=== PATIENT | female | born 1940 | race Caucasian/White ===

== ENCOUNTER → 2016-08-13 | Outpatient (CLI) | payer BC ==
[~2016-08-13] MED LIST: ASPEC81 PO; ATOR-22 PO; CLOP1TAB15 PO; CRG125 PO; DILT-119 PO; DONE1TAB25 PO; HYDR-4717 PO; HYDR25TA4 PO; IMD/2 PO; LEVO112T2 PO; LPT20 PO; NTRSLP4 SL; OMEG10007 PO; OMEP20CA59 PO; PRM/45 PO; SENN-61 PO; SPIR50TA PO
[2016-08-13 10:52] LABS: HEMATOCRIT 40.9 % (37-47); MEAN CELL VOLUME 86.7 fL (80-100); MEAN CORPUSCULAR HEMOGLOBIN 30.5 pg (25-34); MEAN CORPUSCULAR HGB CONC 35.2 g/dl (32-36); MEAN PLATELET VOLUME 10.3 fL (7.4-10.4); PLATELET COUNT 422 K/uL (130-400); RED BLOOD COUNT 4.72 M/uL (4.2-5.4); WHITE BLOOD COUNT 15.47 K/uL (4.8-10.8)
[2016-08-13 11:23] LABS: ESTIMATED AVERAGE GLUCOSE 137 mg/dl; HA1C FLAG Normal (Normal)
[2016-08-13 11:27] LABS: ALT/SGPT 19 U/L (12-78); AST/SGOT 11 U/L (15-37); BASO % 0.6 %; BASO ABS # 0.09 K/uL (0-0.2); BLOOD UREA NITROGEN 36 mg/dl (7-18); BUN/CREATININE RATIO 30.2 (10-20); CARBON DIOXIDE 30 mmol/L (21-32); CHLORIDE 95 mmol/L (98-107); COMPLETE YES; EOS % 1.4 %; GLUCOSE 120 mg/dl (70-99); LYMPH % 13.1 %; LYMPH ABS # 2.02 K/uL (1.2-3.4); MONO % 10.3 %; NEUT % 67.6 %; POTASSIUM 3.6 mmol/L (3.5-5.1); SODIUM 134 mmol/L (136-145); TRIGLYCERIDES 247 mg/dl (0-150); VERY LOW DENSITY LIPOPROT CALC 49 mg/dl
[2016-08-13 11:38] LABS: CHOLESTEROL 166 mg/dl (0-200); CHOLESTEROL/HDL RATIO 3.7; HDL CHOLESTEROL 45 mg/dl; LDL CHOLESTEROL CALCULATED 72 mg/dl
== END | disposition home or self-care (01) ==
LOC: C.LAB1850 09:42
PROVIDERS: ATTEND Internal Medicine
DX: I10 Essential (primary) hypertension (principal); E11.9 Type 2 diabetes mellitus without complications

== ENCOUNTER → 2016-11-17 | Outpatient (CLI) | payer BC ==
[~2016-11-17] MED LIST changes: +ATOR-24 PO; +CARV25TA PO
[2016-11-17 12:41] LABS: HEMATOCRIT 41.8 % (37-47); MEAN CELL VOLUME 91.3 fL (80-100); MEAN CORPUSCULAR HEMOGLOBIN 31.4 pg (25-34); MEAN CORPUSCULAR HGB CONC 34.4 g/dl (32-36); MEAN PLATELET VOLUME 10.3 fL (7.4-10.4); PLATELET COUNT 446 K/uL (130-400); RED BLOOD COUNT 4.58 M/uL (4.2-5.4); WHITE BLOOD COUNT 13.51 K/uL (4.8-10.8)
[2016-11-17 13:16] LABS: ESTIMATED AVERAGE GLUCOSE 137 mg/dl; HA1C FLAG Normal (Normal)
[2016-11-17 13:26] LABS: BLOOD UREA NITROGEN 31 mg/dl (7-18); BUN/CREATININE RATIO 19.3 (10-20); CALCIUM 10.4 mg/dl (8.5-10.1); CARBON DIOXIDE 22 mmol/L (21-32); CHLORIDE 98 mmol/L (98-107); GLUCOSE 179 mg/dl (70-99); POTASSIUM 4.2 mmol/L (3.5-5.1); SODIUM 132 mmol/L (136-145)
[2016-11-17 14:27] LABS: BASO % 0.3 %; BASO ABS # 0.04 K/uL (0-0.2); COMPLETE YES; IG% 6.5 %; LYMPH % 14.5 %; LYMPH ABS # 1.96 K/uL (1.2-3.4); MONO % 8.3 %; NEUT % 68.4 %
[2016-11-17 14:29] LABS: GIANT PLATELETS 1+; LARGE PLATELETS 1+
== END | disposition home or self-care (01) ==
LOC: C.LAB1850 11:13
PROVIDERS: ATTEND Physician Assistant
DX: I10 Essential (primary) hypertension (principal); E03.9 Hypothyroidism, unspecified; E11.9 Type 2 diabetes mellitus without complications

== ENCOUNTER 2016-12-01 09:30 | Inpatient (IN) | payer BC, OTHER ==
[~2016-12-01] VITALS: Ht 162.6 cm; Wt 79.9 kg
[~2016-12-01 09:30] MED LIST changes: -ATOR-24 PO; -CARV25TA PO; -CRG125 PO; -LPT20 PO
[2016-12-01] MEDS ORDERED: ASPIRIN 81 MG CHEW PO STA (10:11)
[2016-12-01] MEDS ORDERED: HydrALAZINE HCL 20 MG/ML VIAL IV. STA (10:11)
[2016-12-01] MEDS ORDERED: NITROGLYCERIN 0.4 MG SL PER TAB CHARGE SL PRN (10:15)
[2016-12-01 10:53] LABS: HEMATOCRIT 41.3 % (37-47); MEAN CELL VOLUME 87.9 fL (80-100); MEAN CORPUSCULAR HEMOGLOBIN 30.9 pg (25-34); MEAN CORPUSCULAR HGB CONC 35.1 g/dl (32-36); MEAN PLATELET VOLUME 9.9 fL (7.4-10.4); PLATELET COUNT 358 K/uL (130-400); WHITE BLOOD COUNT 10.34 K/uL (4.8-10.8)
--- NOTE | 2016-12-01 11:01 | DIAGNOSTIC IMAGING REPORT ---
CHEST ONE VIEW PORTABLE CLINICAL HISTORY: chest pain, HTN dyspnea COMPARISON STUDY: 11/27/2015 FINDINGS: The bones soft tissues and hemidiaphragms are normal. The cardiomediastinal silhouette is normal. The lungs are clear. The pulmonary vasculature is normal. IMPRESSION: Negative chest. Electronically signed by: Vicente Miller M.D. 12/01/2016 10:59 AM Dictated Date/Time: 12/01/2016 10:59 AM
[2016-12-01 11:20] LABS: BLOOD UREA NITROGEN 26 mg/dl (7-18); GLUCOSE 146 mg/dl (70-99)
[2016-12-01 11:21] LABS: ALKALINE PHOSPHATASE 103 U/L (45-117); ALT/SGPT 24 U/L (12-78); AST/SGOT 19 U/L (15-37); CALCIUM 9.6 mg/dl (8.5-10.1); CARBON DIOXIDE 23 mmol/L (21-32); CHLORIDE 93 mmol/L (98-107); MAGNESIUM 1.9 mg/dl (1.8-2.4); POTASSIUM 3.4 mmol/L (3.5-5.1); SODIUM 130 mmol/L (136-145)
[2016-12-01 11:43] LABS: BASO % 0.3 %; BASO ABS # 0.03 K/uL (0-0.2); COMPLETE YES; EOS % 0.9 %; IG% 6.2 %; LYMPH % 13.6 %; LYMPH ABS # 1.41 K/uL (1.2-3.4); VACUOLIZATION 1+
[2016-12-01] MEDS ORDERED: HEPARIN 25000 UNIT/500 ML D5W ONE (12:30)
[2016-12-01] MEDS ORDERED: HEPARIN SOD 5000 UNIT/0.5 ML CARP ONE (12:31)
--- NOTE | 2016-12-01 13:03 | History and Physical ---
History & Physical Date & Time of Service: Dec 01, 2016 at 12:43 Chief Complaint: Chest Pains, Clammy Primary Care Physician: Marquise Clement M.D. History of Present Illness Source: patient, family, clinic records, hospital records This patient is a pleasant 76-year-old female that presents emergency department with complaints of bilateral chest pain that started at 9 AM this morning while she was watching television. She describes it as a severe pressure-like sensation across her chest. It does not radiate to her jaw or arms. She was mildly short of breath, however she has been chronically short of breath for quite some time. She denies any dizziness or lightheadedness. No nausea. No heart palpitations. The patient doesn't a history of significant coronary artery disease. She had a cardiac catheterization performed in 2015, which resulted in a drug-eluting stent in the LAD. Upon arrival in the emergency department, EKG shows slight anterior ST elevation. Troponin is slightly elevated at 0.113. The patient received aspirin 324 mg and nitroglycerin. She says that her pain is much improved. Cardiology was notified. The patient was started on a low-dose heparin drip. Past Medical/Surgical History Medical Problems: (1) Cardiac Dysrhythmia Nos Status: Chronic (2) Diab Anahi Wo Compl, Type Ii Or Unspec Type, Not Uncntrld Status: Chronic (3) Diverticulosis Colon (W/O Ment Of Hemorrhage) Status: Chronic (4) Hyperlipidemia Nec/Nos Status: Chronic (5) Hypertension Nos Status: Chronic (6) Hypothyroidism Nos Status: Chronic (7) Lupus Status: Chronic (8) Menopausal symptoms Status: Resolved (9) Tinnitus Nos Status: Chronic Family History Insignificant due to old age Social History Smoking Status: Former Smoker (quit smoking 40 years ago) Alcohol Use: socially Marital Status: Occupational Status: retired Immunizations History of Influenza Vaccine: Yes Influenza Vaccine Date: Apr 04, 2013 History of Tetanus Vaccine?: Unknown History of Pneumococcal: No History of Hepatitis B Vaccine: Unknown Multi-Drug Resistant Organisms History of MDRO: No Allergies Coded Allergies: Adhesives (Verified Allergy, Mild, RED RASH, 10/18/13) Latex1 -Allergic Contact Dermititis (Unverified Allergy, Mild, RASH, ) Penicillins (Verified Allergy, Unknown, ., 5/6/14) Home Medications Scheduled Aspirin (Aspirin EC Low Dose), 81 MG PO DAILY Atorvastatin (Lipitor), 20 MG PO DAILY Clopidogrel (Plavix), 75 MG PO DAILY Diltiazem Hcl Ext Rel (Tiazac), 360 MG PO DAILY Donepezil Hydrochloride (Donepezil Hcl), 5 MG PO HS Estrogens, Conjugated (Premarin), 0.45 MG PO DAILY Hctz/Spironolactone 25MG/25MG (Aldactazide 25MG/25MG), 1 TAB PO BID Hydralazine Hcl (Apresoline), 50 MG PO BID Levothyroxine Sodium (Synthroid), 112 MCG PO DAILY Omeprazole (Prilosec), 20 MG PO DAILY Scheduled PRN Nitroglycerin (Nitrostat), 0.4 MG SL UD PRN for Chest Pain Review of Systems 10 system review performed and negative unless noted in HPI or below Physical Exam Vital Signs Date Time Temp Pulse Resp B/P (MAP) Pulse Ox O2 Delivery O2 Flow Rate FiO2 12/01/16 11:49 96 18 128/88 94 Room Air 12/01/16 09:54 96 Room Air 12/01/16 09:54 96 Room Air 12/01/16 09:52 67 12/01/16 09:34 36.3 61 20 167/86 99 Room Air General Appearance: no apparent distress Head: normocephalic Eyes: EOMI Neck: no JVD Respiratory/Chest: lungs clear Cardiovascular: regular rate, rhythm, + systolic murmur Abdomen/GI: normal bowel sounds, non tender, soft Extremities/Musculoskelatal: no calf tenderness, no pedal edema Neurologic/Psych: no motor/sensory deficits, oriented x 3 Skin: warm/dry Diagnostics Laboratory Results 12/01/16 10:38 Red Blood Count 4.70, Mean Corpuscular Volume 87.9, Mean Corpuscular Hemoglobin 30.9, Mean Corpuscular Hemoglobin Concent 35.1, Mean Platelet Volume 9.9, Neutrophils (%) (Auto) 71.0, Lymphocytes (%) (Auto) 13.6, Monocytes (%) (Auto) 8.0, Eosinophils (%) (Auto) 0.9, Basophils (%) (Auto) 0.3, Neutrophils # (Auto) 7.34, Lymphocytes # (Auto) 1.41, Monocytes # (Auto) 0.83, Eosinophils # (Auto) 0.09, Basophils # (Auto) 0.03 12/01/16 10:38 Test 12/01/16 10:38 12/01/16 12:30 White Blood Count 10.34 K/uL (4.8-10.8) Red Blood Count 4.70 M/uL (4.2-5.4) Hemoglobin 14.5 g/dL (12.0-16.0) Hematocrit 41.3 % (37-47) Mean Corpuscular Volume 87.9 fL (80-100) Mean Corpuscular Hemoglobin 30.9 pg (25-34) Mean Corpuscular Hemoglobin Concent 35.1 g/dl (32-36) Platelet Count 358 K/uL (130-400) Mean Platelet Volume 9.9 fL (7.4-10.4) Neutrophils (%) (Auto) 71.0 % Lymphocytes (%) (Auto) 13.6 % Monocytes (%) (Auto) 8.0 % Eosinophils (%) (Auto) 0.9 % Basophils (%) (Auto) 0.3 % Neutrophils # (Auto) 7.34 K/uL (1.4-6.5) Lymphocytes # (Auto) 1.41 K/uL (1.2-3.4) Monocytes # (Auto) 0.83 K/uL (0.11-0.59) Eosinophils # (Auto) 0.09 K/uL (0-0.5) Basophils # (Auto) 0.03 K/uL (0-0.2) RDW Standard Deviation 47.0 fL (36.4-46.3) RDW Coefficient of Variation 14.6 % (11.5-14.5) Immature Granulocyte % (Auto) 6.2 % Immature Granulocyte # (Auto) 0.64 K/uL (0.00-0.02) Toxic Vacuolation 1+ Anion Gap 14.0 mmol/L (3-11) Estimated GFR () 57.3 Estimated GFR (Non- 49.4 BUN/Creatinine Ratio 24.0 (10-20) Calcium Level 9.6 mg/dl (8.5-10.1) Magnesium Level 1.9 mg/dl (1.8-2.4) Total Bilirubin 0.6 mg/dl (0.2-1) Direct Bilirubin mg/dl (0-0.2) Aspartate Amino Transf (AST/SGOT) 19 U/L (15-37) Alanine Aminotransferase (ALT/SGPT) 24 U/L (12-78) Alkaline Phosphatase 103 U/L (45-117) Total Creatine Kinase 43 U/L (26-192) Creatine Kinase MB 1.7 ng/ml (0.5-3.6) Creatine Kinase MB Ratio 4.0 (0-3.0) Troponin I 0.113 ng/ml (0-0.045) Total Protein 6.9 gm/dl (6.4-8.2) Albumin 3.9 gm/dl (3.4-5.0) Chemistry Specimen Hemolysis Results Past 24 Hours Test 12/01/16 10:38 12/01/16 12:30 Range/Units White Blood Count 10.34 4.8-10.8 K/uL Red Blood Count 4.70 4.2-5.4 M/uL Hemoglobin 14.5 12.0-16.0 g/dL Hematocrit 41.3 37-47 % Mean Corpuscular Volume 87.9 80-100 fL Mean Corpuscular Hemoglobin 30.9 25-34 pg Mean Corpuscular Hemoglobin Concent 35.1 32-36 g/dl Platelet Count 358 130-400 K/uL Mean Platelet Volume 9.9 7.4-10.4 fL Neutrophils (%) (Auto) 71.0 % Lymphocytes (%) (Auto) 13.6 % Monocytes (%) (Auto) 8.0 % Eosinophils (%) (Auto) 0.9 % Basophils (%) (Auto) 0.3 % Neutrophils # (Auto) 7.34 1.4-6.5 K/uL Lymphocytes # (Auto) 1.41 1.2-3.4 K/uL Monocytes # (Auto) 0.83 0.11-0.59 K/uL Eosinophils # (Auto) 0.09 0-0.5 K/uL Basophils # (Auto) 0.03 0-0.2 K/uL RDW Standard Deviation 47.0 36.4-46.3 fL RDW Coefficient of Variation 14.6 11.5-14.5 % Immature Granulocyte % (Auto) 6.2 % Immature Granulocyte # (Auto) 0.64 0.00-0.02 K/uL Toxic Vacuolation 1+ Sodium Level 130 136-145 mmol/L Potassium Level 3.4 3.5-5.1 mmol/L Chloride Level 93 98-107 mmol/L Carbon Dioxide Level 23 21-32 mmol/L Anion Gap 14.0 3-11 mmol/L Blood Urea Nitrogen 26 7-18 mg/dl Creatinine 1.10 0.60-1.20 mg/dl Estimated GFR () 57.3 Estimated GFR (Non- 49.4 BUN/Creatinine Ratio 24.0 10-20 Random Glucose 146 70-99 mg/dl Calcium Level 9.6 8.5-10.1 mg/dl Magnesium Level 1.9 1.8-2.4 mg/dl Total Bilirubin 0.6 0.2-1 mg/dl Direct Bilirubin 0-0.2 mg/dl Aspartate Amino Transf (AST/SGOT) 19 15-37 U/L Alanine Aminotransferase (ALT/SGPT) 24 12-78 U/L Alkaline Phosphatase 103 45-117 U/L Total Creatine Kinase 43 26-192 U/L Creatine Kinase MB 1.7 0.5-3.6 ng/ml Creatine Kinase MB Ratio 4.0 0-3.0 Troponin I 0.113 0-0.045 ng/ml Total Protein 6.9 6.4-8.2 gm/dl Albumin 3.9 3.4-5.0 gm/dl Chemistry Specimen Hemolysis Diagnostic Radiology Patient Name: CATHERINE HEATON I Unit Number: [id number] Dictated: 12/01/161058 Transcribed: 12/01/16 105 MS Printed Date/Time: [~ rep prt dt]/[~ rep prt tm] [~ rep ct labl] - [~ rep ct ivnm] [facility] [place] [address] Dictated: 12/01/161058 Transcribed: 12/01/16 1059 MS Printed Date/Time: [~ rep prt dt]/[~ rep prt tm] [~ rep ct labl] - [~ rep ct ivnm] Patient: CATHERINE HEATON I Address1: [address] [place] [address] Rec: [id number] Address2: Acct ID: [id number] [facility] Zip: [place] [address] Date: 1940 Sex: F Room/Bed: Ref Phy: Marquise Clement M.D. SC: JOY Att Phy: Report #: [id number] Rea Phy: Marquise Clement M.D. Test: [id number] Admit Phy: Sales And Business Development Manager: EARNEST Interpreting Phy: Vicente Miller M.D. Diagnosis: CHEST PAINS, CLAMMY Ordering Phy: Christina Carvajal M.D. Service Date: 12/01/16 Admit Date: 12/01/16 MNE: [id number] CONF: DICTATED BY: Vicente Miller M.D.]] CC: Marquise Clement M.D. Flickinger, Bridget B., M.D. Endcc: [~ rep ct add3]] CHEST ONE VIEW PORTABLE CLINICAL HISTORY: chest pain, HTN dyspnea COMPARISON STUDY: 11/27/2015 FINDINGS: The bones soft tissues and hemidiaphragms are normal. The cardiomediastinal silhouette is normal. The lungs are clear. The pulmonary vasculature is normal. IMPRESSION: Negative chest. Electronically signed by: Vicente Miller M.D. 12/01/2016 10:59 AM Dictated Date/Time: 12/01/2016 10:59 AM The status of this report is Signed. Draft = Not yet reviewed or approved by Radiologist. Signed = Reviewed and approved by Radiologist. <AttendingPhy></AttendingPhy> <FamilyPhy>Marquise Clement M.D.</FamilyPhy> < PrimaryPhy>Marquise Clement M.D.</PrimaryPhy> <UnitNumber>[id number]</UnitNumber > <VisitNumber>[id number]</VisitNumber> <PatientName>CATHERINE HEATON I</ PatientName> <DateOfBirth>1940</DateOfBirth> <Location>C.EDB</Location> < ServiceDate>12/01/16</ServiceDate> <MNE>ESINDI</MNE> <OrderingPhy>Christina Carvajal M.D.</OrderingPhy> <OrderingPhyMNE>f rep ord dr mne</OrderingPhyMNE> < DictatingPhyMNE>f rep dict dr feliz</DictatingPhyMNE> <CCListMNE>f rep ct trini</ CCListMNE> <AdmittingPhyMNE>f pt admit dr feliz</AdmittingPhyMNE> <AttendingPhyMNE >f pt attend dr feliz</AttendingPhyMNE> <ConsultingPhyMNE>f pt consult dr feliz</ConsultingPhyMNE> <FamilyPhyMNE>f pt fam dr feliz</FamilyPhyMNE> <OtherPhyMNE>f pt other dr feliz</OtherPhyMNE> < PrimaryPhyMNE>f pt prim care dr feliz</PrimaryPhyMNE> <ReferringPhyMNE>f pt referring dr feliz</ReferringPhyMNE> EKG Initial EKG shows normal sinus rhythm with a first-degree AV block Rate [address] elevation noted in the anterior leads with lateral ST depression Impression Assessment and Plan 76-year-old female with a history of coronary artery disease presented to the emergency department with chest pain that is now improving. EKG concerning for HI ACS/NSTEMI -admit to telemetry -Continue heparin drip -Check echo -Cardiology consult -follow cardiac enzymes every 8 hr x 2 -daily EKG -continue ASA, statin -nitro paste -keep NPO -continue plavix -unsure why pt is not on a beta michael-->will begin low dose coreg if not contraindicated HTN -continue Hydralazine 50 mg po BID -Continue Diltiazem ER 360 mg daily -hold diuretics for now diabetes mellitus-managed with diet and exercise -follow BSGs AC, HS and with meals -insulin sliding scale Hyponatremia-likely secondary to diuretics -hold diuretics as noted above Hypothyroidism -continue Synthroid 112 micrograms daily Mild dementia -continue Aricept 5 mg daily DVT prophylaxis -heparin gtt -TEDS, SCDs CODE STATUS -LEVEL I FULL CODE I personally interviewed and examined the patient I agree with above mentioned physical exam, History and plan 76-year-old F P/W chest pain started at 9 AM at rest / pressure-like denies any dizziness or lightheadedness. she has Hx of PAD/CAD S/P LAD stent last year . currently chest pain free ROS: negative General Appearance: no apparent distress Respiratory/Chest: lungs clear Cardiovascular: regular rate, rhythm Abdomen/GI: normal bowel sounds, non tender, soft Extremities no calf tenderness, no pedal edema Neurologic/Psych: moves all ext, sensation intact Skin: warm/dry Chest pain/NSTEMI R/O ACS, admit to tele, serial cardiac enz, heparin drip, consult drywall carrier D/W with her PCP Dr. Tyler the fact that she is not on B Michael, he agreed to switch her diltiazem to B Michael. continue antiplatelet and statin further recommendation will follow Dre [facility] [place] Level of Care Telemetry Resuscitation Status FULL RESUSCITATION VTE Prophylaxis VTE Risk Assessment Done? Y/N: Yes Risk Level: Low Given or contraindicated: Other Anticoagulation, T.E.D. Stockings, SCD's
[2016-12-01] MEDS ORDERED: ONDANSETRON INJ 2 MG/ML 2 ML VIAL IV PRN (13:15)
[2016-12-01] MEDS ORDERED: ACETAMINOPHEN 325 MG TAB PO PRN (13:15)
[2016-12-01] MEDS ORDERED: HEPARIN IV LOW DOSE NO BOLUS SCH (13:17)
[2016-12-01 13:23] LABS: PARTIAL THROMBOPLASTIN RATIO 1.1; PROTHROMBIN TIME (PATIENT) 10.6 SECONDS (9.0-12.0)
--- NOTE | 2016-12-01 13:26 | EMERGENCY ROOM VISIT NOTE ---
History Report prepared by Farrukh: Eileen Rosario Under the Supervision of: Dr. Christina Carvajal M.D. First contact with patient: 09:53 Chief Complaint: CHEST PAIN Stated Complaint: CHEST PAINS, CLAMMY Nursing Triage Summary: Patient reports chest pressure and left shoulder discomfort that started approx one hour ago. Patient also feels short of breath. Patient states she had a stent placed about a year ago at [facility] [place] [place]. Patient was watching television when this pain started. History of Present Illness The patient is a 76 year old female who presents to the Emergency Room with complaints of improving left-sided chest pain that started approximately 1 hour ago. The patient was sitting at home watching TV when the pain started. The patient states that her pain is nearly resolved. She describes the pain as pressure. Per nursing notes, the patient's pain radiated into her left shoulder but the patient denies any radiation currently. She experienced shortness of breath with the pain. The patient takes one baby aspirin daily and she states that she took one last night. The patient has a history of hypertension. She did not take her blood pressure medication this morning. The patient adds that she is also experiencing anxiety from being in the ED. The patient's states that she has a stent in her heart and a stent in her kidneys. He adds that she had a bypass in her leg but didn't specify the reasoning for it. The patient is a former smoker and states that she smoked 40 years ago. Source of History: patient, spouse/significant other () Onset: approximately 1 hour ago Position: chest (left) Quality: pressure Timing: other (improving) Associated Symptoms: + SOB Note: left shoulder pain Review of Systems See HPI for pertinent positives & negatives. A total of 10 systems reviewed and were otherwise negative. Past Medical & Surgical Medical Problems: (1) CAD (coronary artery disease) (2) Cardiac Dysrhythmia Nos (3) Diab Anahi Wo Compl, Type Ii Or Unspec Type, Not Uncntrld (4) Diverticulosis Colon (W/O Ment Of Hemorrhage) (5) Hyperlipidemia Nec/Nos (6) Hypertension Nos (7) Hypothyroidism Nos (8) Lupus (9) Menopausal symptoms (10) STEMI (ST elevation myocardial infarction) (11) Tinnitus Nos Family History Insignificant due to old age Social History Smoking Status: Former Smoker Marital Status: Housing Status: lives with significant other Occupation Status: retired Current/Historical Medications Scheduled Aspirin (Aspirin EC Low Dose), 81 MG PO DAILY Atorvastatin (Atorvastatin Calcium), 40 MG PO DAILY Carvedilol (Carvedilol), 12.5 MG PO BID Clopidogrel (Plavix), 75 MG PO DAILY Donepezil Hydrochloride (Donepezil Hcl), 5 MG PO HS Estrogens, Conjugated (Premarin), 0.45 MG PO DAILY Hydralazine Hcl (Apresoline), 50 MG PO BID Levothyroxine Sodium (Synthroid), 112 MCG PO DAILY Omeprazole (Prilosec), 20 MG PO DAILY Scheduled PRN Nitroglycerin (Nitrostat), 0.4 MG SL UD PRN for Chest Pain Allergies Coded Allergies: Adhesives (Verified Allergy, Mild, RED RASH, 10/18/13) Latex1 -Allergic Contact Dermititis (Unverified Allergy, Mild, RASH, ) Penicillins (Verified Allergy, Unknown, ., 10/18/13) Physical Exam Vital Signs Date Time Temp Pulse Resp B/P (MAP) Pulse Ox O2 Delivery O2 Flow Rate FiO2 12/01/16 14:14 81 19 162/77 93 12/01/16 14:08 81 19 162/77 93 Room Air 12/01/16 13:39 72 12/01/16 11:49 96 18 128/88 94 Room Air 12/01/16 09:54 96 Room Air 12/01/16 09:54 96 Room Air 12/01/16 09:52 67 12/01/16 09:34 36.3 61 20 167/86 99 Room Air Physical Exam Vital signs reviewed. General: Well-appearing female, in no significant distress. HEENT: No scleral icterus, PERRLA, neck supple. Atraumatic. Cardiovascular: Regular rate and rhythm, no extra sounds. Pulmonary: Clear to auscultation bilaterally, normal work of breathing. Abdomen: Soft, nontender, nondistended, positive bowel sounds. Musculoskeletal: Atraumatic, no peripheral edema. Neurologic: Patient awake alert and oriented x 3, full strength in all 4 extremities. Cranial nerves 2 through 12 grossly intact. Skin: Warm, dry, no rash Medical Decision & Procedures ER Provider Diagnostic Interpretation: Radiology results as stated below per my review and radiologist interpretation: CHEST ONE VIEW PORTABLE FINDINGS: The bones soft tissues and hemidiaphragms are normal. The cardiomediastinal silhouette is normal. The lungs are clear. The pulmonary vasculature is normal. IMPRESSION: Negative chest. Electronically signed by: Vicente Miller M.D. 12/01/2016 10:59 AM Dictated Date/Time: 12/01/2016 10:59 AM Laboratory Results Test 12/01/16 10:38 12/01/16 12:50 Total Bilirubin 0.6 mg/dl (0.2-1) Direct Bilirubin mg/dl (0-0.2) Aspartate Amino Transf (AST/SGOT) 19 U/L (15-37) Alanine Aminotransferase (ALT/SGPT) 24 U/L (12-78) Alkaline Phosphatase 103 U/L (45-117) Total Protein 6.9 gm/dl (6.4-8.2) Albumin 3.9 gm/dl (3.4-5.0) Chemistry Specimen Hemolysis Prothrombin Time 10.6 SECONDS (9.0-12.0) Prothromb Time International Ratio 1.0 (0.9-1.1) Laboratory results per my review. Medications Administered Medications (Trade) Dose Ordered Sig/Felicity Route Start Time Stop Time Status Last Admin Dose Admin Hydralazine HCl (HydrALAZINE INJ) 10 mg NOW STAT IV. 12/01/16 10:11 12/01/16 10:14 DC 12/01/16 10:58 10 MG Aspirin (Aspirin Chew) 324 mg NOW STAT PO 12/01/16 10:11 12/01/16 10:14 DC 12/01/16 10:55 324 MG Nitroglycerin (Nitrostat Tab) 0.4 mg Q5M PRN SL 12/01/16 10:15 12/01/16 15:07 DC 12/01/16 11:43 0.4 MG Heparin Sodium/ Dextrose (Heparin 25,000 Unit/500ml D5W) 25,000 unit STK-MED ONCE .ROUTE 12/01/16 12:30 12/01/16 12:31 DC 12/01/16 13:08 25,000 UNIT Heparin Sodium (Porcine) (Heparin Sq 5000 Unit/0.5ml) 5,000 unit STK-MED ONCE .ROUTE 12/01/16 12:31 12/01/16 12:32 DC 12/01/16 13:09 4,000 UNIT Nitroglycerin (Nitroglycerin 2% Oint) 1 inch Q6 EXT 12/01/16 13:15 12/04/16 12:59 DC 12/04/16 06:00 1 INCH Carvedilol (Coreg Tab) 3.125 mg BID PO 12/01/16 13:30 12/02/16 10:05 DC 12/02/16 08:14 3.125 MG Heparin Sodium/ Dextrose 500 ml @ 19 mls/hr Q24H PRN IV 12/01/16 13:45 12/02/16 15:44 DC 12/02/16 03:07 19 MLS/HR ECG Indication: chest pain Rate (beats per minute): 67 Rhythm: sinus rhythm Findings: 1st degree AV block, ST depression (Lateral), ST elevation (Anterior , questionable), left axis deviation Comparison ECG Date: 01/21/2016 Change: ST changes are new Repeat EKG on 12/01/2016 showed a sinus rhythm, rate of 71, 1st degree AV block , left axis deviation, ST elevations in anterior leads and ST depressions in lateral leads have resolved ED Course 1008: Past medical records reviewed. The patient was evaluated in room B8. A complete history and physical examination was performed. 1011: Ordered Aspirin 324 mg PO, Hydralazine HCl 10 mg IV 1015: Ordered Nitroglycerin 0.4 mg SL 1215: I reviewed the patient's case with Dr. Rivera - Cardiology. 1218: I reviewed the patient's case with Beti Frank PA-C [place] [facility] [place] [facility] [place] She will evaluate the patient for further management. 1230: Ordered Heparin Sodium/Dextrose 10296 unit IV 1231: Ordered Heparin Sodium 5000 unit IV 1235: Upon reevaluation, the patient is resting comfortably. I discussed laboratory and radiographic results with her. She verbalized agreement of the treatment plan. [facility] The patient will be evaluated for further management and care. Medical Decision Differential diagnoses includes acute coronary syndrome, pulmonary embolus, aortic dissection, musculoskeletal pain, pneumonia, pleural effusion, pneumothorax, gastritis, peptic ulcer disease. Medication Reconciliation: I attest that I have personally reviewed the patient' s current medication list. Blood Pressure Screening: Patient was found to have an elevated blood pressure but was not referred to her primary care doctor because she is going to be evaluated for further management by the hospitalist. This patient was evaluated and appeared to be in no significant distress. IV access was obtained and laboratory work was drawn. Patient was given aspirin, IV hydralazine. A nitroglycerin trial was ordered. Patient's EKG reveals a first-degree AV block with mild J-point elevation in the anterior leads, ST depression laterally. I did discuss the case with Dr. Troy of cardiology who has asked that Dr. Sandoval of interventional cardiology evaluated the patient. Laboratory work reveals mildly elevated troponin 0.113. With the patient's cardiac history, she was started on IV heparin. Dr. Sandoval evaluated the patient in the emergency department. Patient was made aware of the plan for catheterization. The hospitalist service was consulted and will evaluate the patient for admission and further management. Consults Time Called: 1211 Consulting Physician: Dr. Nicole Araujo Cardiology Returned Call: 1215 I reviewed the patient's case with Dr. Nicole Araujo Cardiology. Additional Consults: Time Called: 1211 Consulted Physician: Beti SANTOYO Returned Call: 1218 Additional Comments: I reviewed the patient's case with Beti SANTOYO. She will evaluate the patient for further management. Impression Primary Impression: Acute coronary syndrome Scribe Attestation The scribe's documentation has been prepared under my direction and personally reviewed by me in its entirety. I confirm that the note above accurately reflects all work, treatment, procedures, and medical decision making performed by me. Departure Information Dispostion Being Evaluated By Hospitalist Prescriptions Carvedilol (Carvedilol) 12.5 Mg Tab 12.5 MG PO BID for 30 Days, #60 TAB Prov: Rea Pike PA-C 12/04/16 Atorvastatin (Atorvastatin Calcium) 20 Mg Tab 40 MG PO DAILY for 30 Days, #60 TAB Prov: Rea Pike PA-C 12/04/16 Referrals Marquise Clement M.D. (PCP) Patient Instructions [facility]
[2016-12-01] MEDS: HEPARIN 25,000 UNIT/500ML D5W 500 ML IV PRN ×2 (14:50→18:51)
[2016-12-01] MEDS ORDERED: POTASSIUM CHLORIDE 10 MEQ / 100ML WTR IV STA (14:55)
[2016-12-01] MEDS ORDERED: POTASSIUM CHLR 10MEQ / WTR IV SCH (15:00)
[2016-12-01 15:07] VITALS: O2SAT 94
[2016-12-01] MEDS: CARVEDILOL 3.125 MG TAB PO SCH ×2 (15:22→21:42)
[2016-12-01] MEDS: NITROGLYCERIN 2% OINTMENT 30GM TUBE EXT SCH ×3 (15:24→23:41)
[2016-12-01 15:25] VITALS: BP 159/79; PULSE 90; TEMP 36.6; O2SAT 95; Ht 162.6 cm; Wt 79.9 kg
[2016-12-01 17:02] VITALS: BP 159/79; PULSE 91; TEMP 36.6; O2SAT 93
[2016-12-01 19:19] LABS: PARTIAL THROMBOPLASTIN RATIO 1.3
--- NOTE | 2016-12-01 19:21 | CARDIOLOGY CONSULTATION ---
DATE OF CONSULTATION: 12/01/2016 REFERRING PHYSICIAN: Dre Martin MD. CHIEF COMPLAINT: Chest pain. HISTORY OF PRESENT ILLNESS: Mrs. Gaby Brush is a 76-year-old woman with a known history of coronary disease having previously undergone percutaneous intervention involving the LAD in 2016. The patient herself can provide little history as she has significant short term memory loss, however, she was brought to the Emergency Room earlier today for symptoms of chest discomfort by her . Apparently, the patient has been having some symptoms of chest pain which were present at the time of initial evaluation in the Emergency Room. The patient underwent initial EKG which demonstrated some concerning findings. After administration of nitroglycerin, and initiation of heparin infusion, her symptoms seemed to resolve and the EKG normalized. At the time of this interview, the patient claims to be feeling well. She states she does not currently having any chest pain symptoms. There is no pleuritic component. She states that she has chronic dyspnea, but currently is comfortable. She denies significant orthopnea or paroxysmal nocturnal dyspnea. She is not aware of any palpitations. She denies significant dizziness. Her main concern currently is eating lunch. PAST MEDICAL HISTORY: Significant for: 1. The aforementioned coronary artery disease having previously undergone percutaneous intervention involving the LAD on 01/21/2016. At that time, the patient was noted to have nonobstructive disease in both the circumflex and right coronary territory. 2. Aortic stenosis characterizes severe, most recent transvalvular velocity 3 m/sec with a mean gradient of 22 mmHg . 3. Dementia, believed to be vascular. 4. Mild renal insufficiency. 5. Gastroesophageal reflux disease. 6. Hypertension. 7. Hypercholesterolemia. 8. History of claudication. 9. Renal artery stenosis status post stenting. PAST SURGICAL HISTORY: Significant for lumpectomy, cataracts, section, hysterectomy and salpingo-oophorectomy. FAMILY HISTORY: Significant for diabetes and heart disease, although no premature coronary disease. SOCIAL HISTORY: The patient currently lives with her . She has a remote history of tobacco abuse, not currently smoking, not currently abusing alcohol. OUTPATIENT MEDICATIONS: Include atorvastatin, clopidogrel, diltiazem, ____, hydralazine, levothyroxine, omeprazole, Premarin, spironolactone. MEDICAL ALLERGIES: INCLUDE ADHESIVE TAPE AND LATEX. REVIEW OF SYSTEMS: A complete review of systems was obtained from the patient, although she has significant memory issues and this may be unreliable. The pertinent positives noted in the history of present illness, the remainder being negative. PHYSICAL EXAMINATION: GENERAL: The patient does not appear to be in any acute distress. She is a pleasant individual who is alert and oriented. Mood and affect appeared normal, but she had poor memory overall. VITAL SIGNS: Include a blood pressure of 162/77 with pulse of 81. HEENT: Her sclerae are anicteric. Her pupils are equal, reactive to light and accommodation. Extraocular movements were intact. Palpation of submandibular region did not reveal any significant lymphadenopathy and the carotids were palpable bilaterally. I did not appreciate any bruits on auscultation, but there was radiation of her aortic murmur in to the carotids. There is no evidence of thyromegaly. NEUROLOGIC: Revealed the cranial nerves to be intact. LUNGS: Auscultation of both lung berg reveal them to be clear. There were no rales, wheezes or rhonchi. She had normal respiratory effort without use of accessory muscles. CARDIAC: Revealed her to be in a regular rhythm. She had a crescendo systolic murmur that was mid to late peaking and heard best at the right second intercostal space. There was radiation in to the carotids. PMI was not markedly displaced on palpation. ABDOMEN: Soft and nontender. EXTREMITIES: Evaluation of both wrists revealed radial pulses that were equal in intensity. There is no evidence of cyanosis or clubbing. Evaluation of the lower extremities revealed palpable left femoral pulses, diminished right femoral pulses. There were no bruits on auscultation. Evaluation of lower extremities did not reveal any significant peripheral edema. I did not appreciate any rashes on exam today. LABORATORY STUDIES: Include, a white cell count of 10.3, hemoglobin of 14, platelet count of 358. Sodium is 130, potassium is 3.4, BUN was 26, creatinine was 1.1. Initial cardiac troponin was 0.113. IMAGING DATA: A single view chest x-ray was obtained in the Emergency Room, which did not reveal any evidence of acute cardiopulmonary disease. Two EKGs were available for review. An initial EKG revealed the patient to be in normal sinus rhythm with ST elevations in V1 and V2 and ST depressions in the lateral precordial and limb leads. A second EKG was performed, which demonstrated near resolution of all these changes with the exception of some ST segment depressions in lead 1, and aVL. When compared to old EKGs, the second EKG did not differ significantly. ASSESSMENT AND PLAN: 1. Acute coronary syndrome: The patient's history is unreliable. Symptoms of chest pain were confirmed by the and the Emergency Room staff. This is coincided with dynamic EKG changes. She is known to have coronary artery disease and underwent percutaneous intervention approximately 1 year ago. Currently, she appears to be pain free and has been started on heparin and has received additional aspirin. Her diltiazem is switched to a beta long. Based on the nature of her EKG change and symptoms, it will be reasonable to proceed with coronary angiography. I will discuss the options with the patient's prior to proceeding. 2. Aortic stenosis. This is characterizes a severe, although the transaortic velocity is only 3 m/sec. I doubt based on the last assessment which was performed on 11/14/2016, there is any associated symptoms. I do not believe her chest pain is related to aortic stenosis. The symptoms themselves appear to occur at rest and not with exertion and the degree of her aortic stenosis is not likely to produce these symptoms. FINAL RECOMMENDATIONS: 1. Continue heparin infusion. 2. Agree with additional dose of aspirin. 3. The patient has been switched from diltiazem to low dose beta blockade. 4. Nitroglycerin for blood pressure control, recurrent symptoms of chest discomfort. 5. Discuss options with the patient's including consideration of repeat coronary angiography.
[2016-12-01] MEDS ORDERED: DEXTROSE 50% 50 ML SYR IV PRN (19:30)
[2016-12-01] MEDS ORDERED: GLUCAGON FOR INJ 1 MG VIAL SQ PRN (19:30)
[2016-12-01] MEDS ORDERED: GLUCOSE 10 TABS/TUBE PO PRN (19:30)
[2016-12-01] MEDS ORDERED: GLUCOSE 40% GEL 15 GM TUBE PO PRN (19:30)
[2016-12-01 19:36] LABS: CKMB/CK RATIO 8.2 (0-3.0)
[2016-12-01] MEDS ORDERED: HEPARIN IV BOLUS 4,000 UNIT in SYRINGE 0 ML IV ONE (19:45)
[2016-12-01 20:28] VITALS: BP 135/79; PULSE 88; TEMP 36.9; O2SAT 94
[2016-12-01] MEDS: DONEPEZIL HCL 5 MG TAB PO SCH (21:41)
[2016-12-01] MEDS: INSULIN ASPART 100 UNITS/ML 3 ML PEN SC SCH (21:43)
[2016-12-01 23:00] VITALS: BP 133/73; PULSE 85; TEMP 37; O2SAT 92
[2016-12-02] VITALS (15 sets, daily range): BP systolic 124–172; BP diastolic 67–92; PULSE 63–96; TEMP 36.3–36.9; O2SAT 93–97
[2016-12-02 02:46] LABS: PARTIAL THROMBOPLASTIN RATIO 1.5
[2016-12-02 02:57] LABS: BUN/CREATININE RATIO 31.5 (10-20); CALCIUM 9.1 mg/dl (8.5-10.1); CREATININE 1.1 mg/dl (0.60-1.20); POTASSIUM 3.1 mmol/L (3.5-5.1)
[2016-12-02 02:59] LABS: HEMATOCRIT 37.9 % (37-47); MEAN CORPUSCULAR HEMOGLOBIN 31.9 pg (25-34); MEAN CORPUSCULAR HGB CONC 35.9 g/dl (32-36); PLATELET COUNT 351 K/uL (130-400); RED BLOOD COUNT 4.26 M/uL (4.2-5.4); WHITE BLOOD COUNT 13.35 K/uL (4.8-10.8)
[2016-12-02] MEDS: HEPARIN 25,000 UNIT/500ML D5W 500 ML IV PRN (03:07)
[2016-12-02 03:10] LABS: CHOLESTEROL/HDL RATIO 3.9
[2016-12-02] MEDS ORDERED: HEPARIN IV BOLUS 4,000 UNIT in SYRINGE 0 ML IV ONE (03:15)
[2016-12-02 03:52] LABS: BASO % 0.2 %; BASO ABS # 0.03 K/uL (0-0.2); COMPLETE YES; EOS % 1.4 %; HYPERSEGMENTED POLYS 1+; IG% 4.9 %; LYMPH % 22.8 %; LYMPH ABS # 3.05 K/uL (1.2-3.4); MONO % 11.1 %; NEUT % 59.6 %; VACUOLIZATION 1+
[2016-12-02] MEDS: NITROGLYCERIN 2% OINTMENT 30GM TUBE EXT SCH ×3 (06:28→17:10)
[2016-12-02] MEDS: LEVOTHYROXINE 112 MCG TAB PO SCH (06:28)
[2016-12-02] MEDS ORDERED: POTASSIUM CHLORIDE 20 MEQ TABCR PO STA (08:00)
[2016-12-02] MEDS: INSULIN ASPART 100 UNITS/ML 3 ML PEN SC SCH ×4 (08:12→20:25)
[2016-12-02] MEDS: CLOPIDOGREL BISULFATE 75 MG TAB PO SCH (08:13)
[2016-12-02] MEDS: PANTOprazole SOD 40 MG TAB PO SCH (08:13)
[2016-12-02] MEDS: CARVEDILOL 3.125 MG TAB PO SCH ×2 (08:14→20:27)
[2016-12-02] MEDS ORDERED: ESTROGENS, CONJUGATED 0.45 MG TAB PO SCH (09:00)
[2016-12-02] MEDS ORDERED: ATORVASTATIN 20 MG TAB PO SCH (09:00)
[2016-12-02] MEDS ORDERED: DILTIAZEM HCL (TIAzac) 180 MG CAPCR PO SCH (09:00)
[2016-12-02] MEDS ORDERED: ASPIRIN 81 MG ECTAB PO SCH (09:00)
[2016-12-02] MEDS: ASPIRIN 81 MG ECTAB PO SCH (09:43)
--- NOTE | 2016-12-02 09:43 | Hospitalist Progress Note ---
Hospitalist Progress Note Date of Service Dec 02, 2016. Subjective Pt evaluation today including: conversation w/ patient, physical exam, chart review, lab review, review of studies, review of inpatient medication list Voiding: no voiding problems, no incontinence Patient states she is feeling well. h/o dementia- Oriented to self/place. Cardiology in to see patient, but cannot recall conversation. Unsure of why she came to hospital- denies any recent/overnight episodes of CP Patient denies any fever, chills, sweats, lightheadedness, dizziness, vision changes, CP, palpitations, edema, SOB, wheezing, cough, abdominal pain, nausea, vomiting, diarrhea, urinary symptoms, melena, numbness/tingling, weakness, muscle/joint pain, anxiety/depression, active bleeding, or new skin discoloration/changes. *Unsure of reliability due to dementia. Medications Current Inpatient Medications Medications (Trade) Dose Ordered Sig/Felicity Route Start Time Stop Time Status Last Admin Dose Admin Nitroglycerin (Nitroglycerin 2% Oint) 1 inch Q6 EXT 12/01/16 13:15 12/31/16 13:14 12/02/16 06:28 1 INCH Acetaminophen (Tylenol Tab) 650 mg Q4H PRN PO 12/01/16 13:15 12/31/16 13:14 Ondansetron HCl (Zofran Inj) 4 mg Q6H PRN IV 12/01/16 13:15 12/31/16 13:14 Aspirin (Ecotrin Tab) 81 mg DAILY PO 12/02/16 09:00 01/01/17 08:59 Atorvastatin Calcium (Lipitor Tab) 20 mg DAILY PO 12/02/16 09:00 01/01/17 08:59 12/02/16 08:13 20 MG Clopidogrel Bisulfate (plAVix TAB) 75 mg DAILY PO 12/02/16 09:00 01/01/17 08:59 12/02/16 08:13 75 MG Hydralazine HCl (Apresoline Tab) 50 mg BID PO 12/01/16 21:00 12/31/16 20:59 12/02/16 08:14 50 MG Levothyroxine Sodium (Synthroid Tab) 112 mcg DAILYBB PO 12/02/16 06:00 01/01/17 06:59 12/02/16 06:28 112 MCG Donepezil HCl (Aricept Tab) 5 mg HS PO 12/01/16 21:00 12/31/16 20:59 12/01/16 21:41 5 MG Pantoprazole Sodium (Protonix Tab) 40 mg DAILY PO 12/02/16 09:00 01/01/17 08:59 12/02/16 08:13 40 MG Carvedilol (Coreg Tab) 3.125 mg BID PO 12/01/16 13:30 12/31/16 13:29 12/02/16 08:14 3.125 MG Heparin Sodium/ Dextrose 500 ml @ 19 mls/hr Q24H PRN IV 12/01/16 13:45 12/31/16 13:44 12/02/16 03:07 19 MLS/HR Insulin Aspart (novoLOG ASPART) SLIDING SCALE G... ACHS SC 12/01/16 21:00 12/31/16 20:59 12/01/16 21:43 1 UNITS Glucose (Glucose 40% Gel) 15-30 GRAMS 15 GRAMS... UD PRN PO 12/01/16 19:30 12/31/16 19:29 Glucose (Glucose Chew Tab) 4-8 Tablets 4 Tabl... UD PRN PO 12/01/16 19:30 12/31/16 19:29 Dextrose (Dextrose 50% 50ML Syringe) 25-50ML OF 50% DW IV FOR... UD PRN IV 12/01/16 19:30 12/31/16 19:29 Glucagon (Glucagon Inj) 1 mg UD PRN SQ 12/01/16 19:30 12/31/16 19:29 Objective Vital Signs Date Time Temp Pulse Resp B/P (MAP) Pulse Ox O2 Delivery O2 Flow Rate FiO2 12/02/16 08:00 95 Room Air 12/02/16 07:35 36.7 69 22 156/83 (107) 95 Room Air 12/02/16 04:03 Room Air 12/02/16 03:33 36.9 76 19 148/74 (98) 93 Room Air 12/02/16 00:02 Room Air 12/01/16 23:00 37.0 85 16 133/73 (93) 92 Room Air 12/01/16 20:54 Room Air 12/01/16 20:28 36.9 88 18 135/79 (97) 94 Room Air 12/01/16 17:02 36.6 91 18 159/79 (105) 93 Room Air 12/01/16 15:25 36.6 90 18 159/79 95 Room Air 12/01/16 15:07 94 Room Air 12/01/16 14:14 81 19 162/77 93 12/01/16 14:08 81 19 162/77 93 Room Air 12/01/16 13:39 72 12/01/16 11:49 96 18 128/88 94 Room Air 12/01/16 09:54 96 Room Air 12/01/16 09:54 96 Room Air 12/01/16 09:52 67 12/01/16 09:34 36.3 61 20 167/86 99 Room Air Physical Exam General Appearance: no apparent distress Eyes: normal inspection, PERRL ENT: hearing grossly normal Neck: supple Respiratory/Chest: lungs clear, no respiratory distress, no accessory muscle use Cardiovascular: regular rate, rhythm, + systolic murmur Abdomen: normal bowel sounds, non tender, soft Extremities: no pedal edema, no calf tenderness Neurologic/Psychiatric: alert, normal mood/affect, + disoriented (time ) Skin: normal color, warm/dry, no rash Laboratory Results Last 24 Hours Test 12/01/16 10:38 12/01/16 12:50 12/01/16 18:57 12/01/16 20:43 White Blood Count 10.34 K/uL Red Blood Count 4.70 M/uL Hemoglobin 14.5 g/dL Hematocrit 41.3 % Mean Corpuscular Volume 87.9 fL Mean Corpuscular Hemoglobin 30.9 pg Mean Corpuscular Hemoglobin Concent 35.1 g/dl Platelet Count 358 K/uL Mean Platelet Volume 9.9 fL Neutrophils (%) (Auto) 71.0 % Lymphocytes (%) (Auto) 13.6 % Monocytes (%) (Auto) 8.0 % Eosinophils (%) (Auto) 0.9 % Basophils (%) (Auto) 0.3 % Neutrophils # (Auto) 7.34 K/uL Lymphocytes # (Auto) 1.41 K/uL Monocytes # (Auto) 0.83 K/uL Eosinophils # (Auto) 0.09 K/uL Basophils # (Auto) 0.03 K/uL RDW Standard Deviation 47.0 fL RDW Coefficient of Variation 14.6 % Immature Granulocyte % (Auto) 6.2 % Immature Granulocyte # (Auto) 0.64 K/uL Toxic Vacuolation 1+ Sodium Level 130 mmol/L Potassium Level 3.4 mmol/L Chloride Level 93 mmol/L Carbon Dioxide Level 23 mmol/L Anion Gap 14.0 mmol/L Blood Urea Nitrogen 26 mg/dl Creatinine 1.10 mg/dl Estimated GFR () 57.3 Estimated GFR (Non- 49.4 BUN/Creatinine Ratio 24.0 Random Glucose 146 mg/dl Calcium Level 9.6 mg/dl Magnesium Level 1.9 mg/dl Total Bilirubin 0.6 mg/dl Direct Bilirubin mg/dl Aspartate Amino Transf (AST/SGOT) 19 U/L Alanine Aminotransferase (ALT/SGPT) 24 U/L Alkaline Phosphatase 103 U/L Total Creatine Kinase 43 U/L 65 U/L Creatine Kinase MB 1.7 ng/ml 5.3 ng/ml Creatine Kinase MB Ratio 4.0 8.2 Troponin I 0.113 ng/ml 1.880 ng/ml Total Protein 6.9 gm/dl Albumin 3.9 gm/dl Chemistry Specimen Hemolysis Prothrombin Time 10.6 SECONDS Prothromb Time International Ratio 1.0 Activated Partial Thromboplast Time 29.4 SECONDS 33.3 SECONDS Partial Thromboplastin Ratio 1.1 1.3 Bedside Glucose 173 mg/dl Test 12/02/16 02:20 12/02/16 09:00 White Blood Count 13.35 K/uL Red Blood Count 4.26 M/uL Hemoglobin 13.6 g/dL Hematocrit 37.9 % Mean Corpuscular Volume 89.0 fL Mean Corpuscular Hemoglobin 31.9 pg Mean Corpuscular Hemoglobin Concent 35.9 g/dl Platelet Count 351 K/uL Mean Platelet Volume 10.0 fL Neutrophils (%) (Auto) 59.6 % Lymphocytes (%) (Auto) 22.8 % Monocytes (%) (Auto) 11.1 % Eosinophils (%) (Auto) 1.4 % Basophils (%) (Auto) 0.2 % Neutrophils # (Auto) 7.95 K/uL Lymphocytes # (Auto) 3.05 K/uL Monocytes # (Auto) 1.48 K/uL Eosinophils # (Auto) 0.19 K/uL Basophils # (Auto) 0.03 K/uL RDW Standard Deviation 48.2 fL RDW Coefficient of Variation 14.9 % Immature Granulocyte % (Auto) 4.9 % Immature Granulocyte # (Auto) 0.65 K/uL Hypersegmented Polys 1+ Toxic Vacuolation 1+ Activated Partial Thromboplast Time 38.4 SECONDS Partial Thromboplastin Ratio 1.5 Sodium Level 131 mmol/L Potassium Level 3.1 mmol/L Chloride Level 96 mmol/L Carbon Dioxide Level 24 mmol/L Anion Gap 11.0 mmol/L Blood Urea Nitrogen 35 mg/dl Creatinine 1.10 mg/dl Est Creatinine Clear Calc Drug Dose 45.5 ml/min Estimated GFR () 57.3 Estimated GFR (Non- 49.4 BUN/Creatinine Ratio 31.5 Random Glucose 124 mg/dl Calcium Level 9.1 mg/dl Total Creatine Kinase 63 U/L Creatine Kinase MB 3.8 ng/ml Creatine Kinase MB Ratio 6.0 Troponin I 1.490 ng/ml Triglycerides Level 249 mg/dl Cholesterol Level 120 mg/dl HDL Cholesterol 31 mg/dl LDL Cholesterol, Calculated 39 mg/dl VLDL Cholesterol, Calculated 50 mg/dl Cholesterol/HDL Ratio 3.9 Assessment and Plan 76-year-old female with a history of coronary artery disease presented to the emergency department with chest pain that is now improving. EKG concerning for MA NSTEMI: - Admit to telemetry for cardiac monitoring- no acute events - Trend cardiac enzymes- peak trop 1.880 - Abnormal EKG- Follow QAM and PRN w/ CP - Heparin drip started on 12/01 - Nitro paste - ECHO pending - Continue ASA 81 mg daily - Consulted cardiology, appreciate recommendations- ?cardiac catheterization Hypokalemia: Follow PRP and replace w/ KCL supplement PRN CAD s/p stent placement to LAD in 2016: Continue Plavix 75 mg daily Hyperlipidemia: - Lipid panel reviewed- elevated triglycerides - Increase Lipitor 20 mg HS to 40 mg HS HTN- CONTROLLED: - Continue Hydralazine 50 mg BID - d/c'd Diltiazem ER 360 mg daily and start Coreg 6.25 mg BID T2DM- managed w/ diet and exercise: - BSG ACHS w/ sliding insulin scale - ha1c 6.4% on 11/17/16 Hyponatremia, likely secondary to diuretics: Hold HCTZ/Aldactone 25/25 mg BID Renal artery stenosis s/p stenting/ CKD stage III- STABLE: Follow PRP Hypothyroidism: - Continue Synthroid 112 mcg daily - TSH 1.280 on 11/17/16 Mild dementia: Continue Aricept 5 mg daily GERD: Omeprazole changed to Protonix for inter-formulary change- resume Prilosec at discharge GI Prophylaxis: Protonix, IV Zofran PRN DVT prophylaxis: Heparin gtt Code Status: LEVEL I, FULL Dispo: From home, lives w/ - web content & social media manager consulted - PT/OT evaluations pending
--- NOTE | 2016-12-02 13:27 | CARDIOLOGY PROGRESS NOTE ---
DATE: 12/02/2016 TIME: 9:54 a.m. SUBJECTIVE: Unfortunately, due to her memory, she does not recall any of her symptoms yesterday. She does not recall speaking with any of the physicians yesterday. She denies any current chest pain, shortness of breath, syncope, near syncope, or palpitations. I returned to the room later in the morning and met with her as well. He states that she had angina at rest, it was across her entire chest. She looked uncomfortable, but otherwise was not in distress according to him. She did not appear to be any more short of breath than usual. He denied any diaphoresis. He stated the symptoms lasted approximately 2 hours and was still present in the ER and resolved with nitroglycerin. ECG demonstrated dynamic ST changes that improved when chest pain resolved. He states that she has never complained of chest pain before. OBJECTIVE: VITAL SIGNS: Temperature 36.7 degrees, heart rate 69 beats per minute, respiration rate 22, blood pressure 156/83 mmHg, oxygen saturation 95% on room air, weight 79.2 kg. GENERAL: No acute distress. She is alert. She is oriented to self and year. NECK: No appreciable JVD. CARDIAC EXAM: No ventricular heave. Regular, normal S1, S2. 2/6 mid peaking systolic ejection murmur best heard at the right upper sternal border. No rubs or gallops. LUNGS: Clear to auscultation bilaterally without wheezes, rales or rhonchi. ABDOMEN: Soft, nontender, nondistended, normoactive bowel sounds, no bruits noted. EXTREMITIES: No cyanosis or edema. PSYCHIATRIC: Affect appears appropriate. MEDICATIONS: Include aspirin 81 mg daily, Lipitor 40 mg daily, carvedilol 3.125 mg p.o. b.i.d., Plavix 75 mg daily, Aricept 5 mg at bedtime, heparin drip per protocol, hydralazine 50 mg p.o. b.i.d., potassium chloride 20 mEq daily, Protonix 40 mg daily. Telemetry personally reviewed. No arrhythmia, sinus rhythm. LABORATORY DATA: White blood cell count 13.35, hemoglobin 13.6, platelets 351. Sodium 131 and is chronically low, potassium 3.1, BUN 35, creatinine 1.1, magnesium was 1.9. Peak troponin 1.88, triglycerides 249, total cholesterol 120, LDL 39, HDL 31. PTT is 51. ECG is personally reviewed. ECG this morning demonstrated sinus rhythm with first-degree AV block. Inferior infarct. LVH. Lateral ST/T-wave abnormality. ECG upon presentation demonstrated sinus rhythm with first-degree AV block at 67 beats per minute. Anterolateral ST/T wave abnormalities were present at that time as well as the lateral ST/T wave abnormalities. The anterolateral ST/T wave abnormalities have since resolved. Echocardiogram currently pending. Cardiac catheterization images were personally reviewed from 01/21/2016: She had mid LAD 80%. Distal circumflex 50%, mid circumflex, 30% proximal RCA 20%. She underwent PCI of the LAD with a 2.25 x 18 mm Xience drug-eluting stent. ASSESSMENT AND PLAN: 1. Acute non-ST elevation myocardial infarction: She had angina at rest and elevated troponins. Echocardiogram is pending. Recommend cardiac catheterization. Her is leaning towards the procedure but would like first to receive input from their PCP, Dr. Clement. Message has been sent to Dr. Clement to discuss this when he is available. For now, continue heparin drip, antiplatelet therapy, beta-long and high intensity statin therapy. No further angina. 2. Coronary artery disease: As above. She has mid LAD stent. Continue dual antiplatelet therapy. Continue beta-long and high intensity statin therapy. She did present with acute coronary syndrome/non ST elevation myocardial infarction. She is currently pain free. 3. Hypertension: Her hypertension was treated as an outpatient with diltiazem. This has been discontinued by the primary service and carvedilol 3.125 mg twice daily was initiated. Can further titrate carvedilol as tolerated. She has now received 3 doses and remains hypertensive and therefore Carvedilol will be increased to 6.25 mg twice daily. 4. Aortic stenosis: Mean gradient and peak velocity on echocardiogram last year and also earlier this month would suggest moderate aortic stenosis. This is consistent with transvalvular gradient obtained during cardiac catheterization last year as well. Repeat echo is pending completion and interpretation. 5. Disposition: Cardiology will continue to follow. Message has been sent for Dr. Clement to further discuss her presentation. Plan of care was also discussed with Dr. Sandoval of interventional cardiology as he may potentially perform a cardiac catheterization later today if all parties are in agreement. Risks and benefits of cardiac catheterization were discussed with the patient and her at the bedside. They are made aware that CT surgery is not available at this facility. They are leaning towards cardiac catheterization as long as Dr. Clement is in agreement. Highly complex medical issues. Thank for allowing me to participate in the care of Mrs. Brush.
[2016-12-02] MEDS ORDERED: NiCARDipine HCL INJ 2.5 MG/ML 10 ML AMP ONE (13:36)
[2016-12-02] MEDS ORDERED: HEPARIN SOD (PORCINE) 1000 UNIT/ML 10 ML VIAL ONE (13:36)
[2016-12-02] MEDS ORDERED: MIDAZOLAM HCL 1 MG/ML 2ML VIAL ONE ×2 (13:37→14:18)
[2016-12-02] MEDS ORDERED: NITROGLYCERIN/D5W 100MCG/ML 20ML SYR ONE (13:37)
[2016-12-02] MEDS ORDERED: FENTANYL CITRATE INJ 50 MCG/1 ML 2 ML VIAL ONE (13:37)
[2016-12-02] MEDS ORDERED: ADENOSINE IV SOLN 3 MG/ML 20 ML VIAL ONE ×2 (14:20→14:24)
[2016-12-02] MEDS ORDERED: CLOPIDOGREL BISULFATE 300 MG TAB PO ONE (15:19)
--- NOTE | 2016-12-02 15:20 | Procedure Note ---
Post-Mod Sedation Assessment General Date of Moderate Sedation Dec 02, 2016. Vital Signs: Vital Signs Past 12 Hours Date Time Temp Pulse Resp B/P (MAP) Pulse Ox O2 Delivery O2 Flow Rate FiO2 12/02/16 15:12 78 18 157/87 (110) 96 Nasal Cannula 12/02/16 12:00 95 Room Air 12/02/16 11:55 36.8 64 18 130/74 (92) 95 Room Air 12/02/16 10:53 36.7 69 22 156/83 95 Room Air 12/02/16 08:00 95 Room Air 12/02/16 07:35 36.7 69 22 156/83 (107) 95 Room Air 12/02/16 04:03 Room Air 12/02/16 03:33 36.9 76 19 148/74 (98) 93 Room Air Review - Discharge Criteria Vital Signs Stable: Yes Alert/Oriented/Conversant: Yes Returned to Baseline Mental St: Yes Nausea Absent/Minimal: Yes Pain/Discomfort/Absent/Minimal: Yes Normal/Baseline Respirations: Yes Active Bleeding?: No Pt Received D/C Instructions: N/A Prescriptions Given: None Specific Proced. D/C Criteria Distal Pulses Present (Cardiac: Yes Groin site assessed-Card Cath: N/A Voided Prior To Discharge: N/A Discharged Patients Adult Escort/Transportation: Yes
--- NOTE | 2016-12-02 15:20 | Procedure Note ---
Pre-Mod Sedation Assessment General Date of Moderate Sedation: Dec 02, 2016. Vital Signs: Vital Signs Past 12 Hours Date Time Temp Pulse Resp B/P (MAP) Pulse Ox O2 Delivery O2 Flow Rate FiO2 12/02/16 15:12 78 18 157/87 (110) 96 Nasal Cannula 12/02/16 12:00 95 Room Air 12/02/16 11:55 36.8 64 18 130/74 (92) 95 Room Air 12/02/16 10:53 36.7 69 22 156/83 95 Room Air 12/02/16 08:00 95 Room Air 12/02/16 07:35 36.7 69 22 156/83 (107) 95 Room Air 12/02/16 04:03 Room Air 12/02/16 03:33 36.9 76 19 148/74 (98) 93 Room Air Review Cardiovascular: regular rate, rhythm, no edema Abdomen: normal bowel sounds, non tender Lungs: chest non-tender, lungs clear Pre-Sedation Airway Assessment Oral Cavity: WNL Able to Visualize Vocal Cords: No Short Thick Neck: Yes Hx of Sleep Apnea: Yes Smoking Status: Former Smoker Mallampati Classification: Class II ASA Classification: Class II Procedure Planning Contraindications-for Mod Sed: None Yes Notes The planned sedation has been discussed with the patient and consent obtained. I have identified the patient, determined the appropriateness of sedation and have assessed the patient immediately prior to the procedure. All medicine(s) and interventions are by my order.
[2016-12-02] MEDS ORDERED: SODIUM CHLORIDE 0.9% 1000ML 1,000 ML IV SCH (15:30)
[2016-12-02] MEDS ORDERED: ACETAMINOPHEN 325 MG TAB PO PRN (15:30)
--- NOTE | 2016-12-02 19:00 | Cardiac Catheterization ---
Procedure Note Procedure Date Dec 02, 2016. Pre-Procedure Diagnosis Non STEMI AUC Score 8 Post-Procedure Diagnosis Severe CAD, Successful PCI Procedure(s) Performed Coronary Angiography, Drug Eluting Stent, Fractional Flow [employer] Jaime Tube Depatcher(s) omid Estimated Blood Loss 15 Medication(s) Atropine, Clopidogrel, Fentanyl, Heparin, Nicardipine, Nitroglycerin, Versed, Lidocaine 1% Summary of Findings Indication: NSTEMI Access: 6Fr slender right radial artery Catheters: [place], JL3.5; 5F EBU 3.5 guide Findings: LM - Angiographically normal LAD - Moderate caliber proximally, small in the mid and distal segments as wraps around apex. 30% diffuse mid segment stenosis prior to bifurcation of 1s diagonal; just after diagonal 60-70% diffuse disease just prior to stent extending into proximal aspect of stent (stent restenosis), 40-50% stenosis just distal to stent; distal luminal irregularities Ramus - small vessel, 40-50 ostial stenosis, 50% mid segment stenosis Circumflex - Large caliber vessel, luminal irregularities, moderate ostial stenosis of distal circumflex after take-off of dominant OM. RCA - Dominant, proximal 20% stenosis; 20% stenosis distals stenosis prior to take-off of PDA. PDA/PLB with luminal irregularities. FFR of mid LAD -- 0.76 -- PCI -- Antithrombotic therapy: Heparin, Clopidogrel Procedure: LM cannulated with 5Fr EBU 3.5 guide BMW wire passed across mid LAD lesion into distal vessel Prowater wire placed into diagonal artery Mid LAD lesion predilated with 2.0 compliant balloon Prowater wire removed Dilated lesion stented with 2.25 x 30 Resolute DELLA extending just proximal to diagonal across whole length of prior stent Prowater wire used to rewire diagonal Stent post-dilated with 2.5 noncompliant balloon IC vasodilators administered for spasm Post procedure SALLIE 3 flow, stent well expanded with minimal residual stenosis and no apparent cardiac complications. 40-50% ostial stenosis of diagonal post LAD stenting Arterial Closure: TR Band Summary: 1. Single vessel severe coronary artery disease - 60-70% mid LAD disease extending into previously placed stent, restenosis ( FFR positive at 0.76) 2. Successful PCI of mid LAD with overlapping 2.25 x 30 Resolute DELLA (post- dilated with 2.5 NC balloon) Recommendations: To PCU for continued monitoring Reloaded with clopidogrel 300 mg in [facility] laboratory Continue dual-antiplatelet therapy with ASA/Plavix for 1 year, potentially life- long with overlapping small LAD stents Continue statin, carvedilol, antihypertensives, and ASCVD risk factor modification Hemodynamics Rest Ao: 150/71/102 Final Ao: 161/57/100 LV: n/a Recommendations PCI without planned CABG Specimens None Radiation Exposure (mGy) 1859 Contrast (mls) 160 Visi Fluids (cc crystalloids) 160 Drains None Anesthesia Moderate Procedural Complication(s) None Disposition PCU ACC Data Cardiac Status Clinical evaluation leading to the procedure CAD Presntation: Non STEMI Anginal Classification: CCS IV Heart Failure: No, NYHA Class: CCS I Cardiogenic Shock w/in 24Hrs: No Cardiac Arrest w/in 24Hrs: No Imaging studies past 6 months: Yes Stress studies past 6 months: No Coronary Anatomy Dominant: Right Left Main (% Stenosis): Normal LAD (% Stenosis): Mid (60-70% instent) Circumflex (% Stenosis): Normal Ramus (% Stenosis): Mid (50) Diagnostic Physician's Name: Venkat Sandoval MD Closure Device Percutaneous Entry Location: Radial Closure Device: Radial Band Recommendations: PCI without planned CABG PCI Indication: PCI for high risk Non-STEMI Lesion Segment Name: mid LAD Culprit Artery: Yes Stenosis Prior to Rx (%): 60-70 Chronic Total Occlusion: No IVUS: No FFR: Yes Ratio: greater than 0.75% Pre-Procedure SALLIE Flow: 3 Previously Treated Lesion: Yes Treated Lesion: Timeframe: 6-12 months Treated with Stent: Yes In-Stent Restenosis: Yes In-Stent Thrombosis: Yes Stent Type: DELLA Lesion Complexity: High/C Lesion Length (mm): 20 Thrombus Present: Yes Bifurcation Lesion: Yes Guidewire Across Lesion: Yes Guidewire: Stenosis Post-Procedure (%): 0 Post-Procedure SALLIE Flow: 3 Device(s) Deployed: Yes Intraprocedure Events Significant Dissection: No Perforation: No
[2016-12-02] MEDS: DONEPEZIL HCL 5 MG TAB PO SCH (20:26)
[2016-12-02] MEDS ORDERED: POTASSIUM CHLORIDE 20 MEQ TABCR PO SCH (21:00)
[2016-12-03] VITALS (8 sets, daily range): BP systolic 120–166; BP diastolic 65–79; PULSE 62–89; TEMP 36.5–37; O2SAT 94–96
[2016-12-03] MEDS: NITROGLYCERIN 2% OINTMENT 30GM TUBE EXT SCH ×4 (00:31→17:27)
[2016-12-03 04:52] LABS: HEMATOCRIT 40.2 % (37-47); MEAN CELL VOLUME 90.3 fL (80-100); MEAN CORPUSCULAR HEMOGLOBIN 29.7 pg (25-34); MEAN CORPUSCULAR HGB CONC 32.8 g/dl (32-36); MEAN PLATELET VOLUME 9.6 fL (7.4-10.4); PLATELET COUNT 339 K/uL (130-400); RED BLOOD COUNT 4.45 M/uL (4.2-5.4)
[2016-12-03 05:20] LABS: BASO % 0.4 %; BASO ABS # 0.04 K/uL (0-0.2); COMPLETE YES; EOS % 1.4 %; IG% 5.1 %; LYMPH % 10.1 %; LYMPH ABS # 1.15 K/uL (1.2-3.4); MONO % 11.7 %; NEUT % 71.3 %
[2016-12-03 05:30] LABS: BUN/CREATININE RATIO 20.6 (10-20); CALCIUM 9.2 mg/dl (8.5-10.1); CREATININE 1.4 mg/dl (0.60-1.20); POTASSIUM 4.5 mmol/L (3.5-5.1)
[2016-12-03] MEDS: LEVOTHYROXINE 112 MCG TAB PO SCH ×2 (05:40→07:51)
[2016-12-03] MEDS: INSULIN ASPART 100 UNITS/ML 3 ML PEN SC SCH ×4 (07:00→21:00)
[2016-12-03 07:17] LABS: TOXIC GRANULATION 1+; VACUOLIZATION 1+
[2016-12-03] MEDS: ATORVASTATIN 20 MG TAB PO SCH (07:50)
[2016-12-03] MEDS: ASPIRIN 81 MG ECTAB PO SCH (07:51)
[2016-12-03] MEDS: PANTOprazole SOD 40 MG TAB PO SCH (07:51)
[2016-12-03] MEDS: CLOPIDOGREL BISULFATE 75 MG TAB PO SCH (07:52)
[2016-12-03] MEDS: CARVEDILOL 3.125 MG TAB PO SCH ×2 (07:53→21:05)
[2016-12-03] MEDS: SODIUM CHLORIDE 0.9% 1000ML 1,000 ML IV SCH ×2 (08:12→21:07)
--- NOTE | 2016-12-03 09:24 | CARDIOLOGY PROGRESS NOTE ---
DATE: 12/03/2016 TIME: 08:48 a.m. SUBJECTIVE: Due to her dementia/memory issues, she has no recollection of yesterday's events. She did undergo cardiac catheterization with Dr. Sandoval, the electrical controls designer. She was found to have a significant mid LAD stenosis just proximal to and including her prior stent. She underwent PCI with a 2.25 x 30-mm drug-eluting stent just proximal to the diagonal vessel and across the whole length to the prior stent. This was post-dilated with a 2.5 noncompliant balloon. There was residual 40%-50% ostial stenosis of the diagonal following the LAD PCI. She otherwise was found to have distal LAD 40%-50% stenosis, ostial ramus 40%-50%. Mid ramus 50%. Dominant RCA. Proximal RCA 20%. Distal RCA 20%. She denies chest pain, shortness of breath, syncope, near syncope, palpitations or edema. OBJECTIVE: VITAL SIGNS: Temperature 37 degrees, heart rate 82 beats per minute, respiratory rate 18, and blood pressure 128/79 mmHg; however, her blood pressure has mostly been mildly hypertensive since yesterday morning. Oxygen saturation 95% on room air. I's and O's positive 193 mL yesterday and weight is 80.3 kg. GENERAL: No acute distress. She is alert, but confused. NECK: No JVD. CARDIAC EXAM: No ventricular heave, regular, normal S1 and S2, 2/6 mid peaking systolic ejection murmur best heard at the right upper sternal border. No rubs or gallops. LUNGS: Clear to auscultation bilaterally without wheezes, rales or rhonchi. ABDOMEN: Soft, nontender, and nondistended. Normoactive bowel sounds. EXTREMITIES: No cyanosis or edema. Right radial catheterization site does have ecchymosis, but no discharge or erythema. MEDICATIONS: Include aspirin 81 mg daily, Plavix 75 mg daily, carvedilol 6.25 mg p.o. b.i.d., atorvastatin 40 mg daily, hydralazine 50 mg p.o. b.i.d., Protonix 40 mg daily, and normal saline 75 mL per hour ordered for this morning. Telemetry personally reviewed. No arrhythmias. LABORATORY DATA: Sodium 134, potassium 4.5, BUN 29, and creatinine 1.4 up from 1.1. White blood cell count 11.4, hemoglobin 13.2, and platelets 339. ECG from this morning personally reviewed demonstrating sinus rhythm with first degree AV block. 69 beats per minute. LVH with repolarization abnormality. Prior anterior infarct. ASSESSMENT AND PLAN: 1. Non-ST elevation myocardial infarction: She presented with unstable angina and myocardial infarction. She was found to have mid LAD stenosis and underwent PCI by Dr. Sandoval yesterday. Continue aspirin 81 mg daily indefinitely. Continue Plavix for at least 1 year. Can consider cardiac rehabilitation if she is able to participate in it and her is able to help transport her there given her memory issues. No further angina that she can recall; however, history is difficult due to her memory. 2. Coronary artery disease: Another mid LAD stent was placed as noted above. Continue beta long, high-intensity statin therapy and dual antiplatelet therapy as noted. 3. Hypertension: She had been on diltiazem as an outpatient, which was discontinued by primary service and has been started on carvedilol. Carvedilol has been titrated at 6.25 mg twice daily. She will likely require higher dose of carvedilol as she was on a higher dose of diltiazem. We will increase carvedilol to 12.5 mg twice daily starting tomorrow if tolerated. 4. Aortic stenosis: Echocardiogram was reordered due to the fact that she did present with acute coronary syndrome/myocardial infarction to evaluate wall motion abnormalities. Her aortic stenosis has been noted to be moderate as an outpatient based on gradients and velocities. Continue to monitor over time. 5. Acute renal insufficiency: Her creatinine did become more elevated today. She has since been started on IV fluids as per primary service. Would monitor closely given that she did receive IV contrast yesterday. 6. Disposition: Cardiology will continue to follow. The patient's care will be discussed with primary service.
[2016-12-03] MEDS ORDERED: CARVEDILOL 6.25 MG TAB PO ONE (09:45)
--- NOTE | 2016-12-03 10:30 | Clinical Documentation Query ---
CLINICAL DOCUMENTATION QUERY Dr. GENAO, In your clinical opinion is this patient being managed for: ( x ) Acute kidney failure on CKD stage III ( ) Other explanation of clinical findings (Please Explain) ( ) Unable to determine (Please Define) ( ) Need to Discuss ( ) Not Agree The medical record reflects the following clinical findings, treatment, and risk factors. Clinical Indicators: 76 yo female presenting with NSTEMI. Initial Cr 1.10 with GFR of 49.9 and has risen to Cr 1.4 with GFR 36.9 Treatment: start IV fluids, monitor PRP's Risk Factors: NSTEMI, CAD, HTN, DM II, aortic stenosis Please clarify and document your clinical opinion in the progress notes and discharge summary. Terms such as "probable", "suspected", "likely", "questionable", "possible", or "still to be ruled out" are acceptable. IF IN AGREEMENT, YOU MUST DOCUMENT ABOVE DIAGNOSTIC STATEMENT IN DAILY PROGRESS NOTES AND DISCHARGE SUMMARY. This document is not part of the patient's record. Thank You, Yamilet Sandoval, RN [phone]
--- NOTE | 2016-12-03 11:57 | Hospitalist Progress Note ---
Hospitalist Progress Note Date of Service Dec 03, 2016. Subjective Pt evaluation today including: conversation w/ patient, conversation w/ family (- at bedside ), physical exam, chart review, lab review, review of studies, review of inpatient medication list Voiding: no voiding problems, no incontinence Patient states she is feeling well. Patient denies any fever, chills, sweats, lightheadedness, dizziness, vision changes, CP, palpitations, edema, SOB, wheezing, cough, abdominal pain, nausea, vomiting, diarrhea, urinary symptoms, melena, numbness/tingling, weakness, muscle/joint pain, anxiety/depression, active bleeding, or new skin discoloration/changes. *unsure of reliability due to dementia. at bedside- all questions/concerns answered. States patient was to have renal duplex today, ordered by PCP. Looked through records, patient was to have study due to elevated Cr. of 1.6 at the beginning of the month. When patient arrived, Cr. was 1.10- slight bump in Cr today at 1.4, likely from IV contrast from cath- treating w/ IVF and repeat PRP tomorrow, if Cr. does not improve, will consider doing study inpatient. However, suspect Cr. will improve and patient can follow-up outpatient with PCP. Medications Current Inpatient Medications Medications (Trade) Dose Ordered Sig/Felicity Route Start Time Stop Time Status Last Admin Dose Admin Nitroglycerin (Nitroglycerin 2% Oint) 1 inch Q6 EXT 12/01/16 13:15 12/31/16 13:14 12/03/16 05:40 1 INCH Ondansetron HCl (Zofran Inj) 4 mg Q6H PRN IV 12/01/16 13:15 12/31/16 13:14 Aspirin (Ecotrin Tab) 81 mg DAILY PO 12/02/16 09:00 01/01/17 08:59 12/03/16 07:51 81 MG Clopidogrel Bisulfate (plAVix TAB) 75 mg DAILY PO 12/02/16 09:00 01/01/17 08:59 12/03/16 07:52 75 MG Hydralazine HCl (Apresoline Tab) 50 mg BID PO 12/01/16 21:00 12/31/16 20:59 12/03/16 07:52 50 MG Levothyroxine Sodium (Synthroid Tab) 112 mcg DAILYBB PO 12/02/16 06:00 01/01/17 06:59 12/03/16 07:51 112 MCG Donepezil HCl (Aricept Tab) 5 mg HS PO 12/01/16 21:00 12/31/16 20:59 12/02/16 20:26 5 MG Pantoprazole Sodium (Protonix Tab) 40 mg DAILY PO 12/02/16 09:00 01/01/17 08:59 12/03/16 07:51 40 MG Insulin Aspart (novoLOG ASPART) SLIDING SCALE G... ACHS SC 12/01/16 21:00 12/31/16 20:59 12/02/16 17:14 2 UNITS Glucose (Glucose 40% Gel) 15-30 GRAMS 15 GRAMS... UD PRN PO 12/01/16 19:30 12/31/16 19:29 Glucose (Glucose Chew Tab) 4-8 Tablets 4 Tabl... UD PRN PO 12/01/16 19:30 12/31/16 19:29 Dextrose (Dextrose 50% 50ML Syringe) 25-50ML OF 50% DW IV FOR... UD PRN IV 12/01/16 19:30 12/31/16 19:29 Glucagon (Glucagon Inj) 1 mg UD PRN SQ 12/01/16 19:30 12/31/16 19:29 Atorvastatin Calcium (Lipitor Tab) 40 mg DAILY PO 12/03/16 09:00 01/01/17 08:59 12/03/16 07:50 40 MG Carvedilol (Coreg Tab) 6.25 mg BID PO 12/02/16 21:00 12/03/16 21:01 12/03/16 07:53 6.25 MG Acetaminophen (Tylenol Tab) 650 mg Q4H PRN PO 12/02/16 15:30 01/01/17 15:29 Sodium Chloride 1,000 ml @ 75 mls/hr [id number] IV 12/03/16 08:12 01/02/17 08:11 12/03/16 08:12 75 MLS/HR Carvedilol (Coreg Tab) 12.5 mg BID PO 12/04/16 09:00 01/03/17 08:59 Objective Vital Signs Date Time Temp Pulse Resp B/P (MAP) Pulse Ox O2 Delivery O2 Flow Rate FiO2 6/21/17 11:35 Room Air 12/03/16 11:01 36.9 64 18 125/73 (90) 95 Room Air 12/03/16 08:00 Room Air 12/03/16 07:29 36.5 62 18 138/77 (97) 94 Room Air 12/03/16 04:03 Room Air 12/03/16 04:00 37.0 82 18 128/79 (95) 95 12/03/16 00:01 Room Air 12/02/16 23:34 36.3 96 18 147/81 (103) 97 Room Air 12/02/16 20:13 Room Air 12/02/16 19:43 36.8 82 18 124/67 (86) 93 Room Air 12/02/16 18:05 85 18 147/84 (105) 95 Room Air 12/02/16 17:10 68 16 143/71 (95) 95 Room Air 12/02/16 16:35 66 16 172/92 (118) 95 Room Air 12/02/16 16:15 36.4 79 16 146/68 (94) 95 Room Air 12/02/16 16:00 36.4 63 16 143/74 (97) 96 Room Air 12/02/16 16:00 96 Room Air 12/02/16 15:55 36.4 63 16 143/74 (97) 97 Room Air 12/02/16 15:40 36.4 78 16 160/75 (103) 97 Room Air 12/02/16 15:22 72 18 156/62 (93) 96 Nasal Cannula 12/02/16 15:17 77 18 164/66 (98) 96 Nasal Cannula 12/02/16 15:12 78 18 157/87 (110) 96 Nasal Cannula 12/02/16 12:00 95 Room Air 12/02/16 11:55 36.8 64 18 130/74 (92) 95 Room Air Physical Exam General Appearance: no apparent distress Eyes: normal inspection, PERRL ENT: hearing grossly normal Neck: supple Respiratory/Chest: lungs clear, no respiratory distress, no accessory muscle use Cardiovascular: regular rate, rhythm Abdomen: normal bowel sounds, non tender, soft Extremities: no pedal edema, no calf tenderness Neurologic/Psychiatric: alert, normal mood/affect Skin: normal color, warm/dry, no rash Laboratory Results Last 24 Hours Test 12/02/16 14:19 12/02/16 14:58 12/02/16 16:06 12/02/16 20:09 Kaolin Activated Coagulation Time 126 SECONDS 202 SECONDS Bedside Glucose 99 mg/dl 125 mg/dl Test 12/03/16 04:45 12/03/16 06:40 White Blood Count 11.40 K/uL Red Blood Count 4.45 M/uL Hemoglobin 13.2 g/dL Hematocrit 40.2 % Mean Corpuscular Volume 90.3 fL Mean Corpuscular Hemoglobin 29.7 pg Mean Corpuscular Hemoglobin Concent 32.8 g/dl Platelet Count 339 K/uL Mean Platelet Volume 9.6 fL Neutrophils (%) (Auto) 71.3 % Lymphocytes (%) (Auto) 10.1 % Monocytes (%) (Auto) 11.7 % Eosinophils (%) (Auto) 1.4 % Basophils (%) (Auto) 0.4 % Neutrophils # (Auto) 8.14 K/uL Lymphocytes # (Auto) 1.15 K/uL Monocytes # (Auto) 1.33 K/uL Eosinophils # (Auto) 0.16 K/uL Basophils # (Auto) 0.04 K/uL RDW Standard Deviation 49.9 fL RDW Coefficient of Variation 15.1 % Immature Granulocyte % (Auto) 5.1 % Immature Granulocyte # (Auto) 0.58 K/uL Toxic Granulation 1+ Toxic Vacuolation 1+ Activated Partial Thromboplast Time 26.8 SECONDS Partial Thromboplastin Ratio 1.0 Sodium Level 134 mmol/L Potassium Level 4.5 mmol/L Chloride Level 102 mmol/L Carbon Dioxide Level 23 mmol/L Anion Gap 9.0 mmol/L Blood Urea Nitrogen 29 mg/dl Creatinine 1.40 mg/dl Est Creatinine Clear Calc Drug Dose 35.9 ml/min Estimated GFR () 42.8 Estimated GFR (Non- 36.9 BUN/Creatinine Ratio 20.6 Random Glucose 129 mg/dl Calcium Level 9.2 mg/dl Bedside Glucose 125 mg/dl Assessment and Plan 76-year-old female with a history of coronary artery disease presented to the emergency department with chest pain that is now improving. EKG concerning for [facility] NSTEMI: - Admit to telemetry for cardiac monitoring- no acute events - Trend cardiac enzymes- peak trop 1.880 - Abnormal EKG- Follow QAM and PRN w/ CP - Heparin drip started on 12/01- d/c'd 12/02 - Nitro paste - ECHO pending - Continue ASA 81 mg daily - Consulted cardiology, appreciate recommendations- -- Cardiac catheterization by Dr. Sandoval on 12/02- PCI of mid LAD with overlapping 2.25 x 30 Resolute DELLA (post-dilated with 2.5 NC balloon) -- Spoke w/ Dr. Lang on 12/03- titrating Coreg but otherwise stable for d /c once kidney function improves Hypokalemia- RESOLVED: Follow PRP and replace w/ KCL supplement PRN CAD s/p stent placement to LAD in 2016: Continue Plavix 75 mg daily Hyperlipidemia: - Lipid panel reviewed- elevated triglycerides - Increase Lipitor 20 mg HS to 40 mg HS HTN- CONTROLLED: - Continue Hydralazine 50 mg BID - d/c'd Diltiazem ER 360 mg daily and start Coreg 6.25 mg BID- Coreg is being titrated by cardiology- begin 12.5 mg BID on 12/04 T2DM- managed w/ diet and exercise: - BSG ACHS w/ sliding insulin scale - ha1c 6.4% on 11/17/16 Hyponatremia, likely secondary to diuretics- IMPROVING: Hold HCTZ/Aldactone 25/ 25 mg BID Renal artery stenosis s/p stenting- noted BRITTNY on CKD stage III, likely secondary to IV contrast from heart cath: - Treating w/ IVF - Follow PRP - Scheduled for renal US on 12/03 by PCP due to bump in Cr at 1.6 at the beginning of the month. Cr. 1.10 at admission to 1.4 post cath- if Cr. does not improve, will consider study inpatient. Otherwise, f/u outpatient w/ PCP Hypothyroidism: - Continue Synthroid 112 mcg daily - TSH 1.280 on 11/17/16 Mild dementia: Continue Aricept 5 mg daily GERD: Omeprazole changed to Protonix for inter-formulary change- resume Prilosec at discharge GI Prophylaxis: Protonix, IV Zofran PRN DVT prophylaxis: ASA + Plavix and ambulation Code Status: LEVEL I, FULL Dispo: From home, lives w/ - social security benefits interviewer consulted- likely discharge to home tomorrow - PT/OT evaluations pending
--- NOTE | 2016-12-03 17:06 | ECHOCARDIOGRAM REPORT ---
*NOTICE TO RECEIVING [employer] This information is strictly Confidential and protected under [place] law. [place] law prohibits you from making any further disclosure of this information unless further disclosure is expressly permitted by the written consent of the person to whom it pertains or is authorized by law. A general authorization for the release of medical or other information is not sufficient for this purpose. Hospital accepts no responsibility if the information is made available to any other person, INCLUDING THE PATIENT. Interpretation Summary * Name: CATHERINE HEATON I Study Date: 12/03/2016 02:22 PM BP: 125/73 mmHg * Patient Location: C.2T\S\S239\S\2 HR: 89 * : 1940 (M/d/yyy) Gender: Female Height: 64 in * Age: 76 yrs Ethnicity: [place] Weight: 177 lb * Ordering Physician: Blair Lang * Referring Physician: Self, Referred * Performed By: Marlyn Ayala RDCS * * Reason For Study: AMI * BSA: 1.9 m2 * -- Conclusions -- * There is moderate asymmetric left ventricular hypertrophy. * Left ventricular systolic function is normal. * Grade I diastolic dysfunction, (abnormal relaxation pattern). * Moderate to severe valvular aortic stenosis. * Compared to a study (outpatient) performed 19 days ago, the transaortic velocity is slightly greater, otherwise minimal change Procedure Details * A complete two-dimensional transthoracic echocardiogram was performed (2D, M-mode, Doppler and color flow Doppler). Left Ventricle * The left ventricle is grossly normal size. * There is moderate asymmetric left ventricular hypertrophy. * The basal septum is thickened and angulated consistent with sigmoid septum. * Ejection Fraction = 55-60%. * Left ventricular systolic function is normal. * Grade I diastolic dysfunction, (abnormal relaxation pattern). * The left ventricular wall motion is normal. Right Ventricle * The right ventricle is normal in size and function. Atria * The left atrial size is normal. * Right atrial size is normal. Mitral Valve * The mitral valve is grossly normal. * There is no mitral regurgitation noted. Tricuspid Valve * The tricuspid valve is not well visualized, but is grossly normal. * Significant tricuspid regurgitation is absent. Aortic Valve * Moderate to severe valvular aortic stenosis. Pericardium/Pleural * There is no pericardial effusion. Great Vessels * Normal inferior vena cava diameter and respiratory variation suggests normal central venous pressure. MMode 2D Measurements and Calculations IVSd 1.7 cm IVSs 2.1 cm LVIDd 3.8 cm LVIDs 2.8 cm LVPWd 0.98 cm LVPWs 1.6 cm IVS/LVPW 1.7 FS 25.9 % EDV(Teich) 60.7 ml ESV(Teich) 29.3 ml EF(Teich) 51.7 % EDV(cubed) 53.5 ml ESV(cubed) 21.7 ml EF(cubed) 59.3 % % IVS thick 28.7 % % LVPW thick 60.2 % LV mass(C)d 174.3 grams LV mass(C)dI 93.8 grams/m\S\2 LV mass(C)s 209.7 grams LV mass(C)sI 112.9 grams/m\S\2 SV(Teich) 31.4 ml SI(Teich) 16.9 ml/m\S\2 SV(cubed) 31.7 ml SI(cubed) 17.1 ml/m\S\2 LA dimension 3.5 cm LVOT diam 2.0 cm LVOT area 3.3 cm\S\2 LVAd ap4 26.1 cm\S\2 LVLd ap4 8.6 cm EDV(MOD-sp4) 65.5 ml EDV(sp4-el) 67.1 ml LVAs ap4 16.1 cm\S\2 LVLs ap4 7.4 cm ESV(MOD-sp4) 31.1 ml ESV(sp4-el) 29.8 ml EF(MOD-sp4) 52.6 % EF(sp4-el) 55.6 % LVAd ap2 27.0 cm\S\2 LVLd ap2 8.3 cm EDV(MOD-sp2) 73.9 ml EDV(sp2-el) 74.3 ml LVAs ap2 16.3 cm\S\2 LVLs ap2 7.0 cm ESV(MOD-sp2) 31.6 ml ESV(sp2-el) 32.1 ml EF(MOD-sp2) 57.3 % EF(sp2-el) 56.8 % LVLd %diff -3.38 % EDV(MOD-bp) 71.2 ml LVLs %diff -5.49 % ESV(MOD-bp) 31.1 ml EF(MOD-bp) 56.3 % SV(MOD-sp4) 34.5 ml SI(MOD-sp4) 18.6 ml/m\S\2 SV(MOD-sp2) 42.3 ml SI(MOD-sp2) 22.8 ml/m\S\2 SV(MOD-bp) 40.1 ml SI(MOD-bp) 21.6 ml/m\S\2 SV(sp4-el) 37.3 ml SI(sp4-el) 20.1 ml/m\S\2 SV(sp2-el) 42.2 ml SI(sp2-el) 22.7 ml/m\S\2 Doppler Measurements and Calculations MV E max hailee 62.6 cm/sec MV A max hailee 119.8 cm/sec MV E/A 0.52 MV dec time 0.40 sec Ao V2 max 352.9 cm/sec Ao max PG 49.8 mmHg Ao max PG (full) 44.5 mmHg Ao V2 mean 257.4 cm/sec Ao mean PG 28.8 mmHg Ao mean PG (full) 25.5 mmHg Ao V2 VTI 77.0 cm PEGGY(I,A) 1.2 cm\S\2 PEGGY(I,D) 1.2 cm\S\2 PEGGY(V,A) 1.1 cm\S\2 PEGGY(V,D) 1.1 cm\S\2 LV V1 max PG 5.3 mmHg LV V1 mean PG 3.3 mmHg LV V1 max 115.0 cm/sec LV V1 mean 85.1 cm/sec LV V1 VTI 27.3 cm SV(LVOT) 89.9 ml SI(LVOT) 48.4 ml/m\S\2
[2016-12-03] MEDS ORDERED: CARVEDILOL 12.5 MG TAB PO SCH (21:00)
[2016-12-03] MEDS: DONEPEZIL HCL 5 MG TAB PO SCH (21:05)
[2016-12-04] MEDS: NITROGLYCERIN 2% OINTMENT 30GM TUBE EXT SCH ×2 (00:21→06:00)
[2016-12-04 03:34] VITALS: BP 152/75; PULSE 78; TEMP 36.5; O2SAT 96
[2016-12-04] MEDS: SODIUM CHLORIDE 0.9% 1000ML 1,000 ML IV SCH (04:07)
[2016-12-04 04:53] LABS: HEMATOCRIT 36.6 % (37-47); MEAN CORPUSCULAR HEMOGLOBIN 32.1 pg (25-34); MEAN CORPUSCULAR HGB CONC 35.2 g/dl (32-36); MEAN PLATELET VOLUME 9.9 fL (7.4-10.4); PLATELET COUNT 298 K/uL (130-400); RED BLOOD COUNT 4.02 M/uL (4.2-5.4); WHITE BLOOD COUNT 9.33 K/uL (4.8-10.8)
[2016-12-04 05:34] LABS: BUN/CREATININE RATIO 20.5 (10-20); CALCIUM 8.7 mg/dl (8.5-10.1); CREATININE 0.97 mg/dl (0.60-1.20); MAGNESIUM 1.7 mg/dl (1.8-2.4); POTASSIUM 4.5 mmol/L (3.5-5.1)
[2016-12-04 05:37] LABS: BASO % 0.3 %; BASO ABS # 0.03 K/uL (0-0.2); COMPLETE YES; EOS % 2.3 %; IG% 6.9 %; LYMPH % 19.3 %; MONO % 10.3 %; NEUT % 60.9 %
--- NOTE | 2016-12-04 06:46 | Consultant Recommendations ---
Produce Team Member Recommendations Date of Service Dec 04, 2016. Produce Team Member Recommendations ACTIVITY RECOMMENDATIONS: Excess manipulation of the wrist should be avoided for the next 24-48 hours. * No lifting over 2 pounds (approximately a 1/2 gallon of milk) with the utilized arm for 24 hours. * No strenuous activity such as bowling or tennis for 3 days. * Keep the site of the procedure covered with a bandage for 24 hours. *You may shower the day after the procedure. Do not take a tub bath or submerge the puncture site in water for the next 3 days. *Do not operate any motorized equipment for 3 days. SPECIAL CARE INSTRUCTIONS: The site may be slightly bruised and sore following your procedure. Should any of the following occur, contact the Dr. who performed your procedure. 1. Redness/inflammation, swelling, chills, or fever, or colored drainage at procedure site within 3-7 days after your procedure. 2. Coldness, discoloration, ongoing numbness, severe pain, or swelling. Expect mild tingling of hand and tenderness at the puncture site for up to three days. If this persists beyond three days, or other symptoms develop, notify the Dr. who performed your procedure. BLEEDING: If the procedure site on your wrist begins to bleed, do not panic 1. Place 1 or 2 fingers firmly just slightly above the insertion site to stop the bleeding. You may be able to feel your pulse as you hold pressure. 2. Lift your finger after 5 minutes to see if the bleeding has stopped. 3. Once the bleeding has stopped, gently wipe the wrist area clean with a bandage. * If the bleeding from your wrist does not stop after 10 minutes, or if there is a large amount of bleeding or spurting, call 911 (do not drive yourself to the hospital). SKIN IRRITATION: * You may experience some redness and/or swelling in the area where radiation was administered. If any skin irritation occurs, please contact your family physician. FOLLOW UP VISIT: Keep any scheduled doctor appointments.
[2016-12-04] MEDS ORDERED: MAGNESIUM SULFATE 1GM / D5W 1 GM in PREMIXED IN D5W 100 ML IV ONE (07:30)
[2016-12-04] MEDS: INSULIN ASPART 100 UNITS/ML 3 ML PEN SC SCH ×2 (07:58→11:55)
[2016-12-04 08:00] VITALS: O2SAT 96
[2016-12-04] MEDS: PANTOprazole SOD 40 MG TAB PO SCH (08:00)
[2016-12-04] MEDS: CLOPIDOGREL BISULFATE 75 MG TAB PO SCH (08:00)
[2016-12-04] MEDS: ATORVASTATIN 20 MG TAB PO SCH (08:00)
[2016-12-04] MEDS: ASPIRIN 81 MG ECTAB PO SCH (08:01)
[2016-12-04 08:03] VITALS: BP 147/76; PULSE 63; TEMP 36.7; O2SAT 95
[2016-12-04] MEDS ORDERED: CRG125 PO (08:27)
[2016-12-04] MEDS ORDERED: LPT20 PO (08:27)
--- NOTE | 2016-12-04 08:35 | Discharge Instructions ---
Discharge Instructions Date of Service Dec 04, 2016. Admission Reason for Admission: STEMI Discharge Discharge Diagnosis / Problem: NSTEMI Discharge Goals Goal(s): Decrease discomfort, Improve disease control, Learn about illness, Diagnostic testing, Therapeutic intervention, Prevent Disease Progression Activity Recommendations Activity Limitations: as noted below Per cardiology recommendations (listed below) . Instructions / Follow-Up Instructions / Follow-Up New/Changed Medications: 1. Atorvastatin was INCREASED to 40 mg daily 2. Coreg 12.5 mg by mouth twice per day 3. STOP HCTZ/Spironolactone 4. STOP Diltiazem Resume all other regular medications HCTZ/Spironolactone was held due to hyponatremia (low sodium level) at the time of your admission- this has resolved. Blood pressures have been acceptable during your hospital stay. Please log your blood pressure 1-2 times per day and take this log to your PCP follow-up. Your PCP will further instruct you on your medications. You were held in the hospital an extra night because your kidney function slightly declined. This was like from receiving the heart catheterization. You were treated with IV fluids and your kidney function return to baseline. You mentioned that you were to have a renal ultrasound yesterday because of a recently past episode of kidney decline. Please follow-up with your PCP to further discuss/reschedule ultrasound. Please follow-up with your PCP within 5-7 days Please follow-up with Cardiology as instructed by Dr. Lang Please follow-up/keep all of your subspecialty appointments Home Care: * Take your medications exactly as directed. Don't skip doses. * Remember that recovery after a heart attack takes time. Plan to rest for at lease 4-8 weeks while you recover. Then return to normal activity when your doctor says it's okay. * Ask your doctor about joining a heart rehabilitation program. * Tell your doctor if you are feeling depressed. Feelings of sadness are common after a heart attack, but it is important that you speak to someone if you are feeling overwhelmed by these feelings. * If you are having chest pain, call 911 for an ambulance. Do NOT drive yourself to the hospital. * Ask your family members to learn CPR. * Learn to take your own blood pressure and pulse. Keep a record of your results. Ask your doctor when you should seek emergency medical attention. He or she will tell you which blood pressure reading is dangerous. Lifestyle Changes: * Maintain a healthy weight. Get help to lose any extra pounds. * Cut back on salt. * Limit canned, dried, packaged, and fast foods. * Don't add salt to your food. * Season foods with herbs instead of salt when you cook. * Break the smoking habit. Enroll in a stop-smoking program to improve your chances of success. * Limit fatty foods. * Check your lipid levels regularly. (Your doctor can show you how to do this.) * Build up your activity according to your doctor's recommendation. * Ask your doctor when it's okay to resume sexual activity. * Tell your doctor about any erectile dysfunction (ED) medication you are taking. Some ED medications are not safe if you take certain heart medications. * Try to manage stress. Follow Up: It is important for you to keep your follow up appointments with your medical provider. Current Hospital Diet Patient's current hospital diet: Diabetes Type 2 Diet Discharge Diet Recommended Diet: AHA Diet (Heart Healthy), Diabetes Type 2 Diet Procedures Procedures Performed: Heart catheterization Chest x-ray ECHO Pending Studies Studies pending at discharge: no Laboratory Results Last Resulted CBC 12/04/16 04:45 Red Blood Count 4.02, Mean Corpuscular Volume 91.0, Mean Corpuscular Hemoglobin 32.1, Mean Corpuscular Hemoglobin Concent 35.2, Mean Platelet Volume 9.9, Neutrophils (%) (Auto) 60.9, Lymphocytes (%) (Auto) 19.3, Monocytes (%) (Auto) 10.3, Eosinophils (%) (Auto) 2.3, Basophils (%) (Auto) 0.3, Neutrophils # (Auto ) 5.69, Lymphocytes # (Auto) 1.80, Monocytes # (Auto) 0.96, Eosinophils # (Auto ) 0.21, Basophils # (Auto) 0.03 Last Resulted BMP 12/04/16 04:45 Hemoglobin A1c Test 11/17/16 11:18 Range/Units Estimated Average Glucose 137 mg/dl Hemoglobin A1c 6.4 H 4.5-5.6 % Lipid Panel Test 12/02/16 02:20 Range/Units Triglycerides Level 249 H 0-150 mg/dl Cholesterol Level 120 0-200 mg/dl HDL Cholesterol 31 mg/dl Cholesterol/HDL Ratio 3.9 LDL Cholesterol, Calculated 39 mg/dl Medical Emergencies . Who to Call and When: Medical Emergencies: If at any time you feel your situation is an emergency, please call 911 immediately. Call 911 immediately or go to your nearest Emergency Room if you experience any of the following: Warning Signs and Symptoms of a Heart Attack * Chest pain that is not relieved by medication * Shortness of breath . Non-Emergent Contact Non-Emergency issues call your: Primary Care Provider . . "Provider Documentation" section prepared by Rea Pike. . Team Supervisor Recommendations Team Supervisor Recommendations: ACTIVITY RECOMMENDATIONS: Excess manipulation of the wrist should be avoided for the next 24-48 hours. * No lifting over 2 pounds (approximately a 1/2 gallon of milk) with the utilized arm for 24 hours. * No strenuous activity such as bowling or tennis for 3 days. * Keep the site of the procedure covered with a bandage for 24 hours. *You may shower the day after the procedure. Do not take a tub bath or submerge the puncture site in water for the next 3 days. *Do not operate any motorized equipment for 3 days. SPECIAL CARE INSTRUCTIONS: The site may be slightly bruised and sore following your procedure. Should any of the following occur, contact the DrCynthia who performed your procedure. 1. Redness/inflammation, swelling, chills, or fever, or colored drainage at procedure site within 3-7 days after your procedure. 2. Coldness, discoloration, ongoing numbness, severe pain, or swelling. Expect mild tingling of hand and tenderness at the puncture site for up to three days. If this persists beyond three days, or other symptoms develop, notify the DrCynthia who performed your procedure. BLEEDING: If the procedure site on your wrist begins to bleed, do not panic 1. Place 1 or 2 fingers firmly just slightly above the insertion site to stop the bleeding. You may be able to feel your pulse as you hold pressure. 2. Lift your finger after 5 minutes to see if the bleeding has stopped. 3. Once the bleeding has stopped, gently wipe the wrist area clean with a bandage. * If the bleeding from your wrist does not stop after 10 minutes, or if there is a large amount of bleeding or spurting, call 911 (do not drive yourself to the hospital). SKIN IRRITATION: * You may experience some redness and/or swelling in the area where radiation was administered. If any skin irritation occurs, please contact your family physician. FOLLOW UP VISIT: Keep any scheduled doctor appointments. AMI Core Measures Reason no ASA as I/P: Treatment provided - N/A Reason no ASA at D/C: Treatment provided - N/A Reason no statin as I/P: Treatment provided - N/A Reason no statin at D/C: Treatment provided - N/A VTE Core Measure Inpt VTE Proph given/why not?: Other Anticoagulation, T.E.D. Stockings, SCD's
[2016-12-04] MEDS ORDERED: CARVEDILOL 12.5 MG TAB PO SCH (09:00)
--- NOTE | 2016-12-04 09:40 | Discharge Summary ---
Discharge Summary Date of Service Dec 04, 2016. Discharge Summary Admission Date: Dec 01, 2016 at 14:45 Discharge Date: Dec 04, 2016 Discharge Disposition: Home Principal Diagnosis: NSTEMI Problems/Secondary Diagnoses: Hypokalemia CAD s/p stent placement to LAD in 2016 Hyperlipidemia HTN T2DM Hyponatremia Renal artery stenosis s/p stenting BRITTNY on CKD stage III Hypothyroidism Mild dementia GERD Immunizations: Have You Had Influenza Vaccine: Yes Influenza Vaccine Date: Apr 04, 2013 History of Tetanus Vaccine?: Unknown History of Pneumococcal: No History of Hepatitis B Vaccine: Unknown Procedures: ECHOCARDIOGRAM: Interpretation Summary * Name: CATHERINE HEATON I Study Date: 12/03/2016 02:22 PM BP: 125/73 mmHg * Patient Location: 2\S\S239\S\2 HR: 89 * : 1940 (M/d/yyyy) Gender: Female Height: 64 in * Age: 76 yrs Ethnicity: HI Weight: 177 lb * Ordering Physician: Blair Lang * Referring Physician: Self, Referred * Performed By: Marlyn Aayla RDCS * * Reason For Study: AMI * BSA: 1.9 m2 * -- Conclusions -- * There is moderate asymmetric left ventricular hypertrophy. * Left ventricular systolic function is normal. * Grade I diastolic dysfunction, (abnormal relaxation pattern). * Moderate to severe valvular aortic stenosis. * Compared to a study (outpatient) performed 19 days ago, the transaortic velocity is slightly greater, otherwise minimal change Procedure Details * A complete two-dimensional transthoracic echocardiogram was performed (2D, M-mode, Doppler and color flow Doppler). Left Ventricle * The left ventricle is grossly normal size. * There is moderate asymmetric left ventricular hypertrophy. * The basal septum is thickened and angulated consistent with sigmoid septum. * Ejection Fraction = 55-60%. * Left ventricular systolic function is normal. * Grade I diastolic dysfunction, (abnormal relaxation pattern). * The left ventricular wall motion is normal. Right Ventricle * The right ventricle is normal in size and function. Atria * The left atrial size is normal. * Right atrial size is normal. Mitral Valve * The mitral valve is grossly normal. * There is no mitral regurgitation noted. Tricuspid Valve * The tricuspid valve is not well visualized, but is grossly normal. * Significant tricuspid regurgitation is absent. Aortic Valve * Moderate to severe valvular aortic stenosis. Pericardium/Pleural * There is no pericardial effusion. Great Vessels * Normal inferior vena cava diameter and respiratory variation suggests normal central venous pressure. MMode 2D Measurements and Calculations IVSd 1.7 cm IVSs 2.1 cm LVIDd 3.8 cm LVIDs 2.8 cm LVPWd 0.98 cm LVPWs 1.6 cm IVS/LVPW 1.7 FS 25.9 % EDV(Teich) 60.7 ml ESV(Teich) 29.3 ml EF(Teich) 51.7 % EDV(cubed) 53.5 ml ESV(cubed) 21.7 ml EF(cubed) 59.3 % % IVS thick 28.7 % % LVPW thick 60.2 % LV mass(C)d 174.3 grams LV mass(C)dI 93.8 grams/m\S\2 LV mass(C)s 209.7 grams LV mass(C)sI 112.9 grams/m\S\2 SV(Teich) 31.4 ml SI(Teich) 16.9 ml/m\S\2 SV(cubed) 31.7 ml SI(cubed) 17.1 ml/m\S\2 LA dimension 3.5 cm LVOT diam 2.0 cm LVOT area 3.3 cm\S\2 LVAd ap4 26.1 cm\S\2 LVLd ap4 8.6 cm EDV(MOD-sp4) 65.5 ml EDV(sp4-el) 67.1 ml LVAs ap4 16.1 cm\S\2 LVLs ap4 7.4 cm ESV(MOD-sp4) 31.1 ml ESV(sp4-el) 29.8 ml EF(MOD-sp4) 52.6 % EF(sp4-el) 55.6 % LVAd ap2 27.0 cm\S\2 LVLd ap2 8.3 cm EDV(MOD-sp2) 73.9 ml EDV(sp2-el) 74.3 ml LVAs ap2 16.3 cm\S\2 LVLs ap2 7.0 cm ESV(MOD-sp2) 31.6 ml ESV(sp2-el) 32.1 ml EF(MOD-sp2) 57.3 % EF(sp2-el) 56.8 % LVLd %diff -3.38 % EDV(MOD-bp) 71.2 ml LVLs %diff -5.49 % ESV(MOD-bp) 31.1 ml EF(MOD-bp) 56.3 % SV(MOD-sp4) 34.5 ml SI(MOD-sp4) 18.6 ml/m\S\2 SV(MOD-sp2) 42.3 ml SI(MOD-sp2) 22.8 ml/m\S\2 SV(MOD-bp) 40.1 ml SI(MOD-bp) 21.6 ml/m\S\2 SV(sp4-el) 37.3 ml SI(sp4-el) 20.1 ml/m\S\2 SV(sp2-el) 42.2 ml SI(sp2-el) 22.7 ml/m\S\2 Doppler Measurements and Calculations MV E max hailee 62.6 cm/sec MV A max hailee 119.8 cm/sec MV E/A 0.52 MV dec time 0.40 sec Ao V2 max 352.9 cm/sec Ao max PG 49.8 mmHg Ao max PG (full) 44.5 mmHg Ao V2 mean 257.4 cm/sec Ao mean PG 28.8 mmHg Ao mean PG (full) 25.5 mmHg Ao V2 VTI 77.0 cm PEGGY(I,A) 1.2 cm\S\2 PEGGY(I,D) 1.2 cm\S\2 PEGGY(V,A) 1.1 cm\S\2 PEGGY(V,D) 1.1 cm\S\2 LV V1 max PG 5.3 mmHg LV V1 mean PG 3.3 mmHg LV V1 max 115.0 cm/sec LV V1 mean 85.1 cm/sec LV V1 VTI 27.3 cm SV(LVOT) 89.9 ml SI(LVOT) 48.4 ml/m\S\2 CHEST ONE VIEW PORTABLE CLINICAL HISTORY: chest pain, HTN dyspnea COMPARISON STUDY: 11/27/2015 FINDINGS: The bones soft tissues and hemidiaphragms are normal. The cardiomediastinal silhouette is normal. The lungs are clear. The pulmonary vasculature is normal. IMPRESSION: Negative chest. Electronically signed by: Vicente Miller M.D. 12/01/2016 10:59 AM Dictated Date/Time: 12/01/2016 10:59 AM The status of this report is Signed. Draft = Not yet reviewed or approved by Radiologist. Signed = Reviewed and approved by Radiologist. Procedure Note Procedure Date Dec 02, 2016. Pre-Procedure Diagnosis Non STEMI AUC Score 8 Post-Procedure Diagnosis Severe CAD, Successful PCI Procedure(s) Performed Coronary Angiography, Drug Eluting Stent, Fractional Flow [place] [employer] Technician [employer] Supervisor [employer](s) omid Estimated Blood Loss 15 Medication(s) Atropine, Clopidogrel, Fentanyl, Heparin, Nicardipine, Nitroglycerin, Versed, Lidocaine 1% Summary of Findings Indication: NSTEMI Access: 6Fr slender right radial artery Catheters: [place], JL3.5; 5F EBU 3.5 guide Findings: LM - Angiographically normal LAD - Moderate caliber proximally, small in the mid and distal segments as wraps around apex. 30% diffuse mid segment stenosis prior to bifurcation of 1s diagonal; just after diagonal 60-70% diffuse disease just prior to stent extending into proximal aspect of stent (stent restenosis), 40-50% stenosis just distal to stent; distal luminal irregularities Ramus - small vessel, 40-50 ostial stenosis, 50% mid segment stenosis Circumflex - Large caliber vessel, luminal irregularities, moderate ostial stenosis of distal circumflex after take-off of dominant OM. RCA - Dominant, proximal 20% stenosis; 20% stenosis distals stenosis prior to take-off of PDA. PDA/PLB with luminal irregularities. FFR of mid LAD -- 0.76 -- PCI -- Antithrombotic therapy: Heparin, Clopidogrel Procedure: LM cannulated with 5Fr EBU 3.5 guide BMW wire passed across mid LAD lesion into distal vessel Prowater wire placed into diagonal artery Mid LAD lesion predilated with 2.0 compliant balloon Prowater wire removed Dilated lesion stented with 2.25 x 30 Resolute DELLA extending just proximal to diagonal across whole length of prior stent Prowater wire used to rewire diagonal Stent post-dilated with 2.5 noncompliant balloon IC vasodilators administered for spasm Post procedure SALLIE 3 flow, stent well expanded with minimal residual stenosis and no apparent cardiac complications. 40-50% ostial stenosis of diagonal post LAD stenting Arterial Closure: TR Band Summary: 1. Single vessel severe coronary artery disease - 60-70% mid LAD disease extending into previously placed stent, restenosis ( FFR positive at 0.76) 2. 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 Continue dual-antiplatelet therapy with ASA/Plavix for 1 year, potentially life- long with overlapping small LAD stents Continue statin, carvedilol, antihypertensives, and ASCVD risk factor modification Hemodynamics Rest Ao: 150/71/102 Final Ao: 161/57/100 LV: n/a Recommendations PCI without planned CABG Specimens None Radiation Exposure (mGy) 1859 Contrast (mls) 160 Visi Fluids (cc crystalloids) 160 Drains None Anesthesia Moderate Procedural Complication(s) None Disposition PCU ACC Data Cardiac Status Clinical evaluation leading to the procedure CAD Presntation: Non STEMI Anginal Classification: CCS IV Heart Failure: No, NYHA Class: CCS I Cardiogenic Shock w/in 24Hrs: No Cardiac Arrest w/in 24Hrs: No Imaging studies past 6 months: Yes Stress studies past 6 months: No Coronary Anatomy Dominant: Right Left Main (% Stenosis): Normal LAD (% Stenosis): Mid (60-70% instent) Circumflex (% Stenosis): Normal Ramus (% Stenosis): Mid (50) Diagnostic Physician's Name: Venkat Sandoval MD Closure Device Percutaneous Entry Location: Radial Closure Device: Radial Band Recommendations: PCI without planned CABG PCI Indication: PCI for high risk Non-STEMI Lesion Segment Name: mid LAD Culprit Artery: Yes Stenosis Prior to Rx (%): 60-70 Chronic Total Occlusion: No IVUS: No FFR: Yes Ratio: greater than 0.75% Pre-Procedure SALLIE Flow: 3 Previously Treated Lesion: Yes Treated Lesion: Timeframe: 6-12 months Treated with Stent: Yes In-Stent Restenosis: Yes In-Stent Thrombosis: Yes Stent Type: DELLA Lesion Complexity: High/C Lesion Length (mm): 20 Thrombus Present: Yes Bifurcation Lesion: Yes Guidewire Across Lesion: Yes Guidewire: Stenosis Post-Procedure (%): 0 Post-Procedure SALLIE Flow: 3 Device(s) Deployed: Yes Intraprocedure Events Significant Dissection: No Perforation: No <Electronically signed by Venkat Sandoval MD> Signed: 06/20/17 1900 Signed: The status of this report is Signed * If report status is Draft, the document has not been finalized by the responsible provider. MNE: [email or web address] <AttendingPhy>Bernard Roland MD, PhD</AttendingPhy><EDPhy>Christina Carvajal M.D.</EDPhy> <FamilyPhy>Marquise Clement M.D.</FamilyPhy> <PrimaryPhy>Marquise Clement M.D.</PrimaryPhy><UnitNumber>[id number]</UnitNumber><VisitNumber> [id number]</VisitNumber><PatientName>CATHERINE HEATON I</PatientName>< DateOfBirth>1940</DateOfBirth><Age>76</Age><Location>[facility]</Location>< ServiceDate>12/01/16</ServiceDate><CC>Marquise Clement M.D. Jones, Christopher R., MD</CC><MNE>[email or web address].CATH</MNE> Consultations: Cardiology Medication Reconciliation New Medications: Atorvastatin (Atorvastatin Calcium) 20 Mg Tab 40 MG PO DAILY for 30 Days, #60 TAB Carvedilol (Carvedilol) 12.5 Mg Tab 12.5 MG PO BID for 30 Days, #60 TAB Continued Medications: Aspirin (Aspirin EC Low Dose) 81 Mg Ectab 81 MG PO DAILY, #30 TAB 9 Refills Clopidogrel (Plavix) 75 Mg Tab 75 MG PO DAILY, TAB Donepezil Hydrochloride (Donepezil Hcl) 5 Mg Tab 5 MG PO HS Estrogens, Conjugated (Premarin) 0.45 Mg Tab 0.45 MG PO DAILY, TAB Hydralazine Hcl (Apresoline) 50 Mg Tab 50 MG PO BID, TAB Levothyroxine Sodium (Synthroid) 112 Mcg Tab 112 MCG PO DAILY, TAB Nitroglycerin (Nitrostat) 0.4 Mg/1 Tab Subl 0.4 MG SL UD PRN for Chest Pain for 30 Days, #30 TAB 3 Refills Omeprazole (Prilosec) 20 Mg Capcr 20 MG PO DAILY, CAP Discontinued Medications: Atorvastatin (Lipitor) 20 Mg Tab 20 MG PO DAILY, TAB Diltiazem Hcl Ext Rel (Tiazac) 360 Mg Capcr 360 MG PO DAILY, CAP Hctz/Spironolactone 25MG/25MG (Aldactazide 25MG/25MG) 1 Tab Tab 1 TAB PO BID, TAB Discharge Exam Review of Systems: Constitutional: No fever, No chills, No sweats, No weakness, No fatigue Respiratory: No cough, No shortness of breath, No hemoptysis Cardiovascular: No chest pain, No edema, No palpitations Abdomen: No pain, No nausea, No vomiting, No diarrhea, No constipation Musculoskeletal: No joint pain, No muscle pain, No calf pain Genitourinary - Female: No dysuria, No hematuria Neurologic: No weakness, No numbness/tingling Psychiatric: No depression symptoms, No anxiety Hematologic / Lymphatic: No abnormal bleeding/bruising Integumentary: No rash, No itch, No new/changing skin lesions Physical Exam: General Appearance: no apparent distress Eyes: normal inspection, PERRL ENT: hearing grossly normal Neck: supple Respiratory/Chest: lungs clear, no respiratory distress, no accessory muscle use Cardiovascular: regular rate, rhythm Abdomen / GI: normal bowel sounds, non tender, soft Extremities: no calf tenderness, no pedal edema Neurologic/Psychiatric: alert, normal mood/affect Skin: normal color, warm/dry, no rash Hospital Course Admission H&P: This patient is a pleasant 76-year-old female that presents emergency department with complaints of bilateral chest pain that started at 9 AM this morning while she was watching television. She describes it as a severe pressure-like sensation across her chest. It does not radiate to her jaw or arms. She was mildly short of breath, however she has been chronically short of breath for quite some time. She denies any dizziness or lightheadedness. No nausea. No heart palpitations. The patient doesn't a history of significant coronary artery disease. She had a cardiac catheterization performed in 2016, which resulted in a drug-eluting stent in the LAD. Upon arrival in the emergency department, EKG shows slight anterior ST elevation. Troponin is slightly elevated at 0.113. The patient received aspirin 324 mg and nitroglycerin. She says that her pain is much improved. Cardiology was notified. The patient was started on a low-dose heparin drip. Physical Exam Vital Signs Date Time Temp Pulse Resp B/P (MAP) Pulse Ox O2 Delivery O2 Flow Rate FiO2 12/01/16 11:49 96 18 128/88 94 Room Air 12/01/16 09:54 96 Room Air 12/01/16 09:54 96 Room Air 12/01/16 09:52 67 12/01/16 09:34 36.3 61 20 167/86 99 Room Air General Appearance: no apparent distress Head: normocephalic Eyes: EOMI Neck: no JVD Respiratory/Chest: lungs clear Cardiovascular: regular rate, rhythm, + systolic murmur Abdomen/GI: normal bowel sounds, non tender, soft Extremities/Musculoskelatal: no calf tenderness, no pedal edema Neurologic/Psych: no motor/sensory deficits, oriented x 3 Skin: warm/dry NSTEMI: - Admit to telemetry for cardiac monitoring- no acute events - Trend cardiac enzymes- peak trop 1.880 - Abnormal EKG- Follow QAM and PRN w/ CP - Heparin drip started on 12/01- d/c'd 12/02 - Nitro paste - Obtain ECHO - Continue ASA 81 mg daily - Consulted cardiology, appreciate recommendations- -- Cardiac catheterization by Dr. Sandoval on 12/02- PCI of mid LAD with overlapping 2.25 x 30 Resolute DELLA (post-dilated with 2.5 NC balloon) -- Spoke w/ Dr. Lang on 12/03- titrating Coreg but otherwise stable for d /c once kidney function improves Hypokalemia- RESOLVED: Follow PRP and replace w/ KCL supplement PRN CAD s/p stent placement to LAD in 2016: Continue Plavix 75 mg daily Hyperlipidemia: - Lipid panel reviewed- elevated triglycerides - Increase Lipitor 20 mg HS to 40 mg HS HTN- CONTROLLED: - Continue Hydralazine 50 mg BID - d/c'd Diltiazem ER 360 mg daily and start Coreg 6.25 mg BID- Coreg is being titrated by cardiology- begin 12.5 mg BID on 12/04 T2DM- managed w/ diet and exercise: - BSG ACHS w/ sliding insulin scale - ha1c 6.4% on 11/17/16 Hyponatremia, likely secondary to diuretics- IMPROVING: Hold HCTZ/Aldactone 25/ 25 mg BID Renal artery stenosis s/p stenting- noted BRITTNY on CKD stage III, likely secondary to IV contrast from heart cath- RESOLVED : - Treating w/ IVF - Follow PRP - Scheduled for renal US on 12/03 by PCP due to bump in Cr at 1.6 at the beginning of the month. Cr. 1.10 at admission to 1.4 post cath- if Cr. does not improve, will consider study inpatient. Otherwise, f/u outpatient w/ PCP Hypothyroidism: - Continue Synthroid 112 mcg daily - TSH 1.280 on 11/17/16 Mild dementia: Continue Aricept 5 mg daily GERD: Omeprazole changed to Protonix for inter-formulary change- resume Prilosec at discharge GI Prophylaxis: Protonix, IV Zofran PRN DVT prophylaxis: ASA + Plavix and ambulation Code Status: LEVEL I, FULL Dispo: Discharge to home - support group manager to setup PCP f/u - PT/OT evaluations- OK to return home Total Time Spent: Greater than 30 minutes This includes examination of the patient, discharge planning, medication reconciliation, and communication with other providers. Discharge Instructions Please refer to the electronic Patient Visit Report (Discharge Instructions) for additional information. Follow-Up Please follow-up with your PCP within 5-7 days Please follow-up with Cardiology as instructed by Dr. Lang Please follow-up/keep all of your subspecialty appointments Additional Copies To Marquise Clement M.D.
[2016-12-04 09:50] VITALS: BP 147/76; PULSE 63; TEMP 36.7; O2SAT 95
== END 2016-12-04 12:50 | disposition home or self-care (01) | DRG 247 ==
LOC: C.EDB 09:31 → ENRESERV 13:53 → C.2T 14:45 → ENRESERV 12-03 14:15 → C.2T 12-03 14:22
PROVIDERS: ADMIT Internal Medicine; ATTEND Hospitalist
PROC: 027034Z Dilation of Coronary Artery, One Artery with Drug-eluting Intraluminal Device, Percutaneous Approach (ICD-10-PCS; principal; 2016-12-02 13:00)
DX: I21.4 Non-ST elevation (NSTEMI) myocardial infarction (principal); E87.1 Hypo-osmolality and hyponatremia; T82.855A Stenosis of coronary artery stent, initial encounter; N17.9 Acute kidney failure, unspecified; N18.3 Chronic kidney disease, stage 3 (moderate); E03.9 Hypothyroidism, unspecified; E78.5 Hyperlipidemia, unspecified; I25.10 Atherosclerotic heart disease of native coronary artery without angina pectoris; Y92.238 Other place in hospital as the place of occurrence of the external cause; F03.90 Unspecified dementia, unspecified severity, without behavioral disturbance, psychotic disturbance, mood disturbance, and anxiety; T50.905A Adverse effect of unspecified drugs, medicaments and biological substances, initial encounter; E11.9 Type 2 diabetes mellitus without complications; K21.9 Gastro-esophageal reflux disease without esophagitis; E78.00 Pure hypercholesterolemia, unspecified; Z87.891 Personal history of nicotine dependence; I25.2 Old myocardial infarction; Z87.39 Personal history of other diseases of the musculoskeletal system and connective tissue; Z86.79 Personal history of other diseases of the circulatory system; Z79.82 Long term (current) use of aspirin; Z79.899 Other long term (current) drug therapy; Z79.02 Long term (current) use of antithrombotics/antiplatelets; Z79.890 Hormone replacement therapy

== ENCOUNTER → 2017-02-17 | Outpatient (CLI) | payer BC ==
[~2017-02-17] MED LIST changes: -ATOR-22 PO; +CRG125 PO; -DILT-119 PO; -HYDR25TA4 PO; -IMD/2 PO; +LPT20 PO; -OMEG10007 PO; -SENN-61 PO; -SPIR50TA PO
[2017-02-17 09:56] LABS: ALT/SGPT 14 U/L (12-78); AST/SGOT 11 U/L (15-37); BLOOD UREA NITROGEN 10 mg/dl (7-18); BUN/CREATININE RATIO 11.1 (10-20); CARBON DIOXIDE 25 mmol/L (21-32); CHLORIDE 109 mmol/L (98-107); CREATININE 0.91 mg/dl (0.60-1.20); GLUCOSE 111 mg/dl (70-99); SODIUM 143 mmol/L (136-145)
[2017-02-17 09:59] LABS: ESTIMATED AVERAGE GLUCOSE 126 mg/dl; HA1C FLAG Normal (Normal)
[2017-02-17 10:02] LABS: BASO % 0.1 %; BASO ABS # 0.01 K/uL (0-0.2); COMPLETE YES; EOS % 3.1 %; HEMATOCRIT 34.6 % (37-47); IG% 3.5 %; LYMPH % 22.1 %; LYMPH ABS # 1.78 K/uL (1.2-3.4); MEAN CELL VOLUME 90.3 fL (80-100); MEAN CORPUSCULAR HEMOGLOBIN 29.5 pg (25-34); MEAN CORPUSCULAR HGB CONC 32.7 g/dl (32-36); MEAN PLATELET VOLUME 10.3 fL (7.4-10.4); MONO % 13.7 %; NEUT % 57.5 %; PLATELET COUNT 335 K/uL (130-400); RED BLOOD COUNT 3.83 M/uL (4.2-5.4); WHITE BLOOD COUNT 8.05 K/uL (4.8-10.8)
[2017-02-17 10:07] LABS: CHOLESTEROL 121 mg/dl (0-200); CHOLESTEROL/HDL RATIO 3.4; HDL CHOLESTEROL 36 mg/dl; LDL CHOLESTEROL CALCULATED 38 mg/dl; THYROID STIMULATING HORMONE 0.333 uIu/ml (0.300-4.500); TRIGLYCERIDES 235 mg/dl (0-150); VERY LOW DENSITY LIPOPROT CALC 47 mg/dl
== END | disposition home or self-care (01) ==
LOC: C.LAB1850 08:39
PROVIDERS: ATTEND Physician Assistant
DX: E11.9 Type 2 diabetes mellitus without complications (principal)

== ENCOUNTER → 2017-03-07 | Outpatient (CLI) | payer BC | END | disposition home or self-care (01) | LOC: C.LABSPEC 09:43 | PROVIDERS: ATTEND Internal Medicine | DX: E11.9 Type 2 diabetes mellitus without complications (principal) ==

== ENCOUNTER → 2017-03-13 | Outpatient (CLI) | payer BC ==
[2017-03-13 15:03] LABS: BASO % 0.3 %; BASO ABS # 0.04 K/uL (0-0.2); COMPLETE YES; EOS % 12.9 %; HEMATOCRIT 35.5 % (37-47); IG% 3.7 %; LYMPH % 14.9 %; LYMPH ABS # 1.93 K/uL (1.2-3.4); MEAN CELL VOLUME 89.4 fL (80-100); MEAN CORPUSCULAR HEMOGLOBIN 29.5 pg (25-34); MEAN PLATELET VOLUME 10.3 fL (7.4-10.4); MONO % 15.6 %; NEUT % 52.6 %; PLATELET COUNT 307 K/uL (130-400); RED BLOOD COUNT 3.97 M/uL (4.2-5.4); WHITE BLOOD COUNT 12.91 K/uL (4.8-10.8)
[2017-03-13 15:23] LABS: FERRITIN 363.5 ng/ml (8.0-388.0)
--- NOTE | 2017-03-19 13:39 | CODING QUERY MEDICAL NECESSITY ---
SUPPORTING DIAGNOSIS NEEDED Dr. Clement, A supporting diagnosis is required for the test/procedure performed on this patient in order for us to be reimbursed by the patient's insurance. Please provide a supporting diagnosis for the following test/procedure listed below next to the test name along with your signature. *If there is no additional diagnosis for this patient that would support the following test/procedure please document that below next to the test/procedure. Test(s)/Procedure(s) that require a supporting diagnosis: * ([id number]) B12 VITAMIN LEVEL DIAGNOSIS: DATE OF SERVICE: 03/13/17 Provider Signature: Date: Thank you William Villavicencio [facility] Information Management Once completed, please kindly fax back to [phone] For questions please call [phone]
== END | disposition home or self-care (01) ==
LOC: C.LAB1850 12:48
PROVIDERS: ATTEND Internal Medicine
DX: E11.9 Type 2 diabetes mellitus without complications (principal)

== ENCOUNTER → 2017-04-07 | Day surgery (SDC) | payer BC ==
[2017-04-03 08:38] VITALS: Ht 157.5 cm; Wt 75.0 kg
[~2017-04-07] VITALS: Ht 157.5 cm; Wt 75.0 kg
[~2017-04-07] MED LIST changes: +ATOR-24 PO; +CARV25TA PO; -CRG125 PO; +ETOMIDATE 2 MG/ML 20 ML VIAL IV ONE; +FENTANYL CITRATE INJ 50 MCG/1 ML 2 ML VIAL ONE; +LIDOCAINE HCL 2% 2 ML VIAL (20MG/ML) ONE; -LPT20 PO; +MIDAZOLAM HCL 1 MG/ML 2ML VIAL ONE; +OMEG10007 PO; +PROPOFOL IV EMULSION 10 MG/ML 20 ML VIAL IV ONE; +SODIUM CHLORIDE 0.9% 500ML 500 ML IV ONE
--- NOTE | 2017-04-07 11:08 | Endo History and Physical ---
History & Physical Date of Service: Apr 07, 2017. Chief Complaint: Anemia, GI bleed Referring Physician: Dr Clement History of Present Illness 77 yo CF who presents for colonoscopy secondary to anemia. Past Medical History Diabetes, Arthritis, Gastrointestinal Disorder, High Cholesterol, Hypertension, Thyroid Disease Past Surgical History Hx Cardiac Surgery: Yes (HEART CATHX 2, 2 TOTAL STENTS PLACED) Hx Internal Defibrillator: No Hx Pacemaker: No Hx Abdominal Surgery: Yes (VIDHYA BSO, ) Hx of Implantable Prosthesis: No Hx Post-Op Nausea and Vomiting: No Hx Cancer Surgery: No Hx Thoracic Surgery: No Hx Orthopedic: No Hx Urinary Tract Surgery: Yes (KIDNEY STENT PLACED) Family History None Social History Smoking Status: Former Smoker Hx Substance Use: No Hx Alcohol Use: No Allergies Coded Allergies: Adhesives (Verified Allergy, Mild, RED RASH, 04/03/17) Latex1 -Allergic Contact Dermititis (Verified Allergy, Mild, RASH, ) Penicillins (Verified Allergy, Unknown, HIVES, 04/03/17) Current Medications Reported Home Medications Medications Dose Route/Sig Max Daily Dose Days Date Category [place]-3 (Fish Oil) 1 Ea Cap 1 Cap PO DAILY 04/03/17 Reported Coreg (Carvedilol) 25 Mg Tab 25 Mg PO BID 04/03/17 Reported Lipitor (Atorvastatin Calcium) 40 Mg Tab 40 Mg PO DAILY 04/03/17 Reported Nitrostat (Nitroglycerin) 0.4 Mg/1 Tab Subl 0.4 Mg SL UD PRN 30 01/22/16 Rx Aspirin EC Low Dose (Aspirin) 81 Mg Ectab 81 Mg PO DAILY 01/22/16 Rx Apresoline (Hydralazine Hcl) 50 Mg Tab 50 Mg PO BID 01/21/16 Reported Donepezil Hcl (Donepezil Hydrochloride) 5 Mg Tab 5 Mg PO HS 10/30/14 Reported Synthroid (Levothyroxine Sodium) 112 Mcg Tab 112 Mcg PO DAILY 10/09/14 Reported Premarin (Estrogens Conjugated) 0.45 Mg Tab 0.45 Mg PO DAILY 07/27/13 Reported Prilosec (Omeprazole) 20 Mg Capcr 20 Mg PO DAILY 07/27/13 Reported Vital Signs Weight (Kilograms): 75 Height (Feet): 5 Height (Inches): 2 Date Time Temp Pulse Resp B/P (MAP) Pulse Ox O2 Delivery O2 Flow Rate FiO2 04/07/17 10:25 37.1 58 18 173/80 (111) 98 Room Air Physical Exam General Appearance: WD/WN, no apparent distress Respiratory/Chest: Auscultation: breath sounds normal Cardiovascular: Heart Auscultation: RRR Abdomen: Bowel Sounds: normal Inspection & Palpation: soft, non-distended, no tenderness, guarding & rebound Assessment and Plan Assessment: 77 yo CF who presents for colonoscopy secondary to anemia. Plan: Proceed with colonoscopy.
--- NOTE | 2017-04-07 13:09 | Discharge Instructions ---
Endoscopy Patient Instructions Date / Procedure(s) Performed Apr 07, 2017. Colonoscopy Allergy Information Coded Allergies: Adhesives (Verified Allergy, Mild, RED RASH, 04/03/17) Latex1 -Allergic Contact Dermititis (Verified Allergy, Mild, RASH, ) Penicillins (Verified Allergy, Unknown, HIVES, 04/03/17) Discharge Date / Findings Apr 07, 2017. Diverticulosis Internal hemorrhoids Medication Instructions OK to resume all medications today as prescribed Reported Home Medications Medications Dose Route/Sig Max Daily Dose Days Date Category [place]-3 (Fish Oil) 1 Ea Cap 1 Cap PO DAILY 04/03/17 Reported Coreg (Carvedilol) 25 Mg Tab 25 Mg PO BID 04/03/17 Reported Lipitor (Atorvastatin Calcium) 40 Mg Tab 40 Mg PO DAILY 04/03/17 Reported Nitrostat (Nitroglycerin) 0.4 Mg/1 Tab Subl 0.4 Mg SL UD PRN 30 01/22/16 Rx Aspirin EC Low Dose (Aspirin) 81 Mg Ectab 81 Mg PO DAILY 01/22/16 Rx Apresoline (Hydralazine Hcl) 50 Mg Tab 50 Mg PO BID 01/21/16 Reported Donepezil Hcl (Donepezil Hydrochloride) 5 Mg Tab 5 Mg PO HS 10/30/14 Reported Synthroid (Levothyroxine Sodium) 112 Mcg Tab 112 Mcg PO DAILY 10/09/14 Reported Premarin (Estrogens Conjugated) 0.45 Mg Tab 0.45 Mg PO DAILY 07/27/13 Reported Prilosec (Omeprazole) 20 Mg Capcr 20 Mg PO DAILY 07/27/13 Reported Provider Instructions Activity Restrictions - No exercising or heavy lifting for 24 hours. - Do not drink alcohol the day of the procedure. - Do not drive a car or operate machinery until the day after the procedure. - Do not make any important decisions or sign important papers in 24 hours after the procedure. Following Day: - Return to full activity which may include returning to work/school. Diet Start your diet with liquids and light foods (jello, soup, juice, toast). Then eat your usual diet if not nauseated. Treatment For Common After Affects For mild abdominal pain, bloating, or excessive gas: - Rest - Eat lightly - Lie on right side Follow-Up Information Follow-up with Dr Clement as scheduled Anesthesia Information What You Should Know You have had a procedure that required some medicine to reduce anxiety and discomfort. This treatment is called moderate sedation. After receiving the treatment, you may be sleepy, but you will be able to breathe on your own. The effects of the treatment may last for several hours. Follow these instructions along with Activity/Diet recommendations noted above: * Do NOT do anything where dizziness or clumsiness would be dangerous. * Rest quietly at home today, then you can be up and about tomorrow. * Have a responsible person stay with you the rest of today. * You may have had an I.V. today. If so, you may take the dressing off later today. Recommendations Call your doctor if: * Trouble breathing * Continuous vomiting for more than 24 hours * Temperature above 101 degrees * Severe abdominal pain or bloating * Pain not relieved by pain medicine ordered * There is increased drainage or redness from any incision * A large amount of rectal bleeding greater than 2-3 tablespoons. (If you had a polyp/s removed or have hemorrhoids, a small amount of blood - from the rectum is to be expected.) * You have any unanswered questions or concerns. IN THE EVENT OF A SERIOUS EMERGENCY, GO TO THE NEAREST EMERGENCY ROOM Your discharge instructions were prepared by provider Myron Mcintosh. Patient Instructions Signature Page Gaby Brush Patient (or Guardian) Signature/Date: I have read and understand the instructions given to me by my caregivers. Caregiver/RN/Doctor Signature/Date: The above-named patient and/or guardian has received patient instructions on this date. + Original Patient Signature Page (only) stays with chart. Please make copy for patient.
--- NOTE | 2017-04-07 13:15 | GI REPORT ---
Procedure Date: 04/07/2017 12:47 PM Procedure: Colonoscopy Indications: Iron deficiency anemia Medicines: Monitored Anesthesia Care Complications: No immediate complications. Estimated Blood Loss: Estimated blood loss: none. Procedure: Pre-Anesthesia Assessment: - Prior to the procedure, a History and Physical was performed, and patient medications and allergies were reviewed. The patient's tolerance of previous anesthesia was also reviewed. The risks and benefits of the procedure and the sedation options and risks were discussed with the patient. All questions were answered, and informed consent was obtained. Prior Anticoagulants: The patient last took aspirin 1 day and Plavix (clopidogrel) 1 day prior to the procedure. ASA Grade Assessment: IV - A patient with severe systemic disease that is a constant threat to life. After reviewing the risks and benefits, the patient was deemed in satisfactory condition to undergo the procedure. After I obtained informed consent, the scope was passed under direct vision. Throughout the procedure, the patient's blood pressure, pulse, and oxygen saturations were monitored continuously. The scope was introduced through the anus and advanced to the terminal ileum. The colonoscopy was performed without difficulty. The patient tolerated the procedure well. The quality of the bowel preparation was good. The terminal ileum, ileocecal valve, appendiceal orifice, and rectum were photographed. Findings: Multiple small-mouthed diverticula were found in the sigmoid colon. Non-bleeding internal hemorrhoids were found during retroflexion. The hemorrhoids were small. Impression: - Diverticulosis in the sigmoid colon. - Non-bleeding internal hemorrhoids. - No specimens collected. Recommendation: - Resume previous diet. - Continue present medications. - No repeat colonoscopy due to age and the absence of advanced adenomas. - Return to primary care physician as previously scheduled. Myron Mcintosh DO 04/07/2017 1:14:17 PM This report has been signed electronically. Note Initiated On: 04/07/2017 12:47 PM I attest to the content of the Intraoperative Record and orders documented therein, exceptions below
--- NOTE | 2017-04-07 13:39 | Anesthesiology Progress Note ---
Anesthesia Post Op Note Date & Time Apr 07, 2017 at 13:39 Vital Signs Pain Intensity: 0 Vital Signs Past 12 Hours Date Time Temp Pulse Resp B/P (MAP) Pulse Ox O2 Delivery O2 Flow Rate FiO2 04/07/17 13:30 62 18 151/72 (98) 95 Room Air 04/07/17 13:15 89 18 131/77 (95) 94 Room Air 04/07/17 10:25 37.1 58 18 173/80 (111) 98 Room Air Notes Mental Status: alert / awake / arousable, participated in evaluation Pt Amnestic to Procedure: Yes Nausea / Vomiting: adequately controlled Pain: adequately controlled Airway Patency, RR, SpO2: stable & adequate BP & HR: stable & adequate Hydration State: stable & adequate Anesthetic Complications: no major complications apparent
[2017-04-07 13:42] VITALS: BP 166/86; PULSE 78; O2SAT 97
== END | disposition home or self-care (01) ==
LOC: C.GI 09:32
PROVIDERS: ATTEND Internal Medicine
DX: D50.9 Iron deficiency anemia, unspecified (principal); K92.2 Gastrointestinal hemorrhage, unspecified; K57.30 Diverticulosis of large intestine without perforation or abscess without bleeding; K64.8 Other hemorrhoids; I25.10 Atherosclerotic heart disease of native coronary artery without angina pectoris; I10 Essential (primary) hypertension; Z88.0 Allergy status to penicillin; E11.9 Type 2 diabetes mellitus without complications; E78.00 Pure hypercholesterolemia, unspecified; I73.9 Peripheral vascular disease, unspecified; K21.9 Gastro-esophageal reflux disease without esophagitis; M19.90 Unspecified osteoarthritis, unspecified site; F03.90 Unspecified dementia, unspecified severity, without behavioral disturbance, psychotic disturbance, mood disturbance, and anxiety; I25.2 Old myocardial infarction; Z91.040 Latex allergy status; Z68.30 Body mass index [BMI] 30.0-30.9, adult; Z79.899 Other long term (current) drug therapy; Z79.82 Long term (current) use of aspirin; Z87.891 Personal history of nicotine dependence; Z98.890 Other specified postprocedural states

== ENCOUNTER → 2017-04-27 | Outpatient (CLI) | payer BC ==
[~2017-04-27] MED LIST changes: -ETOMIDATE 2 MG/ML 20 ML VIAL IV ONE; -FENTANYL CITRATE INJ 50 MCG/1 ML 2 ML VIAL ONE; -LIDOCAINE HCL 2% 2 ML VIAL (20MG/ML) ONE; -MIDAZOLAM HCL 1 MG/ML 2ML VIAL ONE; -PROPOFOL IV EMULSION 10 MG/ML 20 ML VIAL IV ONE; -SODIUM CHLORIDE 0.9% 500ML 500 ML IV ONE
[2017-04-27 10:12] LABS: HEMATOCRIT 36.7 % (37-47); MEAN CORPUSCULAR HEMOGLOBIN 29.2 pg (25-34); MEAN CORPUSCULAR HGB CONC 32.4 g/dl (32-36); PLATELET COUNT 312 K/uL (130-400); RED BLOOD COUNT 4.08 M/uL (4.2-5.4); WHITE BLOOD COUNT 8.77 K/uL (4.8-10.8)
== END | disposition home or self-care (01) ==
LOC: C.LAB1850 08:37
PROVIDERS: ATTEND Internal Medicine
DX: E78.00 Pure hypercholesterolemia, unspecified (principal)

== ENCOUNTER → 2017-05-19 | Outpatient (CLI) | payer BC ==
[2017-05-19 12:25] LABS: BASO % 0.3 %; BASO ABS # 0.03 K/uL (0-0.2); COMPLETE YES; EOS % 5.2 %; HEMATOCRIT 38.4 % (37-47); IG% 2.3 %; LYMPH ABS # 1.69 K/uL (1.2-3.4); MEAN CORPUSCULAR HEMOGLOBIN 29.4 pg (25-34); MEAN CORPUSCULAR HGB CONC 32.3 g/dl (32-36); MEAN PLATELET VOLUME 10.3 fL (7.4-10.4); MONO % 15.3 %; NEUT % 61.9 %; PLATELET COUNT 355 K/uL (130-400); RED BLOOD COUNT 4.22 M/uL (4.2-5.4); WHITE BLOOD COUNT 11.28 K/uL (4.8-10.8)
[2017-05-19 12:45] LABS: ESTIMATED AVERAGE GLUCOSE 120 mg/dl; HA1C FLAG Normal (Normal)
== END | disposition home or self-care (01) ==
LOC: C.LAB1850 11:05
PROVIDERS: ATTEND Internal Medicine
DX: E78.00 Pure hypercholesterolemia, unspecified (principal)

== ENCOUNTER 2017-06-05 15:50 | Inpatient (IN) | payer BC, OTHER ==
[~2017-06-05] VITALS: Ht 154.9 cm; Wt 76.7 kg
[2017-06-05] MEDS ORDERED: ASPIRIN 81 MG CHEW PO STA (16:16)
--- NOTE | 2017-06-05 16:21 | EMERGENCY ROOM VISIT NOTE ---
History Report prepared by Farrukh: Jacky Woo Under the Supervision of: Dr. Quentin Soto M.D. First contact with patient: 16:03 Chief Complaint: CHEST PAIN Stated Complaint: CHEST PAIN History of Present Illness The patient is a 77 year old female who presents to the Emergency Room with complaints of constant chest pain beginning this morning. Per , the patient has a history of coronary disease, and has had a heart attack and has stents placed. He notes that the patient has a heart catheter and stents placed 6 months ago following a non-STEMI, and has been experiencing intermittent chest pains since then. He reports that the patient has been taking nitroglycerin for her symptoms. He states that the patient has been requiring more nitroglycerin for relief of her chest pain. He notes that the patient took 3 tablets yesterday and 3 tablets today for her chest pain. He reports that the patient's prescription is running low, prompting the visit to the emergency department today. The patient states that her chest pain feels "heavy," and that she also experiences pain in her left shoulder. She also complains of mild SOB that is normal for her. She denies any diaphoresis, nausea, fever, chills, black or bloody stool, abdominal pain, recent falls, and recent change in medication. Per , the patient's current symptoms appear to be similar to her previous symptoms. The patient notes that she is not currently feeling any chest pain. She reports that she has a history of hypertension and hyperlipidemia that is controlled by medication. She states that she typically takes Plavix and an aspirin a day, but did not take any aspirin today. She notes that she also has a history of memory problems for the past few years. Source of History: patient, spouse/significant other Onset: this morning Position: chest Quality: other ("heavy") Timing: constant Modifying Factors (Relieving): other (nitroglycerin ) Associated Symptoms: + SOB (mild), No fevers, No chills, No diaphoresis, No nausea, No abdominal pain Note: She also complains of left shoulder pain. She denies any black or bloody stool, recent falls, and recent change in medication. Review of Systems See HPI for pertinent positives & negatives. A total of 10 systems reviewed and were otherwise negative. Past Medical & Surgical Medical Problems: (1) CAD (coronary artery disease) (2) Cardiac Dysrhythmia Nos (3) Diab Anahi Wo Compl, Type Ii Or Unspec Type, Not Uncntrld (4) Diverticulosis Colon (W/O Ment Of Hemorrhage) (5) Hyperlipidemia Nec/Nos (6) Hypertension Nos (7) Hypothyroidism Nos (8) Lupus (9) Menopausal symptoms (10) STEMI (ST elevation myocardial infarction) (11) Tinnitus Nos Surgical Problems: (1) History of coronary artery stent placement Old medical records were reviewed. Nurse's notes were reviewed and I agree with. Cardiac disease. She had a cath in November 2016 with a stent for a non-STEMI and was found to have multivessel disease at the time. Memory issues Chronic shortness of breath thought to be related to cardiac disease and chronic anemia according to the family Family History Insignificant due to old age Social History Smoking Status: Former Smoker Marital Status: Housing Status: lives with significant other Occupation Status: retired Current/Historical Medications Scheduled Aspirin (Aspirin EC Low Dose), 81 MG PO DAILY Atorvastatin (Lipitor), 40 MG PO DAILY Carvedilol (Coreg), 25 MG PO BID Clopidogrel (Plavix), 75 MG PO DAILY Donepezil Hydrochloride (Donepezil Hcl), 5 MG PO HS Estrogens, Conjugated (Premarin), 0.45 MG PO DAILY Hydralazine Hcl (Apresoline), 50 MG PO BID Levothyroxine Sodium (Synthroid), 112 MCG PO DAILY Omeprazole (Prilosec), 20 MG PO DAILY Scheduled PRN Nitroglycerin (Nitrostat), 0.4 MG SL UD PRN for Chest Pain Allergies Coded Allergies: Adhesives (Verified Allergy, Mild, RED RASH, 06/05/17) Latex1 -Allergic Contact Dermititis (Verified Allergy, Mild, RASH, ) Penicillins (Verified Allergy, Unknown, HIVES, 06/05/17) Physical Exam Vital Signs Date Time Temp Pulse Resp B/P (MAP) Pulse Ox O2 Delivery O2 Flow Rate FiO2 06/05/17 20:17 62 20 179/90 95 Room Air 06/05/17 19:59 64 20 196/90 97 Room Air 06/05/17 19:39 64 20 198/88 95 Room Air 06/05/17 18:50 58 14 98 06/05/17 17:55 59 13 176/73 96 Room Air 12/22/17 17:50 58 22 97 06/05/17 17:20 59 16 97 06/05/17 17:10 96 Room Air 06/05/17 16:53 63 06/05/17 16:50 60 16 06/05/17 16:00 36.8 73 20 166/77 97 Room Air Physical Exam General: Non-ill appearing middle age female in no acute distress. HEENT: Normal cephalic atraumatic. Pupils are equal round and reactive to light. Extraocular movements are intact. Oropharynx is pink with moist mucous membranes. No swelling of the mouth lips or tongue. Neck: Supple with a midline trachea. No meningeal signs or stiffness, no JVD or bruits. No Stridor. Chest: Clear to auscultation bilaterally. No wheezes or rhonchi. No increased work of breathing. Heart: regular rate and rhythm. Abdomen: Soft nontender, nondistended without rebound guarding or rigidity. Extremities: No cyanosis clubbing or edema. No calf tenderness or assymetry Spine/Back. Non tender to palpation. No CVA tenderness Skin: Good turgor without rashes. Neurologic exam: Cranial nerves two through 12 are intact. Motor and sensation are intact and symmetrical throughout. Medical Decision & Procedures ER Provider Diagnostic Interpretation: Radiology results as stated below per my review and radiologist interpretation: CHEST ONE VIEW PORTABLE FINDINGS: The cardiac and mediastinal contours are normal. There is no evidence of focal pulmonary consolidation. There is no evidence of failure. No pleural effusions are visualized.[ IMPRESSION: No active disease in the chest. Electronically signed by: Yuri Shirley M.D. 06/05/2017 5:11 PM Laboratory Results 06/05/17 16:48 Red Blood Count 4.28, Mean Corpuscular Volume 88.8, Mean Corpuscular Hemoglobin 29.4, Mean Corpuscular Hemoglobin Concent 33.2, Mean Platelet Volume 10.5, Neutrophils (%) (Auto) 63.3, Lymphocytes (%) (Auto) 16.5, Monocytes (%) (Auto) 15.0, Eosinophils (%) (Auto) 2.9, Basophils (%) (Auto) 0.2, Neutrophils # (Auto ) 6.66, Lymphocytes # (Auto) 1.73, Monocytes # (Auto) 1.57, Eosinophils # (Auto ) 0.30, Basophils # (Auto) 0.02 06/05/17 16:48 Test 06/05/17 16:48 06/05/17 16:55 White Blood Count 10.50 K/uL (4.8-10.8) Red Blood Count 4.28 M/uL (4.2-5.4) Hemoglobin 12.6 g/dL (12.0-16.0) Hematocrit 38.0 % (37-47) Mean Corpuscular Volume 88.8 fL (80-100) Mean Corpuscular Hemoglobin 29.4 pg (25-34) Mean Corpuscular Hemoglobin Concent 33.2 g/dl (32-36) Platelet Count 343 K/uL (130-400) Mean Platelet Volume 10.5 fL (7.4-10.4) Neutrophils (%) (Auto) 63.3 % Lymphocytes (%) (Auto) 16.5 % Monocytes (%) (Auto) 15.0 % Eosinophils (%) (Auto) 2.9 % Basophils (%) (Auto) 0.2 % Neutrophils # (Auto) 6.66 K/uL (1.4-6.5) Lymphocytes # (Auto) 1.73 K/uL (1.2-3.4) Monocytes # (Auto) 1.57 K/uL (0.11-0.59) Eosinophils # (Auto) 0.30 K/uL (0-0.5) Basophils # (Auto) 0.02 K/uL (0-0.2) RDW Standard Deviation 52.2 fL (36.4-46.3) RDW Coefficient of Variation 16.2 % (11.5-14.5) Immature Granulocyte % (Auto) 2.1 % Immature Granulocyte # (Auto) 0.22 K/uL (0.00-0.02) Prothrombin Time 10.3 SECONDS (9.0-12.0) Prothromb Time International Ratio 1.0 (0.9-1.1) Activated Partial Thromboplast Time 27.3 SECONDS (21.0-31.0) Partial Thromboplastin Ratio 1.1 Anion Gap 8.0 mmol/L (3-11) Est Creatinine Clear Calc Drug Dose 41.8 ml/min Estimated GFR () 56.3 Estimated GFR (Non- 48.5 BUN/Creatinine Ratio 13.6 (10-20) Calcium Level 9.2 mg/dl (8.5-10.1) Total Bilirubin 0.3 mg/dl (0.2-1) Direct Bilirubin < 0.1 mg/dl (0-0.2) Aspartate Amino Transf (AST/SGOT) 14 U/L (15-37) Alanine Aminotransferase (ALT/SGPT) 16 U/L (12-78) Alkaline Phosphatase 124 U/L (45-117) Total Creatine Kinase 37 U/L (26-192) Creatine Kinase MB 1.0 ng/ml (0.5-3.6) Creatine Kinase MB Ratio 2.7 (0-3.0) Total Protein 6.7 gm/dl (6.4-8.2) Albumin 3.5 gm/dl (3.4-5.0) Lipase 284 U/L (73-393) Bedside Troponin I 0.180 ng/ml (0-0.045) Laboratory studies as stated above per my review. Medications Administered Medications (Trade) Dose Ordered Sig/Felicity Route Start Time Stop Time Status Last Admin Dose Admin Aspirin (Aspirin Chew) 324 mg NOW STAT PO 06/05/17 16:16 06/05/17 16:18 DC 06/05/17 16:41 324 MG Potassium Chloride (Klor-Con M10) 40 meq NOW STAT PO 06/05/17 18:09 06/05/17 18:11 DC 06/05/17 18:27 40 MEQ Heparin Sodium (Porcine) (Heparin Sq 5000 Unit/0.5ml) 5,000 unit STK-MED ONCE .ROUTE 06/05/17 18:11 06/05/17 18:12 DC 06/05/17 18:20 5,000 UNIT Heparin Sodium/ Dextrose (Heparin 25,000 Unit/500ml D5W) 25,000 unit STK-MED ONCE .ROUTE 06/05/17 18:11 06/05/17 18:12 DC 06/05/17 18:21 25,000 UNIT ECG Indication: chest pain Rate (beats per minute): 70 Rhythm: normal sinus Findings: 1st degree AV block, other (Poor R wave progression, lateral T wave abnormalities) Comparison ECG Date: 12/03/2016 Change: Compared to prior, poor R wave progression is now present. ED Course 1606: Past medical records reviewed. The patient was evaluated in room C5, and a complete history and physical examination were performed. 1616: Aspirin 324mg PO 1701: I reevaluated and updated the patient. She is pain free and is resting comfortably. 1733: I spoke to Dr. Castro - Cardiology, [facility]. He states that the patient should receive heparin. 175: Heparin Sodium/ Dextrose 1 ea N/A 1755: Upon reevaluation, the patient is stable. I discussed the results and treatment plan with the patient. She verbalized agreement of the treatment plan. The patient will be evaluated for further management. I spoke to Dr. Salguero - Hospitalist, [facility], and told him what I spoke to Dr. Castro about. He agrees. 1809: Potassium Chloride 40 meq PO Medical Decision Differential diagnoses include: acute coronary syndrome, CHF, arrhythmia, electrolyte/metabolic abnormalities, and anemia. This patient comes in as described above. She was placed in room C5. She is here for treatment and evaluation of chest pain. Transabdominal she is pain- free at present. She's had increasing use of nitroglycerin, and he took 3 today and 3 yesterday and this has been atypical for her. She had a cath done about 6 months ago which showed multivessel coronary disease. She also has memory issues and makes it difficult to get an accurate history. She does take a baby aspirin a day but has not taken it yet and was given aspirin 324 mg chewable here. She is also on Plavix at home. Her initial EKG shows some poor or progression which may be different than before but otherwise no definite acute changes. There is no changes to suggest a STEMI . Multiple blood tests was obtained as well as a chest x-ray and EKG. She was reassessed frequently. She remained stable. I did consult the [facility] hospitalist and he recommended we talked to the ore trimmer Dr. Castro and and he recommended heparin. Heparin was ordered with the IV bolus and hourly rate. The patient has no contraindications to this she's had no recent trauma or surgery or bleeding. She was also given potassium chloride to correct her low potassium. She will be admitted for further treatment and evaluation and cardiac evaluation. She also does have aortic stenosis with food which could be playing a role here as well. She will be admitted. Medication Reconcilliation Current Medication List: was personally reviewed by me Blood Pressure Screening Patient's blood pressure: Elevated blood pressure Referred to hospitalist. Consults Time Called: 173 Consulting Physician: Dr. Castro - Cardiology, [facility] Returned Call: [phone] He states that the patient should receive heparin. Additional Consults: Time Called: 1723 Consulted Physician: Dr. Salguero - Hospitalist, [facility] Returned Call: [phone] Additional Comments: Discussed the patient's case. The patient will be evaluated for further management. He also agrees with Dr. Castro. Impression Primary Impression: Unstable angina Additional Impressions: Precordial chest pain Elevated troponin Aortic stenosis Hypokalemia Scribe Attestation The scribe's documentation has been prepared under my direction and personally reviewed by me in its entirety. I confirm that the note above accurately reflects all work, treatment, procedures, and medical decision making performed by me. Departure Information Dispostion Being Evaluated By Hospitalist Referrals Marquise Clement M.D. (PCP) Patient Instructions My [facility] Problem Qualifiers
[2017-06-05 17:01] LABS: BASO % 0.2 %; BASO ABS # 0.02 K/uL (0-0.2); COMPLETE YES; EOS % 2.9 %; IG% 2.1 %; LYMPH % 16.5 %; LYMPH ABS # 1.73 K/uL (1.2-3.4); MEAN CELL VOLUME 88.8 fL (80-100); MEAN CORPUSCULAR HEMOGLOBIN 29.4 pg (25-34); MEAN CORPUSCULAR HGB CONC 33.2 g/dl (32-36); MEAN PLATELET VOLUME 10.5 fL (7.4-10.4); NEUT % 63.3 %; PLATELET COUNT 343 K/uL (130-400); RED BLOOD COUNT 4.28 M/uL (4.2-5.4)
[2017-06-05 17:11] LABS: PARTIAL THROMBOPLASTIN RATIO 1.1; PROTHROMBIN TIME (PATIENT) 10.3 SECONDS (9.0-12.0)
--- NOTE | 2017-06-05 17:12 | DIAGNOSTIC IMAGING REPORT ---
CHEST ONE VIEW PORTABLE CLINICAL HISTORY: Atypical chest pain and shortness of breath COMPARISON STUDY: 12/01/2016 FINDINGS: The cardiac and mediastinal contours are normal. There is no evidence of focal pulmonary consolidation. There is no evidence of failure. No pleural effusions are visualized.[ IMPRESSION: No active disease in the chest. Electronically signed by: Yuri Shirley M.D. 06/05/2017 5:11 PM Dictated Date/Time: 06/05/2017 5:11 PM
[2017-06-05 17:23] LABS: ALT/SGPT 16 U/L (12-78); BLOOD UREA NITROGEN 15 mg/dl (7-18); BUN/CREATININE RATIO 13.6 (10-20); CALCIUM 9.2 mg/dl (8.5-10.1); CARBON DIOXIDE 24 mmol/L (21-32); CHLORIDE 106 mmol/L (98-107); CREATININE 1.11 mg/dl (0.60-1.20); GLUCOSE 97 mg/dl (70-99); POTASSIUM 3.2 mmol/L (3.5-5.1); SODIUM 138 mmol/L (136-145)
[2017-06-05 17:28] LABS: ALKALINE PHOSPHATASE 124 U/L (45-117); AST/SGOT 14 U/L (15-37); CKMB/CK RATIO 2.7 (0-3.0)
[2017-06-05] MEDS ORDERED: POTASSIUM CHLORIDE 10 MEQ TABCR PO STA (18:09)
[2017-06-05] MEDS ORDERED: HEPARIN 25000 UNIT/500 ML D5W ONE (18:11)
[2017-06-05] MEDS ORDERED: HEPARIN SOD 5000 UNIT/0.5 ML CARP ONE (18:11)
[2017-06-05] MEDS ORDERED: NITROGLYCERIN 0.4 MG SL PER TAB CHARGE SL PRN (20:00)
[2017-06-05] MEDS ORDERED: ACETAMINOPHEN 325 MG TAB PO PRN (20:00)
[2017-06-05] MEDS ORDERED: ONDANSETRON INJ 2 MG/ML 2 ML VIAL IV PRN (20:00)
[2017-06-05] MEDS ORDERED: MoRPHine SULFATE 2 MG/ML CARP IV PRN (20:00)
--- NOTE | 2017-06-05 20:18 | History and Physical ---
History & Physical Date & Time of Service: Jun 05, 2017 at 19:26 Chief Complaint: Chest Pain Primary Care Physician: Marquise Clement M.D. History of Present Illness Chest pain over last two days, increasing in frequency over past month. MOBLEY which is normal for her. No sob at rest. CP is not tied to exertion, woke her up last night. The pain is central and radiates to left arm at times. 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 Dr. Sandoval did her cath this summer. She mentions having a head cold a week ago. Sees Dr. Clement for primary. ROS Constitutional: no chills, aches, sweats or fever Respiratory: see HPI Cardiac: see HPI GI: no abdominal pain, nausea, vomiting, diarrhea or constipation : no dysuria or hesitancy Extremities: no joint pain or weakness Skin: no rash Other systems reviewed and negative Past Medical/Surgical History Medical Problems: (1) Cardiac Dysrhythmia Nos Status: Chronic (2) Diab Anahi Wo Compl, Type Ii Or Unspec Type, Not Uncntrld Status: Chronic (3) Diverticulosis Colon (W/O Ment Of Hemorrhage) Status: Chronic (4) Hyperlipidemia Nec/Nos Status: Chronic (5) Hypertension Nos Status: Chronic (6) Hypothyroidism Nos Status: Chronic (7) Lupus Status: Chronic (8) Menopausal symptoms Status: Resolved Family History Insignificant due to old age Social History Smoking Status: Former Smoker (quit 40 years ago) Smokeless Tobacco Use: No Alcohol Use: none Marital Status: Housing status: lives with significant other Occupational Status: retired Immunizations History of Influenza Vaccine: Yes Influenza Vaccine Date: Apr 04, 2013 History of Tetanus Vaccine?: Unknown History of Pneumococcal: No History of Hepatitis B Vaccine: Unknown Multi-Drug Resistant Organisms History of MDRO: No Allergies Coded Allergies: Adhesives (Verified Allergy, Mild, RED RASH, 06/05/17) Latex1 -Allergic Contact Dermititis (Verified Allergy, Mild, RASH, ) Penicillins (Verified Allergy, Unknown, HIVES, 06/05/17) Home Medications Scheduled Aspirin (Aspirin EC Low Dose), 81 MG PO DAILY Atorvastatin (Lipitor), 40 MG PO DAILY Carvedilol (Coreg), 25 MG PO BID Clopidogrel (Plavix), 75 MG PO DAILY Donepezil Hydrochloride (Donepezil Hcl), 5 MG PO HS Estrogens, Conjugated (Premarin), 0.45 MG PO DAILY Hydralazine Hcl (Apresoline), 50 MG PO BID Levothyroxine Sodium (Synthroid), 112 MCG PO DAILY Omeprazole (Prilosec), 20 MG PO DAILY Scheduled PRN Nitroglycerin (Nitrostat), 0.4 MG SL UD PRN for Chest Pain Physical Exam Vital Signs Date Time Temp Pulse Resp B/P (MAP) Pulse Ox O2 Delivery O2 Flow Rate FiO2 06/05/17 17:55 59 13 176/73 96 Room Air 06/05/17 17:10 96 Room Air 06/05/17 16:53 63 06/05/17 16:00 36.8 73 20 166/77 97 Room Air General: no distress Eyes: reddened right eye - patient states this is baseline, PERLL Respiratory: chest non tender, clear to auscultation, normal breath sounds, no respiratory distress, no accessory muscle use Cardiac: regular rate and rhythm, no rub or gallop, systolic murmur 3/6 LUSB, no edema, no jvd GI/: active bowel sounds, no abd pain or tenderness, soft, non distended Extremities: normal range of motion, normal strength, non tender Neuro/Psych: alert and oriented x 3, forgetful, normal mood and affect Skin: normal color, dry Diagnostics Laboratory Results Results Past 24 Hours Test 06/05/17 16:48 06/05/17 16:55 Range/Units White Blood Count 10.50 4.8-10.8 K/uL Red Blood Count 4.28 4.2-5.4 M/uL Hemoglobin 12.6 12.0-16.0 g/dL Hematocrit 38.0 37-47 % Mean Corpuscular Volume 88.8 80-100 fL Mean Corpuscular Hemoglobin 29.4 25-34 pg Mean Corpuscular Hemoglobin Concent 33.2 32-36 g/dl Platelet Count 343 130-400 K/uL Mean Platelet Volume 10.5 7.4-10.4 fL Neutrophils (%) (Auto) 63.3 % Lymphocytes (%) (Auto) 16.5 % Monocytes (%) (Auto) 15.0 % Eosinophils (%) (Auto) 2.9 % Basophils (%) (Auto) 0.2 % Neutrophils # (Auto) 6.66 1.4-6.5 K/uL Lymphocytes # (Auto) 1.73 1.2-3.4 K/uL Monocytes # (Auto) 1.57 0.11-0.59 K/uL Eosinophils # (Auto) 0.30 0-0.5 K/uL Basophils # (Auto) 0.02 0-0.2 K/uL RDW Standard Deviation 52.2 36.4-46.3 fL RDW Coefficient of Variation 16.2 11.5-14.5 % Immature Granulocyte % (Auto) 2.1 % Immature Granulocyte # (Auto) 0.22 0.00-0.02 K/uL Prothrombin Time 10.3 9.0-12.0 SECONDS Prothromb Time International Ratio 1.0 0.9-1.1 Activated Partial Thromboplast Time 27.3 21.0-31.0 SECONDS Partial Thromboplastin Ratio 1.1 Sodium Level 138 136-145 mmol/L Potassium Level 3.2 3.5-5.1 mmol/L Chloride Level 106 98-107 mmol/L Carbon Dioxide Level 24 21-32 mmol/L Anion Gap 8.0 3-11 mmol/L Blood Urea Nitrogen 15 7-18 mg/dl Creatinine 1.11 0.60-1.20 mg/dl Est Creatinine Clear Calc Drug Dose 41.8 ml/min Estimated GFR () 56.3 Estimated GFR (Non- 48.5 BUN/Creatinine Ratio 13.6 10-20 Random Glucose 97 70-99 mg/dl Calcium Level 9.2 8.5-10.1 mg/dl Total Bilirubin 0.3 0.2-1 mg/dl Direct Bilirubin < 0.1 0-0.2 mg/dl Aspartate Amino Transf (AST/SGOT) 14 15-37 U/L Alanine Aminotransferase (ALT/SGPT) 16 12-78 U/L Alkaline Phosphatase 124 45-117 U/L Total Creatine Kinase 37 26-192 U/L Creatine Kinase MB 1.0 0.5-3.6 ng/ml Creatine Kinase MB Ratio 2.7 0-3.0 Total Protein 6.7 6.4-8.2 gm/dl Albumin 3.5 3.4-5.0 gm/dl Lipase 284 73-393 U/L Bedside Troponin I 0.180 0-0.045 ng/ml CXR normal EKG Sinus rhythm with 1st degree A-V block Left axis deviation Inferior infarct , age undetermined Anterior infarct (cited on or before 02-DEC-2016) Abnormal ECG When compared with ECG of 05-JUN-2017 15:56, (unconfirmed) Questionable change in initial forces of Septal leads Sinus rhythm with 1st degree A-V block Left axis deviation Anteroseptal infarct , age undetermined Abnormal ECG When compared with ECG of 03-DEC-2016 06:26, Anteroseptal infarct is now Present No significant change was found Impression Assessment and Plan Ms. Brush is a 77 year old woman here for unstable angina Unstable angina, HTN - admit tele - initial EKG showed some septal ST elevation which has almost disappeared with second EKG, patient no longer having cp. ED doc discussed the case with cardiology and it was decided to start the patient on heparin gtt which I will continue - Trop 0.18 - trend isos - nitro paste, asa, clopidegrel, coreg - ekg with chest pain and in the am, echo Hypokalemia - repleated in ED HLD - continue statin Hypothyroid - continue levothyroxine Dementia - continue home donepezil I personally interviewed and examined the patient. I agree with history of present illness and physical exam mentioned above, I also performed my own history taking and examination. Past medical history and review of system has been obtained by myself I reviewed all pertinent labs and studies Reviewed current medications I discussed and formulated of the assessment and plan mentioned above by Cynthia Silvia Mata Please refer to the Summary mentioned below. General Appearance: not in acute distress /thin Eyes: normal Sclerae, extraocular muscle intact ENT: hearing grossly normal Neck: supple Respiratory/Chest: normal air entry bilateral , no respiratory distress, no accessory muscle use, no rhonchi Cardiovascular: regular rate, rhythm, + systolic murmur Abdomen: non tender, soft, no masses, but appears distended Extremities: no edema Neurologic/Psychiatric: Awake alert oriented only to place and person moves all extremities sensation intact cranial nerves II-12 appear to be intact Skin: normal color, warm/dry, no rash 77 year old female presented to the ED with chest pain and hypertension. Troponin came back positive. Started on heparin drip as per aeronautical engineering professor recommendation Assessment NSTEMI Hypertensive urgency Plan Admit to telemetry Cardiology consultation Heparin drip Nitroglycerin Blood pressure control Aspirin Lipitor Obtain lipids and hemoglobin A1c panels DVT prophylaxis Dre Martin [facility], [facility] Advanced Directives Existing Advance Directive: No Existing Living Will: Yes Existing Power of Senior Construction Manager: No Existing Health Care Proxy: No Resuscitation Status FULL RESUSCITATION (no nursing home life suppot) VTE Prophylaxis VTE Risk Assessment Done? Y/N: Yes Risk Level: Moderate Given or contraindicated: Other Anticoagulation Social Service Consult None Apply
[2017-06-05] MEDS: NITROGLYCERIN 0.4 MG SL PER TAB CHARGE SL PRN ×3 (21:03→22:55)
[2017-06-05] MEDS ORDERED: HEPARIN 25,000 UNIT/500ML D5W 500 ML IV PRN (21:15)
[2017-06-05 22:11] VITALS: BP 157/71; PULSE 70; TEMP 37.2; O2SAT 97; Ht 154.9 cm; Wt 76.7 kg
[2017-06-05] MEDS ORDERED: POTASSIUM CHLORIDE 10 MEQ TABCR PO ONE (22:45)
[2017-06-05 22:51] VITALS: BP 199/83
[2017-06-05 22:55] VITALS: BP 126/70
[2017-06-05 23:00] VITALS: BP 127/71; PULSE 76; TEMP 36.7; O2SAT 97
[2017-06-05 23:45] LABS: CKMB/CK RATIO 4.7 (0-3.0)
[2017-06-05] MEDS: DONEPEZIL HCL 5 MG TAB PO SCH (23:52)
[2017-06-05] MEDS: NITROGLYCERIN OINT 2% 1GM PACKET EXT SCH (23:52)
[2017-06-05] MEDS: CARVEDILOL 25 MG TAB PO SCH (23:53)
[2017-06-06 00:57] LABS: PARTIAL THROMBOPLASTIN RATIO 2.1
[2017-06-06 03:24] VITALS: BP 152/68; PULSE 66; TEMP 37; O2SAT 98
[2017-06-06] MEDS: LEVOTHYROXINE 112 MCG TAB PO SCH (06:05)
[2017-06-06] MEDS: NITROGLYCERIN OINT 2% 1GM PACKET EXT SCH ×4 (06:05→23:53)
[2017-06-06 07:27] VITALS: BP 178/73; PULSE 68; TEMP 36.9; O2SAT 95
[2017-06-06 07:36] LABS: BASO % 0.2 %; BASO ABS # 0.02 K/uL (0-0.2); COMPLETE YES; EOS % 3.1 %; HEMATOCRIT 36.2 % (37-47); IG% 1.5 %; LYMPH % 23.7 %; LYMPH ABS # 2.44 K/uL (1.2-3.4); MEAN CELL VOLUME 89.6 fL (80-100); MEAN CORPUSCULAR HEMOGLOBIN 29.7 pg (25-34); MEAN CORPUSCULAR HGB CONC 33.1 g/dl (32-36); MEAN PLATELET VOLUME 10.5 fL (7.4-10.4); MONO % 14.3 %; NEUT % 57.2 %; PLATELET COUNT 324 K/uL (130-400); RED BLOOD COUNT 4.04 M/uL (4.2-5.4); WHITE BLOOD COUNT 10.29 K/uL (4.8-10.8)
[2017-06-06] MEDS: CLOPIDOGREL BISULFATE 75 MG TAB PO SCH (08:01)
[2017-06-06] MEDS: ATORVASTATIN 20 MG TAB PO SCH (08:02)
[2017-06-06] MEDS: ASPIRIN 81 MG ECTAB PO SCH (08:03)
[2017-06-06] MEDS: PANTOprazole SOD 40 MG TAB PO SCH (08:03)
[2017-06-06] MEDS: CARVEDILOL 25 MG TAB PO SCH ×2 (08:05→20:16)
[2017-06-06 08:17] LABS: ESTIMATED AVERAGE GLUCOSE 117 mg/dl; HA1C FLAG Normal (Normal)
[2017-06-06 08:34] LABS: ALKALINE PHOSPHATASE 101 U/L (45-117); ALT/SGPT 14 U/L (12-78); BLOOD UREA NITROGEN 19 mg/dl (7-18); BUN/CREATININE RATIO 21.4 (10-20); CALCIUM 9.3 mg/dl (8.5-10.1); CARBON DIOXIDE 25 mmol/L (21-32); CHLORIDE 108 mmol/L (98-107); CHOLESTEROL 109 mg/dl (0-200); CHOLESTEROL/HDL RATIO 3.3; CREATININE 0.89 mg/dl (0.60-1.20); GLUCOSE 96 mg/dl (70-99); HDL CHOLESTEROL 33 mg/dl; LDL CHOLESTEROL CALCULATED 30 mg/dl; SODIUM 140 mmol/L (136-145); TRIGLYCERIDES 231 mg/dl (0-150); VERY LOW DENSITY LIPOPROT CALC 46 mg/dl
[2017-06-06 09:26] LABS: POTASSIUM 3.5 mmol/L (3.5-5.1)
--- NOTE | 2017-06-06 10:15 | ECHOCARDIOGRAM REPORT ---
*NOTICE TO RECEIVING [employer] AGENCY This information is strictly Confidential and protected under [place] law. [place] law prohibits you from making any further disclosure of this information unless further disclosure is expressly permitted by the written consent of the person to whom it pertains or is authorized by law. A general authorization for the release of medical or other information is not sufficient for this purpose. Hospital accepts no responsibility if the information is made available to any other person, INCLUDING THE PATIENT. Interpretation Summary * Name: CATHERINE HEATON I Study Date: 06/06/2017 07:40 AM BP: 152/68 mmHg * Patient Location: C.2T\S\S232\S\1 HR: 66 * : 1940 (M/d/yyy) Gender: Female Height: 60 in * Age: 77 yrs Ethnicity: CA Weight: 175 lb * Ordering Physician: Silvia Mata * Referring Physician: Self, Referred * Performed By: Lisa Nicole RDCS * * Reason For Study: Unstable Angina * BSA: 1.8 m2 * -- Conclusions -- * The left ventricle is normal in size. * There is mild concentric left ventricular hypertrophy. * Left ventricular systolic function is normal. * Ejection Fraction = 60-65%. * The left ventricular wall motion is normal. * The right ventricle is normal in size and function. * Moderate to severe aortic stenosis with a MG of 34 mm/hg and a DI .33 * There is mild valvular pulmonic stenosis. * Grade I diastolic dysfunction, (abnormal relaxation pattern). Procedure Details * A complete two-dimensional transthoracic echocardiogram was performed (2D, M-mode, Doppler and color flow Doppler). * The study was technically difficult. * The study was technically difficult, but visualization was adequate with the administration of Definity ultrasound contrast. * A contrast injection of Definity was performed to improve assessment of LV function. * Contrast was injected into an intravenous site in the left arm. * One vial of Definity ultrasound contrast was diluted in normal saline to a total volume of 10 ml. A total of '2' ml of solution was administered during imaging. * Lot # [id number] of Definity utilized for procedure. * Expiration date . * The attending nurse who injected the contrast agent was JOSE RAUL Marques. Left Ventricle * The left ventricle is normal in size. * There is mild concentric left ventricular hypertrophy. * Ejection Fraction = 60-65%. * Left ventricular systolic function is normal. * The left ventricular wall motion is normal. Right Ventricle * The right ventricle is normal in size and function. * The right ventricular systolic function is normal as assessed by tricuspid annular plane systolic excursion (TAPSE) (normal >1.5 cm). Atria * The left atrial size is normal. * Right atrial size is normal. Mitral Valve * The mitral valve is grossly normal. * There is trace mitral regurgitation. Tricuspid Valve * The tricuspid valve is not well visualized, but is grossly normal. * There is trace tricuspid regurgitation. Aortic Valve * Moderate to severe aortic stenosis with a MG of 34 mm/hg and a DI .33 Pulmonic Valve * There is mild valvular pulmonic stenosis. Great Vessels * The aortic root is normal size. Pericardium/Pleural * There is no pericardial effusion. Great Vessels * IVC not seen Left Ventricular Diastolic Function * Grade I diastolic dysfunction, (abnormal relaxation pattern). MMode 2D Measurements and Calculations IVSd 1.4 cm IVSs 1.4 cm LVIDd 4.0 cm LVIDs 2.6 cm LVPWd 1.1 cm LVPWs 1.4 cm IVS/LVPW 1.3 FS 34.6 % EDV(Teich) 69.5 ml ESV(Teich) 24.7 ml EF(Teich) 64.4 % EDV(cubed) 63.4 ml ESV(cubed) 17.7 ml EF(cubed) 72.1 % % IVS thick -1.12 % % LVPW thick 25.3 % LV mass(C)d 176.6 grams LV mass(C)dI 100.1 grams/m\S\2 LV mass(C)s 115.9 grams LV mass(C)sI 65.7 grams/m\S\2 SV(Teich) 44.7 ml SI(Teich) 25.4 ml/m\S\2 SV(cubed) 45.7 ml SI(cubed) 25.9 ml/m\S\2 Ao root diam 2.3 cm Ao root area 4.3 cm\S\2 ACS 0.94 cm LA dimension 4.1 cm LA/Ao 1.8 LVOT diam 1.8 cm LVOT area 2.5 cm\S\2 LVAd ap4 28.0 cm\S\2 LVLd ap4 8.3 cm EDV(MOD-sp4) 78.7 ml EDV(sp4-el) 80.0 ml LVAs ap4 12.6 cm\S\2 LVLs ap4 7.0 cm ESV(MOD-sp4) 19.2 ml ESV(sp4-el) 19.3 ml EF(MOD-sp4) 75.6 % EF(sp4-el) 75.9 % LVAd ap2 23.3 cm\S\2 LVLd ap2 7.9 cm EDV(MOD-sp2) 59.2 ml EDV(sp2-el) 58.2 ml LVAs ap2 9.7 cm\S\2 LVLs ap2 5.9 cm ESV(MOD-sp2) 14.3 ml ESV(sp2-el) 13.5 ml EF(MOD-sp2) 75.9 % EF(sp2-el) 76.8 % LVLd %diff -5.61 % EDV(MOD-bp) 70.2 ml LVLs %diff -17.07 % ESV(MOD-bp) 17.2 ml EF(MOD-bp) 75.5 % SV(MOD-sp4) 59.5 ml SI(MOD-sp4) 33.7 ml/m\S\2 SV(MOD-sp2) 45.0 ml SI(MOD-sp2) 25.5 ml/m\S\2 SV(MOD-bp) 53.0 ml SI(MOD-bp) 30.0 ml/m\S\2 SV(sp4-el) 60.7 ml SI(sp4-el) 34.4 ml/m\S\2 SV(sp2-el) 44.7 ml SI(sp2-el) 25.3 ml/m\S\2 Doppler Measurements and Calculations MV E max hailee 78.8 cm/sec MV A max hailee 107.6 cm/sec MV E/A 0.73 MV dec time 0.38 sec Ao V2 max 405.5 cm/sec Ao max PG 66.1 mmHg Ao max PG (full) 60.9 mmHg Ao V2 mean 280.7 cm/sec Ao mean PG 35.9 mmHg Ao mean PG (full) 32.9 mmHg Ao V2 VTI 102.3 cm PEGGY(I,A) 0.83 cm\S\2 PEGGY(I,D) 0.83 cm\S\2 PEGGY(V,A) 0.71 cm\S\2 PEGGY(V,D) 0.71 cm\S\2 LV V1 max PG 5.1 mmHg LV V1 mean PG 3.0 mmHg LV V1 max 113.4 cm/sec LV V1 mean 82.6 cm/sec LV V1 VTI 33.7 cm SV(Ao) 440.0 ml SI(Ao) 249.5 ml/m\S\2 SV(LVOT) 85.0 ml SI(LVOT) 48.2 ml/m\S\2 PA V2 max 199.3 cm/sec PA max PG 15.9 mmHg TR max hailee 191.5 cm/sec
[2017-06-06 11:37] VITALS: BP 117/73; PULSE 60; TEMP 36.8; O2SAT 95
[2017-06-06] MEDS ORDERED: AMLODIPINE BESYLATE 5 MG TAB PO ONE (13:30)
--- NOTE | 2017-06-06 14:08 | CARDIOLOGY CONSULTATION ---
DATE OF CONSULTATION: 06/06/2017 REQUESTING PHYSICIAN: Silvia Mata. VERTICAL PUNCH OPERATOR: Jose Castro DO of [facility] Cardiology for Dr. Venkat Sandoval, who is the patient's primary gravel wheeler. REASON FOR CONSULTATION: Known coronary artery disease, status post angioplasty and stenting of the LAD in this summer, now with progressive anginal symptoms. Dear Silvia, Thank you for requesting cardiology consultation on Gaby with regards to her progressive anginal symptoms. As you know, she is a pleasant 77-year-old female with significant memory issues. She describes about 3-4 months ago that she minimally needed nitroglycerin and she notes after her catheterization this past summer, she did not need any nitroglycerin at all. Over the last 3 weeks or so, her chest pain has become more progressive to the point that she needed nitroglycerin almost every day during the last week, meaning it upwards of 3 times a day. Her discomfort she describes as heaviness and pressure more than a brick sitting on her chest and radiates to her left arm. She has palpitations, but are not associated with the chest discomfort. What is unusual is that she does not get angina while climbing stairs and she does not get angina walking to the bathroom. Outside of that activity, she really does not do any activity. She denies sour taste or bitter taste in her mouth or any heartburn symptoms to suggest this might be GERD or esophageal spasm. She denies any lightheadedness, dizziness, presyncope or syncope, lower extremity edema, or symptoms of claudication. As noted, she has ongoing memory issues. She denies any myalgias, arthralgias or rashes, nausea, vomiting, fevers, chills, or sweats. Rest of review of system is otherwise negative. FAMILY HISTORY: Noncontributory. SOCIAL HISTORY: She is a former smoker, quitting 40 years ago. She is . She lives with her . ALLERGIES: ADHESIVES, LATEX AND PENICILLIN. OUTPATIENT MEDICATIONS: Aspirin, atorvastatin, carvedilol, clopidogrel, hydralazine, Synthroid, omeprazole and conjugated estrogens and p.r.n. nitroglycerin. PAST MEDICAL HISTORY: 1. Coronary artery disease, status post cardiac catheterization in November 2016 with a significant mid LAD disease, proximal to and including her prior stents, status post angioplasty and stenting with a 2.25 x 30 mm drug-eluting stent. 2. Residual 40% ostial diagonal disease, 40%-50% distal LAD disease, 40%-50% ostial ramus disease with a mid 50% ramus lesion; dominant RCA with a 20% lesion proximally and distally. 3. Moderate to severe aortic stenosis with a mean gradient of 34 and dimensionless index of 0.33, which is stable. 4. Non-ST elevation myocardial infarction in November 2016. 5. Hypertension. 6. Acute kidney injury after her catheterization. 7. Dementia, thought to be vascular. 8. GERD. 9. Renal artery stenosis status post stenting. PHYSICAL EXAMINATION: GENERAL: She is awake and alert. She knows she is in the hospital. She knows her name and she knows the year. VITAL SIGNS: Her heart rate is 60, respiratory rate 20, and blood pressure 117/73. Of note, her blood pressure at 07:00 a.m. was 178/73 and at 03:00 a.m., it was 152/68. HEENNT: 2+ carotid upstrokes. She has bilateral carotid bruits radiating from her heart. Jugular venous pressure appeared normal. Her sclerae is anicteric. Her hearing is normal. LUNGS: Clear to auscultation bilaterally. No rales, rhonchi or wheezing. HEART: Regular rate and rhythm. There is a harsh crescendo-decrescendo murmur, 2/6, which is mid to late peaking. S2 is preserved. There were no appreciable diastolic murmurs. ABDOMEN: Soft, nontender, and nondistended. Positive bowel sounds. EXTREMITIES: No clubbing, cyanosis or edema. PSYCHIATRIC: Affect appeared appropriate. NEUROLOGIC: As discussed above. DIAGNOSTIC STUDIES: Third troponin 0.454. LDL 30 and HDL 33. BUN 19, creatinine 0.89, sodium 140, and potassium 3.5. Hemoglobin of 12 and platelet count of 324. Her PTT on heparin is 54.6. Chest x-ray, no active disease. IMPRESSION: 1. Chest discomfort, concerning for worsening angina, although her symptoms are not worse with a minimal amount activity she has. 2. Known coronary artery disease, status post angioplasty and stenting of the mid LAD in November 2016 with residual moderate disease in the diagonal branch, the ramus intermediate branch and the distal LAD. 3. Moderate to severe aortic stenosis, which is unchanged. 4. EKG sinus rhythm, first degree AV block, left axis deviation, septal infarct, and possible inferior MT, age indeterminate. No acute ST-T changes. 5. History of acute kidney injury with previous contrast. 6. Hypertension. As I discussed with Gaby, her and son, she has 2 options. The fact that she is using nitroglycerin so much more frequently, it does raise the concern as to whether she may have in-stent restenosis again or have progression of her other moderate disease. What I cannot explain is why she does not get worsening symptoms with activity and it does not sound like esophageal reflux disease. I discussed that one option is try to adjust her medical regimen or consideration of cardiac catheterization to define her coronary anatomy again. Unfortunately it is a holiday weekend and they really do not wish to stay the entire weekend if at all possible. In light of that, I would try to adjust her medical regimen in the short term with a potential plan for catheterization on Thursday or Thursday next week in discussion with Dr. Sandoval. I would stop her hydralazine and switch her over to amlodipine as an antianginal and also for her blood pressure and if there is a room, consider adding Imdur to her medical regimen as well. She is on high dose carvedilol 25 mg twice a day. Additionally, she is already on aspirin, Plavix and statin therapy and her LDL is very well controlled. Her family is aware that if she were to go home and have angina she would need to come back and there is a risk of having heart attack at home. I believe their preference will be to go home rather than stay through the holiday weekend. If she were to have worsening angina in the hospital I would encourage her to stay and get cathed without going home. We will continue to follow with you. Once her medications are adjusted, I would try to ambulate her to see how she feels. Thank you for allowing us to participate in her care. PAYAM
[2017-06-06 15:44] VITALS: BP 124/70; PULSE 63; TEMP 36.9; O2SAT 93
--- NOTE | 2017-06-06 16:35 | Progress Note ---
Subjective Date of Service: Jun 06, 2017. Subjective Pt evaluation today including: conversation w/ patient, physical exam, chart review, lab review, review of studies, review of inpatient medication list Pain: none Patient is seen and examined by me. Pt does have pain on rest and still requires tons of nitro paste for her anginal symptoms.Pt denies nausea, vomiting , abdominal pain. Pt denies headache, syncope and loss consciousness. Patient is poor historian. Problem List Medical Problems: (1) Acute coronary syndrome Status: Acute (2) Aortic stenosis Status: Acute (3) Elevated troponin Status: Acute (4) Hypokalemia Status: Acute (5) Precordial chest pain Status: Acute (6) Unstable angina Status: Acute Review of Systems Cardiac: + chest pain All Other Systems: Reviewed and Negative Medications Medications (Trade) Dose Ordered Sig/Felicity Route Start Time Stop Time Status Last Admin Dose Admin Aspirin (Aspirin Chew) 324 mg NOW STAT PO 06/05/17 16:16 06/05/17 16:18 DC 06/05/17 16:41 324 MG Potassium Chloride (Klor-Con M10) 40 meq NOW STAT PO 06/05/17 18:09 06/05/17 18:11 DC 06/05/17 18:27 40 MEQ Heparin Sodium (Porcine) (Heparin Sq 5000 Unit/0.5ml) 5,000 unit STK-MED ONCE .ROUTE 06/05/17 18:11 06/05/17 18:12 DC 06/05/17 18:20 5,000 UNIT Heparin Sodium/ Dextrose (Heparin 25,000 Unit/500ml D5W) 25,000 unit STK-MED ONCE .ROUTE 06/05/17 18:11 06/05/17 18:12 DC 06/05/17 18:21 25,000 UNIT Nitroglycerin (Nitroglycerin 2% Oint) 1 inch Q6H EXT 06/05/17 20:00 07/05/17 19:59 06/06/17 06:05 1 INCH Aspirin (Ecotrin Tab) 81 mg QAM PO 06/06/17 09:00 07/06/17 08:59 06/06/17 08:03 81 MG Atorvastatin Calcium (Lipitor Tab) 40 mg DAILY PO 06/06/17 09:00 07/06/17 08:59 06/06/17 08:02 40 MG Carvedilol (Coreg Tab) 25 mg BID PO 06/05/17 21:00 07/05/17 20:59 06/06/17 08:05 25 MG Clopidogrel Bisulfate (plAVix TAB) 75 mg DAILY PO 06/06/17 09:00 07/06/17 08:59 06/06/17 08:01 75 MG Hydralazine HCl (Apresoline Tab) 50 mg BID PO 06/05/17 21:00 07/05/17 20:59 06/06/17 08:05 50 MG Levothyroxine Sodium (Synthroid Tab) 112 mcg DAILYBB PO 06/06/17 06:00 07/06/17 06:59 06/06/17 06:05 112 MCG Nitroglycerin (Nitrostat Tab) 0.4 mg UD PRN SL 06/05/17 20:15 07/05/17 20:14 06/05/17 22:55 0.4 MG Donepezil HCl (Aricept Tab) 5 mg HS PO 06/05/17 21:00 07/05/17 20:59 06/05/17 23:52 5 MG Pantoprazole Sodium (Protonix Tab) 40 mg QAM PO 06/06/17 09:00 07/06/17 08:59 06/06/17 08:03 40 MG Potassium Chloride (Klor-Con M10) 10 meq NOW ONCE PO 06/05/17 22:45 06/05/17 22:46 DC 06/05/17 22:50 10 MEQ Objective Vital Signs Date Time Temp Pulse Resp B/P (MAP) Pulse Ox O2 Delivery O2 Flow Rate FiO2 06/06/17 08:00 Room Air 06/06/17 07:27 36.9 68 16 178/73 (108) 95 Room Air 06/06/17 04:00 Room Air 06/06/17 03:24 37.0 66 18 152/68 (96) 98 Room Air 06/06/17 00:01 Nasal Cannula 2.0 06/05/17 23:00 36.7 76 22 127/71 (89) 97 Nasal Cannula 2.0 06/05/17 22:55 126/70 (88) 06/05/17 22:51 199/83 (121) 06/05/17 22:11 37.2 70 20 157/71 97 Room Air 06/05/17 20:17 62 20 179/90 95 Room Air 06/05/17 19:59 64 20 196/90 97 Room Air 06/05/17 19:39 64 20 198/88 95 Room Air 06/05/17 18:50 58 14 98 06/05/17 17:55 59 13 176/73 96 Room Air 06/05/17 17:50 58 22 97 06/05/17 17:20 59 16 97 06/05/17 17:10 96 Room Air 06/05/17 16:53 63 06/05/17 16:50 60 16 06/05/17 16:00 36.8 73 20 166/77 97 Room Air Physical Exam Comments: General Appearance: not in acute distress /thin Eyes: normal Sclerae, extraocular muscle intact ENT: hearing grossly normal Neck: supple Respiratory/Chest: normal air entry bilateral , no respiratory distress, no accessory muscle use, no rhonchi Cardiovascular: regular rate, rhythm, + systolic murmur Abdomen: non tender, soft, no masses, but appears distended Extremities: no edema Neurologic/Psychiatric: Awake alert oriented only to place and person moves all extremities sensation intact cranial nerves II-12 appear to be intact Skin: normal color, warm/dry, no rash Laboratory Results Last 24 Hours Test 06/05/17 16:48 06/05/17 16:55 06/05/17 22:53 06/06/17 00:24 White Blood Count 10.50 K/uL Red Blood Count 4.28 M/uL Hemoglobin 12.6 g/dL Hematocrit 38.0 % Mean Corpuscular Volume 88.8 fL Mean Corpuscular Hemoglobin 29.4 pg Mean Corpuscular Hemoglobin Concent 33.2 g/dl Platelet Count 343 K/uL Mean Platelet Volume 10.5 fL Neutrophils (%) (Auto) 63.3 % Lymphocytes (%) (Auto) 16.5 % Monocytes (%) (Auto) 15.0 % Eosinophils (%) (Auto) 2.9 % Basophils (%) (Auto) 0.2 % Neutrophils # (Auto) 6.66 K/uL Lymphocytes # (Auto) 1.73 K/uL Monocytes # (Auto) 1.57 K/uL Eosinophils # (Auto) 0.30 K/uL Basophils # (Auto) 0.02 K/uL RDW Standard Deviation 52.2 fL RDW Coefficient of Variation 16.2 % Immature Granulocyte % (Auto) 2.1 % Immature Granulocyte # (Auto) 0.22 K/uL Prothrombin Time 10.3 SECONDS Prothromb Time International Ratio 1.0 Activated Partial Thromboplast Time 27.3 SECONDS 54.6 SECONDS Partial Thromboplastin Ratio 1.1 2.1 Sodium Level 138 mmol/L Potassium Level 3.2 mmol/L Chloride Level 106 mmol/L Carbon Dioxide Level 24 mmol/L Anion Gap 8.0 mmol/L Blood Urea Nitrogen 15 mg/dl Creatinine 1.11 mg/dl Est Creatinine Clear Calc Drug Dose 41.8 ml/min Estimated GFR () 56.3 Estimated GFR (Non- 48.5 BUN/Creatinine Ratio 13.6 Random Glucose 97 mg/dl Calcium Level 9.2 mg/dl Total Bilirubin 0.3 mg/dl Direct Bilirubin < 0.1 mg/dl Aspartate Amino Transf (AST/SGOT) 14 U/L Alanine Aminotransferase (ALT/SGPT) 16 U/L Alkaline Phosphatase 124 U/L Total Creatine Kinase 37 U/L 36 U/L Creatine Kinase MB 1.0 ng/ml 1.7 ng/ml Creatine Kinase MB Ratio 2.7 4.7 Total Protein 6.7 gm/dl Albumin 3.5 gm/dl Lipase 284 U/L Bedside Troponin I 0.180 ng/ml Troponin I 0.329 ng/ml Test 06/06/17 04:44 06/06/17 06:45 06/06/17 08:59 Creatine Kinase MB Ratio White Blood Count 10.29 K/uL Red Blood Count 4.04 M/uL Hemoglobin 12.0 g/dL Hematocrit 36.2 % Mean Corpuscular Volume 89.6 fL Mean Corpuscular Hemoglobin 29.7 pg Mean Corpuscular Hemoglobin Concent 33.1 g/dl Platelet Count 324 K/uL Mean Platelet Volume 10.5 fL Neutrophils (%) (Auto) 57.2 % Lymphocytes (%) (Auto) 23.7 % Monocytes (%) (Auto) 14.3 % Eosinophils (%) (Auto) 3.1 % Basophils (%) (Auto) 0.2 % Neutrophils # (Auto) 5.89 K/uL Lymphocytes # (Auto) 2.44 K/uL Monocytes # (Auto) 1.47 K/uL Eosinophils # (Auto) 0.32 K/uL Basophils # (Auto) 0.02 K/uL RDW Standard Deviation 53.2 fL RDW Coefficient of Variation 16.3 % Immature Granulocyte % (Auto) 1.5 % Immature Granulocyte # (Auto) 0.15 K/uL Sodium Level 140 mmol/L Potassium Level mmol/L 3.5 mmol/L Chloride Level 108 mmol/L Carbon Dioxide Level 25 mmol/L Anion Gap 7.0 mmol/L Blood Urea Nitrogen 19 mg/dl Creatinine 0.89 mg/dl Est Creatinine Clear Calc Drug Dose 51.6 ml/min Estimated GFR () 73.5 Estimated GFR (Non- 63.4 BUN/Creatinine Ratio 21.4 Random Glucose 96 mg/dl Estimated Average Glucose 117 mg/dl Hemoglobin A1c 5.7 % Calcium Level 9.3 mg/dl Total Bilirubin 0.4 mg/dl Aspartate Amino Transf (AST/SGOT) U/L 13 U/L Alanine Aminotransferase (ALT/SGPT) 14 U/L Alkaline Phosphatase 101 U/L Total Creatine Kinase U/L 39 U/L Creatine Kinase MB 2.4 ng/ml Troponin I 0.454 ng/ml Total Protein 6.1 gm/dl Albumin 3.1 gm/dl Globulin 3.0 gm/dl Albumin/Globulin Ratio 1.0 Triglycerides Level 231 mg/dl Cholesterol Level 109 mg/dl HDL Cholesterol 33 mg/dl LDL Cholesterol, Calculated 30 mg/dl VLDL Cholesterol, Calculated 46 mg/dl Cholesterol/HDL Ratio 3.3 Assessment and Plan 77 year old woman with typical chest pain , elevated troponin and some EKG secondary to NSTEMI. NSTEMI with Known coronary artery disease, status post angioplasty and stenting of the mid LAD in November 2016. - Initial EKG showed some septal ST elevation which has almost disappeared with second EKG, patient has on and off chest pain and requiring nitro paste - Trop 0.18 - 0.329 to 0.454 - Continue Heparin drip - Nitro paste, asa, clopidegrel, coreg, amlodipine - Echo shows EF 60-65%, with moderate to sever aortic stenosis - Cardiology recommendation appreciated. possible cath Hypokalemia - Resolved HLD - continue statin Hypothyroid - continue levothyroxine Dementia - continue home donepezil Continued [facility] stay due to: multiple IV medications needed, home environment unsafe for pt Discharge planning: home
[2017-06-06] MEDS: NITROGLYCERIN 0.4 MG SL PER TAB CHARGE SL PRN (18:41)
[2017-06-06 19:43] VITALS: BP 139/71; PULSE 67; TEMP 36.8; O2SAT 95
[2017-06-06] MEDS: DONEPEZIL HCL 5 MG TAB PO SCH (20:16)
[2017-06-06 23:38] VITALS: BP 154/70; PULSE 69; TEMP 36.9; O2SAT 95
[2017-06-07] VITALS (15 sets, daily range): BP systolic 108–176; BP diastolic 54–82; PULSE 53–74; TEMP 36–37; O2SAT 94–99
[2017-06-07] MEDS: LEVOTHYROXINE 112 MCG TAB PO SCH (05:48)
[2017-06-07] MEDS: NITROGLYCERIN OINT 2% 1GM PACKET EXT SCH ×4 (05:48→23:59)
[2017-06-07 06:42] LABS: PARTIAL THROMBOPLASTIN RATIO 1.9
[2017-06-07 06:50] LABS: MEAN CELL VOLUME 89.1 fL (80-100); MEAN CORPUSCULAR HEMOGLOBIN 29.7 pg (25-34); MEAN CORPUSCULAR HGB CONC 33.3 g/dl (32-36); MEAN PLATELET VOLUME 10.5 fL (7.4-10.4); PLATELET COUNT 308 K/uL (130-400); RED BLOOD COUNT 4.04 M/uL (4.2-5.4); WHITE BLOOD COUNT 8.92 K/uL (4.8-10.8)
[2017-06-07 06:57] LABS: BUN/CREATININE RATIO 18.5 (10-20); CALCIUM 9.2 mg/dl (8.5-10.1); CREATININE 0.98 mg/dl (0.60-1.20); POTASSIUM 3.4 mmol/L (3.5-5.1)
[2017-06-07] MEDS: CLOPIDOGREL BISULFATE 75 MG TAB PO SCH (08:26)
[2017-06-07] MEDS: PANTOprazole SOD 40 MG TAB PO SCH (08:26)
[2017-06-07] MEDS: ATORVASTATIN 20 MG TAB PO SCH (08:26)
[2017-06-07] MEDS: ASPIRIN 81 MG ECTAB PO SCH (08:26)
[2017-06-07] MEDS: AMLODIPINE BESYLATE 5 MG TAB PO SCH ×2 (08:27→17:28)
[2017-06-07] MEDS: CARVEDILOL 25 MG TAB PO SCH ×2 (08:27→20:23)
[2017-06-07] MEDS: NITROGLYCERIN 0.4 MG SL PER TAB CHARGE SL PRN (09:44)
--- NOTE | 2017-06-07 10:53 | Cardiology Follow-Up ---
Subjective General Date of Service: Jun 07, 2017. Pt evaluation today including: conversation w/ patient, conversation w/ family , chart review, lab review, review of studies, conversation w/ [employer] wms consultant History of Present Illness The patient is a 77 year old female Allergies Coded Allergies: Adhesives (Verified Allergy, Mild, RED RASH, 06/05/17) Latex1 -Allergic Contact Dermititis (Verified Allergy, Mild, RASH, ) Penicillins (Verified Allergy, Unknown, HIVES, 06/05/17) Social History Smoking Status: Former Smoker Hx Tobacco Use In Past Year?: No (quit 40 years ago) Hx Alcohol Use - Type And Amou: Yes (Rarely) Hx Substance Use - Type And Am: No Problem List Medical Problems: (1) Acute coronary syndrome Status: Acute (2) Aortic stenosis Status: Acute (3) Elevated troponin Status: Acute (4) Hypokalemia Status: Acute (5) Precordial chest pain Status: Acute (6) Unstable angina Status: Acute Review of Systems Respiratory: + shortness of breath, No cough, No dyspnea at rest Cardiac: + chest pain, No edema, No palpitations Physical Exam Vital Signs Last Vital Signs Documentation Date Time Temp Pulse Resp B/P (MAP) Pulse Ox O2 Delivery O2 Flow Rate FiO2 06/07/17 09:37 60 20 176/69 (104) 98 06/07/17 08:00 Room Air 06/07/17 07:50 36.9 06/06/17 00:01 2.0 Physical Exam Constitutional: General Apperance: heathly-appearing Level of Distress: NAD Lungs: Respiratory effort: no dyspnea Auscultation: breath sounds normal, no wheezing, no rales/crackles, no rhonchi Cardiovascular: Heart Auscultation: RRR, II/ DANIEL (mid to late peaking) Abdomen: Bowel Sounds: normal Inspection & Palpation: soft, non-distended, no tenderness, guarding & rebound Extremities: no edema Assessment and Plan Assessment and Plan IMPRESSION: 1. Chest discomfort, concerning for worsening angina and possible in stent restenosis 2. Known coronary artery disease, status post angioplasty and stenting of the mid LAD in November 2016 with residual moderate disease in the diagonal branch, the ramus intermediate branch and the distal LAD. 3. Moderate to severe aortic stenosis, which is unchanged. 4. EKG sinus rhythm, first degree AV block, left axis deviation, septal infarct, and possible inferior FL, age indeterminate. No acute ST-T changes. 5. History of acute kidney injury with previous contrast. 6. Hypertension. 7 Normal LVEF 65% this admit Episode this am while off NTG paste and still on heparin about 30 minutes with typical angina and EKG changes Keep in Hospital until cath on Thursday Pain free now and d/w family D/w Dr Sandoval Heparin, ASA, Plavix, BB, Norvasc, NTG paste Repeat troponin after event EKG reviewed Laboratory Results Last 24 Hours Test 06/06/17 10:56 06/07/17 06:00 06/07/17 09:12 06/07/17 10:40 Creatine Kinase MB 3.3 ng/ml Creatine Kinase MB Ratio White Blood Count 8.92 K/uL Red Blood Count 4.04 M/uL Hemoglobin 12.0 g/dL Hematocrit 36.0 % Mean Corpuscular Volume 89.1 fL Mean Corpuscular Hemoglobin 29.7 pg Mean Corpuscular Hemoglobin Concent 33.3 g/dl RDW Standard Deviation 53.1 fL RDW Coefficient of Variation 16.2 % Platelet Count 308 K/uL Mean Platelet Volume 10.5 fL Activated Partial Thromboplast Time 50.3 SECONDS Partial Thromboplastin Ratio 1.9 Sodium Level 138 mmol/L Potassium Level 3.4 mmol/L Chloride Level 108 mmol/L Carbon Dioxide Level 23 mmol/L Anion Gap 7.0 mmol/L Blood Urea Nitrogen 18 mg/dl Creatinine 0.98 mg/dl Est Creatinine Clear Calc Drug Dose 46.9 ml/min Estimated GFR () 65.4 Estimated GFR (Non- 56.4 BUN/Creatinine Ratio 18.5 Random Glucose 100 mg/dl Calcium Level 9.2 mg/dl Troponin I 0.409 ng/ml
[2017-06-07] MEDS ORDERED: NURSING VERBAL MED ORDER ONE ×4 (12:00→23:45)
--- NOTE | 2017-06-07 12:36 | Progress Note ---
Subjective Date of Service: Jun 07, 2017. Subjective Pt evaluation today including: conversation w/ patient, physical exam, chart review, lab review, review of studies, conversation w/ lean process deployment consultant, review of inpatient medication list Pain: no Voiding: no voiding problems, no incontinence Problem List Medical Problems: (1) Acute coronary syndrome Status: Acute (2) Aortic stenosis Status: Acute (3) Elevated troponin Status: Acute (4) Hypokalemia Status: Acute (5) Precordial chest pain Status: Acute (6) Unstable angina Status: Acute Review of Systems Cardiac: + chest pain (off nitropaste) All Other Systems: Reviewed and Negative Objective Vital Signs Date Time Temp Pulse Resp B/P (MAP) Pulse Ox O2 Delivery O2 Flow Rate FiO2 06/07/17 09:37 60 20 176/69 (104) 98 06/07/17 08:00 Room Air 06/07/17 07:50 36.9 68 18 144/68 (93) 96 06/07/17 04:47 36.8 59 18 156/71 (99) 94 Room Air 06/07/17 04:00 Room Air 06/06/17 23:59 Room Air 06/06/17 23:38 36.9 69 18 154/70 (98) 95 Room Air 06/06/17 20:00 Room Air 06/06/17 19:43 36.8 67 18 139/71 (93) 95 Room Air 06/06/17 15:44 36.9 63 20 124/70 (88) 93 Room Air 06/06/17 15:13 Room Air Physical Exam General Appearance: WD/WN, no apparent distress Eyes: EOMI Neck: supple, no adenopathy Respiratory/Chest: lungs clear, normal breath sounds, no respiratory distress Cardiovascular: regular rate, rhythm, no edema, no murmur Extremities: normal range of motion, no pedal edema, no calf tenderness Neurologic/Psychiatric: resident care aid II-XII nml as tested, no motor/sensory deficits, alert, + pertinent finding (dementia) Skin: no rash Laboratory Results Last 24 Hours Test 06/07/17 06:00 06/07/17 09:12 06/07/17 10:57 White Blood Count 8.92 K/uL Red Blood Count 4.04 M/uL Hemoglobin 12.0 g/dL Hematocrit 36.0 % Mean Corpuscular Volume 89.1 fL Mean Corpuscular Hemoglobin 29.7 pg Mean Corpuscular Hemoglobin Concent 33.3 g/dl RDW Standard Deviation 53.1 fL RDW Coefficient of Variation 16.2 % Platelet Count 308 K/uL Mean Platelet Volume 10.5 fL Activated Partial Thromboplast Time 50.3 SECONDS Partial Thromboplastin Ratio 1.9 Sodium Level 138 mmol/L Potassium Level 3.4 mmol/L Chloride Level 108 mmol/L Carbon Dioxide Level 23 mmol/L Anion Gap 7.0 mmol/L Blood Urea Nitrogen 18 mg/dl Creatinine 0.98 mg/dl Est Creatinine Clear Calc Drug Dose 46.9 ml/min Estimated GFR () 65.4 Estimated GFR (Non- 56.4 BUN/Creatinine Ratio 18.5 Random Glucose 100 mg/dl Calcium Level 9.2 mg/dl Troponin I 0.409 ng/ml 0.350 ng/ml Assessment and Plan 77 year old woman with typical chest pain , elevated troponin and some EKG secondary to NSTEMI. NSTEMI with Known coronary artery disease, status post angioplasty and stenting of the mid LAD in November 2016. - Initial EKG showed some septal ST elevation which has almost disappeared with second EKG, patient has on and off chest pain and requiring nitro paste - Trop 0.18 - 0.329 - 0.454-0.49 to 0.350 - Continue Heparin drip - Nitro paste, asa, clopidegrel, coreg, amlodipine - Echo shows EF 60-65%, with moderate to sever aortic stenosis - Cardiology recommendation appreciated. possible cath on Thursday HLD - continue statin Hypothyroid - continue levothyroxine Dementia - continue home donepezil Continued [facility] stay due to: multiple IV medications needed, home environment unsafe for pt Discharge planning: home
[2017-06-07] MEDS ORDERED: HEPARIN SOD (PORCINE) 1000 UNIT/ML 10 ML VIAL ONE (12:58)
[2017-06-07] MEDS ORDERED: NiCARDipine HCL INJ 2.5 MG/ML 10 ML AMP ONE (12:58)
[2017-06-07] MEDS ORDERED: NITROGLYCERIN/D5W 100MCG/ML 20ML SYR ONE (12:59)
[2017-06-07] MEDS ORDERED: MIDAZOLAM HCL 1 MG/ML 2ML VIAL ONE (13:00)
[2017-06-07] MEDS ORDERED: FENTANYL CITRATE INJ 50 MCG/1 ML 2 ML VIAL ONE (13:01)
--- NOTE | 2017-06-07 13:19 | Pre Sedation Assessment ---
Pre Sedation Assessment General Date of Sedation: Jun 07, 2017. Vital Signs Past 12 Hours Date Time Temp Pulse Resp B/P (MAP) Pulse Ox O2 Delivery O2 Flow Rate FiO2 06/07/17 12:51 56 122/68 (86) 06/07/17 12:36 36.9 74 20 140/71 (94) 06/07/17 12:00 Room Air 06/07/17 09:37 60 20 176/69 (104) 98 06/07/17 08:00 Room Air 06/07/17 07:50 36.9 68 18 144/68 (93) 96 06/07/17 04:47 36.8 59 18 156/71 (99) 94 Room Air 06/07/17 04:00 Room Air Review Cardiovascular: regular rate, rhythm, no edema Lungs: chest non-tender, lungs clear Pre-Sedation Airway Assessment Smoking Status: Former Smoker Hx of Sleep Apnea: No Hx of difficult intubation: No Short Thick Neck: No Thyro-mental Distance: > 3 Finger Breadths Oral Cavity: WNL Mallampati Classification: Class II ASA Classification: Class III Procedure Planning Contraindications for Sedation: None Current Medications Reviewed: Yes Notes The planned sedation has been discussed with the patient. Informed Consent was obtained. I have identified the patient, determined the appropriateness of sedation and have assessed the patient immediately prior to the procedure. All medicine(s) and interventions are by my order.
[2017-06-07] MEDS ORDERED: TICAGRELOR 90 MG TAB PO ONE (15:17)
--- NOTE | 2017-06-07 15:27 | Post Sedation Assessment ---
Post Sedation Assessment General Date of Sedation Jun 07, 2017. Vital Signs: Vital Signs Past 12 Hours Date Time Temp Pulse Resp B/P (MAP) Pulse Ox O2 Delivery O2 Flow Rate FiO2 06/07/17 15:20 60 16 152/76 (101) 98 Room Air 06/07/17 15:15 Room Air 06/07/17 15:10 Room Air 06/07/17 15:05 54 16 144/84 (104) 98 Room Air 06/07/17 12:51 56 122/68 (86) 06/07/17 12:36 36.9 74 20 140/71 (94) 06/07/17 12:10 62 108/54 (72) 99 06/07/17 12:00 Room Air 06/07/17 09:37 60 20 176/69 (104) 98 06/07/17 08:00 Room Air 06/07/17 07:50 36.9 68 18 144/68 (93) 96 06/07/17 04:47 36.8 59 18 156/71 (99) 94 Room Air 06/07/17 04:00 Room Air Post Procedure Recovery Score Activity: (2) Moves 4 extremities * Respiration: (2) Deep breath/cough Circulation: (2) +/-20% PreAnes Value Consciousness: (2) Fully Awake Oxygen Saturation: (2) > 92% On Room Air Post Anesthesia Score: 10 Discharge Sedation Level of Care: Fast Track Phase II Post Sedation Plan On clinical assessment, the patient appears to have tolerated the sedation without complications. Patient is recovering as anticipated. Patient will continue to be monitored by nursing and may be discharged when sedation discharge criteria are met per below protocol. Upon Completions of procedure and additional 15 minutes continue every 5 minute vital signs and the P.A.R. score; then discharge to a Phase I or Fast Track to Phase II per the following guidelines: * Discharge Patient to appropriate Phase II area if PAR is 8 or greater or return to pre- procedure baseline. The post - procedure orders will be as directed. * If PAR score is less than 8 or not return to pre-procedure baseline then patient will follow Phase I monitoring till PAR is reached for Phase II. The Phase I may be done in procedure room or may call to secure a Phase I area. * If naloxone or flumazenil are used for reversal, hold in Phase I for an additional 60 -120 minutes before discharge to Phase II. Please call the Sedation Physician to re-evaluate and complete post-note for discharge to Phase II area. Do NOT discharge from procedure sedation or Phase 1 until post- sedation evaluation note is complete by procedure /sedation MD Sedation Discharge Instructions to be given to the patient at discharge to home.
--- NOTE | 2017-06-07 15:35 | Cardiac Catheterization ---
Procedure Note Procedure Date Jun 07, 2017. Pre-Procedure Diagnosis Non STEMI AUC Score 8 Post-Procedure Diagnosis Severe CAD, Successful PCI, Normal Intracardiac Pressures Procedure(s) Performed Coronary Angiography, Left Heart Cath, PTCA, Drug Eluting Stent [employer] Treasurer Jaime Gaming Worker(s) Amador Estimated Blood Loss 15 Medication(s) Fentanyl, Heparin, Nicardipine, Nitroglycerin, Versed, Lidocaine 1% Summary of Findings Indication: High risk NSTEMI with stuttering angina. Access: Attempted right radial artery access; 6Fr Right MECHANICAL MANUFACTURING TECHNICIAN Catheters: JL4, JR4; EBU 3.5 guide Findings: LM - Angiographically normal LAD - Moderate caliber vessel; proximal 20% diffuse disease. 99% stenosis in proximal aspect of prior mid stent; 70% stenosis involving distal aspect of stent with disease immediately following stent; SALLIE 1-2 flow to apex. Few right to left collaterals to apical LAD - 80-90% ostial 1st diagonal Ramus - small vessel, 40-50 ostial stenosis, 50% mid segment stenosis Circumflex - Large caliber vessel, luminal irregularities, moderate distal circumflex disease after take-off of dominant OM. RCA - Dominant, proximal 20% stenosis; 20 -30% stenosis distal stenosis prior to take-off of PDA. PDA/PLB with luminal irregularities. -- PCI -- Antithrombotic therapy: Heparin, Ticagrelor LM cannulated with EBU 3.5 guide Whisper wire passed into 1st diagonal BMW wire passed across in-stent lesion nto distal LAD Intrastent lesion predilated with 2.0 and 2.5 compliant balloons Ostial diagonal lesion dilated with 2.0 and 2.5 compliant balloons 2.25 x 15 Xience DELLA placed mid segment stenosis just distal to prior stent ( overlapping distal aspect of prior stent). Stent post-dilated with stent balloon Attempted to place stent into 1st diagonal but unable to pass As 1st diagonal seemed to be the vessel causing symptoms and LAD had evidence of right to left collaterals decision made to forgo stenting proximal aspect of prior stent to preserve diagonal and avoid 3rd layer of stents. IC vasodilators administered for spasm Post procedure SALLIE 3 flow, distal stent well expanded with minimal residual stenosis, 40% residual stenosis at proximal aspect of prior stent after diagonal. Diagonal ostium with minimal residual stenosos. No apparent cardiac complications. Arterial Closure: Mynx Summary: 1. Severe instent restenosis of LAD. 90% ostial 1st diagonal stenosis 2. Normal intracardiac filling pressure 3. Successful PCI of mid segment LAD in-stent restenosis with PACKAGE CAR DRIVER to stent and one overlapping stent (2.25 x 15 Xience DELLA) to distal aspect of prior stent - POBA of 1st diagonal ostium Recommendations: To PCU for continued monitoring Loaded with Ticagrelor 180mg in laboratory development technician Continue dual-antiplatelet therapy with ASA/Ticagrelor indefinitely Continue statin, ASCVD risk factor modification Consult cardiac Rehab If recurrent restenosis in future consider proximal LAD stenting into 1st diagonal vs brachytherapy. Ideally with patient's cognitive issues would avoid CABG. Hemodynamics Rest Ao: 140/45 Final Ao: 147/56 LV: 193/21 Recommendations Medical therapy and/or Counseling Specimens None Radiation Exposure (mGy) 3629 Contrast (mls) 150 Fluids (cc crystalloids) 150 Drains None Anesthesia Moderate Procedural Complication(s) None Disposition PCU ACC Data Cardiac Status Clinical evaluation leading to the procedure CAD Presntation: Non STEMI Anginal Classification: CCS IV Heart Failure: No, NYHA Class: CCS I Diagnostic Status: Urgent Closure Device Percutaneous Entry Location: Femoral Closure Device: Mynx Recommendations: PCI without planned CABG PCI Indication: PCI for high risk Non-STEMI Lesion Segment Name: mid LAD Culprit Artery: Yes Stenosis Prior to Rx (%): 99 Chronic Total Occlusion: No IVUS: No FFR: No Pre-Procedure SALLIE Flow: 1 Previously Treated Lesion: Yes Treated Lesion: Timeframe: 6-12 months Treated with Stent: Yes In-Stent Restenosis: Yes In-Stent Thrombosis: Yes Stent Type: DELLA Lesion Complexity: High/C Lesion Length (mm): 25 Thrombus Present: Yes Bifurcation Lesion: Yes Guidewire Across Lesion: Yes Guidewire: Stenosis Post-Procedure (%): 30 Post-Procedure SALLIE Flow: 3 Device(s) Deployed: Yes Intraprocedure Events Significant Dissection: No Perforation: No
[2017-06-07] MEDS ORDERED: ACETAMINOPHEN 325 MG TAB PO PRN (15:45)
[2017-06-07] MEDS: SODIUM CHLORIDE 0.9% 1000ML 1,000 ML IV SCH (15:55)
[2017-06-07] MEDS: DONEPEZIL HCL 5 MG TAB PO SCH (20:23)
[2017-06-07] MEDS ORDERED: hydrOXYzine HCL 25 MG TAB PO ONE (23:45)
[2017-06-08] VITALS (7 sets, daily range): BP systolic 124–185; BP diastolic 63–79; PULSE 58–73; TEMP 36.6–37.1; O2SAT 95–97
[2017-06-08] MEDS: SODIUM CHLORIDE 0.9% 1000ML 1,000 ML IV SCH
[2017-06-08] MEDS: TICAGRELOR 90 MG TAB PO SCH ×3 (03:43→20:21)
[2017-06-08] MEDS: NITROGLYCERIN OINT 2% 1GM PACKET EXT SCH ×2 (05:15→11:16)
[2017-06-08] MEDS: LEVOTHYROXINE 112 MCG TAB PO SCH (05:15)
[2017-06-08 06:15] LABS: HEMATOCRIT 36.5 % (37-47); MEAN CORPUSCULAR HEMOGLOBIN 29.4 pg (25-34); MEAN CORPUSCULAR HGB CONC 33.4 g/dl (32-36); PLATELET COUNT 307 K/uL (130-400); RED BLOOD COUNT 4.15 M/uL (4.2-5.4)
[2017-06-08 06:56] LABS: BUN/CREATININE RATIO 16.8 (10-20); CALCIUM 9.1 mg/dl (8.5-10.1); CREATININE 0.9 mg/dl (0.60-1.20); POTASSIUM 3.2 mmol/L (3.5-5.1)
[2017-06-08] MEDS: CARVEDILOL 25 MG TAB PO SCH ×2 (08:12→20:19)
[2017-06-08] MEDS: AMLODIPINE BESYLATE 5 MG TAB PO SCH ×2 (08:12→19:32)
[2017-06-08] MEDS: PANTOprazole SOD 40 MG TAB PO SCH (08:13)
[2017-06-08] MEDS: ASPIRIN 81 MG ECTAB PO SCH (08:14)
[2017-06-08] MEDS: ATORVASTATIN 20 MG TAB PO SCH (08:14)
--- NOTE | 2017-06-08 10:28 | Cardiology Follow-Up ---
Subjective General Date of Service: Jun 08, 2017. Pt evaluation today including: conversation w/ patient, chart review, lab review, review of studies, conversation w/ transportation consultant History of Present Illness The patient is a 77 year old female Allergies Coded Allergies: Adhesives (Verified Allergy, Mild, RED RASH, 06/05/17) Latex1 -Allergic Contact Dermititis (Verified Allergy, Mild, RASH, ) Penicillins (Verified Allergy, Unknown, HIVES, 06/05/17) Social History Smoking Status: Former Smoker Hx Tobacco Use In Past Year?: No (quit 40 years ago) Hx Alcohol Use - Type And Amou: Yes (Rarely) Hx Substance Use - Type And Am: No Problem List Medical Problems: (1) Acute coronary syndrome Status: Acute (2) Aortic stenosis Status: Acute (3) Elevated troponin Status: Acute (4) Hypokalemia Status: Acute (5) Precordial chest pain Status: Acute (6) Unstable angina Status: Acute Review of Systems Respiratory: No cough, No shortness of breath, No dyspnea at rest Cardiac: No chest pain, No edema, No palpitations Physical Exam Vital Signs Last Vital Signs Documentation Date Time Temp Pulse Resp B/P (MAP) Pulse Ox O2 Delivery O2 Flow Rate FiO2 06/08/17 08:00 Room Air 06/08/17 07:29 36.7 73 18 185/71 (109) 96 06/07/17 20:00 2.0 Physical Exam Constitutional: General Apperance: heathly-appearing Level of Distress: NAD Lungs: Respiratory effort: no dyspnea Auscultation: breath sounds normal, no wheezing, no rales/crackles, no rhonchi Cardiovascular: Heart Auscultation: RRR, II/ DANIEL (mid to late peaking) Abdomen: Bowel Sounds: normal Inspection & Palpation: soft, non-distended, no tenderness, guarding & rebound Extremities: no edema, pertinent finding (Right hand warm to touch, good pulse) Assessment and Plan Assessment and Plan IMPRESSION: 1. Chest discomfort/USA/NSTEMI---POD #1 POBA for LAD ISR and placement of a distal DELLA stent to LAD 2. Known coronary artery disease, status post angioplasty and stenting of the mid LAD in November 2016 with residual moderate disease in the diagonal branch, the ramus intermediate branch and the distal LAD. 3. Moderate to severe aortic stenosis, which is unchanged. 4. EKG sinus rhythm, first degree AV block, left axis deviation, septal infarct, and possible inferior WI, age indeterminate. No acute ST-T changes. 5. History of acute kidney injury with previous contrast. 6. Hypertension. 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 this am [facility]+ Home tomorrow Laboratory Results Last 24 Hours Test 06/07/17 10:57 06/07/17 14:27 06/08/17 05:13 Troponin I 0.350 ng/ml Kaolin Activated Coagulation Time 241 SECONDS White Blood Count 10.60 K/uL Red Blood Count 4.15 M/uL Hemoglobin 12.2 g/dL Hematocrit 36.5 % Mean Corpuscular Volume 88.0 fL Mean Corpuscular Hemoglobin 29.4 pg Mean Corpuscular Hemoglobin Concent 33.4 g/dl RDW Standard Deviation 52.1 fL RDW Coefficient of Variation 16.2 % Platelet Count 307 K/uL Mean Platelet Volume 10.0 fL Activated Partial Thromboplast Time 27.0 SECONDS Partial Thromboplastin Ratio 1.0 Sodium Level 142 mmol/L Potassium Level 3.2 mmol/L Chloride Level 108 mmol/L Carbon Dioxide Level 22 mmol/L Anion Gap 11.0 mmol/L Blood Urea Nitrogen 15 mg/dl Creatinine 0.90 mg/dl Est Creatinine Clear Calc Drug Dose 50.8 ml/min Estimated GFR () 72.5 Estimated GFR (Non- 62.5 BUN/Creatinine Ratio 16.8 Random Glucose 87 mg/dl Calcium Level 9.1 mg/dl
[2017-06-08] MEDS: POTASSIUM CHLORIDE 20 MEQ TABCR PO SCH ×2 (11:15→20:20)
--- NOTE | 2017-06-08 14:34 | Progress Note ---
Subjective Date of Service: Jun 08, 2017. Subjective pt has had no further chest pain symptoms since being taken urgently to [facility] on 06/07, with instent narrowing requiring restenting. family updated at bedside Problem List Medical Problems: (1) Acute coronary syndrome Status: Acute (2) Aortic stenosis Status: Acute (3) Elevated troponin Status: Acute (4) Hypokalemia Status: Acute (5) Precordial chest pain Status: Acute (6) Unstable angina Status: Acute Review of Systems Constitutional: No fever, No chills Respiratory: No cough, No shortness of breath Cardiac: No chest pain, No edema Abdomen: No pain, No nausea, No vomiting, No diarrhea Female : No dysuria, No urinary frequency, No hematuria Neurologic: + memory loss (baseline) Psychiatric: No depression symptoms, No anhedonism Objective Vital Signs Date Time Temp Pulse Resp B/P (MAP) Pulse Ox O2 Delivery O2 Flow Rate FiO2 06/08/17 12:00 Room Air 06/08/17 11:04 37.0 62 18 124/63 (83) 95 Room Air 06/08/17 08:00 Room Air 06/08/17 07:29 36.7 73 18 185/71 (109) 96 Room Air 06/08/17 04:00 Room Air 06/08/17 03:28 36.6 63 18 138/69 (92) 96 Room Air 06/08/17 00:01 Room Air 06/07/17 23:50 37.0 58 18 166/73 (104) 97 Room Air 06/07/17 20:00 Nasal Cannula 2.0 06/07/17 19:47 36.4 57 20 173/72 (105) 97 Nasal Cannula 2.0 06/07/17 18:23 36.6 53 18 149/82 (104) 95 06/07/17 18:00 36.6 56 18 156/64 (94) 96 Room Air 06/07/17 17:00 36.6 55 18 166/60 (95) 97 Room Air 06/07/17 16:00 Room Air 06/07/17 16:00 36.6 57 18 162/70 (100) 95 06/07/17 15:45 36.0 53 18 163/72 (102) 95 06/07/17 15:30 36.6 53 18 163/72 (102) 95 Room Air 06/07/17 15:20 60 16 152/76 (101) 98 Room Air 06/07/17 15:15 Room Air 06/07/17 15:15 36.6 59 18 161/64 (96) 96 Room Air 06/07/17 15:10 Room Air 06/07/17 15:05 54 16 144/84 (104) 98 Room Air Physical Exam General Appearance: WD/WN, no apparent distress Eyes: normal inspection, sclerae normal Respiratory/Chest: chest non-tender, lungs clear, normal breath sounds Cardiovascular: regular rate, rhythm, no murmur Abdomen: normal bowel sounds, non tender, soft Extremities: no pedal edema, no calf tenderness, + pertinent finding (right wrist site is C/D/I) Laboratory Results Last 24 Hours Test 06/08/17 05:13 White Blood Count 10.60 K/uL Red Blood Count 4.15 M/uL Hemoglobin 12.2 g/dL Hematocrit 36.5 % Mean Corpuscular Volume 88.0 fL Mean Corpuscular Hemoglobin 29.4 pg Mean Corpuscular Hemoglobin Concent 33.4 g/dl RDW Standard Deviation 52.1 fL RDW Coefficient of Variation 16.2 % Platelet Count 307 K/uL Mean Platelet Volume 10.0 fL Activated Partial Thromboplast Time 27.0 SECONDS Partial Thromboplastin Ratio 1.0 Sodium Level 142 mmol/L Potassium Level 3.2 mmol/L Chloride Level 108 mmol/L Carbon Dioxide Level 22 mmol/L Anion Gap 11.0 mmol/L Blood Urea Nitrogen 15 mg/dl Creatinine 0.90 mg/dl Est Creatinine Clear Calc Drug Dose 50.8 ml/min Estimated GFR () 72.5 Estimated GFR (Non- 62.5 BUN/Creatinine Ratio 16.8 Random Glucose 87 mg/dl Calcium Level 9.1 mg/dl Assessment and Plan 77 year old woman with typical chest pain , elevated troponin and some EKG secondary to NSTEMI, developed dynamic ECG changes taken to [facility] 06/07. NSTEMI with Known coronary artery disease, status post angioplasty and stenting of the mid LAD in November 2016. - on and off chest pain despite heparin gtt and nitro paste, taken to lab and stent in stent stenosis, re stented , asa, Brilinta, coreg, amlodipine - pre procedure Echo shows EF 60-65%, with moderate to sever aortic stenosis HLD and secondary risk reduction, continue statin Hypothyroid, stable clinically levothyroxine Dementia family reinforces is at her baseline, continue donepezil Continued [facility] stay due to: multiple IV medications needed, home environment unsafe for pt Discharge planning: home
[2017-06-08] MEDS: DONEPEZIL HCL 5 MG TAB PO SCH (20:22)
[2017-06-09 00:01] VITALS: O2SAT 95
[2017-06-09 03:45] VITALS: BP 177/74; PULSE 71; TEMP 37; O2SAT 97
[2017-06-09 04:00] VITALS: O2SAT 97
[2017-06-09] MEDS: LEVOTHYROXINE 112 MCG TAB PO SCH (05:55)
[2017-06-09 06:12] LABS: HEMATOCRIT 36.3 % (37-47); MEAN CELL VOLUME 88.8 fL (80-100); MEAN CORPUSCULAR HEMOGLOBIN 30.1 pg (25-34); MEAN CORPUSCULAR HGB CONC 33.9 g/dl (32-36); MEAN PLATELET VOLUME 10.3 fL (7.4-10.4); PLATELET COUNT 289 K/uL (130-400); RED BLOOD COUNT 4.09 M/uL (4.2-5.4); WHITE BLOOD COUNT 9.25 K/uL (4.8-10.8)
[2017-06-09 06:58] LABS: BUN/CREATININE RATIO 16.5 (10-20); CALCIUM 9.2 mg/dl (8.5-10.1); CREATININE 0.9 mg/dl (0.60-1.20); POTASSIUM 3.9 mmol/L (3.5-5.1)
[2017-06-09 07:23] VITALS: BP 160/79; PULSE 52; TEMP 36.8; O2SAT 94
[2017-06-09] MEDS: CARVEDILOL 25 MG TAB PO SCH (08:35)
[2017-06-09] MEDS: PANTOprazole SOD 40 MG TAB PO SCH (08:38)
[2017-06-09] MEDS: AMLODIPINE BESYLATE 5 MG TAB PO SCH (08:38)
[2017-06-09] MEDS: ASPIRIN 81 MG ECTAB PO SCH (08:38)
[2017-06-09] MEDS: ATORVASTATIN 20 MG TAB PO SCH (08:39)
[2017-06-09] MEDS: TICAGRELOR 90 MG TAB PO SCH (08:39)
--- NOTE | 2017-06-09 10:19 | Cardiology Follow-Up ---
Subjective Subjective Date of Service: Jun 09, 2017. Pt evaluation today including: conversation w/ patient, physical exam, chart review, lab review, review of studies, review of inpatient medication list Additional Details: Denies chest pain. No other new concerns. tele reviewed -- no events. Problem List Medical Problems: (1) Acute coronary syndrome Status: Acute (2) Aortic stenosis Status: Acute (3) Elevated troponin Status: Acute (4) Hypokalemia Status: Acute (5) Precordial chest pain Status: Acute (6) Unstable angina Status: Acute Review of Systems Constitutional: No fever, No chills Respiratory: No cough, No shortness of breath Cardiac: No chest pain, No edema Abdomen: No pain, No nausea, No vomiting, No diarrhea Female : No dysuria, No urinary frequency, No hematuria Psychiatric: No depression symptoms, No anhedonism Objective Vital Signs Last Vital Signs Documentation Date Time Temp Pulse Resp B/P (MAP) Pulse Ox O2 Delivery O2 Flow Rate FiO2 06/09/17 08:00 Room Air 06/09/17 07:23 36.8 52 18 160/79 (106) 94 06/07/17 20:00 2.0 Physical Exam: General Appearance: no apparent distress ENT: hearing grossly normal Neck: supple, no adenopathy Respiratory/Chest: chest non-tender, lungs clear, normal breath sounds Cardiovascular: regular rate, rhythm, + systolic murmur (2/6 DANIEL) Abdomen: normal bowel sounds, non tender, soft Extremities: no pedal edema, no calf tenderness, + pertinent finding (mild ecchymosis at right radial artery access site; no ecchymosis/hematoma at 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 NSTEMI -- s/p PCI with POBA to 1st diagonal/proximal LAD stent and stent placement to mid LAD overlapping distal aspect of prior stent 2. LAD ISR/1st diagonal high-grade stenosis 3. Moderate 4. Hypertension 5. Dementia No recurrent chest pain. No apparent post-procedure complications. -- Up walking halls today -- From a cardiac standpoint it stable OK for discharge later today -- Continue ASA with Ticagrelor 90 mg BID likely indefinitely -- Continue statin, beta-long and recently started amlodipine. -- No NORY on discharge in setting of renal artery stenosis. -- Follow-up with me in 2-3 weeks. Continued [facility] stay due to: multiple IV medications needed, home environment unsafe for pt Discharge planning: home Medications: Current Inpatient Medications Medications (Trade) Dose Ordered Sig/Felicity Route Start Time Stop Time Status Last Admin Dose Admin Acetaminophen (Tylenol Tab) 650 mg Q4H PRN PO 06/05/17 20:00 07/05/17 19:59 Ondansetron HCl (Zofran Inj) 4 mg Q6H PRN IV 06/05/17 20:00 07/05/17 19:59 Morphine Sulfate (MoRPHine SULFATE INJ) 2 mg Q30M PRN IV 06/05/17 20:00 06/19/17 19:59 Aspirin (Ecotrin Tab) 81 mg QAM PO 06/06/17 09:00 07/06/17 08:59 06/09/17 08:38 81 MG Atorvastatin Calcium (Lipitor Tab) 40 mg DAILY PO 06/06/17 09:00 07/06/17 08:59 06/09/17 08:39 40 MG Carvedilol (Coreg Tab) 25 mg BID PO 06/05/17 21:00 07/05/17 20:59 06/08/17 20:19 25 MG Levothyroxine Sodium (Synthroid Tab) 112 mcg DAILYBB PO 06/06/17 06:00 07/06/17 06:59 06/09/17 05:55 112 MCG Nitroglycerin (Nitrostat Tab) 0.4 mg UD PRN SL 06/05/17 20:15 07/05/17 20:14 06/07/17 09:44 0.4 MG Donepezil HCl (Aricept Tab) 5 mg HS PO 06/05/17 21:00 07/05/17 20:59 06/08/17 20:22 5 MG Pantoprazole Sodium (Protonix Tab) 40 mg QAM PO 06/06/17 09:00 07/06/17 08:59 06/09/17 08:38 40 MG Amlodipine Besylate (Norvasc Tab) 5 mg QAM PO 06/07/17 09:00 07/07/17 08:59 06/09/17 08:38 5 MG Amlodipine Besylate (Norvasc Tab) 2.5 mg DAILY@1900 PO 06/07/17 19:00 07/07/17 18:59 06/08/17 19:32 2.5 MG Ticagrelor (Brilinta Tab) 90 mg BID PO 06/08/17 03:00 07/08/17 02:59 06/09/17 08:39 90 MG Lab Results: 06/09/17 05:36 06/09/17 05:36 Test 06/09/17 05:36 Red Blood Count 4.09 M/uL (4.2-5.4) Mean Corpuscular Volume 88.8 fL (80-100) Mean Corpuscular Hemoglobin 30.1 pg (25-34) Mean Corpuscular Hemoglobin Concent 33.9 g/dl (32-36) RDW Standard Deviation 52.5 fL (36.4-46.3) RDW Coefficient of Variation 16.3 % (11.5-14.5) Mean Platelet Volume 10.3 fL (7.4-10.4) Anion Gap 10.0 mmol/L (3-11) Est Creatinine Clear Calc Drug Dose 50.6 ml/min Estimated GFR () 72.5 Estimated GFR (Non- 62.5 BUN/Creatinine Ratio 16.5 (10-20) Calcium Level 9.2 mg/dl (8.5-10.1)
[2017-06-09 11:10] VITALS: BP 150/70; PULSE 59; TEMP 36.6; O2SAT 96
[2017-06-09] MEDS ORDERED: BRL90 PO (12:02)
[2017-06-09] MEDS ORDERED: NRV5 PO (12:02)
--- NOTE | 2017-06-09 12:06 | Discharge Instructions ---
Discharge Instructions Date of Service Jun 09, 2017. Admission Reason for Admission: Unstable Angina Discharge Discharge Diagnosis / Problem: unstable angina, nstemi, stent to left anterior coronary artery Discharge Goals Goal(s): Diagnostic testing, Therapeutic intervention Activity Recommendations Activity Limitations: as noted below Lifting Limitations: gradually increase as tolerated . Current Hospital Diet Patient's current hospital diet: AHA Diet (Heart Healthy) Discharge Diet Recommended Diet: AHA Diet (Heart Healthy) Procedures Procedures Performed: left heart cath with stent placement, non st elevated myocardial infarction Pending Studies Studies pending at discharge: no Laboratory Results Hemoglobin A1c Test 06/06/17 06:45 Range/Units Estimated Average Glucose 117 mg/dl Hemoglobin A1c 5.7 H 4.5-5.6 % Lipid Panel Test 06/06/17 06:45 Range/Units Triglycerides Level 231 H 0-150 mg/dl Cholesterol Level 109 0-200 mg/dl HDL Cholesterol 33 mg/dl Cholesterol/HDL Ratio 3.3 LDL Cholesterol, Calculated 30 mg/dl Medical Emergencies . Who to Call and When: Medical Emergencies: If at any time you feel your situation is an emergency, please call 911 immediately. . Non-Emergent Contact Non-Emergency issues call your: Primary Care Provider, [employer] Blender Call Non-Emergent contact if: your pain is unusual for you . . "Provider Documentation" section prepared by Blanco King. . Grades 1 Through 5 Teacher Recommendations Grades 1 Through 5 Teacher Recommendations: PLEASE REVIEW THE MEDICINES THAT WERE STOPPED TO CHANGE YOUR HOME MEDICATION ROUTINE VTE Core Measure Inpt VTE Proph given/why not?: Other Anticoagulation
[2017-06-09 12:28] VITALS: BP 150/70; PULSE 59; TEMP 36.6; O2SAT 96
--- NOTE | 2017-06-09 17:22 | Discharge Summary ---
Discharge Summary Date of Service Jun 09, 2017. Discharge Summary Admission Date: Jun 05, 2017 at 20:03 Discharge Date: Jun 09, 2017 Principal Diagnosis: nstemi, lad stent placed Immunizations: Have You Had Influenza Vaccine: Yes Influenza Vaccine Date: Apr 04, 2013 History of Tetanus Vaccine?: Unknown History of Pneumococcal: No History of Hepatitis B Vaccine: Unknown Medication Reconciliation New Medications: Amlodipine Besylate (Amlodipine Besylate) 5 Mg Tab 5 MG PO QAM, #120 TAB additional dose of 2.5 mg each day at 7 pm Ticagrelor (Brilinta) 90 Mg Tab 90 MG PO BID, #64 TAB 9 Refills Continued Medications: Aspirin (Aspirin EC Low Dose) 81 Mg Ectab 81 MG PO DAILY, #30 TAB 9 Refills Atorvastatin (Lipitor) 40 Mg Tab 40 MG PO DAILY, TAB Carvedilol (Coreg) 25 Mg Tab 25 MG PO BID, TAB Donepezil Hydrochloride (Donepezil Hcl) 5 Mg Tab 5 MG PO HS Estrogens, Conjugated (Premarin) 0.45 Mg Tab 0.45 MG PO DAILY, TAB Levothyroxine Sodium (Synthroid) 112 Mcg Tab 112 MCG PO DAILY, TAB Nitroglycerin (Nitrostat) 0.4 Mg/1 Tab Subl 0.4 MG SL UD PRN for Chest Pain for 30 Days, #30 TAB 3 Refills Omeprazole (Prilosec) 20 Mg Capcr 20 MG PO DAILY, CAP Discontinued Medications: Clopidogrel (Plavix) 75 Mg Tab 75 MG PO DAILY, TAB Hydralazine Hcl (Apresoline) 50 Mg Tab 50 MG PO BID, TAB Discharge Exam Review of Systems: Constitutional: No fever, No chills, No weakness Respiratory: No shortness of breath, No dyspnea on exertion Cardiovascular: No chest pain, No orthopnea, No PND, No edema Abdomen: No pain, No nausea, No diarrhea, No constipation Neurologic: + memory loss (baseline) Psychiatric: No depression symptoms, No anhedonism Physical Exam: General Appearance: WD/WN, no apparent distress Eyes: normal inspection, sclerae normal Respiratory/Chest: chest non-tender, lungs clear, normal breath sounds Cardiovascular: regular rate, rhythm, no murmur Abdomen / GI: normal bowel sounds, non tender, soft Extremities: no pedal edema, normal range of motion Neurologic/Psychiatric: alert, oriented x 3 Hospital Course 77 year old woman with typical chest pain , elevated troponin and some EKG secondary to NSTEMI, developed dynamic ECG changes taken to [facility] 06/07. NSTEMI with Known coronary artery disease, status post angioplasty and stenting of the mid LAD in November 2016. - on and off chest pain despite heparin gtt and nitro paste, taken to lab and stent in stent stenosis, re stented , asa, Brilinta, coreg, amlodipine was uses as substitute for hydralazine on discharge - pre procedure Echo shows EF 60-65%, with moderate to sever aortic stenosis HLD and secondary risk reduction, continue statin Hypothyroid, stable clinically levothyroxine Renal artery stenosis, cardiology cites this as reason pt is not on avinash or arb Dementia family reinforces is at her baseline, continue donepezil Total Time Spent: Greater than 30 minutes This includes examination of the patient, discharge planning, medication reconciliation, and communication with other providers. Discharge Instructions Please refer to the electronic Patient Visit Report (Discharge Instructions) for additional information.
== END 2017-06-09 13:05 | disposition home or self-care (01) | DRG 246 ==
LOC: C.EDB 15:51 → C.2T 20:03 → ENRESERV 20:12
PROVIDERS: ADMIT Internal Medicine; ATTEND Internal Medicine
PROC: 4A023N7 Measurement of Cardiac Sampling and Pressure, Left Heart, Percutaneous Approach (ICD-10-PCS; principal; 2017-06-07 13:52)
PROC: B211YZZ Fluoroscopy of Multiple Coronary Arteries using Other Contrast (ICD-10-PCS; principal; 2017-06-07 13:52)
PROC: 027034Z Dilation of Coronary Artery, One Artery with Drug-eluting Intraluminal Device, Percutaneous Approach (ICD-10-PCS; principal; 2017-06-07 13:52)
DX: T82.855A Stenosis of coronary artery stent, initial encounter (principal); I21.4 Non-ST elevation (NSTEMI) myocardial infarction; I25.110 Atherosclerotic heart disease of native coronary artery with unstable angina pectoris; I35.0 Nonrheumatic aortic (valve) stenosis; I44.0 Atrioventricular block, first degree; I16.0 Hypertensive urgency; E87.6 Hypokalemia; E78.5 Hyperlipidemia, unspecified; E03.9 Hypothyroidism, unspecified; F01.50 Vascular dementia, unspecified severity, without behavioral disturbance, psychotic disturbance, mood disturbance, and anxiety; K21.9 Gastro-esophageal reflux disease without esophagitis; I25.2 Old myocardial infarction; Z95.5 Presence of coronary angioplasty implant and graft; Z95.820 Peripheral vascular angioplasty status with implants and grafts; Z87.891 Personal history of nicotine dependence; Z79.02 Long term (current) use of antithrombotics/antiplatelets; Z79.82 Long term (current) use of aspirin; Z79.890 Hormone replacement therapy; Z79.899 Other long term (current) drug therapy; Z91.040 Latex allergy status; Z88.0 Allergy status to penicillin

== ENCOUNTER 2017-10-17 16:21 | Inpatient (IN) | payer BC, OTHER ==
[~2017-10-17] VITALS: Ht 160 cm; Wt 75.7 kg
[~2017-10-17 16:21] MED LIST changes: -ASPEC81 PO; +ASPI-320 PO; +BRL90 PO; -CLOP1TAB15 PO; -HYDR-4717 PO; +NRV5 PO; -OMEG10007 PO
[2017-10-17] MEDS ORDERED: ASPIRIN 81 MG CHEW PO STA ×2 (16:45→17:10)
[2017-10-17 17:10] LABS: BASO % 0.1 %; BASO ABS # 0.02 K/uL (0-0.2); EOS % 1.7 %; EOS ABS # 0.23 K/uL (0-0.5); HEMATOCRIT 35.9 % (37-47); HEMOGLOBIN 11.9 g/dL (12.0-16.0); IG# 0.58 K/uL (0.00-0.02); LYMPH % 15.8 %; LYMPH ABS # 2.14 K/uL (1.2-3.4); MEAN CELL VOLUME 88.9 fL (80-100); MEAN CORPUSCULAR HEMOGLOBIN 29.5 pg (25-34); MEAN CORPUSCULAR HGB CONC 33.1 g/dl (32-36); MEAN PLATELET VOLUME 10.2 fL (7.4-10.4); MONO % 16.8 %; MONO ABS # 2.28 K/uL (0.11-0.59); NEUT % 61.3 %; PLATELET COUNT 311 K/uL (130-400); RED CELL DISTRIBUTION WIDTH CV 17.9 % (11.5-14.5); RED CELL DISTRIBUTION WIDTH SD 57.3 fL (36.4-46.3); WHITE BLOOD COUNT 13.55 K/uL (4.8-10.8)
--- NOTE | 2017-10-17 17:11 | DIAGNOSTIC IMAGING REPORT ---
CHEST ONE VIEW PORTABLE CLINICAL HISTORY: 77 years-old Female presenting with CHEST PAIN. TECHNIQUE: Portable upright AP view of the chest was obtained. COMPARISON: 06/05/2017. FINDINGS: Atherosclerosis of the aortic arch. Cardiac silhouette normal in size. Coronary stents noted. No focal opacity. No large effusion or pneumothorax. Osseous structures normal. Upper abdomen normal. IMPRESSION: 1. No acute cardiopulmonary disease. Electronically signed by: Alexander Sandhu M.D. 10/17/2017 5:10 PM Dictated Date/Time: 10/17/2017 5:09 PM
[2017-10-17 17:29] LABS: ALBUMIN 3.4 gm/dl (3.4-5.0); CALCIUM 8.8 mg/dl (8.5-10.1); CREATININE 0.95 mg/dl (0.60-1.20); POTASSIUM 5.3 mmol/L (3.5-5.1)
[2017-10-17 17:33] LABS: CKMB 0.9 ng/ml (0.5-3.6); TOTAL PROTEIN 6.2 gm/dl (6.4-8.2)
[2017-10-17] MEDS ORDERED: NITROGLYCERIN 0.4 MG SL PER TAB CHARGE SL PRN (18:30)
[2017-10-17] MEDS ORDERED: MoRPHine SULFATE 2 MG/ML CARP IV PRN (18:30)
[2017-10-17] MEDS ORDERED: ACETAMINOPHEN 325 MG TAB PO PRN (18:30)
[2017-10-17] MEDS ORDERED: ONDANSETRON 8MG OD TAB PO PRN (18:30)
[2017-10-17] MEDS ORDERED: AMLO-110 PO ×2 (18:31→18:32)
--- NOTE | 2017-10-17 18:34 | History and Physical ---
History & Physical Date & Time of Service: October 17, 2017 at 18:34 Chief Complaint: Chest Pain Primary Care Physician: Marquise Clement M.D. History of Present Illness Source: patient, spouse, hospital records The patient presents to the emergency department with worsening shortness of breath and now accompanied by precordial chest pain that is nonradiating. She underwent cardiac catheterization and stent placement due to in-stent restenosis on June 07, 2017. She reports that since that time she continues to be short of breath, and decided to quit cardiac rehab after 3 visits due to persistence of shortness of breath. She presents to the ED today because of shortness of breath has worsened, and is now accompanied by chest discomfort. Her HPI is somewhat limited due to her short-term memory loss, but her is present to corroborate her story. They do note that approximately 2 weeks ago her Brilinta was changed to Effient due to Brilinta causing GI upset. Past Medical/Surgical History Medical Problems: (1) Acute coronary syndrome (2) Altered mental status (3) Aortic stenosis (4) CAD (coronary artery disease) (5) Cardiac Dysrhythmia Nos (6) Chest pain due to CAD (7) Confusion (8) Diab Anahi Wo Compl, Type Ii Or Unspec Type, Not Uncntrld (9) Diverticulosis Colon (W/O Ment Of Hemorrhage) (10) Elevated troponin (11) Encephalopathy (12) Fibroids (13) Hyperlipidemia Nec/Nos (14) Hypertension (15) Hypertension Nos (16) Hypertensive emergency (17) Hypertensive urgency (18) Hypertensive urgency (19) Hypokalemia (20) Hypothyroidism Nos (21) Lupus (22) Menopausal symptoms (23) Postmenopausal bleeding (24) Precordial chest pain (25) Shortness of breath (26) STEMI (ST elevation myocardial infarction) (27) Tinnitus Nos (28) Unstable angina Surgical Problems: (1) History of coronary artery stent placement Family History Insignificant due to old age Social History Smoking Status: Former Smoker Smokeless Tobacco Use: No Alcohol Use: none Drug Use: none Marital Status: Housing status: lives with significant other Occupational Status: retired Immunizations History of Influenza Vaccine: Yes Influenza Vaccine Date: Apr 04, 2013 History of Tetanus Vaccine?: Unknown History of Pneumococcal: No History of Hepatitis B Vaccine: Unknown Allergies Coded Allergies: Adhesives (Verified Allergy, Mild, RED RASH, 06/05/17) Latex1 -Allergic Contact Dermititis (Verified Allergy, Mild, RASH, ) Penicillins (Verified Allergy, Unknown, HIVES, 06/05/17) Home Medications Scheduled Amlodipine (Norvasc), 5 MG PO QAM Amlodipine (Norvasc), 2.5 MG PO DAILY@ 7PM Aspirin (Aspirin EC Low Dose), 81 MG PO DAILY Aspirin (Aspirin Ec), 81 MG PO DAILY Atorvastatin (Lipitor), 40 MG PO DAILY Carvedilol (Coreg), 25 MG PO BID Donepezil Hydrochloride (Donepezil Hcl), 5 MG PO HS Estrogens, Conjugated (Premarin), 0.45 MG PO DAILY Levothyroxine Sodium (Synthroid), 112 MCG PO DAILY Omeprazole (Prilosec), 20 MG PO DAILY Prasugrel Hcl (Effient), 10 MG PO DAILY Ticagrelor (Brilinta), 90 MG PO BID Scheduled PRN Nitroglycerin (Nitrostat), 0.4 MG SL UD PRN for Chest Pain Review of Systems The patient denies palpitations, cough, lower extremity swelling, sore throat, fevers, chills, sweats, weight change, fatigue, nausea, vomiting, diarrhea , constipation, abdominal pain, pelvic pain, blood in urine or stool, dysuria, urinary frequency or urgency, lightheadedness, dizziness, headache, change in her chronic memory loss loss of consciousness, rash, abnormal bruising or bleeding, imbalance, focal or generalized weakness, numbness or tingling in arms or legs, generalized arthralgias or myalgias, back or neck pain, or night sweats. The review of systems is otherwise negative other than for that already noted above, and at least 10 systems have been reviewed. Physical Exam Vital Signs Date Time Temp Pulse Resp B/P (MAP) Pulse Ox O2 Delivery O2 Flow Rate FiO2 10/17/17 18:18 57 20 175/74 97 Room Air 10/17/17 16:49 60 10/17/17 16:39 98 Room Air 10/17/17 16:31 36.6 64 22 113/54 98 Room Air The patient is awake, alert and oriented 3, well developed and well nourished, normocephalic and atraumatic, lying in bed and in no acute distress. HEENT--PERRL, EOMI, mucous membranes and oropharynx dry. Neck--supple. No JVD. No bruits. Thyroid normal, trachea midline, no adenopathy. Heart--normal S1 and S2. No murmurs, rubs or gallops. Lungs--clear bilaterally, no respiratory distress, no accessory muscle use. Abdomen--normal bowel sounds and soft. Nontender. Nondistended, no hernias or masses, no organomegaly. Extremities--no cyanosis or clubbing. No edema. There are good distal pulses b/ l. Dermatologic--normal skin turgor, normal color, no abnormal lymph nodes, no rash. Neurologic--cranial nerves II through XII grossly intact. Rheumatologic--normal range of motion. Psychiatric--normal affect. Diagnostics Laboratory Results Results Past 24 Hours Test 10/17/17 17:00 10/17/17 17:07 10/17/17 17:23 Range/Units White Blood Count 13.55 4.8-10.8 K/uL Red Blood Count 4.04 4.2-5.4 M/uL Hemoglobin 11.9 12.0-16.0 g/dL Hematocrit 35.9 37-47 % Mean Corpuscular Volume 88.9 80-100 fL Mean Corpuscular Hemoglobin 29.5 25-34 pg Mean Corpuscular Hemoglobin Concent 33.1 32-36 g/dl Platelet Count 311 130-400 K/uL Mean Platelet Volume 10.2 7.4-10.4 fL Neutrophils (%) (Auto) 61.3 % Lymphocytes (%) (Auto) 15.8 % Monocytes (%) (Auto) 16.8 % Eosinophils (%) (Auto) 1.7 % Basophils (%) (Auto) 0.1 % Neutrophils # (Auto) 8.30 1.4-6.5 K/uL Lymphocytes # (Auto) 2.14 1.2-3.4 K/uL Monocytes # (Auto) 2.28 0.11-0.59 K/uL Eosinophils # (Auto) 0.23 0-0.5 K/uL Basophils # (Auto) 0.02 0-0.2 K/uL RDW Standard Deviation 57.3 36.4-46.3 fL RDW Coefficient of Variation 17.9 11.5-14.5 % Immature Granulocyte % (Auto) 4.3 % Immature Granulocyte # (Auto) 0.58 0.00-0.02 K/uL Sodium Level 136 136-145 mmol/L Potassium Level 5.3 3.5-5.1 mmol/L Chloride Level 109 98-107 mmol/L Carbon Dioxide Level 21 21-32 mmol/L Anion Gap 7.0 3-11 mmol/L Blood Urea Nitrogen 16 7-18 mg/dl Creatinine 0.95 0.60-1.20 mg/dl Est Creatinine Clear Calc Drug Dose 52.2 ml/min Estimated GFR () 67.9 Estimated GFR (Non- 58.6 BUN/Creatinine Ratio 17.0 10-20 Random Glucose 121 70-99 mg/dl Calcium Level 8.8 8.5-10.1 mg/dl Total Bilirubin 0.6 0.2-1 mg/dl Direct Bilirubin 0.2 0-0.2 mg/dl Aspartate Amino Transf (AST/SGOT) 18 15-37 U/L Alanine Aminotransferase (ALT/SGPT) 21 12-78 U/L Alkaline Phosphatase 125 45-117 U/L Total Creatine Kinase 42 26-192 U/L Creatine Kinase MB 0.9 0.5-3.6 ng/ml Creatine Kinase MB Ratio 2.1 0-3.0 Total Protein 6.2 6.4-8.2 gm/dl Albumin 3.4 3.4-5.0 gm/dl Lipase 201 73-393 U/L Bedside Troponin I < 0.030 0-0.045 ng/ml Diagnostic Radiology Patient Name: CATHERINE HEATON I Unit Number: [id number] Dictated: 10/17/171708 Transcribed: 10/17/171708 PBS Printed Date/Time: [~ rep prt dt]/[~ rep prt tm] [~ rep ct labl] - [~ rep ct ivnm] [facility] [place] [address] Dictated: 10/17/171708 Transcribed: 10/17/171708 PBS Printed Date/Time: [~ rep prt dt]/[~ rep prt tm] [~ rep ct labl] - [~ rep ct ivnm] [~ rep ct add3]] CHEST ONE VIEW PORTABLE CLINICAL HISTORY: 77 years-old Female presenting with CHEST PAIN. TECHNIQUE: Portable upright AP view of the chest was obtained. COMPARISON: 06/05/2017. FINDINGS: Atherosclerosis of the aortic arch. Cardiac silhouette normal in size. Coronary stents noted. No focal opacity. No large effusion or pneumothorax. Osseous structures normal. Upper abdomen normal. IMPRESSION: 1. No acute cardiopulmonary disease. Electronically signed by: Alexander Sandhu M.D. 10/17/2017 5:10 PM Dictated Date/Time: 10/17/2017 5:09 PM The status of this report is Signed. Draft = Not yet reviewed or approved by Radiologist. Signed = Reviewed and approved by Radiologist. <AttendingPhy></AttendingPhy> <FamilyPhy>Marquise Clement M.D.</FamilyPhy> < PrimaryPhy>Marquise Clement M.D.</PrimaryPhy> <UnitNumber>[id number]</UnitNumber > <VisitNumber>[id number]</VisitNumber> <PatientName>CATHERINE HEATON I</ PatientName> <DateOfBirth>1940</DateOfBirth> <Location>C.[facility]C</Location> < ServiceDate>10/17/17</ServiceDate> <MNE>ESINDI</MNE> <OrderingPhy>Quentin Soto M.D.</OrderingPhy> <OrderingPhyMNE>f rep ord dr feliz</OrderingPhyMNE> < DictatingPhyMNE>f rep dict dr feliz</DictatingPhyMNE> <CCListMNE>f rep ct trini</ CCListMNE> <AdmittingPhyMNE>f pt admit dr feliz</AdmittingPhyMNE> <AttendingPhyMNE >f pt attend dr feliz</AttendingPhyMNE> <ConsultingPhyMNE>f pt consult dr feliz</ConsultingPhyMNE> <FamilyPhyMNE>f pt fam dr feliz</FamilyPhyMNE> <OtherPhyMNE>f pt other dr feliz</OtherPhyMNE> < PrimaryPhyMNE>f pt prim care dr feliz</PrimaryPhyMNE> <ReferringPhyMNE>f pt referring dr mne</ReferringPhyMNE> EKG CATHERINE HEATON ID:[id number] 17-OCT-2017 16:31:36 [facility] Poor data quality, interpretation may be adversely affected Sinus bradycardia with 1st degree A-V block Left axis deviation Inferior infarct , age undetermined Anteroseptal infarct , age undetermined Abnormal ECG When compared with ECG of 08-JUN-2017 07:09, Anteroseptal infarct is now Present Inferior infarct is now Present QT has shortened 25mm/s 10mm/mV 150Hz 8.0 SP2 12SL 241 HD TRINO: 12 Referred by: Unconfirmed Vent. rate 59 BPM GA interval 210 ms QRS duration 82 ms QT/QTc 440/435 ms P-R-T axes 37 -38 53 1940 (77 yr) Female 68in Room: Loc:15 Dairy Chemist:TIGRE Ceja ind Impression Assessment and Plan Precordial chest pain with shortness of breath/CAD/stent placement 05/28/2017 for in-stent restenosis-- The patient will be admitted to telemetry for serial cardiac enzymes, serial EKG's, cardiac rhythm monitoring and a 2-D echocardiogram with Dopplers. Continue carvedilol 25 mg p.o. twice daily, aspirin 81 mg daily, amlodipine 5 mg in the morning and 2.5 mg in the evening, and Effient 10 mg daily. Add Nitropaste 1 inch to anterior chest wall every [address] on heparin IV low-dose no bolus. Hyperlipidemia-- Continue atorvastatin 40 mg p.o. daily. Check a fasting lipid panel and hemoglobin A1c. GERD-- Change omeprazole to pantoprazole. Hypothyroidism-- Continue levothyroxine sodium 112 mcg daily. Dementia/memory loss-- Continue donepezil 5 mg daily at bedtime. Advanced Directives Existing Advance Directive: No Existing Living Will: No Existing Power of Toucher Up: No Resuscitation Status VTE Prophylaxis Will order VTE Prophylaxis: Yes Social Service Consult None Apply
[2017-10-17] MEDS ORDERED: ASPI81TA28 PO (18:35)
[2017-10-17] MEDS ORDERED: PRAS1TAB6 PO (18:40)
--- NOTE | 2017-10-17 18:46 | EMERGENCY ROOM VISIT NOTE ---
History Report prepared by Farrukh: Veda Nicholson Under the Supervision of: Dr. Quentin Soto M.D. First contact with patient: 16:37 Chief Complaint: CHEST PAIN Stated Complaint: CHEST PAIN Nursing Triage Summary: Intermittent CP and dyspnea over the last few days. Hx CABG. Has taken nitro without relief. History of Present Illness The patient is a 77 year old female who presents to the Emergency Room with complaints of intermittent chest pain starting a couple days ago. The patient has a history of heart disease and stents. She took 1 nitro on the first day which relieved the chest pain. She took 2 nitro yesterday and 3 today. She currently does not have any chest pain. She describes the pain as a pressure. It goes into her arm at times, but not into her neck or back. She denies any associated nausea. 6 months ago, she had similar symptoms leading up to her stent placement. She has been feeling SOB with walking. She denies any bloody stool. She is on baby aspirin which she has not taken today. She does not have any history of atrial fibrillation. Her notes that she appears more pale than usual. Source of History: patient, spouse/significant other Onset: couple days ago Position: chest Quality: pressure Timing: intermittent Modifying Factors (Relieving): other (nitro) Associated Symptoms: + SOB, No neck pain, No nausea, No back pain, No hematochezia Review of Systems See HPI for pertinent positives & negatives. A total of 10 systems reviewed and were otherwise negative. Past Medical & Surgical Medical Problems: (1) CAD (coronary artery disease) (2) Cardiac Dysrhythmia Nos (3) Chest pain due to CAD (4) Diab Anahi Wo Compl, Type Ii Or Unspec Type, Not Uncntrld (5) Diverticulosis Colon (W/O Ment Of Hemorrhage) (6) Hyperlipidemia Nec/Nos (7) Hypertension Nos (8) Hypothyroidism Nos (9) Lupus (10) Menopausal symptoms (11) Shortness of breath (12) STEMI (ST elevation myocardial infarction) (13) Tinnitus Nos Surgical Problems: (1) History of coronary artery stent placement Old medical records were reviewed. Nurse's notes were reviewed and I agree with. Family History Insignificant due to old age Social History Smoking Status: Former Smoker Marital Status: Housing Status: lives with significant other Occupation Status: retired Current/Historical Medications Scheduled Amlodipine (Norvasc), 5 MG PO QAM Amlodipine (Norvasc), 2.5 MG PO DAILY@ 7PM Aspirin (Aspirin EC Low Dose), 81 MG PO DAILY Aspirin (Aspirin Ec), 81 MG PO DAILY Atorvastatin (Lipitor), 40 MG PO DAILY Carvedilol (Coreg), 25 MG PO BID Donepezil Hydrochloride (Donepezil Hcl), 5 MG PO HS Estrogens, Conjugated (Premarin), 0.45 MG PO DAILY Levothyroxine Sodium (Synthroid), 112 MCG PO DAILY Omeprazole (Prilosec), 20 MG PO DAILY Prasugrel Hcl (Effient), 10 MG PO DAILY Ticagrelor (Brilinta), 90 MG PO BID Scheduled PRN Nitroglycerin (Nitrostat), 0.4 MG SL UD PRN for Chest Pain Allergies Coded Allergies: Adhesives (Verified Allergy, Mild, RED RASH, 06/05/17) Latex1 -Allergic Contact Dermititis (Verified Allergy, Mild, RASH, ) Penicillins (Verified Allergy, Unknown, HIVES, 06/05/17) Physical Exam Vital Signs Date Time Temp Pulse Resp B/P (MAP) Pulse Ox O2 Delivery O2 Flow Rate FiO2 10/17/17 18:18 57 20 175/74 97 Room Air 10/17/17 16:49 60 10/17/17 16:39 98 Room Air 10/17/17 16:31 36.6 64 22 113/54 98 Room Air Physical Exam General: Non-ill appearing older female in no acute distress. Answering questions appropriately, has issues with short term memory. HEENT: Normal cephalic atraumatic. Pupils are equal round and reactive to light. Extraocular movements are intact. Oropharynx is pink with moist mucous membranes. No swelling of the mouth lips or tongue. Neck: Supple with a midline trachea. No meningeal signs or stiffness, no JVD or bruits. No Stridor. Chest: Clear to auscultation bilaterally. No wheezes or rhonchi. No increased work of breathing. Heart: regular rate and rhythm. Abdomen: Soft nontender, nondistended without rebound guarding or rigidity. Extremities: No cyanosis clubbing or edema. No calf tenderness or assymetry Spine/Back. Non tender to palpation. No CVA tenderness Skin: Good turgor without rashes. Neurologic exam: Cranial nerves two through 12 are intact. Motor and sensation are intact and symmetrical throughout. Medical Decision & Procedures ER Provider Diagnostic Interpretation: X-ray results as stated below per interpretation by me and the radiologist: CHEST ONE VIEW PORTABLE CLINICAL HISTORY: 77 years-old Female presenting with CHEST PAIN. TECHNIQUE: Portable upright AP view of the chest was obtained. COMPARISON: 06/05/2017. FINDINGS: Atherosclerosis of the aortic arch. Cardiac silhouette normal in size. Coronary stents noted. No focal opacity. No large effusion or pneumothorax. Osseous structures normal. Upper abdomen normal. IMPRESSION: 1. No acute cardiopulmonary disease. Electronically signed by: Alexander Sandhu M.D. 10/17/2017 5:10 PM Dictated Date/Time: 10/17/2017 5:09 PM Laboratory Results 10/17/17 17:00 Red Blood Count 4.04, Mean Corpuscular Volume 88.9, Mean Corpuscular Hemoglobin 29.5, Mean Corpuscular Hemoglobin Concent 33.1, Mean Platelet Volume 10.2, Neutrophils (%) (Auto) 61.3, Lymphocytes (%) (Auto) 15.8, Monocytes (%) (Auto) 16.8, Eosinophils (%) (Auto) 1.7, Basophils (%) (Auto) 0.1, Neutrophils # (Auto ) 8.30, Lymphocytes # (Auto) 2.14, Monocytes # (Auto) 2.28, Eosinophils # (Auto ) 0.23, Basophils # (Auto) 0.02 10/17/17 17:00 Test 10/17/17 17:00 10/17/17 17:07 White Blood Count 13.55 K/uL (4.8-10.8) Red Blood Count 4.04 M/uL (4.2-5.4) Hemoglobin 11.9 g/dL (12.0-16.0) Hematocrit 35.9 % (37-47) Mean Corpuscular Volume 88.9 fL (80-100) Mean Corpuscular Hemoglobin 29.5 pg (25-34) Mean Corpuscular Hemoglobin Concent 33.1 g/dl (32-36) Platelet Count 311 K/uL (130-400) Mean Platelet Volume 10.2 fL (7.4-10.4) Neutrophils (%) (Auto) 61.3 % Lymphocytes (%) (Auto) 15.8 % Monocytes (%) (Auto) 16.8 % Eosinophils (%) (Auto) 1.7 % Basophils (%) (Auto) 0.1 % Neutrophils # (Auto) 8.30 K/uL (1.4-6.5) Lymphocytes # (Auto) 2.14 K/uL (1.2-3.4) Monocytes # (Auto) 2.28 K/uL (0.11-0.59) Eosinophils # (Auto) 0.23 K/uL (0-0.5) Basophils # (Auto) 0.02 K/uL (0-0.2) RDW Standard Deviation 57.3 fL (36.4-46.3) RDW Coefficient of Variation 17.9 % (11.5-14.5) Immature Granulocyte % (Auto) 4.3 % Immature Granulocyte # (Auto) 0.58 K/uL (0.00-0.02) Anion Gap 7.0 mmol/L (3-11) Est Creatinine Clear Calc Drug Dose 52.2 ml/min Estimated GFR () 67.9 Estimated GFR (Non- 58.6 BUN/Creatinine Ratio 17.0 (10-20) Calcium Level 8.8 mg/dl (8.5-10.1) Total Bilirubin 0.6 mg/dl (0.2-1) Direct Bilirubin 0.2 mg/dl (0-0.2) Aspartate Amino Transf (AST/SGOT) 18 U/L (15-37) Alanine Aminotransferase (ALT/SGPT) 21 U/L (12-78) Alkaline Phosphatase 125 U/L (45-117) Total Creatine Kinase 42 U/L (26-192) Creatine Kinase MB 0.9 ng/ml (0.5-3.6) Creatine Kinase MB Ratio 2.1 (0-3.0) Total Protein 6.2 gm/dl (6.4-8.2) Albumin 3.4 gm/dl (3.4-5.0) Lipase 201 U/L (73-393) Bedside Troponin I < 0.030 ng/ml (0-0.045) Laboratory studies as stated above per my review. Medications Administered Medications (Trade) Dose Ordered Sig/Felicity Route Start Time Stop Time Status Last Admin Dose Admin Aspirin (Aspirin Chew) 81 mg NOW STAT PO 10/17/17 16:45 10/17/17 16:47 DC 10/17/17 17:12 81 MG Aspirin (Aspirin Chew) 243 mg NOW STAT PO 10/17/17 17:10 10/17/17 17:11 DC 10/17/17 17:12 243 MG ECG Per My Interpretation Indication: chest pain Rate (beats per minute): 59 Rhythm: sinus bradycardia Findings: 1st degree AV block, left axis deviation, prolonged QT (mildly) Comparison ECG Date: 10-Jun-2015 Change: no significant change ED Course 1638: Past medical records reviewed. The patient was evaluated in room C2B, and a complete history and physical examination were performed. 1645: Aspirin 81 mg PO. 1710: Aspirin 243 mg PO. 175: Upon reevaluation, the patient is resting comfortably. I discussed the results and treatment plan with the patient. She verbalized agreement of the treatment plan. The patient will be evaluated for further management. 1819: I discussed the patient's case with NATANAEL Casillas hospitalist. The patient will be evaluated for further management. Medical Decision Differentials include, but are not limited to; ACS, CHF, arrhythmia, electrolyte or metabolic abnormality. This patient comes in as described above. She was placed in room C2. She has a history of significant cardiac disease. She comes in after taking nitro yesterday as well as several times today. The last time she took nitroglycerin was about 6 months ago. They did recently switch her blood thinner. She does have a poor short-term memory so it is difficult to assess her fully. EKG does not suggest acute coronary syndrome or arrhythmia. She does not appear to be in congestive heart failure, pneumonia ,or pneumothorax, based on her chest CT and symptoms. She has no significant electrolyte or metabolic abnormalities. I reviewed her cath report she does have multiple vessel disease and her feels this is similar to how she is presented before. She was given 324 mg of chewable aspirin and I do think she needs to be observed/admitted for further cardiac workup and evaluation. I have consulted Dr. Akers who saw her in the ER for these measures. Medication Reconcilliation Current Medication List: was personally reviewed by me Blood Pressure Screening Patient's blood pressure: Elevated blood pressure Referred to hospitalist. Consults Time Called: 180 Consulting Physician: NATANAEL Casillas hospitalist Returned Call: [phone] Discussed the patient's case. The patient will be evaluated for further management. Impression Primary Impression: Substernal precordial chest pain Additional Impression: Unstable angina Scribe Attestation The scribe's documentation has been prepared under my direction and personally reviewed by me in its entirety. I confirm that the note above accurately reflects all work, treatment, procedures, and medical decision making performed by me. Departure Information Dispostion Being Evaluated By Hospitalist Referrals Marquise Clement M.D. (PCP) Patient Instructions My [facility] Problem Qualifiers
[2017-10-17] MEDS ORDERED: HEPARIN 25000 UNIT/500 ML D5W ONE (19:07)
[2017-10-17 19:16] VITALS: BP 185/76; PULSE 59; TEMP 36.8; O2SAT 100; Ht 160 cm; Wt 75.7 kg
[2017-10-17] MEDS ORDERED: HEPARIN IV LOW DOSE NO BOLUS SCH (19:20)
[2017-10-17] MEDS ORDERED: IV FLUIDS COMPLETED PRN (19:45)
[2017-10-17] MEDS: HEPARIN 25,000 UNIT/500ML D5W 500 ML IV SCH (20:00)
[2017-10-17 20:30] LABS: INR 1.1 (0.9-1.1)
[2017-10-17] MEDS: NITROGLYCERIN 2% OINTMENT 30GM TUBE EXT SCH (20:42)
[2017-10-17] MEDS: DONEPEZIL HCL 5 MG TAB PO SCH (20:43)
[2017-10-17] MEDS: CARVEDILOL 25 MG TAB PO SCH (20:43)
[2017-10-17 21:00] VITALS: BP 171/57
[2017-10-17 22:18] VITALS: BP 162/62; PULSE 58; O2SAT 98
[2017-10-17 23:59] VITALS: O2SAT 99
[2017-10-18] VITALS (11 sets, daily range): BP systolic 113–176; BP diastolic 50–75; PULSE 57–63; TEMP 36.4–37.2; O2SAT 95–99
[2017-10-18] MEDS: NITROGLYCERIN 2% OINTMENT 30GM TUBE EXT SCH ×4 (02:31→19:50)
[2017-10-18 02:46] LABS: BASO % 0.2 %; BASO ABS # 0.02 K/uL (0-0.2); EOS % 1.7 %; EOS ABS # 0.21 K/uL (0-0.5); HEMATOCRIT 34.5 % (37-47); HEMOGLOBIN 11.6 g/dL (12.0-16.0); IG# 0.44 K/uL (0.00-0.02); LYMPH % 23.6 %; LYMPH ABS # 2.94 K/uL (1.2-3.4); MEAN CELL VOLUME 88.5 fL (80-100); MEAN CORPUSCULAR HEMOGLOBIN 29.7 pg (25-34); MEAN CORPUSCULAR HGB CONC 33.6 g/dl (32-36); MEAN PLATELET VOLUME 10.1 fL (7.4-10.4); MONO % 15.9 %; MONO ABS # 1.98 K/uL (0.11-0.59); NEUT % 55.1 %; NEUT ABS # 6.89 K/uL (1.4-6.5); PLATELET COUNT 279 K/uL (130-400); RED CELL DISTRIBUTION WIDTH CV 17.8 % (11.5-14.5); RED CELL DISTRIBUTION WIDTH SD 57.6 fL (36.4-46.3); WHITE BLOOD COUNT 12.48 K/uL (4.8-10.8)
[2017-10-18 02:55] LABS: PTT PATIENT 35.8 SECONDS (21.0-31.0)
[2017-10-18 03:06] LABS: BLOOD UREA NITROGEN 16 mg/dl (7-18); CALCIUM 9.4 mg/dl (8.5-10.1); CARBON DIOXIDE 24 mmol/L (21-32); CKMB 1.5 ng/ml (0.5-3.6); CREATININE 0.85 mg/dl (0.60-1.20); GLUCOSE 99 mg/dl (70-99); SODIUM 138 mmol/L (136-145)
[2017-10-18] MEDS ORDERED: HEPARIN IV BOLUS 4,500 UNIT in SYRINGE 0 ML IV ONE (04:00)
[2017-10-18] MEDS: LEVOTHYROXINE 112 MCG TAB PO SCH (05:35)
[2017-10-18] MEDS: MAGNESIUM SULFATE 1GM / D5W 100 ML IV SCH ×2 (05:35→06:40)
[2017-10-18] MEDS: CARVEDILOL 25 MG TAB PO SCH ×2 (08:04→19:51)
[2017-10-18] MEDS: ASPIRIN 81 MG ECTAB PO SCH (08:04)
[2017-10-18] MEDS: ATORVASTATIN 20 MG TAB PO SCH (08:05)
[2017-10-18] MEDS: PANTOprazole SOD 40 MG TAB PO SCH (08:05)
[2017-10-18] MEDS: AMLODIPINE BESYLATE 5 MG TAB PO SCH (08:06)
[2017-10-18 10:20] LABS: PTT PATIENT 54.1 SECONDS (21.0-31.0)
--- NOTE | 2017-10-18 13:50 | ECHOCARDIOGRAM REPORT ---
*NOTICE TO RECEIVING LIBERTARIAN AGENCY This information is strictly Confidential and protected under [place] law. [place] law prohibits you from making any further disclosure of this information unless further disclosure is expressly permitted by the written consent of the person to whom it pertains or is authorized by law. A general authorization for the release of medical or other information is not sufficient for this purpose. Hospital accepts no responsibility if the information is made available to any other person, INCLUDING THE PATIENT. Interpretation Summary * Name: CATHERINE HEATON I Study Date: 10/18/2017 06:22 AM BP: 113/50 mmHg * Patient Location: C.2E\S\E210\S\1 HR: 57 * : 1940 (M/d/yyy) Gender: Female Height: 63 in * Age: 77 yrs Ethnicity: CA Weight: 183 lb * Ordering Physician: Joao Eddy * Performed By: Brianna Pratt RDCS * * Reason For Study: CHEST PAIN * BSA: 1.9 m2 * -- Conclusions -- * Left ventricular systolic function is normal. * No regional wall motion abnormalities noted. * Ejection Fraction = 65-70%. * There is mild concentric left ventricular hypertrophy. * Grade I diastolic dysfunction, (abnormal relaxation pattern). * Severe aortic stenosis by the continuity equation and 2D imaging. * Compared to study dated 06/06/2017, aortic stenosis has progressed. Procedure Details * A complete two-dimensional transthoracic echocardiogram was performed (2D, M-mode, Doppler and color flow Doppler). * There were technical limitations due to patient'sPoor acoustic windows secondary to severe lung disease. Left Ventricle * The left ventricle is normal in size. * There is mild concentric left ventricular hypertrophy. * Ejection Fraction = 65-70%. * Left ventricular systolic function is normal. * No regional wall motion abnormalities noted. Right Ventricle * The right ventricle is not well visualized. * The right ventricular systolic function is normal as assessed by tricuspid annular plane systolic excursion (TAPSE) (normal >1.5 cm). Atria * The left atrium is mildly dilated. * Right atrium not well visualized. * There is no evidence of atrial septal defect, but resolution does not allow assessment for a patent foramen ovale. Mitral Valve * The mitral valve is grossly normal. * There is no mitral valve stenosis. * Significant mitral regurgitation is absent. Tricuspid Valve * The tricuspid valve is not well visualized, but is grossly normal. * There is no tricuspid stenosis. * Significant tricuspid regurgitation is absent. Aortic Valve * Severe valvular aortic stenosis. * Severe aortic stenosis by the continuity equation and 2D imaging. * An indeterminate amount of aortic insufficiency is present. Likely trivial to mild. Pulmonic Valve * The pulmonary valve is not well seen, but the Doppler examination is normal without significant regurgitation or stenosis. Great Vessels * The aortic root is normal size. * The pulmonary is not well visualized. Pericardium/Pleural * There is no pericardial effusion. Great Vessels * Inferior vena cava not well visualized. Left Ventricular Diastolic Function * Grade I diastolic dysfunction, (abnormal relaxation pattern). MMode 2D Measurements and Calculations IVSd 1.7 cm IVSs 2.0 cm LVIDd 4.2 cm LVIDs 2.7 cm LVPWd 0.96 cm LVPWs 1.6 cm IVS/LVPW 1.8 FS 36.9 % EDV(Teich) 79.8 ml ESV(Teich) 26.2 ml EF(Teich) 67.1 % EDV(cubed) 75.6 ml ESV(cubed) 19.0 ml EF(cubed) 74.9 % % IVS thick 14.9 % % LVPW thick 67.4 % LV mass(C)d 211.7 grams LV mass(C)dI 113.7 grams/m\S\2 LV mass(C)s 187.7 grams LV mass(C)sI 100.8 grams/m\S\2 SV(Teich) 53.6 ml SI(Teich) 28.8 ml/m\S\2 SV(cubed) 56.6 ml SI(cubed) 30.4 ml/m\S\2 ACS 0.74 cm LA dimension 4.4 cm LVOT diam 1.7 cm LVOT area 2.2 cm\S\2 LVAd ap4 28.0 cm\S\2 LVLd ap4 8.2 cm EDV(MOD-sp4) 78.7 ml EDV(sp4-el) 80.9 ml LVAs ap4 13.9 cm\S\2 LVLs ap4 6.5 cm ESV(MOD-sp4) 25.1 ml ESV(sp4-el) 25.0 ml EF(MOD-sp4) 68.1 % EF(sp4-el) 69.1 % LVAd ap2 32.9 cm\S\2 LVLd ap2 8.9 cm EDV(MOD-sp2) 98.8 ml EDV(sp2-el) 103.7 ml LVAs ap2 16.7 cm\S\2 LVLs ap2 7.4 cm ESV(MOD-sp2) 31.8 ml ESV(sp2-el) 32.3 ml EF(MOD-sp2) 67.8 % EF(sp2-el) 68.9 % LVLd %diff 7.5 % EDV(MOD-bp) 88.7 ml LVLs %diff 11.4 % ESV(MOD-bp) 30.0 ml EF(MOD-bp) 66.2 % SV(MOD-sp4) 53.6 ml SI(MOD-sp4) 28.8 ml/m\S\2 SV(MOD-sp2) 67.0 ml SI(MOD-sp2) 36.0 ml/m\S\2 SV(MOD-bp) 58.7 ml SI(MOD-bp) 31.5 ml/m\S\2 SV(sp4-el) 55.9 ml SI(sp4-el) 30.0 ml/m\S\2 SV(sp2-el) 71.4 ml SI(sp2-el) 38.4 ml/m\S\2 Doppler Measurements and Calculations MV E max hailee 95.8 cm/sec MV A max hailee 111.5 cm/sec MV E/A 0.86 MV dec time 0.40 sec Ao V2 max 291.9 cm/sec Ao max PG 34.1 mmHg Ao max PG (full) 31.8 mmHg Ao V2 mean 209.7 cm/sec Ao mean PG 20.0 mmHg Ao V2 VTI 83.5 cm PEGGY(V,A) 0.57 cm\S\2 PEGGY(V,D) 0.57 cm\S\2 LV V1 max PG 2.3 mmHg LV V1 max 76.3 cm/sec PA V2 max 70.6 cm/sec PA max PG 2.0 mmHg
--- NOTE | 2017-10-18 13:56 | CARDIOLOGY CONSULTATION ---
DATE OF CONSULTATION: 10/18/2017 PERTINENT HISTORY: Mrs. Brush is a 77-year-old white female with known coronary artery disease, who was admitted yesterday with presumed crescendo angina pectoris. This consultation was ordered to assist in her management. Of note, patient typically follows with Dr. Lang in the outpatient setting. The patient was in her usual state of health until October 14. She experienced a typical episode of her angina pectoris and required 1 sublingual nitroglycerin tablet for relief. Her discomfort occurred while she was at rest. According to her , this was reminiscent of her prior episodes of angina pectoris. There were no associated symptoms such as shortness of breath, nausea, vomiting, diaphoresis, or radiation of the discomfort. On , October 15, the patient experienced 2 separate episodes of angina pectoris. Each episode was similar to that described above. Each episode required 1 sublingual nitroglycerin tablet for relief. On Thursday, the patient experienced 3 separate episodes of angina pectoris. Each required a sublingual nitroglycerin tablet for relief. After the third episode occurred, opted to bring the patient to the Emergency Room for further care. The patient's cardiac history began in January 2016 when she had a drug-eluting stent placed in the mid LAD. In November 2016, she experienced an in-stent restenosis and required another intervention. In May 2017, she again stenosed her LAD stent and required overlapping drug-eluting stents in the mid LAD. She also had POBA performed of the first diagonal branch for 90% proximal stenosis. She has done well from a cardiac perspective until that described above. The patient also carries a history of peripheral vascular disease. She had a right-sided fem-pop bypass performed in November 2013 with a percutaneous intervention performed in January 2015. She also has renal artery stenosis and had a stent placed in the right proximal renal artery in 2013. The patient's history is difficult to obtain due to her dementia. However, her is at the bedside to clarify her history. PAST MEDICAL HISTORY: 1. Coronary artery disease - see above. 2. Multiple drug-eluting stents in the mid LAD - January 2016, November 2016, and May 2017. 3. Pppxmxke-[id number] aortic stenosis - May 2017. 4. Mild LVH. 5. Diastolic dysfunction. 6. Hypertension. 7. Hypercholesterolemia. 8. Diabetes mellitus. 9. Peripheral vascular disease. 10. Right fem-pop bypass - November 2013, PCI January 2015. 11. Renal artery stenosis. 12. Right proximal renal artery stent - 2013. 13. Dementia. 14. Diverticulosis. 15. GERD. 16. Hypothyroidism. 17. L5 radiculopathy. 18. Osteopenia. 19. Generalized polyneuropathy. 20. VIDHYA/BSO. 21. History of . 22. Intraocular lens implant. MEDICATIONS: 1. Heparin drip. 2. Nitro paste 1 inch q. 6 hours. 3. Coreg 25 mg b.i.d. 4. Norvasc 5 mg per day. 5. Effient 5 mg daily. 6. Aspirin 81 mg per day. 7. Lipitor 40 mg at bedtime. 8. Synthroid 0.112 mg daily. 9. Protonix 40 mg per day. 10. Aricept 5 mg daily. ALLERGIES: 1. LATEX. 2. ADHESIVE TAPE. 3. PENICILLIN. SOCIAL HISTORY: The patient is and lives with her . 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 Does not use tobacco or alcohol. FAMILY HISTORY: Noncontributory. REVIEW OF SYSTEMS: A 10-point review of systems is negative except for that described above. PHYSICAL EXAMINATION: GENERAL: This is a well-developed, well-nourished white female, lying supine in bed without complaints. VITAL SIGNS: Blood pressure is 123/75 with a regular pulse of 63. Respiratory rate is 20. The patient is afebrile at 36.7 degrees Celsius. Saturation 98% on 2 liters nasal cannula. HEENT: Negative. NECK: Supple with delayed and prolonged carotid upstrokes. No obvious bruits or transmitted murmurs. Jugular venous pressure is flat at 90 degrees. There is no thyromegaly. CARDIOVASCULAR: Reveals a nonpalpable PMI and a regular rhythm with a 2/6 crescendo decrescendo systolic murmur heard loudest at the base. S2 is difficult to auscultate at the apex. No diastolic murmurs. No S3 or S4. LUNGS: Clear without rales, rhonchi, or wheeze. ABDOMEN: Obese without bruits. EXTREMITIES: Reveal intact radial artery and posterior tibial pulses bilaterally. There is no peripheral edema. LABORATORY DATA: CBC notes hemoglobin 11.6, hematocrit 34.5, white count 12.4, platelet count 279,000. Electrolytes noted sodium of 138, potassium 4.0, chloride 109, bicarbonate 24, BUN 16, creatinine 0.85 and glucose 117. Point of care troponin was less than 0.03 with the laboratory troponin undetectable at less than 0.015. EKG notes sinus bradycardia with first-degree AV block. There is left axis deviation and an anteroseptal myocardial infarction pattern. An old inferior infarction cannot be excluded. Chest x-ray shows no acute disease. IMPRESSION: Mrs. Brush was admitted with what appears to be crescendo angina pectoris. She has stabilized with the addition of intravenous heparin. Suspect she will need a cardiac catheterization as her symptoms now are similar to each of her presentations previously. Dr. Lang to assume her care tomorrow morning and make the final decision. An echocardiogram has been ordered to reassess her [id number] aortic stenosis. PLAN: 1. Agree with intravenous heparin. 2. Continue usual outpatient cardiac medications. 3. Await echocardiogram. 4. Dr. Lang will assume her care tomorrow morning.
--- NOTE | 2017-10-18 14:37 | Progress Note ---
Subjective Date of Service: October 18, 2017. Subjective Pt evaluation today including: conversation w/ patient, conversation w/ family , physical exam, chart review, lab review, review of studies, conversation w/ call center support consultant, review of inpatient medication list Pleasant, conversational, no complaint, denies chest pain now Problem List Medical Problems: (1) Acute coronary syndrome Status: Acute (2) Aortic stenosis Status: Acute (3) Elevated troponin Status: Acute (4) Hypokalemia Status: Acute (5) Precordial chest pain Status: Acute (6) Substernal precordial chest pain Status: Acute (7) Unstable angina Status: Acute (8) Unstable angina Status: Acute Review of Systems Constitutional: No fever, No chills, No sweats, No weight loss, No weakness, No fatigue, No problem reported Eyes: No worsening of vision, No eye pain, No redness, No discharge, No diplopia ENT: No hearing loss, No unusual epistaxis, No nasal symptoms, No sore throat, No tinnitus, No dental problems, No trouble swallowing Respiratory: No cough, No sputum, No wheezing, No shortness of breath, No dyspnea on exertion, No dyspnea at rest, No hemoptysis Cardiac: No chest pain, No orthopnea, No PND, No edema, No claudication, No palpitations Abdomen: No pain, No nausea, No vomiting, No diarrhea, No constipation Musculoskeletal: No joint pain, No muscle pain, No swelling, No calf pain Female : No dysuria, No urinary frequency, No hematuria, No incontinence, No abnormal vaginal bleeding, No vaginal discharge Neurologic: No memory loss, No paralysis, No weakness, No numbness/tingling, No vertigo, No balance problems Psychiatric: No depression symptoms, No anhedonism, No anxiety, No insomnia, No substance abuse Heme: No abnormal bleeding/bruising, No clotting problems, No swollen lymph nodes, No night sweats Endo: No fatigue, No excessive thirst, No excessive urination Skin: No rash, No itch, No new/changing skin lesions, No color change, No bleeding Objective Vital Signs Date Time Temp Pulse Resp B/P (MAP) Pulse Ox O2 Delivery O2 Flow Rate FiO2 10/18/17 12:00 Nasal Cannula 2.0 10/18/17 12:00 36.7 61 18 169/51 (90) 99 Nasal Cannula 2.0 10/18/17 09:20 123/75 (91) 137/61 (86) 10/18/17 08:00 36.7 63 20 176/69 (104) 98 Nasal Cannula 2.0 10/18/17 08:00 Nasal Cannula 2.0 10/18/17 04:02 36.6 57 20 113/50 (71) 98 Nasal Cannula 2.0 10/18/17 04:00 98 Nasal Cannula 2.0 10/18/17 00:14 36.4 60 18 160/60 (93) 98 Nasal Cannula 2.0 10/17/17 23:59 99 Nasal Cannula 2.0 10/17/17 22:18 58 162/62 (95) 98 Room Air 10/17/17 21:00 171/57 (95) 10/17/17 19:23 59 20 117/68 97 10/17/17 19:16 36.8 59 20 185/76 100 Room Air 10/17/17 18:18 57 20 175/74 97 Room Air 10/17/17 16:49 60 10/17/17 16:39 98 Room Air 10/17/17 16:31 36.6 64 22 113/54 98 Room Air Physical Exam General Appearance: WD/WN, no apparent distress Eyes: normal inspection, PERRL, EOMI, sclerae normal ENT: normal ENT inspection, hearing grossly normal, pharynx normal Neck: supple, no adenopathy, thyroid normal, no JVD, no carotid bruits, trachea midline Respiratory/Chest: chest non-tender, lungs clear, normal breath sounds, no respiratory distress, no accessory muscle use, + decreased breath sounds Cardiovascular: regular rate, rhythm, no edema, no gallop, no JVD, + systolic murmur Abdomen: normal bowel sounds, non tender, soft, no organomegaly, no pulsatile mass Extremities: normal range of motion, non-tender, normal inspection, no pedal edema, no calf tenderness, normal capillary refill, pelvis stable Neurologic/Psychiatric: senior benefits analyst II-XII nml as tested, no motor/sensory deficits, alert, normal mood/affect, oriented x 3 Skin: normal color, warm/dry, no rash Lymphatic: no adenopathy Laboratory Results Last 24 Hours Test 10/17/17 17:00 10/17/17 17:07 10/17/17 19:57 10/17/17 20:21 White Blood Count 13.55 K/uL Red Blood Count 4.04 M/uL Hemoglobin 11.9 g/dL Hematocrit 35.9 % Mean Corpuscular Volume 88.9 fL Mean Corpuscular Hemoglobin 29.5 pg Mean Corpuscular Hemoglobin Concent 33.1 g/dl Platelet Count 311 K/uL Mean Platelet Volume 10.2 fL Neutrophils (%) (Auto) 61.3 % Lymphocytes (%) (Auto) 15.8 % Monocytes (%) (Auto) 16.8 % Eosinophils (%) (Auto) 1.7 % Basophils (%) (Auto) 0.1 % Neutrophils # (Auto) 8.30 K/uL Lymphocytes # (Auto) 2.14 K/uL Monocytes # (Auto) 2.28 K/uL Eosinophils # (Auto) 0.23 K/uL Basophils # (Auto) 0.02 K/uL RDW Standard Deviation 57.3 fL RDW Coefficient of Variation 17.9 % Immature Granulocyte % (Auto) 4.3 % Immature Granulocyte # (Auto) 0.58 K/uL Sodium Level 136 mmol/L Potassium Level 5.3 mmol/L Chloride Level 109 mmol/L Carbon Dioxide Level 21 mmol/L Anion Gap 7.0 mmol/L Blood Urea Nitrogen 16 mg/dl Creatinine 0.95 mg/dl Est Creatinine Clear Calc Drug Dose 52.2 ml/min Estimated GFR () 67.9 Estimated GFR (Non- 58.6 BUN/Creatinine Ratio 17.0 Random Glucose 121 mg/dl Calcium Level 8.8 mg/dl Total Bilirubin 0.6 mg/dl Direct Bilirubin 0.2 mg/dl Aspartate Amino Transf (AST/SGOT) 18 U/L Alanine Aminotransferase (ALT/SGPT) 21 U/L Alkaline Phosphatase 125 U/L Total Creatine Kinase 42 U/L Creatine Kinase MB 0.9 ng/ml Creatine Kinase MB Ratio 2.1 Total Protein 6.2 gm/dl Albumin 3.4 gm/dl Lipase 201 U/L Bedside Troponin I < 0.030 ng/ml Prothrombin Time 11.3 SECONDS Prothromb Time International Ratio 1.1 Activated Partial Thromboplast Time 30.0 SECONDS Partial Thromboplastin Ratio 1.2 Triglycerides Level 277 mg/dl Cholesterol Level 115 mg/dl HDL Cholesterol 30 mg/dl LDL Cholesterol, Calculated 30 mg/dl VLDL Cholesterol, Calculated 55 mg/dl Cholesterol/HDL Ratio 3.8 Bedside Glucose 90 mg/dl Test 10/18/17 02:08 10/18/17 02:33 10/18/17 07:34 10/18/17 09:48 Sodium Level 138 mmol/L Potassium Level 4.0 mmol/L Chloride Level 109 mmol/L Carbon Dioxide Level 24 mmol/L Anion Gap 5.0 mmol/L Blood Urea Nitrogen 16 mg/dl Creatinine 0.85 mg/dl Est Creatinine Clear Calc Drug Dose 58.4 ml/min Estimated GFR () 77.7 Estimated GFR (Non- 67.0 BUN/Creatinine Ratio 18.9 Random Glucose 99 mg/dl Calcium Level 9.4 mg/dl Magnesium Level 1.3 mg/dl Total Creatine Kinase 38 U/L 34 U/L Creatine Kinase MB 1.5 ng/ml 1.0 ng/ml Creatine Kinase MB Ratio 3.9 2.9 Troponin I < 0.015 ng/ml < 0.015 ng/ml White Blood Count 12.48 K/uL Red Blood Count 3.90 M/uL Hemoglobin 11.6 g/dL Hematocrit 34.5 % Mean Corpuscular Volume 88.5 fL Mean Corpuscular Hemoglobin 29.7 pg Mean Corpuscular Hemoglobin Concent 33.6 g/dl Platelet Count 279 K/uL Mean Platelet Volume 10.1 fL Neutrophils (%) (Auto) 55.1 % Lymphocytes (%) (Auto) 23.6 % Monocytes (%) (Auto) 15.9 % Eosinophils (%) (Auto) 1.7 % Basophils (%) (Auto) 0.2 % Neutrophils # (Auto) 6.89 K/uL Lymphocytes # (Auto) 2.94 K/uL Monocytes # (Auto) 1.98 K/uL Eosinophils # (Auto) 0.21 K/uL Basophils # (Auto) 0.02 K/uL RDW Standard Deviation 57.6 fL RDW Coefficient of Variation 17.8 % Immature Granulocyte % (Auto) 3.5 % Immature Granulocyte # (Auto) 0.44 K/uL Prothrombin Time 11.0 SECONDS Prothromb Time International Ratio 1.0 Activated Partial Thromboplast Time 35.8 SECONDS 54.1 SECONDS Partial Thromboplastin Ratio 1.4 2.1 Bedside Glucose 117 mg/dl Assessment and Plan 77-year-old white female admitted on October 17, 2017 because of precordial chest pain with shortness of breath/CAD/stent placement 05/28/2017 precordial chest pain with shortness of breath/CAD/stent placement 05/28/2017 Cardiac enzyme troponin was negative 2 sets, Echo was done, cardiology call me report that the valve stenosis is getting worse, planning to left heart cath tomorrow, recommend n.p.o. midnight and left heart cath tomorrow Continue carvedilol 25 mg p.o. twice daily, aspirin 81 mg daily, amlodipine 5 mg in the morning and 2.5 mg in the evening, and Effient 10 mg daily. Continue on heparin IV low-dose no bolus. Hyperlipidemia-- GERD-- Hypothyroidism-- Dementia/memory loss-- The above conditions stable continue current medication GI DVT prophylaxis is covered Continued [facility] stay due to: multiple IV medications needed Discharge planning: home
[2017-10-18] MEDS: DONEPEZIL HCL 5 MG TAB PO SCH (19:51)
[2017-10-18] MEDS: HEPARIN 25,000 UNIT/500ML D5W 500 ML IV SCH (20:01)
[2017-10-19] VITALS (17 sets, daily range): BP systolic 122–180; BP diastolic 53–94; PULSE 49–89; TEMP 36.7–36.9; O2SAT 95–98
[2017-10-19] MEDS: NITROGLYCERIN 2% OINTMENT 30GM TUBE EXT SCH ×4 (02:19→20:49)
[2017-10-19] MEDS: LEVOTHYROXINE 112 MCG TAB PO SCH ×2 (05:59→06:01)
[2017-10-19 06:34] LABS: BASO % 0.2 %; BASO ABS # 0.02 K/uL (0-0.2); EOS % 1.6 %; EOS ABS # 0.16 K/uL (0-0.5); HEMATOCRIT 35.3 % (37-47); HEMOGLOBIN 11.9 g/dL (12.0-16.0); IG# 0.39 K/uL (0.00-0.02); LYMPH % 20.5 %; LYMPH ABS # 2.01 K/uL (1.2-3.4); MEAN CELL VOLUME 88.7 fL (80-100); MEAN CORPUSCULAR HEMOGLOBIN 29.9 pg (25-34); MEAN CORPUSCULAR HGB CONC 33.7 g/dl (32-36); MEAN PLATELET VOLUME 9.7 fL (7.4-10.4); MONO % 18.2 %; MONO ABS # 1.78 K/uL (0.11-0.59); NEUT % 55.5 %; NEUT ABS # 5.43 K/uL (1.4-6.5); PLATELET COUNT 262 K/uL (130-400); RED CELL DISTRIBUTION WIDTH CV 17.8 % (11.5-14.5); RED CELL DISTRIBUTION WIDTH SD 57.7 fL (36.4-46.3); WHITE BLOOD COUNT 9.79 K/uL (4.8-10.8)
[2017-10-19 06:47] LABS: PTT PATIENT 40.9 SECONDS (21.0-31.0)
[2017-10-19 07:06] LABS: CALCIUM 9.2 mg/dl (8.5-10.1); CREATININE 0.95 mg/dl (0.60-1.20); POTASSIUM 4.1 mmol/L (3.5-5.1)
[2017-10-19] MEDS ORDERED: HEPARIN IV BOLUS 4,500 UNIT in SYRINGE 0 ML IV ONE (07:15)
[2017-10-19] MEDS: CARVEDILOL 25 MG TAB PO SCH ×2 (07:37→21:00)
[2017-10-19] MEDS: ASPIRIN 81 MG ECTAB PO SCH (07:37)
[2017-10-19] MEDS: AMLODIPINE BESYLATE 5 MG TAB PO SCH (07:37)
[2017-10-19] MEDS: PANTOprazole SOD 40 MG TAB PO SCH (07:37)
[2017-10-19] MEDS: ATORVASTATIN 20 MG TAB PO SCH (07:38)
[2017-10-19 07:48] LABS: HEMOGLOBIN A1C 5.9 % (4.5-5.6)
[2017-10-19] MEDS ORDERED: NiCARDipine HCL INJ 2.5 MG/ML 10 ML AMP ONE (11:52)
[2017-10-19] MEDS ORDERED: HEPARIN SOD (PORCINE) 1000 UNIT/ML 10 ML VIAL ONE (11:52)
[2017-10-19] MEDS ORDERED: FENTANYL CITRATE INJ 50 MCG/1 ML 2 ML VIAL ONE (11:52)
[2017-10-19] MEDS ORDERED: MIDAZOLAM HCL 1 MG/ML 2ML VIAL ONE (11:52)
[2017-10-19] MEDS ORDERED: NITROGLYCERIN/D5W 100MCG/ML 20ML SYR ONE (11:53)
[2017-10-19] MEDS ORDERED: LIDOCAINE HCL 1% 20 ML VIAL ONE (12:10)
--- NOTE | 2017-10-19 14:02 | Post Sedation Assessment ---
Post Sedation Assessment General Date of Sedation October 19, 2017. Vital Signs: Vital Signs Past 12 Hours Date Time Temp Pulse Resp B/P (MAP) Pulse Ox O2 Delivery O2 Flow Rate FiO2 10/19/17 13:30 49 18 155/78 (103) 96 Room Air 10/19/17 13:20 52 18 179/98 (125) 95 Room Air 10/19/17 13:15 49 18 116/75 (89) 93 Room Air 10/19/17 12:00 97 Nasal Cannula 2.0 10/19/17 08:00 97 Nasal Cannula 2.0 10/19/17 06:47 36.7 60 20 155/57 (89) 96 Nasal Cannula 2.0 10/19/17 04:47 163/66 (98) 10/19/17 04:00 97 Nasal Cannula 2.0 10/19/17 03:57 36.7 70 18 180/93 (122) 97 Nasal Cannula 2.0 177/94 (121) Post Procedure Recovery Score Activity: (2) Moves 4 extremities * Respiration: (2) Deep breath/cough Circulation: (2) +/-20% PreAnes Value Consciousness: (2) Fully Awake Oxygen Saturation: (2) > 92% On Room Air Post Anesthesia Score: 10 Discharge Sedation Level of Care: Fast Track Phase II Post Sedation Plan On clinical assessment, the patient appears to have tolerated the sedation without complications. Patient is recovering as anticipated. Patient will continue to be monitored by nursing and may be discharged when sedation discharge criteria are met per below protocol. Upon Completions of procedure and additional 15 minutes continue every 5 minute vital signs and the P.A.R. score; then discharge to a Phase I or Fast Track to Phase II per the following guidelines: * Discharge Patient to appropriate Phase II area if PAR is 8 or greater or return to pre- procedure baseline. The post - procedure orders will be as directed. * If PAR score is less than 8 or not return to pre-procedure baseline then patient will follow Phase I monitoring till PAR is reached for Phase II. The Phase I may be done in procedure room or may call to secure a Phase I area. * If naloxone or flumazenil are used for reversal, hold in Phase I for an additional 60 -120 minutes before discharge to Phase II. Please call the Sedation Physician to re-evaluate and complete post-note for discharge to Phase II area. Do NOT discharge from procedure sedation or Phase 1 until post- sedation evaluation note is complete by procedure /sedation MD Sedation Discharge Instructions to be given to the patient at discharge to home.
--- NOTE | 2017-10-19 14:02 | Pre Sedation Assessment ---
Pre Sedation Assessment General Date of Sedation: October 19, 2017. Vital Signs Past 12 Hours Date Time Temp Pulse Resp B/P (MAP) Pulse Ox O2 Delivery O2 Flow Rate FiO2 10/19/17 13:30 49 18 155/78 (103) 96 Room Air 10/19/17 13:20 52 18 179/98 (125) 95 Room Air 10/19/17 13:15 49 18 116/75 (89) 93 Room Air 10/19/17 12:00 97 Nasal Cannula 2.0 10/19/17 08:00 97 Nasal Cannula 2.0 10/19/17 06:47 36.7 60 20 155/57 (89) 96 Nasal Cannula 2.0 10/19/17 04:47 163/66 (98) 10/19/17 04:00 97 Nasal Cannula 2.0 10/19/17 03:57 36.7 70 18 180/93 (122) 97 Nasal Cannula 2.0 177/94 (121) Review Cardiovascular: regular rate, rhythm, no edema Lungs: chest non-tender, lungs clear Pre-Sedation Airway Assessment Smoking Status: Former Smoker Hx of difficult intubation: No Short Thick Neck: No Thyro-mental Distance: > 3 Finger Breadths Oral Cavity: WNL Mallampati Classification: Class II ASA Classification: Class III NPO Status Date of Last Intake of Fluids: October 18, 2017 Time of Last Intake of Fluids: 2199 Date of Last Intake of Solids: Sep 28, 2017 Time of Last Intake of Solids: 2199 Procedure Planning Contraindications for Sedation: None Current Medications Reviewed: Yes Notes The planned sedation has been discussed with the patient. Informed Consent was obtained. I have identified the patient, determined the appropriateness of sedation and have assessed the patient immediately prior to the procedure. All medicine(s) and interventions are by my order.
[2017-10-19] MEDS ORDERED: SODIUM CHLORIDE 0.9% 1000ML 1,000 ML IV SCH (14:16)
--- NOTE | 2017-10-19 15:50 | Cardiac Catheterization ---
Procedure Note Procedure Date October 19, 2017. Pre-Procedure Diagnosis Acute Coronary Syndrome AUC Score 7 Post-Procedure Diagnosis Severe CAD, Normal Intracardiac Pressures, Cardiothoracic Finding Procedure(s) Performed Coronary Angiography, Left Heart Cath, Right Heart Cath, Ultrasound Guided Vascular Access Custom Furrier Jaime It Application Support Analyst(s) Derrick Estimated Blood Loss 12 Medication(s) Fentanyl, Nicardipine, Nitroglycerin, Versed, Lidocaine 1% Summary of Findings Indication: Unstable angina Access: 6Fr slender right ulnar artery (ultrasound guided); 6Fr left CFV ( ultrasound guided). Catheters: [place]; AL1; 6Fr swan Findings: LM - Angiographically normal LAD - Moderate caliber vessel; proximal 20% diffuse disease. 70% stenosis in proximal aspect of prior mid stent, distal aspect of stent patent; small distal vessel with luminal irregularities. - 90+% ostial 1st diagonal Ramus - small vessel, 40-50% ostial stenosis, 50% mid segment stenosis Circumflex - Large caliber vessel, luminal irregularities, moderate distal circumflex disease after take-off of dominant OM. RCA - Dominant, proximal 20% stenosis; 20 -30% stenosis distal stenosis prior to take-off of PDA. PDA/PLB with luminal irregularities. RA 0 RV 23/1 PA 19/3 (10) PAWP 2 LVEDP 8 PaSat 67% AoSat 98% Darren CO/CI 4.5/2.5 Thermo CO/CI 3.6/2 Aortic Valve Mean gradient 31.2 PEGGY 0.84 (darren), 0.66 (thermo) Arterial Closure: TR Band; Mynx left CFV Summary: 1. Severe coronary artery disease involving bifurcation of LAD and 1st diagonal. - 70% in-stent restenosis of proximal aspect of mid LAD stent - 90% ostial 1st diagonal 2. Normal intracardiac filling pressures. No pulmonary artery pressures. 3. Preserved cardiac output. 4. Severe aortic stenosis (PEGGY 0.66-0.84; MG 31). Recommendations: Plan for further discussion of patient's options including surgical AVR with CABG versus PCI with possible TAVR. Hemodynamics Rest Ao: 136/56/84 Final Ao: 160/56/94 LV: 197/8 Recommendations PCI without planned CABG, CABG, valve replacement Specimens None Radiation Exposure (mGy) 1142 Contrast (mls) 50 Fluids (cc crystalloids) 125 Drains None Anesthesia Moderate Procedural Complication(s) None Disposition PCU ACC Data Cardiac Status Clinical evaluation leading to the procedure CAD Presntation: Unstable angina Anginal Classification: CCS III Heart Failure: NYHA Class: CCS I Cardiogenic Shock w/in 24Hrs: No Cardiac Arrest w/in 24Hrs: No Imaging studies past 6 months: Yes Stress studies past 6 months: No Closure Device Percutaneous Entry Location: Radial Closure Device: Radial Band Intraprocedure Events Significant Dissection: No Perforation: No
--- NOTE | 2017-10-19 15:51 | Progress Note ---
Subjective Date of Service: October 19, 2017. Subjective Pt evaluation today including: conversation w/ patient, conversation w/ family , physical exam, chart review, lab review, review of studies, conversation w/ fashion consultant, review of inpatient medication list Doing fair, waiting for cardiac cath Problem List Medical Problems: (1) Acute coronary syndrome Status: Acute (2) Aortic stenosis Status: Acute (3) Elevated troponin Status: Acute (4) Hypokalemia Status: Acute (5) Precordial chest pain Status: Acute (6) Substernal precordial chest pain Status: Acute (7) Unstable angina Status: Acute (8) Unstable angina Status: Acute Review of Systems Constitutional: + weakness, + fatigue, No fever, No chills, No sweats, No weight loss, No problem reported Eyes: No worsening of vision, No eye pain, No redness, No discharge, No diplopia ENT: No hearing loss, No unusual epistaxis, No nasal symptoms, No sore throat, No tinnitus, No dental problems, No trouble swallowing Respiratory: No cough, No sputum, No wheezing, No shortness of breath, No dyspnea on exertion, No dyspnea at rest, No hemoptysis Cardiac: No chest pain, No orthopnea, No PND, No edema, No claudication, No palpitations Abdomen: No pain, No nausea, No vomiting, No diarrhea, No constipation Musculoskeletal: No joint pain, No muscle pain, No swelling, No calf pain Female : No dysuria, No urinary frequency, No hematuria, No incontinence, No abnormal vaginal bleeding, No vaginal discharge Neurologic: No memory loss, No paralysis, No weakness, No numbness/tingling, No vertigo, No balance problems Psychiatric: No depression symptoms, No anhedonism, No anxiety, No insomnia, No substance abuse Heme: No abnormal bleeding/bruising, No clotting problems, No swollen lymph nodes, No night sweats Endo: No fatigue, No excessive thirst, No excessive urination Skin: No rash, No itch, No new/changing skin lesions, No color change, No bleeding Objective Vital Signs Date Time Temp Pulse Resp B/P (MAP) Pulse Ox O2 Delivery O2 Flow Rate FiO2 10/19/17 15:30 55 17 127/53 (77) 97 Nasal Cannula 2.0 10/19/17 14:45 52 19 143/61 (88) 95 Nasal Cannula 2.0 10/19/17 14:30 51 18 157/68 (97) 95 Nasal Cannula 2.0 10/19/17 14:15 53 17 160/68 (98) 96 Nasal Cannula 2.0 10/19/17 14:00 36.8 49 13 167/67 (100) 98 Nasal Cannula 2.0 10/19/17 13:30 49 18 155/78 (103) 96 Room Air 10/19/17 13:20 52 18 179/98 (125) 95 Room Air 10/19/17 13:15 49 18 116/75 (89) 93 Room Air 10/19/17 12:00 97 Nasal Cannula 2.0 10/19/17 08:00 97 Nasal Cannula 2.0 10/19/17 06:47 36.7 60 20 155/57 (89) 96 Nasal Cannula 2.0 10/19/17 04:47 163/66 (98) 10/19/17 04:00 97 Nasal Cannula 2.0 10/19/17 03:57 36.7 70 18 180/93 (122) 97 Nasal Cannula 2.0 177/94 (121) 10/18/17 23:59 96 Nasal Cannula 2.0 10/18/17 23:57 36.8 61 19 151/54 (86) 96 Nasal Cannula 1.0 10/18/17 20:00 95 Nasal Cannula 2.0 10/18/17 19:49 37.2 59 18 148/70 (96) 95 Nasal Cannula 1.0 10/18/17 16:50 37.1 61 18 154/65 (94) 98 Nasal Cannula 1.0 10/18/17 16:00 Nasal Cannula 2.0 Physical Exam General Appearance: WD/WN, no apparent distress Eyes: normal inspection, PERRL, EOMI, sclerae normal ENT: normal ENT inspection, hearing grossly normal, pharynx normal Neck: supple, no adenopathy, thyroid normal, no JVD, no carotid bruits, trachea midline Respiratory/Chest: chest non-tender, normal breath sounds, no respiratory distress, no accessory muscle use, + decreased breath sounds Cardiovascular: regular rate, rhythm, no gallop, no JVD, no murmur Abdomen: normal bowel sounds, non tender, soft, no organomegaly, no pulsatile mass Extremities: normal range of motion, non-tender, normal inspection, no pedal edema, no calf tenderness, normal capillary refill, pelvis stable Neurologic/Psychiatric: inventory specialist manager II-XII nml as tested, no motor/sensory deficits, alert, normal mood/affect, oriented x 3 Skin: normal color, warm/dry, no rash Lymphatic: no adenopathy Laboratory Results Last 24 Hours Test 10/18/17 16:21 10/18/17 20:24 10/19/17 06:18 10/19/17 07:16 Bedside Glucose 106 mg/dl 121 mg/dl 103 mg/dl White Blood Count 9.79 K/uL Red Blood Count 3.98 M/uL Hemoglobin 11.9 g/dL Hematocrit 35.3 % Mean Corpuscular Volume 88.7 fL Mean Corpuscular Hemoglobin 29.9 pg Mean Corpuscular Hemoglobin Concent 33.7 g/dl Platelet Count 262 K/uL Mean Platelet Volume 9.7 fL Neutrophils (%) (Auto) 55.5 % Lymphocytes (%) (Auto) 20.5 % Monocytes (%) (Auto) 18.2 % Eosinophils (%) (Auto) 1.6 % Basophils (%) (Auto) 0.2 % Neutrophils # (Auto) 5.43 K/uL Lymphocytes # (Auto) 2.01 K/uL Monocytes # (Auto) 1.78 K/uL Eosinophils # (Auto) 0.16 K/uL Basophils # (Auto) 0.02 K/uL RDW Standard Deviation 57.7 fL RDW Coefficient of Variation 17.8 % Immature Granulocyte % (Auto) 4.0 % Immature Granulocyte # (Auto) 0.39 K/uL Prothrombin Time 10.5 SECONDS Prothromb Time International Ratio 1.0 Activated Partial Thromboplast Time 40.9 SECONDS Partial Thromboplastin Ratio 1.6 Sodium Level 138 mmol/L Potassium Level 4.1 mmol/L Chloride Level 106 mmol/L Carbon Dioxide Level 24 mmol/L Anion Gap 9.0 mmol/L Blood Urea Nitrogen 15 mg/dl Creatinine 0.95 mg/dl Est Creatinine Clear Calc Drug Dose 50.6 ml/min Estimated GFR () 67.9 Estimated GFR (Non- 58.6 BUN/Creatinine Ratio 15.5 Random Glucose 101 mg/dl Calcium Level 9.2 mg/dl Magnesium Level 1.9 mg/dl Test 10/19/17 12:55 10/19/17 13:00 10/19/17 13:04 Bedside Blood Gas pH (LAB) 7.53 7.53 7.43 Bedside Blood Gas pCO2 (LAB) 27 mmHg 25 mmHg 38 mmHg Bedside Blood Gas pO2 (LAB) 92 mmHg 42 mmHg 34 mmHg Bedside Blood Gas HCO3 (LAB) 22 meq/L 21 meq/L 25 meq/L Bedside Blood Gas Total CO2 23 mEq/l 22 mEq/l 26 mEq/l Bedside Blood Gas Base Excess (LAB) -1.0 meq/L -2.0 meq/L 1.0 meq/L Bedside Blood Gas O2 Saturation 98.0 % 84.0 % 67.0 % Assessment and Plan 77-year-old white female admitted on October 17, 2017 because of precordial chest pain with shortness of breath/CAD/stent placement 05/28/2017 precordial chest pain with shortness of breath/CAD/stent placement 05/28/2017 Cardiac enzyme troponin was negative 2 sets, Echo was done, cardiology call me report that the valve stenosis is getting worse, planning to left heart cath, recommend n.p.o. midnight Continue carvedilol 25 mg p.o. twice daily, aspirin 81 mg daily, amlodipine 5 mg in the morning and 2.5 mg in the evening, and Effient 10 mg daily. Continue on heparin IV low-dose no bolus. Pending for cardiac cath because of possible unstable angina Hyperlipidemia-- GERD-- Hypothyroidism-- Dementia/memory loss-- The above conditions stable continue current medication Will follow up cardiology input and cardiac has resolved GI DVT prophylaxis is covered Continued [facility] stay due to: multiple IV medications needed Discharge planning: home
[2017-10-19] MEDS ORDERED: NURSING VERBAL MED ORDER ONE (16:00)
--- NOTE | 2017-10-19 18:59 | CARDIOLOGY PROGRESS NOTE ---
DATE: 10/19/2017 TIME: 18:21 p.m. SUBJECTIVE: Mrs. Brush was seen earlier this morning at approximately 8:45 a.m. She denied any current chest pain but does recall having chest pain prior to the hospitalization. She did not recall any of those details, however. She denies shortness of breath, palpitation, syncope, near syncope, or edema. Her was not present at the bedside. Attempts were made to contact him via telephone. A message was left for him. After our visit today, nursing staff was contacted to inform them that I was unable to speak with her . Dr. Sandoval was able to speak with Mr. Brush, and he was awaiting a conversation with Dr. Clement before Mr. Brush would make any decision regarding coronary angiography. OBJECTIVE: VITAL SIGNS: Temperature 36.8 degrees, heart rate 65 beats per minute, respiration rate 23, blood pressure 157/69 mmHg, oxygen saturation 97% on 2 L. I's and O's negative 1.5 L today. Weight 78.1 kg. GENERAL: In no acute distress. She is alert and oriented to herself, place, and also the year. She did not know the month. NECK: No JVD. CARDIAC: No ventricular heave. Regular. Normal S1 and S2. A 2/6 mid to late peaking systolic ejection murmur best heard at the right upper sternal border. No rubs or gallops. LUNGS: Clear to auscultation bilaterally, without wheezes, rales, or rhonchi. ABDOMEN: Soft, nontender, nondistended. Normoactive bowel sounds. EXTREMITIES: No cyanosis or edema. PSYCHIATRIC: Affect appears appropriate. MEDICATIONS: Include carvedilol 25 mg twice daily, Lipitor 40 mg daily, aspirin 81 mg daily, amlodipine 5 mg daily, levothyroxine 112 mcg daily, Protonix 40 mg daily, Effient 5 mg daily. LABORATORY DATA: White blood cell count 9.79, hemoglobin 11.9, platelets 262. Sodium 138, potassium 4.1, BUN 15, creatinine 0.95, magnesium 1.9. Telemetry personally reviewed. No arrhythmia. Echocardiogram images were personally reviewed. Aortic valve visually appears to be severely stenotic. Transvalvular gradient, velocities, and dimensionless index would suggest moderate to severe. Valve area suggests severe. Coronary angiography from May 2017 personally reviewed. ASSESSMENT AND PLAN: 1. Coronary artery disease, status post left anterior descending percutaneous coronary intervention. She presented with symptoms concerning for angina. Dr. Walton has evaluated her over the weekend and is mentioned coronary angiography. With her symptoms, coronary angiography is recommended. Unfortunately was unable to meet with her ; however, he spoke with Dr. Sandoval of interventional cardiology as well as Dr. Walton over the weekend and Dr. Clement today. The plan was to perform coronary angiography. Continue antiplatelet therapy. Continue beta long and high intensity statin therapy. 2. Aortic stenosis: Moderate to severe aortic stenosis based on echocardiogram. This was discussed with Dr. Sandoval prior to the cardiac catheterization, who was considering crossing the aortic valve to measure a gradient. 3. Hypertension: Blood pressure has not been optimized; however, appears to be somewhat improved this afternoon. Can further titrate amlodipine; however, if aortic stenosis is severe, would be cautious with vasodilators. 4. Dyslipidemia: Continue high intensity statin therapy. 5 Disposition: Dr. Walton will resume her cardiology care tomorrow as I will be away from the hospital. Coronary angiography pending. Coronary angiography was performed by Dr. Sandoval. He reported proximal LAD diffuse 20%. Mid LAD stent. Proximal 70% stenosis, with the distal aspect of the stent patent. Ostial D1 90+ %. Small ramus: Ostial 40%-50%, with mid 50% stenosis. Large circumflex with moderate distal disease. Dominant RCA. Proximal RCA 20%. Distal RCA 20%-30%. LVEDP 8. Aortic valve area via thermal dilution was 0.66 cm2. Aortic valve area via Maria Luz was 0.84 sq cm. Mean gradient 31.2 mmHg. Results were discussed with Dr. Clement, her primary care physician as Mr. Brush has preferred that Dr. Clement be heavily involved in the care of his . Results were also discussed with Dr. Walton, who will see her tomorrow from the cardiology standpoint. Dr. Sandoval has recommended CABG with aortic valve replacement versus PCI of D1 and consideration for TAVR. Dr. Walton will resume these discussions tomorrow with Mr. Brush. Can hold breakfast in the morning in case PCI of the diagonal is available tomorrow after all parties are available to discuss.
[2017-10-19] MEDS: DONEPEZIL HCL 5 MG TAB PO SCH (20:49)
[2017-10-20] VITALS (17 sets, daily range): BP systolic 139–183; BP diastolic 53–99; PULSE 50–68; TEMP 36.6–37; O2SAT 92–99
[2017-10-20] MEDS: NITROGLYCERIN 2% OINTMENT 30GM TUBE EXT SCH ×3 (02:15→14:00)
[2017-10-20] MEDS: LEVOTHYROXINE 112 MCG TAB PO SCH (05:48)
[2017-10-20 06:50] LABS: BASO % 0.1 %; BASO ABS # 0.01 K/uL (0-0.2); EOS % 1.5 %; EOS ABS # 0.15 K/uL (0-0.5); HEMATOCRIT 36.4 % (37-47); HEMOGLOBIN 12.1 g/dL (12.0-16.0); IG# 0.37 K/uL (0.00-0.02); LYMPH % 13.8 %; LYMPH ABS # 1.37 K/uL (1.2-3.4); MEAN CELL VOLUME 88.6 fL (80-100); MEAN CORPUSCULAR HEMOGLOBIN 29.4 pg (25-34); MEAN CORPUSCULAR HGB CONC 33.2 g/dl (32-36); MEAN PLATELET VOLUME 9.7 fL (7.4-10.4); MONO % 21.2 %; NEUT % 59.7 %; PLATELET COUNT 276 K/uL (130-400)
[2017-10-20 06:59] LABS: PTT PATIENT 27.4 SECONDS (21.0-31.0)
[2017-10-20 07:19] LABS: CALCIUM 8.6 mg/dl (8.5-10.1); CREATININE 0.95 mg/dl (0.60-1.20)
[2017-10-20] MEDS: PANTOprazole SOD 40 MG TAB PO SCH (08:44)
[2017-10-20] MEDS: ASPIRIN 81 MG ECTAB PO SCH (08:45)
[2017-10-20] MEDS: AMLODIPINE BESYLATE 5 MG TAB PO SCH (08:45)
[2017-10-20] MEDS: CARVEDILOL 25 MG TAB PO SCH ×2 (08:45→21:00)
[2017-10-20] MEDS: ATORVASTATIN 20 MG TAB PO SCH (08:45)
[2017-10-20] MEDS ORDERED: MIDAZOLAM HCL 1 MG/ML 2ML VIAL ONE ×3 (12:59→13:59)
[2017-10-20] MEDS ORDERED: NITROGLYCERIN/D5W 100MCG/ML 20ML SYR ONE (13:00)
[2017-10-20] MEDS ORDERED: LIDOCAINE HCL 1% 20 ML VIAL ONE (13:00)
[2017-10-20] MEDS ORDERED: HEPARIN SOD (PORCINE) 1000 UNIT/ML 10 ML VIAL ONE (13:00)
[2017-10-20] MEDS ORDERED: FENTANYL CITRATE INJ 50 MCG/1 ML 2 ML VIAL ONE (13:00)
[2017-10-20] MEDS ORDERED: NiCARDipine HCL INJ 2.5 MG/ML 10 ML AMP ONE (13:00)
[2017-10-20] MEDS ORDERED: PRASugrel TAB 10 MG TAB ONE (15:06)
--- NOTE | 2017-10-20 15:21 | [facility] Post Operative Brief Note ---
Preliminary Procedure Note Procedure Date October 20, 2017. Pre-Procedure Diagnosis Acute Coronary Syndrome AUC Score 7 Post-Procedure Diagnosis Severe CAD, Successful PCI Procedure(s) Performed Drug Eluting Stent, IVUS Public Policy Mediator Jaime Blocker Hand(s) Glunt Estimated Blood Loss 15 Medication(s) Fentanyl, Heparin, Nicardipine, Nitroglycerin, Versed, Lidocaine 1% Prasugrel Preliminary Findings Indication: Unstable angina Access: 6Fr slender right ulnar artery (ultrasound guided); Successful PCI of proximal LAD into 1st diagonal POBA of mid LAD stent IVUS of LAD showed minimal ISR Recommendations PCI without planned CABG, CABG, valve replacement Specimens None Drains None Anesthesia Moderate Procedural Complication(s) None Disposition PCU
--- NOTE | 2017-10-20 15:22 | Pre Sedation Assessment ---
Pre Sedation Assessment General Date of Sedation: October 20, 2017. Vital Signs Past 12 Hours Date Time Temp Pulse Resp B/P (MAP) Pulse Ox O2 Delivery O2 Flow Rate FiO2 10/20/17 15:15 65 16 122/78 (93) 98 Room Air 10/20/17 15:00 65 16 127/60 (82) 98 Room Air 10/20/17 12:00 95 Room Air 10/20/17 11:49 36.8 55 18 139/62 (87) 96 10/20/17 08:00 95 Room Air 10/20/17 06:58 36.8 53 18 148/62 (90) 95 Room Air 10/20/17 04:23 36.6 68 22 167/99 (121) 95 Room Air 10/20/17 04:00 95 Room Air Review Cardiovascular: regular rate, rhythm, no edema Lungs: chest non-tender, lungs clear Pre-Sedation Airway Assessment Smoking Status: Former Smoker Hx of difficult intubation: No Short Thick Neck: No Thyro-mental Distance: > 3 Finger Breadths Oral Cavity: WNL Mallampati Classification: Class II ASA Classification: Class III NPO Status Date of Last Intake of Fluids: October 18, 2017 Time of Last Intake of Fluids: 2199 Date of Last Intake of Solids: Sep 28, 2017 Time of Last Intake of Solids: 2199 Procedure Planning Contraindications for Sedation: None Current Medications Reviewed: Yes Notes The planned sedation has been discussed with the patient. Informed Consent was obtained. I have identified the patient, determined the appropriateness of sedation and have assessed the patient immediately prior to the procedure. All medicine(s) and interventions are by my order.
--- NOTE | 2017-10-20 15:22 | Post Sedation Assessment ---
Post Sedation Assessment General Date of Sedation October 20, 2017. Vital Signs: Vital Signs Past 12 Hours Date Time Temp Pulse Resp B/P (MAP) Pulse Ox O2 Delivery O2 Flow Rate FiO2 10/20/17 15:15 65 16 122/78 (93) 98 Room Air 10/20/17 15:00 65 16 127/60 (82) 98 Room Air 10/20/17 12:00 95 Room Air 10/20/17 11:49 36.8 55 18 139/62 (87) 96 10/20/17 08:00 95 Room Air 10/20/17 06:58 36.8 53 18 148/62 (90) 95 Room Air 10/20/17 04:23 36.6 68 22 167/99 (121) 95 Room Air 10/20/17 04:00 95 Room Air Post Procedure Recovery Score Activity: (2) Moves 4 extremities * Respiration: (2) Deep breath/cough Circulation: (2) +/-20% PreAnes Value Consciousness: (2) Fully Awake Oxygen Saturation: (2) > 92% On Room Air Post Anesthesia Score: 10 Discharge Sedation Level of Care: Fast Track Phase II Post Sedation Plan On clinical assessment, the patient appears to have tolerated the sedation without complications. Patient is recovering as anticipated. Patient will continue to be monitored by nursing and may be discharged when sedation discharge criteria are met per below protocol. Upon Completions of procedure and additional 15 minutes continue every 5 minute vital signs and the P.A.R. score; then discharge to a Phase I or Fast Track to Phase II per the following guidelines: * Discharge Patient to appropriate Phase II area if PAR is 8 or greater or return to pre- procedure baseline. The post - procedure orders will be as directed. * If PAR score is less than 8 or not return to pre-procedure baseline then patient will follow Phase I monitoring till PAR is reached for Phase II. The Phase I may be done in procedure room or may call to secure a Phase I area. * If naloxone or flumazenil are used for reversal, hold in Phase I for an additional 60 -120 minutes before discharge to Phase II. Please call the Sedation Physician to re-evaluate and complete post-note for discharge to Phase II area. Do NOT discharge from procedure sedation or Phase 1 until post- sedation evaluation note is complete by procedure /sedation MD Sedation Discharge Instructions to be given to the patient at discharge to home.
--- NOTE | 2017-10-20 15:30 | Progress Note ---
Subjective Date of Service: October 20, 2017. Subjective Pt evaluation today including: conversation w/ patient, conversation w/ family , physical exam, chart review, lab review, review of studies, conversation w/ planning consultant, review of inpatient medication list Doing well, no complaint, is waiting for cardiac cath and stent Problem List Medical Problems: (1) Acute coronary syndrome Status: Acute (2) Aortic stenosis Status: Acute (3) Elevated troponin Status: Acute (4) Hypokalemia Status: Acute (5) Precordial chest pain Status: Acute (6) Substernal precordial chest pain Status: Acute (7) Unstable angina Status: Acute (8) Unstable angina Status: Acute Review of Systems Constitutional: No fever, No chills, No sweats, No weight loss, No weakness, No fatigue, No problem reported Eyes: No worsening of vision, No eye pain, No redness, No discharge, No diplopia ENT: No hearing loss, No unusual epistaxis, No nasal symptoms, No sore throat, No tinnitus, No dental problems, No trouble swallowing Respiratory: No cough, No sputum, No wheezing, No shortness of breath, No dyspnea on exertion, No dyspnea at rest, No hemoptysis Cardiac: No chest pain, No orthopnea, No PND, No edema, No claudication, No palpitations Abdomen: No pain, No nausea, No vomiting, No diarrhea, No constipation Musculoskeletal: No joint pain, No muscle pain, No swelling, No calf pain Female : No dysuria, No urinary frequency, No hematuria, No incontinence, No abnormal vaginal bleeding, No vaginal discharge Neurologic: No memory loss, No paralysis, No weakness, No numbness/tingling, No vertigo, No balance problems Psychiatric: No depression symptoms, No anhedonism, No anxiety, No insomnia, No substance abuse Heme: No abnormal bleeding/bruising, No clotting problems, No swollen lymph nodes, No night sweats Endo: No fatigue, No excessive thirst, No excessive urination Skin: No rash, No itch, No new/changing skin lesions, No color change, No bleeding Objective Vital Signs Date Time Temp Pulse Resp B/P (MAP) Pulse Ox O2 Delivery O2 Flow Rate FiO2 10/20/17 15:15 65 16 122/78 (93) 98 Room Air 10/20/17 15:00 65 16 127/60 (82) 98 Room Air 10/20/17 12:00 95 Room Air 10/20/17 11:49 36.8 55 18 139/62 (87) 96 10/20/17 08:00 95 Room Air 10/20/17 06:58 36.8 53 18 148/62 (90) 95 Room Air 10/20/17 04:23 36.6 68 22 167/99 (121) 95 Room Air 10/20/17 04:00 95 Room Air 10/20/17 00:00 95 Room Air 10/19/17 23:54 36.7 58 19 169/77 (107) 95 Room Air 10/19/17 20:04 36.9 89 16 158/62 (94) 96 Room Air 10/19/17 20:00 96 Room Air 10/19/17 18:00 56 22 148/62 (90) 10/19/17 17:00 65 23 157/69 (98) Nasal Cannula 2.0 10/19/17 16:06 Nasal Cannula 2.0 10/19/17 16:00 60 19 122/53 (76) Nasal Cannula 2.0 10/19/17 15:30 55 17 127/53 (77) 97 Nasal Cannula 2.0 Physical Exam General Appearance: WD/WN, no apparent distress Eyes: normal inspection, PERRL, EOMI, sclerae normal ENT: normal ENT inspection, hearing grossly normal, pharynx normal Neck: supple, no adenopathy, thyroid normal, no JVD, no carotid bruits, trachea midline Respiratory/Chest: chest non-tender, normal breath sounds, no respiratory distress, no accessory muscle use, + decreased breath sounds Cardiovascular: regular rate, rhythm, no edema, no gallop, no JVD, no murmur, + systolic murmur Abdomen: normal bowel sounds, non tender, soft, no organomegaly, no pulsatile mass Extremities: normal range of motion, non-tender, normal inspection, no pedal edema, no calf tenderness, normal capillary refill, pelvis stable Neurologic/Psychiatric: shower maid II-XII nml as tested, no motor/sensory deficits, alert, normal mood/affect, oriented x 3 Skin: normal color, warm/dry, no rash Lymphatic: no adenopathy Laboratory Results Last 24 Hours Test 10/20/17 06:33 White Blood Count 9.90 K/uL Red Blood Count 4.11 M/uL Hemoglobin 12.1 g/dL Hematocrit 36.4 % Mean Corpuscular Volume 88.6 fL Mean Corpuscular Hemoglobin 29.4 pg Mean Corpuscular Hemoglobin Concent 33.2 g/dl Platelet Count 276 K/uL Mean Platelet Volume 9.7 fL Neutrophils (%) (Auto) 59.7 % Lymphocytes (%) (Auto) 13.8 % Monocytes (%) (Auto) 21.2 % Eosinophils (%) (Auto) 1.5 % Basophils (%) (Auto) 0.1 % Neutrophils # (Auto) 5.90 K/uL Lymphocytes # (Auto) 1.37 K/uL Monocytes # (Auto) 2.10 K/uL Eosinophils # (Auto) 0.15 K/uL Basophils # (Auto) 0.01 K/uL RDW Standard Deviation 58.0 fL RDW Coefficient of Variation 18.0 % Immature Granulocyte % (Auto) 3.7 % Immature Granulocyte # (Auto) 0.37 K/uL Prothrombin Time 10.5 SECONDS Prothromb Time International Ratio 1.0 Activated Partial Thromboplast Time 27.4 SECONDS Partial Thromboplastin Ratio 1.1 Sodium Level 138 mmol/L Potassium Level 4.0 mmol/L Chloride Level 108 mmol/L Carbon Dioxide Level 23 mmol/L Anion Gap 7.0 mmol/L Blood Urea Nitrogen 15 mg/dl Creatinine 0.95 mg/dl Est Creatinine Clear Calc Drug Dose 50.4 ml/min Estimated GFR () 67.9 Estimated GFR (Non- 58.6 BUN/Creatinine Ratio 15.4 Random Glucose 103 mg/dl Calcium Level 8.6 mg/dl Magnesium Level 1.9 mg/dl Assessment and Plan 77-year-old white female admitted on October 17, 2017 because of precordial chest pain with shortness of breath/CAD/stent placement 05/28/2017 precordial chest pain with shortness of breath hx of CAD/stent placement 05/28/2017 Left heart cath yesterday showing : severe coronary artery disease involving bifurcation of LAD and 1st diagonal. 70% in-stent restenosis of proximal aspect of mid LAD stent 90% ostial 1st diagonal After discussion of patient's options including surgical AVR with CABG versus PCI with possible TAVR, cardiology and patient decided to do cardiac cath stent today Cardiac enzyme troponin was negative 2 sets, Echo was done, cardiology call me report that the valve stenosis is getting worse, planning to left heart cath, recommend n.p.o. midnight Continue carvedilol 25 mg p.o. twice daily, aspirin 81 mg daily, amlodipine 5 mg in the morning and 2.5 mg in the evening, and Effient 10 mg daily. Continue on heparin IV low-dose no bolus. Hyperlipidemia-- GERD-- Hypothyroidism-- Dementia/memory loss-- The above conditions stable continue current medication Will follow up cardiology input GI DVT prophylaxis is covered Continued [facility] stay due to: multiple IV medications needed Discharge planning: home
[2017-10-20] MEDS ORDERED: SODIUM CHLORIDE 0.9% 1000ML 1,000 ML IV SCH (17:20)
--- NOTE | 2017-10-20 17:20 | Cardiac Catheterization ---
Procedure Note Procedure Date October 20, 2017. Pre-Procedure Diagnosis Acute Coronary Syndrome AUC Score 7 Post-Procedure Diagnosis Severe CAD, Successful PCI Procedure(s) Performed Coronary Angiography, Drug Eluting Stent, Ultrasound Guided Vascular Access, IVUS Lab Associate Jaime Wood Strip Block Floor Installer(s) Glunt Estimated Blood Loss 15 Medication(s) Fentanyl, Heparin, Nicardipine, Nitroglycerin, Versed, Lidocaine 1% Prasugrel Summary of Findings Indication: Unstable angina Access: 6Fr slender right ulnar artery (ultrasound guided access). Catheters: EBU 3.75 guide Findings: -- PCI -- Antithrombotic therapy: Heparin, Prasugrel Procedure: LM cannulated with EBU 3.75 guide BMW wire placed into distal LAD Part Time Receptionist 50 wire placed across lesion into distal diagonal Diagonal lesion predilated with 2.0 compliant balloon Prior stent ISR dilated with 2.0 balloon. 2.5 x 18 Xience DELLA placed from proximal LAD into diagonal LAD re-wired with Part Time Receptionist 50 wire LAD stent struts dilated with 2.0 balloon Stent post-dilated with 2.75 NC balloon. Kissing balloon inflation of bifurcation with 2.75 NC in diagonal, 2.5 compliant balloon into LAD Moderate residual stenosis in LAD after take-off of diagonal. IVUS showed minimal residual stenosis in mid LAD stent. IC vasodilators administered for spasm Post procedure SALLIE 3 flow, no apparent cardiac complications. Arterial Closure: TR band Summary: 1. Successful PCI of ostial 1st diagonal with single drug-eluting stent (2.5 x 18 Xience) from proximal LAD into diagonal. - LAD/Diagonal bifurcation post-dilated with kissing balloon inflation (2.75 NC diagonal, 2.5 LAD). Recommendations: To PCU for continued monitoring Continue DAPT likely indefinitely with prasugrel 10mg daily Continue statin, and ASCVD risk factor modification With moderate residual angiographic disease in mid LAD post POBA (minimal per IVUS) would consider repeat ischemic assessment of LAD distribution prior to TAVR evaluation. Hemodynamics Rest Ao: 157/57/87 Final Ao: 113/45/70 LV: -- Recommendations PCI without planned CABG Specimens None Radiation Exposure (mGy) 3358 Contrast (mls) 160 Fluids (cc crystalloids) 191 Drains None Anesthesia Moderate Procedural Complication(s) None Disposition PCU ACC Data Cardiac Status Clinical evaluation leading to the procedure CAD Presntation: Non STEMI Anginal Classification: CCS IV Heart Failure: No, NYHA Class: CCS I Cardiogenic Shock w/in 24Hrs: No Cardiac Arrest w/in 24Hrs: No Imaging studies past 6 months: Yes Stress studies past 6 months: No Standard Exercise Stress Test: No Stress Echocardiogram: No Stress Testing w/SPECT MPI: No Cardiac CTA: No Closure Device Percutaneous Entry Location: Radial Closure Device: Radial Band Recommendations: PCI without planned CABG PCI Indication: PCI for high risk Non-STEMI Lesion Segment Name: LAD/Diagonal bifurcation Culprit Artery: Yes Stenosis Prior to Rx (%): 90 Chronic Total Occlusion: No IVUS: Yes FFR: No Pre-Procedure SALLIE Flow: 3 Previously Treated Lesion: No Lesion Complexity: High/C Lesion Length (mm): 15 Thrombus Present: No Bifurcation Lesion: Yes Guidewire Across Lesion: Yes Guidewire: Stenosis Post-Procedure (%): 0 Post-Procedure SALLIE Flow: 3 Device(s) Deployed: Yes Intraprocedure Events Significant Dissection: No Perforation: No
--- NOTE | 2017-10-20 17:27 | Cardiology Follow-Up ---
Subjective Subjective Date of Service: October 20, 2017. Pt evaluation today including: conversation w/ patient, conversation w/ family , physical exam, chart review, lab review, review of studies, review of inpatient medication list Additional Details: Feeling well. No chest pain. No other new complaints. Tele reviewed -- sinus bradycardia. Problem List Medical Problems: (1) Acute coronary syndrome Status: Acute (2) Aortic stenosis Status: Acute (3) Elevated troponin Status: Acute (4) Hypokalemia Status: Acute (5) Precordial chest pain Status: Acute (6) Substernal precordial chest pain Status: Acute (7) Unstable angina Status: Acute (8) Unstable angina Status: Acute Review of Systems Constitutional: + weakness, + fatigue, No fever, No chills, No sweats, No weight loss, No problem reported Eyes: No worsening of vision, No eye pain, No redness, No discharge, No diplopia ENT: No hearing loss, No unusual epistaxis, No nasal symptoms, No sore throat, No tinnitus, No dental problems, No trouble swallowing Respiratory: No cough, No sputum, No wheezing, No shortness of breath, No dyspnea on exertion, No dyspnea at rest, No hemoptysis Cardiac: No chest pain, No orthopnea, No PND, No edema, No claudication, No palpitations Abdomen: No pain, No nausea, No vomiting, No diarrhea, No constipation Musculoskeletal: No joint pain, No muscle pain, No swelling, No calf pain Female : No dysuria, No urinary frequency, No hematuria, No incontinence, No abnormal vaginal bleeding, No vaginal discharge Neurologic: No memory loss, No paralysis, No weakness, No numbness/tingling, No vertigo, No balance problems Psychiatric: No depression symptoms, No anhedonism, No anxiety, No insomnia, No substance abuse Heme: No abnormal bleeding/bruising, No clotting problems, No swollen lymph nodes, No night sweats Endo: No fatigue, No excessive thirst, No excessive urination Skin: No rash, No itch, No new/changing skin lesions, No color change, No bleeding Objective Vital Signs Last Vital Signs Documentation Date Time Temp Pulse Resp B/P (MAP) Pulse Ox O2 Delivery O2 Flow Rate FiO2 10/20/17 12:00 95 Room Air 10/20/17 11:49 36.8 55 18 139/62 (87) 10/19/17 17:00 2.0 Physical Exam: General Appearance: no apparent distress ENT: hearing grossly normal, pharynx normal Neck: supple, no JVD Respiratory/Chest: chest non-tender, normal breath sounds, no respiratory distress, no accessory muscle use Cardiovascular: no JVD, no murmur, + bradycardia Abdomen: normal bowel sounds, non tender, soft Extremities: no pedal edema, no calf tenderness, + pertinent finding (right ulnar access) Neurologic/Psychiatric: alert, normal mood/affect Skin: warm/dry, no rash Lymphatic: no adenopathy Assessment and Plan 1. Severe LAD/diagonal bifurcation CAD 2. Severe aortic stenosis 3. Hypertension 4. Dyslipidemia 5. Sinus bradycardia -- Post PCI today with stent placement from LAD into 1st diagonal and post- dilation with kissing balloon inflation of LAD/Diagonal bifurcation. -- Mild to moderate residual stenosis in LAD after take-off of diagonal Going forward -- -- Continue DAPT likely indefinitely --> Increase prasugrel back to 10mg daily -- Heparin/Nitropaste discontinued -- Asymptomatic sinus bradycardia -- will continue current carvedilol -- Continue current statin, amlodipine -- In the setting of residual LAD disease would consider repeat ischemic evaluation at some point as an outpatient prior to TAVR evaluation. Continued [facility] stay due to: multiple IV medications needed Discharge planning: home Medications: Current Inpatient Medications Medications (Trade) Dose Ordered Sig/Felicity Route Start Time Stop Time Status Last Admin Dose Admin Acetaminophen (Tylenol Tab) 650 mg Q4H PRN PO 10/17/17 18:30 11/16/17 18:29 Amlodipine Besylate (Norvasc Tab) 5 mg QAM PO 10/18/17 09:00 11/17/17 08:59 10/20/17 08:45 5 MG Aspirin (Ecotrin Tab) 81 mg DAILY PO 10/18/17 09:00 11/17/17 08:59 10/20/17 08:45 81 MG Atorvastatin Calcium (Lipitor Tab) 40 mg DAILY PO 10/18/17 09:00 11/17/17 08:59 10/20/17 08:45 40 MG Carvedilol (Coreg Tab) 25 mg BID PO 10/17/17 21:00 11/16/17 20:59 10/20/17 08:45 25 MG Levothyroxine Sodium (Synthroid Tab) 112 mcg DAILYBB PO 10/18/17 06:00 11/17/17 06:59 10/19/17 06:01 112 MCG Nitroglycerin (Nitrostat Tab) 0.4 mg UD PRN SL 10/17/17 18:30 11/16/17 18:29 Donepezil HCl (Aricept Tab) 5 mg HS PO 10/17/17 21:00 11/16/17 20:59 10/19/17 20:49 5 MG Pantoprazole Sodium (Protonix Tab) 40 mg QAM PO 10/18/17 09:00 11/17/17 08:59 10/20/17 08:44 40 MG Prasugrel (effiENT TAB) 5 mg QAM PO 10/18/17 09:00 11/17/17 08:59 10/20/17 08:45 5 MG Ondansetron HCl (Zofran Odt) 8 mg Q6H PRN PO 10/17/17 18:30 11/16/17 18:29 Morphine Sulfate (MoRPHine SULFATE INJ) 2 mg Q2H PRN IV 10/17/17 18:30 10/31/17 18:29 Nitroglycerin (Nitroglycerin 2% Oint) 1 inch Q6H EXT 10/17/17 20:00 11/16/17 19:59 10/20/17 02:15 1 INCH Miscellaneous (Iv Fluids Completed) 1 ea PRN PRN N/A 10/17/17 19:45 10/17/18 19:44 Lab Results: 10/20/17 06:33 Red Blood Count 4.11, Mean Corpuscular Volume 88.6, Mean Corpuscular Hemoglobin 29.4, Mean Corpuscular Hemoglobin Concent 33.2, Mean Platelet Volume 9.7, Neutrophils (%) (Auto) 59.7, Lymphocytes (%) (Auto) 13.8, Monocytes (%) (Auto) 21.2, Eosinophils (%) (Auto) 1.5, Basophils (%) (Auto) 0.1, Neutrophils # (Auto ) 5.90, Lymphocytes # (Auto) 1.37, Monocytes # (Auto) 2.10, Eosinophils # (Auto ) 0.15, Basophils # (Auto) 0.01 10/20/17 06:33 Test 10/19/17 13:04 10/20/17 06:33 Bedside Blood Gas pH (LAB) 7.43 (7.35-7.45) Bedside Blood Gas pCO2 (LAB) 38 mmHg (35-46) Bedside Blood Gas pO2 (LAB) 34 mmHg (80-95) Bedside Blood Gas HCO3 (LAB) 25 meq/L (19-24) Bedside Blood Gas Total CO2 26 mEq/l (24-31) Bedside Blood Gas Base Excess (LAB) 1.0 meq/L (-9-1.8) Bedside Blood Gas O2 Saturation 67.0 % (90-95) White Blood Count 9.90 K/uL (4.8-10.8) Red Blood Count 4.11 M/uL (4.2-5.4) Hemoglobin 12.1 g/dL (12.0-16.0) Hematocrit 36.4 % (37-47) Mean Corpuscular Volume 88.6 fL (80-100) Mean Corpuscular Hemoglobin 29.4 pg (25-34) Mean Corpuscular Hemoglobin Concent 33.2 g/dl (32-36) Platelet Count 276 K/uL (130-400) Mean Platelet Volume 9.7 fL (7.4-10.4) Neutrophils (%) (Auto) 59.7 % Lymphocytes (%) (Auto) 13.8 % Monocytes (%) (Auto) 21.2 % Eosinophils (%) (Auto) 1.5 % Basophils (%) (Auto) 0.1 % Neutrophils # (Auto) 5.90 K/uL (1.4-6.5) Lymphocytes # (Auto) 1.37 K/uL (1.2-3.4) Monocytes # (Auto) 2.10 K/uL (0.11-0.59) Eosinophils # (Auto) 0.15 K/uL (0-0.5) Basophils # (Auto) 0.01 K/uL (0-0.2) RDW Standard Deviation 58.0 fL (36.4-46.3) RDW Coefficient of Variation 18.0 % (11.5-14.5) Immature Granulocyte % (Auto) 3.7 % Immature Granulocyte # (Auto) 0.37 K/uL (0.00-0.02) Prothrombin Time 10.5 SECONDS (9.0-12.0) Prothromb Time International Ratio 1.0 (0.9-1.1) Activated Partial Thromboplast Time 27.4 SECONDS (21.0-31.0) Partial Thromboplastin Ratio 1.1 Anion Gap 7.0 mmol/L (3-11) Est Creatinine Clear Calc Drug Dose 50.4 ml/min Estimated GFR () 67.9 Estimated GFR (Non- 58.6 BUN/Creatinine Ratio 15.4 (10-20) Calcium Level 8.6 mg/dl (8.5-10.1) Magnesium Level 1.9 mg/dl (1.8-2.4)
[2017-10-20] MEDS: DONEPEZIL HCL 5 MG TAB PO SCH (21:09)
[2017-10-21] VITALS (7 sets, daily range): BP systolic 148–165; BP diastolic 62–87; PULSE 51–83; TEMP 36.8–36.9; O2SAT 94–97
[2017-10-21] MEDS: LEVOTHYROXINE 112 MCG TAB PO SCH (04:23)
[2017-10-21 06:52] LABS: HEMATOCRIT 36.2 % (37-47); HEMOGLOBIN 12.4 g/dL (12.0-16.0); MEAN CELL VOLUME 88.3 fL (80-100); MEAN CORPUSCULAR HEMOGLOBIN 30.2 pg (25-34); MEAN CORPUSCULAR HGB CONC 34.3 g/dl (32-36); MEAN PLATELET VOLUME 9.8 fL (7.4-10.4); PLATELET COUNT 271 K/uL (130-400); RED CELL DISTRIBUTION WIDTH CV 17.9 % (11.5-14.5); RED CELL DISTRIBUTION WIDTH SD 57.6 fL (36.4-46.3); WHITE BLOOD COUNT 11.91 K/uL (4.8-10.8)
[2017-10-21] MEDS: ATORVASTATIN 20 MG TAB PO SCH (07:48)
[2017-10-21] MEDS: PANTOprazole SOD 40 MG TAB PO SCH (07:48)
[2017-10-21] MEDS: ASPIRIN 81 MG ECTAB PO SCH (07:48)
[2017-10-21] MEDS: CARVEDILOL 25 MG TAB PO SCH (07:48)
[2017-10-21] MEDS: AMLODIPINE BESYLATE 5 MG TAB PO SCH (07:49)
[2017-10-21] MEDS ORDERED: CRG25 PO (08:07)
[2017-10-21] MEDS ORDERED: NRV5 PO (08:07)
--- NOTE | 2017-10-21 09:13 | CARDIOLOGY PROGRESS NOTE ---
DATE: 10/21/2017 TIME: 8:10 a.m. SUBJECTIVE: She denies chest pain, shortness of breath, syncope, near syncope, palpitations, or edema. She underwent coronary angiography yesterday with Dr. Sandoval and he performed PCI of proximal LAD into diagonal with a drug-eluting stent. He has recommended outpatient myocardial perfusion study to evaluate further her remainder CAD within the LAD and also to follow up with a valve clinic to discuss the options for her severe aortic stenosis. OBJECTIVE: VITAL SIGNS: Temperature 36.9 degrees, heart rate 54 beats per minute, respiration rate 20, blood pressure 149/79 mmHg, oxygen saturation 94% on room air, blood pressure has been hypertensive since yesterday afternoon with systolic blood pressures into the 170s and 180s, oxygen saturation 94% on room air. I's and O's negative 1.6 L yesterday. Weight is 75.7 kg. GENERAL: In no acute distress. She is alert. NECK: No JVD. CARDIAC EXAMINATION: No ventricular heave. Regular, normal S1, S2, 2/6 mid to late peaking systolic ejection murmur. No rubs or gallops. LUNGS: Clear to auscultation bilaterally without wheezes, rales, or rhonchi. ABDOMEN: Soft, nontender, nondistended. Normoactive bowel sounds. EXTREMITIES: No cyanosis or edema. There is ecchymosis on her right wrist near her right ulnar artery cath site. Otherwise clean, dry, and intact. No obvious hematoma. Pulse intact. DATA: Telemetry personally reviewed. Sinus rhythm. Bradycardic at times. MEDICATIONS: Include aspirin 81 mg daily, Effient 10 mg daily, Lipitor 40 mg daily, amlodipine 5 mg daily, carvedilol 25 mg twice daily, but her evening dose has been held for 2 days secondary to bradycardia, Protonix 40 mg daily. LABORATORIES: Sodium yesterday was 138, potassium 4, BUN 15, creatinine 0.95. Today's labs, white blood cell count is 11.91, hemoglobin 12.4, platelets 271. Cardiac catheterization report reviewed from yesterday. Images were also reviewed with Dr. Sandoval. She underwent a 2.5 x 18 mm Xience DELLA from proximal LAD into diagonal. The LAD stent was then post-dilated with a 2.75 noncompliant balloon. There was moderate residual stenosis within the LAD after the takeoff of the diagonal. IVUS was performed with minimal residual stenosis within the mid LAD stent. He has recommended dual antiplatelet therapy with prasugrel 10 mg daily and aspirin. ASSESSMENT AND PLAN: 1. Coronary artery disease with angina: She underwent PCI of her LAD into her diagonal. Hopefully, this resolves her anginal symptoms as an outpatient. Continue beta long, but we will reduce dose as evening doses have been held for bradycardia. Nursing staff stated that she was symptomatic when walking with lightheadedness. Continue high-intensity statin therapy. Dr. Sandoval recommends Myocardial perfusion study as an outpatient to determine if there is any significant ischemia involving her remaining LAD disease. Continue dual-antiplatelet therapy with aspirin 81 mg daily and Effient 10 mg daily, lifelong as per interventional cardiology. 2. Aortic stenosis: Severe aortic stenosis based on cardiac catheterization findings. Following myocardial perfusion study, we will arrange for evaluation at a facility that offers aortic valve replacement, so that she and her can find out available options for her. 3. Hypertension: Her blood pressure has been significantly high at times and has not been well-controlled. Reducing carvedilol 12.5 mg twice daily so that she continues to receive b.i.d. dosing due to bradycardia. We will increase amlodipine to 10 mg daily. 4. Dyslipidemia: Continue high-intensity statin therapy. 5. Disposition: The patient care has been discussed with Dr. Sandoval of interventional cardiology as well as Dr. Roland of the primary hospitalist service. From a cardiac perspective, if she remains asymptomatic with ambulation, she can be discharged home with close followup. Nursing staff at the office have been notified and they are arranging for a myocardial perfusion study and cardiology followup after the myocardial perfusion study to further discuss options as noted above.
--- NOTE | 2017-10-21 09:51 | Discharge Instructions ---
Discharge Instructions Date of Service October 21, 2017. Admission Reason for Admission: Chest Pain Due To Cad, Shortness Of Breath Discharge Discharge Diagnosis / Problem: Coronary artery disease with angina Discharge Goals Goal(s): Decrease discomfort, Improve function, Increase independence, Improve disease control, Improve nutritional status, Learn about illness, Diagnostic testing, Therapeutic intervention, Prevent Disease Progression Activity Recommendations Activity Limitations: as noted below . Instructions / Follow-Up Instructions / Follow-Up you have Coronary artery disease with angina has underwent PCI of her LAD into her diagonal. you need to continue dual-antiplatelet therapy with aspirin 81 mg daily and Effient 10 mg daily, lifelong as per interventional cardiology. 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 - you need to follow up with your primary care physician in 1 week, - post cardiac catheter care will be per instruction of your wood processing worker, - take medication as instructed, never overdose or any misuse, or take with alcohol, because misuse of medicine may cause organ damage or , call your primary care physician if have questions of medicaitons. - call your primary care physician OR go to local emergency room if has any fever/chill, chest pain, shortness of breathing, nausea/vomiting/abdominal pain , facial droop/slurry speech/local weakness, or if has any questions. - fall precaution - diet as instructed - you need to follow up with your subspecialist, such as wood processing worker, - you should understand that it is important to follow up the above instruction , and "not following the above instruction" may cause delayed or missed care of your medical conditions which may cause permanent organ damage and even . Current Hospital Diet Patient's current hospital diet: AHA Diet (Heart Healthy), Diabetes Type 2 Diet Discharge Diet Recommended Diet: AHA Diet (Heart Healthy) Pending Studies Studies pending at discharge: no Laboratory Results Hemoglobin A1c Test 10/17/17 17:00 Range/Units Estimated Average Glucose 123 mg/dl Hemoglobin A1c 5.9 H 4.5-5.6 % Lipid Panel Test 10/17/17 19:57 Range/Units Triglycerides Level 277 H 0-150 mg/dl Cholesterol Level 115 0-200 mg/dl HDL Cholesterol 30 mg/dl Cholesterol/HDL Ratio 3.8 LDL Cholesterol, Calculated 30 mg/dl Medical Emergencies . Who to Call and When: Medical Emergencies: If at any time you feel your situation is an emergency, please call 911 immediately. . Non-Emergent Contact Non-Emergency issues call your: Primary Care Provider, Economic Consultant . . "Provider Documentation" section prepared by Bernard Roland. .
--- NOTE | 2017-10-21 12:09 | Discharge Summary ---
Discharge Summary Date of Service October 21, 2017. Discharge Summary Admission Date: October 19, 2017 at 16:20 Discharge Date: October 21, 2017 Discharge Disposition: Home Principal Diagnosis: Coronary artery disease with angina Problems/Secondary Diagnoses: Coronary artery disease with angina has underwent PCI of her LAD into her diagonal. Immunizations: Have You Had Influenza Vaccine: Yes Influenza Vaccine Date: Apr 04, 2013 History of Tetanus Vaccine?: Unknown History of Pneumococcal: No History of Hepatitis B Vaccine: Unknown Procedures: PCI of her LAD into her diagonal. Consultations: Hog Feeder Medication Reconciliation New Medications: Amlodipine Besylate (Amlodipine Besylate) 5 Mg Tab 10 MG PO QAM for 30 Days, #60 TAB Carvedilol (Carvedilol) 25 Mg Tab 12.5 MG PO BID for 30 Days, #30 TAB Continued Medications: Aspirin (Aspirin EC Low Dose) 81 Mg Ectab 81 MG PO DAILY, #30 TAB 9 Refills Aspirin (Aspirin Ec) 81 Mg Tab 81 MG PO DAILY Atorvastatin (Lipitor) 40 Mg Tab 40 MG PO DAILY, TAB Donepezil Hydrochloride (Donepezil Hcl) 5 Mg Tab 5 MG PO HS Estrogens, Conjugated (Premarin) 0.45 Mg Tab 0.45 MG PO DAILY, TAB Levothyroxine Sodium (Synthroid) 112 Mcg Tab 112 MCG PO DAILY, TAB Nitroglycerin (Nitrostat) 0.4 Mg/1 Tab Subl 0.4 MG SL UD PRN for Chest Pain for 30 Days, #30 TAB 3 Refills Omeprazole (Prilosec) 20 Mg Capcr 20 MG PO DAILY, CAP Prasugrel Hcl (Effient) 10 Mg Tab 10 MG PO DAILY, TAB Discontinued Medications: Amlodipine (Norvasc) 5 Mg Tab 5 MG PO QAM, TAB Amlodipine (Norvasc) 5 Mg Tab 2.5 MG PO DAILY@ 7PM, TAB 1/2 TABLET DOSE Carvedilol (Coreg) 25 Mg Tab 25 MG PO BID, TAB Ticagrelor (Brilinta) 90 Mg Tab 90 MG PO BID, #64 TAB 9 Refills Discharge Exam Doing well, no chest pain, up and walk, no dizziness no chest pain Review of Systems: Constitutional: No fever, No chills, No sweats, No weight loss, No weakness , No fatigue, No problem reported Eyes: No worsening of vision, No eye pain, No redness, No discharge, No diplopia, No problem reported ENT: No hearing loss, No unusual epistaxis, No nasal symptoms, No sore throat, No tinnitus, No dental problems, No trouble swallowing, No problem reported Respiratory: No cough, No sputum, No wheezing, No shortness of breath, No dyspnea on exertion, No dyspnea at rest, No hemoptysis, No problem reported Cardiovascular: No chest pain, No orthopnea, No PND, No edema, No claudication, No palpitations, No problem reported Musculoskeletal: No joint pain, No muscle pain, No swelling, No calf pain, No problem reported Genitourinary - Female: No dysuria, No urinary frequency, No urinary urgency , No urinary incontinence, No urinary retention, No hematuria, No dysmenorrhea, No menorrhagia, No metrorrhagia, No rash, No vaginal bleeding, No vaginal discharge, No vaginal itching, No vulvodynia, No , No problem reported Neurologic: No memory loss, No paralysis, No weakness, No numbness/tingling , No vertigo, No balance problems, No problem reported Psychiatric: No depression symptoms, No anhedonism, No anxiety, No insomnia , No substance abuse, No problem reported Endocrine: No fatigue, No excessive thirst, No excessive urination, No problem reported Hematologic / Lymphatic: No abnormal bleeding/bruising, No clotting problems , No swollen lymph nodes, No night sweats, No problem reported Integumentary: No rash, No itch, No new/changing skin lesions, No color change, No bleeding, No problem reported Physical Exam: General Appearance: WD/WN, no apparent distress Eyes: normal inspection, PERRL ENT: normal ENT inspection, hearing grossly normal Neck: supple, no adenopathy Respiratory/Chest: chest non-tender, + decreased breath sounds Cardiovascular: regular rate, rhythm, + systolic murmur Abdomen / GI: normal bowel sounds, non tender, soft, no organomegaly, no pulsatile mass Extremities: normal inspection, no calf tenderness, normal capillary refill , no pedal edema, + pertinent finding (Right forearm mild swelling, pulse in the right wrist was normal, normal capillary refill no swelling) 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 70% in-stent restenosis of proximal aspect of mid LAD stent 90% ostial 1st diagonal After discussion of patient's options including surgical AVR with CABG versus PCI with possible TAVR, cardiology and patient decided to do cardiac cath stent on October 20, 2017 underwent PCI of her LAD into her diagonal. need to continue dual-antiplatelet therapy with aspirin 81 mg daily and Effient 10 mg daily, lifelong as per interventional cardiology. Cardiac enzyme troponin was negative 2 sets, Echo was done, cardiology call me report that the valve stenosis is getting worse, planning to left heart cath, recommend n.p.o. midnight Hypertension, we reduced carvedilol 12.5 mg twice daily because of mild bradycardia, and we have increase amlodipine to 10 mg daily. Hyperlipidemia-- GERD-- Hypothyroidism-- Dementia/memory loss-- The above conditions stable continue current medication GI DVT prophylaxis is covered Discharge you have Coronary artery disease with angina has underwent PCI of her LAD into her diagonal. you need to continue dual-antiplatelet therapy with aspirin 81 mg daily and Effient 10 mg daily, lifelong as per interventional cardiology. you have Aortic stenosis: your die cast technician will arrange for evaluation at a facility that offers aortic valve replacement, s you have Hypertension, we reduced carvedilol 12.5 mg twice daily , and we have increase amlodipine to 10 mg daily. - you need to follow up with your primary care physician in 1 week, - post cardiac catheter care will be per instruction of your die cast technician, - take medication as instructed, never overdose or any misuse, or take with alcohol, because misuse of medicine may cause organ damage or , call your primary care physician if have questions of medicaitons. - call your primary care physician OR go to local emergency room if has any fever/chill, chest pain, shortness of breathing, nausea/vomiting/abdominal pain , facial droop/slurry speech/local weakness, or if has any questions. - fall precaution - diet as instructed - you need to follow up with your subspecialist, such as die cast technician, - you should understand that it is important to follow up the above instruction , and "not following the above instruction" may cause delayed or missed care of your medical conditions which may cause permanent organ damage and even . Total Time Spent: Greater than 30 minutes This includes examination of the patient, discharge planning, medication reconciliation, and communication with other providers. Discharge Instructions Please refer to the electronic Patient Visit Report (Discharge Instructions) for additional information. Additional Copies To Marquise Clement M.D.; Venkat aSndoval MD; Blair Lang MD
[2017-10-21] MEDS ORDERED: CARVEDILOL 25 MG TAB PO SCH (21:00)
[2017-10-22] MEDS ORDERED: AMLODIPINE BESYLATE 5 MG TAB PO SCH (09:00)
== END 2017-10-21 10:34 | disposition home or self-care (01) | DRG 247 ==
LOC: C.EDB 16:21 → C.2E 18:33 → ENRESERV 18:50 → OBSVTOIN 10-19 16:20
PROVIDERS: ADMIT Hospitalist; ATTEND Hospitalist
PROC: B211YZZ Fluoroscopy of Multiple Coronary Arteries using Other Contrast (ICD-10-PCS; 2017-10-19)
PROC: 4A023N8 Measurement of Cardiac Sampling and Pressure, Bilateral, Percutaneous Approach (ICD-10-PCS; 2017-10-19)
PROC: 027034Z Dilation of Coronary Artery, One Artery with Drug-eluting Intraluminal Device, Percutaneous Approach (ICD-10-PCS; principal; 2017-10-20 12:39)
PROC: 02703Z6 Dilation of Coronary Artery, One Artery, Bifurcation, Percutaneous Approach (ICD-10-PCS; principal; 2017-10-20 12:39)
DX: T82.855A Stenosis of coronary artery stent, initial encounter (principal); I25.110 Atherosclerotic heart disease of native coronary artery with unstable angina pectoris; I35.0 Nonrheumatic aortic (valve) stenosis; I11.9 Hypertensive heart disease without heart failure; I25.2 Old myocardial infarction; E11.43 Type 2 diabetes mellitus with diabetic autonomic (poly)neuropathy; E78.5 Hyperlipidemia, unspecified; E03.9 Hypothyroidism, unspecified; K21.9 Gastro-esophageal reflux disease without esophagitis; N95.1 Menopausal and female climacteric states; F03.90 Unspecified dementia, unspecified severity, without behavioral disturbance, psychotic disturbance, mood disturbance, and anxiety; I73.9 Peripheral vascular disease, unspecified; I70.1 Atherosclerosis of renal artery; Z79.899 Other long term (current) drug therapy; Z79.82 Long term (current) use of aspirin; Z79.02 Long term (current) use of antithrombotics/antiplatelets; Z95.5 Presence of coronary angioplasty implant and graft; Z96.1 Presence of intraocular lens; Z87.891 Personal history of nicotine dependence; Z88.0 Allergy status to penicillin; Z91.040 Latex allergy status; Z91.048 Other nonmedicinal substance allergy status; Y83.2 Surgical operation with anastomosis, bypass or graft as the cause of abnormal reaction of the patient, or of later complication, without mention of misadventure at the time of the procedure

== ENCOUNTER → 2018-01-25 | Outpatient (CLI) | payer BC ==
[~2018-01-25] MED LIST changes: +ASPI81TA28 PO; -BRL90 PO; -CARV25TA PO; +CRG25 PO; +PRAS1TAB6 PO
[2018-01-25 12:32] LABS: BLOOD UREA NITROGEN 15 mg/dl (7-18); CALCIUM 9.3 mg/dl (8.5-10.1); CARBON DIOXIDE 23 mmol/L (21-32); CREATININE 0.99 mg/dl (0.60-1.20); GLUCOSE 106 mg/dl (70-99); POTASSIUM 3.4 mmol/L (3.5-5.1); SODIUM 139 mmol/L (136-145)
== END | disposition home or self-care (01) ==
LOC: C.LAB1850 10:29
PROVIDERS: ATTEND Nurse Practitioner Acute Care
DX: T75.89XA Other specified effects of external causes, initial encounter (principal); X58.XXXA Exposure to other specified factors, initial encounter

== ENCOUNTER 2020-05-12 10:42 | Observation (INO) ==
--- NOTE | 2020-05-12 11:22 | Emergency Department Note ---
History of Present Illness General Chief Complaint: Cardiac Assessment Stated Complaint: CHEST PAIN NOW RESOLVED Time Seen by Provider: 05/12/20 11:03 Source: family ( at bedside) History of Present Illness Provider Complaint: chest pain Onset (ago): week(s) Onset (Weeks): 1 Duration: intermittent Onset: during exertion (After walking up and down the stairs) Pain Location: substernal Pain Radiation: none Current Pain Intensity: 0 Quality: + aching and + dull Relieved By: + nitroglycerin Exacerbated By: + exertion Context: no recent illness, no recent surgery, no recent travel, no trauma/injury and no history of DVT/PE Associated symptoms: no vomiting, no diaphoresis, no dyspnea, no syncope, no palpitations, no fever, no cough and no leg swelling Home Medications Medication Instructions Recorded Confirmed Type aspirin 81 mg PO HS 11/23/18 05/12/20 History nitroglycerin 0.4 mg sublingual 0.4 mg SUBLINGUAL USEASDIRECTD PRN 05/25/19 05/12/20 Rx tablet #25 tab azithromycin 500 mg tablet 500 mg PO .COMPLEX 1 Days #3 tab 10/12/19 05/12/20 Rx multivitamin 1 tab PO QAM 12/15/19 05/12/20 History atorvastatin 40 mg tablet 40 mg PO HS #90 tab 01/12/20 05/12/20 Rx carvedilol 12.5 mg tablet 12.5 mg PO BID #60 tab 02/01/20 05/12/20 Rx amlodipine 5 mg PO QAM 05/12/20 05/12/20 History conjugated estrogens [Premarin] 0.45 mg PO QAM 05/12/20 05/12/20 History donepezil 5 mg PO QAM 05/12/20 05/12/20 History isosorbide mononitrate 60 mg PO QAM 05/12/20 05/12/20 History levothyroxine [Synthroid] 112 mcg PO QAM 05/12/20 05/12/20 History omeprazole 20 mg PO QAM 05/12/20 05/12/20 History prasugrel [Effient] 10 mg PO QAM 05/12/20 05/12/20 History Allergies Allergy/AdvReac Type Severity Reaction Status Date / Time adhesive Allergy Intermediate RED RASH Verified 03/16/20 11:52 clindamycin Allergy Mild Rash Verified 03/16/20 11:52 latex Allergy Mild RASH Verified 03/16/20 11:52 Penicillins Allergy Unknown HIVES Verified 03/16/20 11:52 Past Med/Surg History Medical History Anemia Angina pectoris ASCVD (arteriosclerotic cardiovascular disease) CAD (coronary artery disease) Cardiac dysrhythmia, unspecified Carotid artery stenosis Decreased exercise tolerance Dementia Diverticulosis Dyspnea Elevated serum creatinine Fatigue Gastroesophageal reflux disease History of ST elevation myocardial infarction (STEMI) Hypercholesterolemia Hyperlipidemia Hypertension Hypothyroidism Intermittent claudication Internal hemorrhoids Lumbosacral radiculopathy at L5 Lupus Memory loss Microscopic hematuria Osteopenia Peripheral vascular disease Polyneuropathy Renal artery stenosis Sciatica Tinnitus, unspecified ear Vertigo Surgical History History of cardiac cath History of heart artery stent History of heart valve replacement S/P drug eluting coronary stent placement S/P TAVR (transcatheter aortic valve replacement) Social History Smoking Status: Former smoker Tobacco Type: Cigarettes Second Hand Exposure: No; Hx Alcohol Use: No Hx Substance Use: No Preferred Language: Welsh Communication Ability: Effective Assembler Watch Train Required: No Beliefs That Will Affect Care: None Current Living Situation: Spouse current occupation: N/A Feels Safe at Home: Yes Assistive Devices: Cane Review of Systems Unobtainable due to cognitive status (History of dementia) Physical Exam Vital Signs Vital Signs - 24 hr 05/12/20 10:51 05/12/20 10:55 05/12/20 11:11 Temperature 37 C Temperature Source Oral Pulse Rate 68 Pulse Rate [Apical] 66 Pulse Rate from SpO2 Sensor Respiratory Rate 20 18 Respiratory Effort / Characteristics Non-Labored Spontaneous Respiratory Depth Normal Respiratory Pattern Regular Blood Pressure 165/104 H Blood Pressure [Right Arm] 161/62 H Blood Pressure Mean 124 Blood Pressure Mean [Right Arm] 95 Blood Pressure Position Sitting Pulse Oximetry 96 96 94 Oxygen Delivery Method Room Air Room Air Room Air Sepsis Recent Fever Within 48 Hours No Sepsis New/Unexplained Change in Mental Status N/A Sepsis Action Taken by Nursing No Action Required 05/12/20 11:13 05/12/20 11:30 05/12/20 12:00 Temperature Temperature Source Pulse Rate Pulse Rate [Apical] 61 63 Pulse Rate from SpO2 Sensor Respiratory Rate 18 18 Respiratory Effort / Characteristics Non-Labored Respiratory Depth Normal Respiratory Pattern Blood Pressure Blood Pressure [Right Arm] 117/62 132/61 Blood Pressure Mean Blood Pressure Mean [Right Arm] 80 84 Blood Pressure Position Pulse Oximetry 94 94 Oxygen Delivery Method Room Air Room Air Room Air Sepsis Recent Fever Within 48 Hours Sepsis New/Unexplained Change in Mental Status Sepsis Action Taken by Nursing 05/12/20 12:30 05/12/20 13:00 05/12/20 13:30 Temperature Temperature Source Pulse Rate 57 L 57 L Pulse Rate [Apical] 58 L Pulse Rate from SpO2 Sensor 57 L Respiratory Rate 18 14 16 Respiratory Effort / Characteristics Respiratory Depth Respiratory Pattern Blood Pressure 138/59 L 137/71 Blood Pressure [Right Arm] 122/68 Blood Pressure Mean 94 109 Blood Pressure Mean [Right Arm] 86 Blood Pressure Position Pulse Oximetry 94 95 96 Oxygen Delivery Method Room Air Room Air Room Air Sepsis Recent Fever Within 48 Hours Sepsis New/Unexplained Change in Mental Status Sepsis Action Taken by Nursing Physical Exam EYES: Conjunctivae and EOM are normal. Pupils are equal, round, and reactive to light. Right eye exhibits no discharge. Left eye exhibits no discharge. No scleral icterus. NECK: Normal range of motion. Neck supple. No JVD present. No spinous process tenderness present. No carotid bruit present. No rigidity. No tracheal deviation and normal range of motion present. No Brudzinski's sign and no Kernig's sign noted. CV: Normal rate, regular rhythm, normal heart sounds and intact distal pulses. There is no peripheral edema. Palpable radial pulses bue. PULM/CHEST: Effort normal and breath sounds normal. No respiratory distress. No stridor. She has no wheezes. She has no rales. -Chest Wall: She exhibits no tenderness. ABD: The abdomen is soft. Bowel sounds are normal. She has no distension. No mass is present. There is no tenderness. There is no rebound, no guarding, no Gonzalez's sign and no tenderness at McBurney's point. Rovsig negative MUSC/SKEL: Normal range of motion. There is no peripheral edema, tenderness or d eformity. LYMPH: No cervical adenopathy. NEURO: She is alert and She has normal strength. No cranial nerve deficit or sensory deficit. PSYCH: She has a normal mood and affect. Behavior is normal. Judgment and thought content normal. Course Course 1103: The patient was evaluated in room B6. A complete history and physical exam was performed. Cardiac monitoring: An order was placed for continuous cardiac monitoring. The monitor shows a rate of 64 with sinus rhythm 1242: Vital signs stable. Labs and imaging within normal limits. Patient has a moderate heart score and will be admitted to the [facility] Hospitalist service Dr. Daniel notified. Medical Decision Making Laboratory Data Result diagrams: 05/12/20 11:11 05/12/20 11:11 Labs: Lab Results 05/12/20 05/12/20 05/12/20 Range/Units 11:11 11:11 11:11 WBC 12.96 H (4.8-10.8) K/uL RBC 4.54 (4.2-5.4) M/uL Hgb 14.2 (12.0-16.0) g/dL Hct 42.2 (37-47) % MCV 93.0 (80-100) fL MCH 31.3 (25-34) pg MCHC 33.6 (32-36) g/dL RDW Std Deviation 57.8 H (36.4-46.3) fL RDW Coeff of Minerva 16.9 H (11.5-14.5) % Plt Count 271 (130-400) K/uL MPV 12.0 H (7.4-10.4) fL Immature Gran % (Auto) 2.8 % Neut % (Auto) 65.7 % Lymph % (Auto) 11.7 % Durham % (Auto) 17.7 % Eos % (Auto) 1.9 % Baso % (Auto) 0.2 % Neut # (Auto) 8.50 H (1.4-6.5) K/uL Lymph # (Auto) 1.52 (1.2-3.4) K/uL Durham # (Auto) 2.30 H (0.11-0.59) K/uL Eos # (Auto) 0.25 (0-0.5) K/uL Baso # (Auto) 0.03 (0-0.2) K/uL Immature Gran # (Auto) 0.36 H (0.00-0.02) K/uL PT 11.8 (9.0-12.0) Seconds INR 1.1 (0.9-1.1) APTT 32.5 H (21.0-31.0) Seconds PTT Ratio 1.2 Sodium 139 (136-145) mmol/L Potassium 3.7 (3.5-5.1) mmol/L Chloride 109 H (98-107) mmol/L Carbon Dioxide 25 (21-32) mmol/L Anion Gap 5.0 (3-11) BUN 19 H (7-18) mg/dl Creatinine 0.87 (0.6-1.2) mg/dl Est Cr Clr Drug Dosing 52.5 ml/min Est GFR ( Amer) 74.0 Est GFR (Non-Af Amer) 63.8 BUN/Creatinine Ratio 22.3 H (10-20) Glucose 106 H (70-99) mg/dl Calcium 9.4 (8.5-10.1) mg/dl Troponin I < 0.015 (0-0.045) ng/ml Lipase 220 (73-393) U/L SARS-CoV-2 Ag (Rapid) (Negative) 05/12/20 Range/Units 11:37 WBC (4.8-10.8) K/uL RBC (4.2-5.4) M/uL Hgb (12.0-16.0) g/dL Hct (37-47) % MCV (80-100) fL MCH (25-34) pg MCHC (32-36) g/dL RDW Std Deviation (36.4-46.3) fL RDW Coeff of Minerva (11.5-14.5) % Plt Count (130-400) K/uL MPV (7.4-10.4) fL Immature Gran % (Auto) % Neut % (Auto) % Lymph % (Auto) % [place] % (Auto) % Eos % (Auto) % Baso % (Auto) % Neut # (Auto) (1.4-6.5) K/uL Lymph # (Auto) (1.2-3.4) K/uL [place] # (Auto) (0.11-0.59) K/uL Eos # (Auto) (0-0.5) K/uL Baso # (Auto) (0-0.2) K/uL Immature Gran # (Auto) (0.00-0.02) K/uL PT (9.0-12.0) Seconds INR (0.9-1.1) APTT (21.0-31.0) Seconds PTT Ratio Sodium (136-145) mmol/L Potassium (3.5-5.1) mmol/L Chloride (98-107) mmol/L Carbon Dioxide (21-32) mmol/L Anion Gap (3-11) BUN (7-18) mg/dl Creatinine (0.6-1.2) mg/dl Est Cr Clr Drug Dosing ml/min Est GFR ( Amer) Est GFR (Non-Af Amer) BUN/Creatinine Ratio (10-20) Glucose (70-99) mg/dl Calcium (8.5-10.1) mg/dl Troponin I (0-0.045) ng/ml Lipase (73-393) U/L SARS-CoV-2 Ag (Rapid) Negative (Negative) Imaging Data Chest x-ray: Radiologist's impression: XR chest 1V portable HISTORY: 80 years-old Female Chest Pain acute atypical chest pain COMPARISON: Chest radiograph 6 04/16/2018 TECHNIQUE: Portable AP view of the chest FINDINGS: Cardiac silhouette is upper limits of normal in size. Aortic valvular prosthesis. Coronary arterial stent. Stent is also noted within the left subclavian/axillary distribution. No pneumothorax, pleural effusion, airspace consolidation or overt pulmonary edema. Mild right hemidiaphragmatic elevation. Degenerative changes of the shoulders and spine. IMPRESSION: No acute process. ACT 112: Negative or not required by law. The above report was generated using voice recognition software. It may contain grammatical, syntax or spelling errors. Electronically signed by: Charly Crenshaw M.D. 05/12/2020 11:59 AM Dictated: 05/12/20 1156Transcribed: 05/12/20 1156 ECG Data Indication: chest pain Rate (beats per minute): 64 Rhythm: normal sinus Findings: + mobitz I block; no ST depression, no ST elevation and no prolonged QT Additional Comments: QRS within normal limits. Left ventricular hypertrophy present. [facility] Narrative 1103: The patient was evaluated in room B6. A complete history and physical exam was performed. Cardiac monitoring: An order was placed for continuous cardiac monitoring. The monitor shows a rate of 64 with sinus rhythm 1242: Vital signs stable. Labs and imaging within normal limits. Patient has a moderate heart score and will be admitted to the [facility] [address] hospitalist service Dr. Daniel notified. Impression & Plan Chest pain Discharge Plan Visit Data Chief Complaint: Cardiac Assessment Stated Complaint: CHEST PAIN NOW RESOLVED ED Provider: Keegan Bautista Discharge Problem: Chest pain Patient Disposition: Being Evaluated by Hospitalist Forms Stand Alone Forms: My [facility] Prescriptions Prescriptions: No Action nitroglycerin [Nitrostat] 0.4 mg tablet, sublingual 0.4 mg sublingual USEASDIRECTD PRN (Reason: Chest Pain) Qty: 25 RF: 2 azithromycin 500 mg tablet 500 mg PO .COMPLEX 1 Days Qty: 3 RF: 3 atorvastatin [Lipitor] 40 mg tablet 40 mg PO HS Qty: 90 RF: 3 multivitamin [Daily Multi-Vitamin] Tablet 1 tab PO QAM RF: 0 carvedilol 12.5 mg tablet 12.5 mg PO BID Qty: 60 RF: 11 aspirin 81 mg Tablet,Chewable 81 mg PO HS RF: 0 donepezil 5 mg tablet 5 mg PO QAM RF: 0 amlodipine 5 mg tablet 5 mg PO QAM RF: 0 isosorbide mononitrate 60 mg tablet extended release 24 hr 60 mg PO QAM RF: 0 omeprazole 20 mg capsule,delayed release(DR/EC) 20 mg PO QAM RF: 0 levothyroxine [Synthroid] 112 mcg tablet 112 mcg PO QAM RF: 0 Premarin 0.45 mg tablet 0.45 mg PO QAM RF: 0 prasugrel [Effient] 10 mg tablet 10 mg PO QAM RF: 0 Referrals Referrals: Marquise Clement MD [Primary Care Provider] - Discharge Problem: Chest pain Qualifiers: Chest pain type: unspecified Qualified Code(s): R07.9 - Chest pain, unspecified
[2020-05-12 11:23] LABS: Basophils # (auto) 0.03 K/uL (0-0.2); Basophils % (auto) 0.2 %; Eosinophils # (auto) 0.25 K/uL (0-0.5); Eosinophils % (auto) 1.9 %; Hematocrit (blood only) 42.2 % (37-47); Hemoglobin 14.2 g/dL (12.0-16.0); Immature Granulocytes # (auto) 0.36 K/uL (0.00-0.02); Immature Granulocytes % (auto) 2.8 %; Lymphocytes # (auto) 1.52 K/uL (1.2-3.4); Lymphocytes % (auto) 11.7 %; Mean Corpuscular Hemoglobin 31.3 pg (25-34); Mean Corpuscular Hgb Conc 33.6 g/dL (32-36); Monocytes % (auto) 17.7 %; Neutrophils % (auto) 65.7 %; Platelet Count 271 K/uL (130-400); RDW Coefficient of Variation 16.9 % (11.5-14.5); RDW Standard Deviation 57.8 fL (36.4-46.3); Red Blood Count 4.54 M/uL (4.2-5.4); White Blood Count 12.96 K/uL (4.8-10.8)
[2020-05-12 11:35] LABS: INR 1.1 (0.9-1.1); Partial Thromboplastin Ratio 1.2; Partial Thromboplastin Time 32.5 Seconds (21.0-31.0); Prothrombin Time 11.8 Seconds (9.0-12.0)
[2020-05-12 11:42] LABS: BUN Creatinine Ratio 22.3 (10-20); Blood Urea Nitrogen 19 mg/dl (7-18); Calcium 9.4 mg/dl (8.5-10.1); Carbon Dioxide 25 mmol/L (21-32); Chloride 109 mmol/L (98-107); Creatinine Clr Calc Pharmacy 52.5 ml/min; Est GFR (Non-African American) 63.8; Glucose 106 mg/dl (70-99); Lipase 220 U/L (73-393); Potassium 3.7 mmol/L (3.5-5.1); Sodium 139 mmol/L (136-145)
[2020-05-12 11:47] LABS: Troponin I < 0.015 ng/ml (0-0.045)
--- NOTE | 2020-05-12 12:00 | XRay Report ---
XR chest 1V portable HISTORY: 80 years-old Female Chest Pain acute atypical chest pain COMPARISON: Chest radiograph 6 04/16/2018 TECHNIQUE: Portable AP view of the chest FINDINGS: Cardiac silhouette is upper limits of normal in size. Aortic valvular prosthesis. Coronary arterial s tent. Stent is also noted within the left subclavian/axillary distribution. No pneumothorax, pleural effusion, airspace consolidation or overt pulmonary edema. Mild right hemidiaphragmatic elevation. De generative changes of the shoulders and spine. IMPRESSION: No acute process. ACT 112: Negative or not required by law. The above report was generated using voice recognition software. It may contain grammatical, syntax o r spelling errors. Electronically signed by: Charly Crenshaw M.D. 05/12/2020 11:59 AM
--- NOTE | 2020-05-12 13:51 | History & Physical Report ---
Date of Service May 12, 2020 Assessment & Plan (1) Chest pain, rule out acute myocardial infarction: Serial troponins overnight ASA (increase to 324mg PO for today) Continue her usual other CAD medication ASA, prasugrel, carvedilol, atorvastatin Increase ISMN as nitroglycerin has been helpful 60 -> 90mg (additional 30mg today) TTE Consult cardiology History more consistent with GERD but given previous similar episodes with ACS will consult cardiology but will hold off IV heparin unless she has contined episodes. Start famotidine 20mg PO daily in addition to her usual PPI. (2) CAD (coronary artery disease): As above (3) Hypertension: Continue her usual antihypertensives with increased dose of isosorbide mononitrate as above. (4) Dementia: Continue donepezil 5 mg p.o. every morning (5) Hypothyroidism: TSH 5.66 in February. Follow-up outpatient with PCP as this appears to be decreasing will continue on her usual levothyroxine 112 mcg p.o. every morning. (6) Gastroesophageal reflux disease: Switch omeprazole to pantoprazole as per hospital formulary Admission and Anticipated Discharge Date Admission Date: 05/12/2020 History of Present Illness Primary Care Provider: Marquise Clement MD Gaby Brush is a 80 year old female with dementia and known coronary artery disease who presents with intermittent, increasingly frequent chest pains at rest. Her reports the entire history as the patient has short term memory loss due to her dementia. He reports no significant chest pains since her last cardiac stent was placed up until 1 week ago. At that time she had one episode at rest and he gave x1 nitro and it went away within about 5 minutes. Since that time she has had increasingly frequent episodes lasting about the same amount of time up until last night. Over night she had x4 episodes starting from 10:30pm to 6am. On each occasion he would give a nitroglycerin tablet and it would help but never fully resolve up until 6am. He denies she had any associated diaphoresis, shortness of breath, nausea. Unknown severity of the pain. Appears to always occur at nighttime while lying down and rolling onto either side. No worse on palpation. Despite not being exertional he reports this is very similar to previous pain she has had when she is required cardiac stents in the past. The patient has extensive cardiac history s/p multiple PCI (LMCA into LAD and Cx, mid LAD and diagonal) under Dr Lang. Last echocardiogram in June 2019 showed normal LV size, wall motion and systolic function s/p TAVR. In the ER EKG was unremarkable for acute ischemic changes and troponin initially negative. Despite atypical pain she has had very similar episodes which have been cardiac in origin and dementia limits history taking before she was referred to medicine for observation for chest pain rule out ACS. Allergies Allergy/AdvReac Type Severity Reaction Status Date / Time adhesive Allergy Intermediate RED RASH Verified 03/16/20 11:52 clindamycin Allergy Mild Rash Verified 03/16/20 11:52 latex Allergy Mild RASH Verified 03/16/20 11:52 Penicillins Allergy Unknown HIVES Verified 03/16/20 11:52 Home Medications Medication Instructions Recorded Confirmed Type aspirin 81 mg PO HS 11/23/18 05/12/20 History nitroglycerin 0.4 mg sublingual 0.4 mg SUBLINGUAL USEASDIRECTD PRN 05/25/19 05/12/20 Rx tablet #25 tab azithromycin 500 mg tablet 500 mg PO .COMPLEX 1 Days #3 tab 10/12/19 05/12/20 Rx multivitamin 1 tab PO QAM 12/15/19 05/12/20 History atorvastatin 40 mg tablet 40 mg PO HS #90 tab 01/12/20 05/12/20 Rx carvedilol 12.5 mg tablet 12.5 mg PO BID #60 tab 02/01/20 05/12/20 Rx amlodipine 5 mg PO QAM 05/12/20 05/12/20 History conjugated estrogens [Premarin] 0.45 mg PO QAM 05/12/20 05/12/20 History donepezil 5 mg PO QAM 05/12/20 05/12/20 History isosorbide mononitrate 60 mg PO QAM 05/12/20 05/12/20 History levothyroxine [Synthroid] 112 mcg PO QAM 05/12/20 05/12/20 History omeprazole 20 mg PO QAM 05/12/20 05/12/20 History prasugrel [Effient] 10 mg PO QAM 05/12/20 05/12/20 History Past Med/Surg History Medical History Anemia Angina pectoris ASCVD (arteriosclerotic cardiovascular disease) CAD (coronary artery disease) Cardiac dysrhythmia, unspecified Carotid artery stenosis Decreased exercise tolerance Dementia Diverticulosis Dyspnea Elevated serum creatinine Fatigue Gastroesophageal reflux disease History of ST elevation myocardial infarction (STEMI) Hypercholesterolemia Hyperlipidemia Hypertension Hypothyroidism Intermittent claudication Internal hemorrhoids Lumbosacral radiculopathy at L5 Lupus Memory loss Microscopic hematuria Osteopenia Peripheral vascular disease Polyneuropathy Renal artery stenosis Sciatica Tinnitus, unspecified ear Vertigo Surgical History History of cardiac cath History of heart artery stent History of heart valve replacement S/P drug eluting coronary stent placement S/P TAVR (transcatheter aortic valve replacement) Social History Smoking Status: Former smoker Tobacco Type: Cigarettes Second Hand Exposure: No; Do You Dip or Chew Tobacco: No; Tobacco Cessation Education Requested by Patient: No Hx Alcohol Use: Yes Alcohol type: wine Hx Substance Use: No Preferred Language: Lithuanian Communication Ability: Effective Lift Driver Required: No Beliefs That Will Affect Care: None Current Living Situation: Spouse current occupation: N/A Other Information That Helps Us Care for You: No Feels Safe at Home: Yes Safety Concerns: Feels Safe At This Time Assistive Devices: Walker Review of Systems Review of Systems: All systems reviewed & are unremarkable except as noted in HPI & below Physical Exam Constitutional: well developed and + frail appearing; no acute distress Eyes: + anicteric sclerae; normal pupil size Neck: trachea midline Respiratory: normal respiratory effort, lungs clear to auscultation Cardiovascular: RRR, no murmur, no edema Gastrointestinal (Abdomen): normal bowel sounds, soft, nontender, no hepatosplenomegaly Musculoskeletal: no cyanosis or clubbing, extremities motor strength 5/5 Neurologic: moves all extremities and awake; not confused Genitourinary: no CVA tenderness Results & Data Results & [facility] ([facility] Vital Signs (Past 12 Hours) Vital Signs Temp Pulse Pulse Resp BP BP Pulse Ox 05/12/20 13:30 57 L 16 137/71 96 05/12/20 13:00 57 L 14 138/59 L 95 05/12/20 12:30 58 L 18 122/68 94 05/12/20 12:00 63 18 132/61 94 05/12/20 11:30 61 18 117/62 94 05/12/20 11:11 66 18 161/62 H 94 05/12/20 10:55 96 05/12/20 10:51 37 C 68 20 165/104 H 96 Diagnostic Findings XR chest 1V portable IMPRESSION: No acute process. Medications Administered ER medications given: None ECG Indication: chest pain Rate (beats per minute): 64 Rhythm: sinus rhythm Findings: + 1st degree AV block Comparison ECG Date: from (October 19, 2017) Change: the following changes noted (Suspected lead placement changes in ante roseptal leads) Code Status & VTE Plan Code Status DNR/DNI discussed with her who is power of environmental attorney VTE Prophylaxis Plan VTE Prophylaxis will be ordered: Yes PG Care Time/CCT Total # of Minutes Spent Total Time Spent with Patient: Total time spent is greater than 50% in coordination of care (as documented) at patient's floor/unit and/or counseling patient: Coding Level of Care Code 30922 OBS Care - Level 3 Diagnoses Chest pain, rule out acute myocardial infarction R07.9 CAD (coronary artery disease) I25.10 Hypertension I10 Dementia F03.90 Hypothyroidism E03.9 Gastroesophageal reflux disease K21.9
[2020-05-12] MEDS ORDERED: ISOSORBIDE MONO EXTENDED REL 30 MG TABCR PO STA (14:00)
[2020-05-12] MEDS ORDERED: FAMOTIDINE 20 MG TAB PO STA (14:05)
[2020-05-12] MEDS ORDERED: ASPIRIN 81 MG CHEW PO ONE (15:00)
[2020-05-12] MEDS ORDERED: ACETAMINOPHEN 325 MG TAB PO PRN (16:24)
[2020-05-12] MEDS ORDERED: ONDANSETRON INJ 2 MG/ML 2 ML VIAL IV PRN (16:24)
[2020-05-12] MEDS ORDERED: ALUMINUM/MAGNESIUM SUSP 30 ML UDC PO PRN (16:24)
[2020-05-12] MEDS ORDERED: POLYETHYLENE (MIRALAX) 17 GM PACK PO PRN (16:24)
[2020-05-12] MEDS: carvediloL 12.5 MG TAB PO SCH (20:17)
[2020-05-12] MEDS ORDERED: ATORVASTATIN 40 MG TAB PO SCH (21:00)
[2020-05-13] MEDS ORDERED: LEVOTHYROXINE SODIUM 112 MCG TABLET PO SCH (06:30)
[2020-05-13 07:15] LABS: Basophils # (auto) 0.03 K/uL (0-0.2); Basophils % (auto) 0.3 %; Eosinophils # (auto) 0.24 K/uL (0-0.5); Eosinophils % (auto) 2.2 %; Hematocrit (blood only) 40.2 % (37-47); Hemoglobin 13.3 g/dL (12.0-16.0); Immature Granulocytes # (auto) 0.37 K/uL (0.00-0.02); Immature Granulocytes % (auto) 3.3 %; Lymphocytes % (auto) 17.1 %; Mean Corpuscular Hemoglobin 30.8 pg (25-34); Mean Corpuscular Hgb Conc 33.1 g/dL (32-36); Mean Corpuscular Volume 93.1 fL (80-100); Mean Platelet Volume 11.7 fL (7.4-10.4); Monocytes # (auto) 1.99 K/uL (0.11-0.59); Monocytes % (auto) 17.9 %; Neutrophils # (auto) 6.59 K/uL (1.4-6.5); Neutrophils % (auto) 59.2 %; Platelet Count 228 K/uL (130-400); RDW Standard Deviation 58.1 fL (36.4-46.3); Red Blood Count 4.32 M/uL (4.2-5.4); White Blood Count 11.12 K/uL (4.8-10.8)
[2020-05-13 07:41] LABS: BUN Creatinine Ratio 20.8 (10-20); Blood Urea Nitrogen 18 mg/dl (7-18); Calcium 9.9 mg/dl (8.5-10.1); Carbon Dioxide 24 mmol/L (21-32); Chloride 110 mmol/L (98-107); Est GFR (African American) 76.1; Est GFR (Non-African American) 65.6; Glucose 89 mg/dl (70-99); Potassium 3.7 mmol/L (3.5-5.1); Sodium 142 mmol/L (136-145)
[2020-05-13 07:46] LABS: Troponin I < 0.015 ng/ml (0-0.045)
[2020-05-13] MEDS: carvediloL 12.5 MG TAB PO SCH (07:54)
--- NOTE | 2020-05-13 08:30 | Electrocardiogram Report ---
Test Reason : Blood Pressure : / mmHG Vent. Rate : 064 BPM Atrial Rate : 064 BPM P-R Int : 220 ms QRS Dur : 094 ms QT Int : 434 ms P-R-T Axes : 037 -46 089 degrees QTc Int : 447 ms Sinus rhythm with 1st degree A-V block Left axis deviation Left ventricular hypertrophy with repolarization abnormality Old Inferior infarct (cited on or before 17-OCT-2017) Anteroseptal infarct (cited on or before 17-OCT-2017) , age undetermined Abnormal ECG When compared with ECG of 19-OCT-2017 06:32, Loss of precordial R wave voltage noted Confirmed by Cliff Covarrubias ([id number]) on 05/13/2020 8:30:14 AM Referred By: REFERRED SELF Confirmed By:Cliff Covarrubias
[2020-05-13] MEDS ORDERED: PANTOprazole 40 MG TAB PO SCH (09:00)
[2020-05-13] MEDS ORDERED: DONEPEZIL HCL 5 MG TAB PO SCH (09:00)
[2020-05-13] MEDS ORDERED: ISOSORBIDE MONO EXTENDED REL 30 MG TABCR PO SCH (09:00)
[2020-05-13] MEDS ORDERED: amLODIPine BESYLATE 5 MG TAB PO SCH (09:00)
[2020-05-13] MEDS ORDERED: ESTROGENS, CONJUGATED 0.45 MG TAB PO SCH (09:00)
[2020-05-13] MEDS ORDERED: MULTIVITAMIN TAB PO SCH (09:00)
[2020-05-13] MEDS ORDERED: PRASugrel TAB 10 MG TAB PO SCH (09:00)
[2020-05-13] MEDS ORDERED: ASPIRIN 81 MG ECTAB PO SCH (09:00)
--- NOTE | 2020-05-13 09:41 | XCELERA ---
[id number] \\[id number]
--- NOTE | 2020-05-13 12:45 | Cardiology Consultation ---
Date of Consultation May 13, 2020 Assessment & Plan (1) Chest pain: (2) CAD (coronary artery disease): (3) S/P TAVR (transcatheter aortic valve replacement): (4) S/P drug eluting coronary stent placement: (5) Hypertension: (6) Memory loss: Complex cardiac patient with incomplete revascularization and chronic angina noted multiple nocturnal episodes of chest discomfort and was admitted for further evaluation. Fortunately, this does not appear to be crescendo angina or an acute coronary syndrome, either she had a self-limited period of increased angina or her chest pain was noncardiac (? GERD). Cardiac enzymes negative and she had an uneventful night, okay for discharge home on increased nitrates and increased antacid regimen. I sent an electronic prescription in for Imdur 30 mg daily to be taken with her Imdur 60 mg daily (for a total dose of 90 mg daily). Famotidine was added to her omeprazole as an inpatient, she could either continue the famotidine as an outpatient or double her omeprazole to 20 mg twice daily. I will ask our scheduling personnel to move up her July appointment with Dr. Lang to sometime within the next month for cardiology follow-up. I did speak with her regarding her hospital stay, medication adjustments, and follow-up, since the patient herself has memory issues and wanted to be sure that her was kept informed. History of Present Illness Reason for Consultation: Chest pain in cardiac patient Requesting Physician: Marquise Daniel MD Attending Physician: Jamaal Dong MD History of Present Illness 80-year-old woman with coronary artery disease (status post multiple stents), status post TAVR 2017, with previously chronic stable angina who was admitted 05/12/2020 after 4 episodes of nocturnal chest discomfort not promptly relieved with nitroglycerin. She is followed by Dr. Lnag from a cardiology standpoint. She had prior stents in the left main coronary artery (stent apparently extends distally into the LAD and circumflex), mid LAD, and diagonal. She was noted to have severe mid LAD in-stent restenosis for which medical therapy was recommended at [facility] in 2018. She has had angina periodically, but it was unusual for her to have multiple episodes and to not have immediate relief with nitroglycerin. The admitting physician elicited some possible positional component to her symptoms, but due to the patient's memory issues she could not recall any details regarding her symptoms the night before last. I had spoken to her at that time and referred her to the emergency department. She apparently had an uneventful night, she does not recall any further symptoms and has no complaints currently. Cardiac enzymes were negative x3 and initial ECG showed no ischemic changes. Echocardiogram shows normal systolic function with no wall motion abnormalities, her TAVR is functioning appropriately. Allergies Allergy/AdvReac Type Severity Reaction Status Date / Time adhesive Allergy Intermediate RED RASH Verified 03/16/20 11:52 clindamycin Allergy Mild Rash Verified 03/16/20 11:52 latex Allergy Mild RASH Verified 03/16/20 11:52 Penicillins Allergy Unknown HIVES Verified 03/16/20 11:52 Home Medications Medication Instructions Recorded Confirmed Type aspirin 81 mg PO HS 11/23/18 05/12/20 History nitroglycerin 0.4 mg sublingual 0.4 mg SUBLINGUAL USEASDIRECTD PRN 05/25/19 05/12/20 Rx tablet #25 tab azithromycin 500 mg tablet 500 mg PO .COMPLEX 1 Days #3 tab 10/12/19 05/12/20 Rx multivitamin 1 tab PO QAM 12/15/19 05/12/20 History atorvastatin 40 mg tablet 40 mg PO HS #90 tab 01/12/20 05/12/20 Rx carvedilol 12.5 mg tablet 12.5 mg PO BID #60 tab 02/01/20 05/12/20 Rx amlodipine 5 mg PO QAM 05/12/20 05/12/20 History conjugated estrogens [Premarin] 0.45 mg PO QAM 05/12/20 05/12/20 History donepezil 5 mg PO QAM 05/12/20 05/12/20 History isosorbide mononitrate 60 mg PO QAM 05/12/20 05/12/20 History levothyroxine [Synthroid] 112 mcg PO QAM 05/12/20 05/12/20 History omeprazole 20 mg PO QAM 05/12/20 05/12/20 History prasugrel [Effient] 10 mg PO QAM 05/12/20 05/12/20 History isosorbide mononitrate 30 mg 30 mg PO DAILY #90 tab 05/13/20 Rx tablet,extended release 24 hr Patient History Medical History Anemia Angina pectoris ASCVD (arteriosclerotic cardiovascular disease) CAD (coronary artery disease) Cardiac dysrhythmia, unspecified Carotid artery stenosis Decreased exercise tolerance Dementia Diverticulosis Dyspnea Elevated serum creatinine Fatigue Gastroesophageal reflux disease History of ST elevation myocardial infarction (STEMI) Hypercholesterolemia Hyperlipidemia Hypertension Hypothyroidism Intermittent claudication Internal hemorrhoids Lumbosacral radiculopathy at L5 Lupus Memory loss Microscopic hematuria Osteopenia Peripheral vascular disease Polyneuropathy Renal artery stenosis Sciatica Tinnitus, unspecified ear Vertigo Surgical History History of cardiac cath History of heart artery stent History of heart valve replacement S/P drug eluting coronary stent placement (2018) S/P TAVR (transcatheter aortic valve replacement) (2018) Social History Smoking Status: Former smoker Tobacco Type: Cigarettes Second Hand Exposure: No; Do You Dip or Chew Tobacco: No; Tobacco Cessation Education Requested by Patient: No Hx Alcohol Use: Yes Alcohol type: wine Hx Substance Use: No Preferred Language: Turkmen Communication Ability: Effective Automatic Fancy Machine Operator Required: No Beliefs That Will Affect Care: None Current Living Situation: Spouse current occupation: N/A Other Information That Helps Us Care for You: No Feels Safe at Home: Yes Safety Concerns: Feels Safe At This Time Assistive Devices: Walker Review of Systems Review of Systems: Unobtainable due to cognitive status Physical Exam Physical Exam: Elderly white female appears quite comfortable. Afebrile. Normotensive. Pulse 64 and regular. Skin: no ecchymoses or generalized lesions. HEENT: unremarkable. Neck: Jugular venous pulse at the clavicle at 90 degrees, soft transmitted murmur to carotids. Lungs: Clear and equal breath sounds bilaterally. Cardiac: regular rhythm with 2/6 right upper sternal border systolic ejection murmur rating to the carotids and left sternal border, 2/6 apical holosystolic murmur. No diastolic murmur or gallop. Abdomen benign. Extremities: no edema, pulses brisk. Neurologic: She notes that she is quite forgetful but her conversation seemed normal, grossly nonfocal. Results & Data ([facility]) Vital Signs (Past 12 Hours) Vital Signs Temp Pulse Pulse Resp BP Pulse Ox 05/13/20 11:40 98.6 F 62 H 135/66 94 05/13/20 07:30 64 05/13/20 05:55 158/83 H 05/13/20 02:51 98.2 F 63 18 180/76 H 90 Laboratory Results WBC chronically mildly elevated, normal hemoglobin and platelet count. Normal electrolytes, creatinine 0.85. Troponin negative x3. Diagnostic Findings Echocardiogram today showed EF 50 to 55% with appropriately functioning TAVR, moderate mitral regurgitation, trace tricuspid vegetation with moderate pulmonary hypertension. ECG on admission showed sinus rhythm with first-degree AV block, LVH with repolarization abnormalities, old inferior and anteroseptal infarcts. Compared with 10/19/2017 ECG, there was some loss of precordial R wave voltage. Chest x-ray on admission showed no acute process. (1) Chest pain Chest pain type: unspecified Qualified Code(s): R07.9 - Chest pain, unspecified
--- NOTE | 2020-05-13 16:26 | Discharge Summary ---
Date of Service May 13, 2020 Admission HPI Per Admitting Provider Gaby Brush is a 80 year old female with dementia and known coronary artery disease who presents with intermittent, increasingly frequent chest pains at rest. Her reports the entire history as the patient has short term memory loss due to her dementia. He reports no significant chest pains since her last cardiac stent was placed up until 1 week ago. At that time she had one episode at rest and he gave x1 nitro and it went away within about 5 minutes. Since that time she has had increasingly frequent episodes lasting about the same amount of time up until last night. Over night she had x4 episodes starting from 10:30pm to 6am. On each occasion he would give a nitroglycerin tablet and it would help but never fully resolve up until 6am. He denies she had any associated diaphoresis, shortness of breath, nausea. Unknown severity of the pain. Appears to always occur at nighttime while lying down and rolling onto either side. No worse on palpation. Despite not being exertional he reports this is very similar to previous pain she has had when she is required cardiac stents in the past. The patient has extensive cardiac history s/p multiple PCI (LMCA into LAD and Cx, mid LAD and diagonal) under Dr Lang. Last echocardiogram in June 2019 showed normal LV size, wall motion and systolic function s/p TAVR. In the ER EKG was unremarkable for acute ischemic changes and troponin initially negative. Despite atypical pain she has had very similar episodes which have been cardiac in origin and dementia limits history taking before she was referred to medicine for observation for chest pain rule out ACS. Principal Diagnosis Chest pain - Ruled out DE; possible stable angina vs. GERD Discharge Exam Constitutional WD/WN, vitals as above Eyes EOM intact bilaterally; no conjunctival abnormality ENMT external ear and nose normal, oropharynx normal Neck trachea midline, no thyromegaly normal visual inspection Respiratory normal respiratory effort, lungs clear to auscultation no respiratory distress Cardiovascular RRR, no murmur, no edema Gastrointestinal (Abdomen) Inspection/Auscultation: abdomen normal to inspection; abdomen not distended Musculoskeletal no cyanosis or clubbing, extremities motor strength 5/5 Skin no rashes, warm and dry Neurologic moves all extremities and awake Psychiatric Orientation: alert, oriented to person and cooperative Discharge Data Allergies Allergy/AdvReac Type Severity Reaction Status Date / Time adhesive Allergy Intermediate RED RASH Verified 03/16/20 11:52 clindamycin Allergy Mild Rash Verified 03/16/20 11:52 latex Allergy Mild RASH Verified 03/16/20 11:52 Penicillins Allergy Unknown HIVES Verified 03/16/20 11:52 Consultations 05/12/20 12:42 ED Decision to Admit Stat 05/12/20 16:24 Consult Cardiology Routine Hospital Course (1) Chest pain, rule out acute myocardial infarction: Serial troponins overnight were negative. - Increased ISMN as nitroglycerin has been helpful 60 -> 90mg. Discharged on 90 mg daily. - Consult cardiology - No other changes needed. Follow up outpatient. (2) CAD (coronary artery disease): As above (3) Hypertension: Continue her usual antihypertensives with increased dose of isosorbide mononitrate as above. (4) Dementia: Continue donepezil 5 mg p.o. every morning (5) Hypothyroidism: TSH 5.66 in February. Follow-up outpatient with PCP as this appears to be decreasing will continue on her usual levothyroxine 112 mcg p.o. every morning. (6) Gastroesophageal reflux disease: Switch omeprazole to pantoprazole as per hospital formulary Total Time Total Time Spent Total Time Spent (In Minutes): 35 Discharge Plan Discharge Items Patient Disposition: Home - Self-Care Reason For Visit: CHEST PAIN R/O DE Discharge Diagnosis: Chest pain, NOT an DE; possibly heartburn-related Activity: Resume your previous activity Non-emergency contact: Primary Care Provider and Grass Cutter Call non-emergency contact if: your symptoms worsen Follow-up/Referrals: Marquise Clement MD [Primary Care Provider] - Diet: Heart Healthy Addtl Attending Provider Instructions: You were admitted to the hospital with chest pain. We did serial troponins (cardiac enzymes) which were all normal. This tells us you definitely didn't have a heart attack. Your echo of your heart looked stable from your prior apart from the known valve change and some mitral regurgitation. Please follow up with the heart doctors to see how the change in medications has helped. Please note: Dr. Covarrubias put in an additional 30 mg of Imdur for you. This means you take the 60 mg tablet AND the 30 mg tablet, for a total of 90 mg per day. These should be taken at the SAME time for maximum benefit. If you take one in the morning and one at night, it oddly enough REDUCES the benefit, so they need to be taken simultaneously. Pending Studies at Discharge: No Stand-Alone Forms: My [facility] [place], Smoking Cessation Medications and DC Order Prescriptions: Continued nitroglycerin [Nitrostat] 0.4 mg tablet, sublingual 0.4 mg sublingual USEASDIRECTD PRN (Reason: Chest Pain) Qty: 25 RF: 2 azithromycin 500 mg tablet 500 mg PO .COMPLEX 1 Days Qty: 3 RF: 3 atorvastatin [Lipitor] 40 mg tablet 40 mg PO HS Qty: 90 RF: 3 isosorbide mononitrate 30 mg tablet extended release 24 hr 30 mg PO DAILY Qty: 90 RF: 3 multivitamin [Daily Multi-Vitamin] Tablet 1 tab PO QAM RF: 0 carvedilol 12.5 mg tablet 12.5 mg PO BID Qty: 60 RF: 11 aspirin 81 mg Tablet,Chewable 81 mg PO HS RF: 0 donepezil 5 mg tablet 5 mg PO QAM RF: 0 amlodipine 5 mg tablet 5 mg PO QAM RF: 0 isosorbide mononitrate 60 mg tablet extended release 24 hr 60 mg PO QAM RF: 0 omeprazole 20 mg capsule,delayed release(DR/EC) 20 mg PO QAM RF: 0 levothyroxine [Synthroid] 112 mcg tablet 112 mcg PO QAM RF: 0 Premarin 0.45 mg tablet 0.45 mg PO QAM RF: 0 prasugrel [Effient] 10 mg tablet 10 mg PO QAM RF: 0 Discharge Orders: Discharge Order (Routine); Ordered 05/13/20 Ordered By: Jamaal Dong Admission Data Admit Date/Time: 05/12/20 14:18 Attending Provider: Jamaal Dong Admit Provider: Marquise Daniel Primary Care Provider: Marquise Clement Other Providers: Cliff Covarrubias ; Jamaal Dong Other Interventions: Discharge Summary Assessment (RN) Last Done: 05/13/20 13:09 Coding Level of Care Code 57324 OBS Care - Discharge Diagnoses Chest pain, rule out acute myocardial infarction R07.9 CAD (coronary artery disease) I25.10 Hypertension I10 Dementia F03.90 Hypothyroidism E03.9 Gastroesophageal reflux disease K21.9
== END 2020-05-13 14:12 | disposition home or self-care (01) ==
LOC: ED 10:42 → 2W 10:42 → SUATTDRO 14:18 → 2W 15:36

== ENCOUNTER 2020-05-28 00:59 | Observation (INO) ==
[2020-05-28] MEDS ORDERED: GI COCKTAIL ED USE PO ONE (01:13)
--- NOTE | 2020-05-28 01:17 | Emergency Department Note ---
Impression & Plan Acute non-ST elevation myocardial infarction (NSTEMI) ED Provider Note Name: CATHERINE HEATON Age: 80 Sex: F Arrives Via: Ambulance Informant: Patient, EMS, ([facility]) ED Provider: Bernard Falk MD Chief Complaint: Chest pain Impression: Acute Non-ST Elevation Myocardial Infarction (NSTEMI) Medical Decision Makin yr old female with known CAD with previous stents and tavr arrives with substernal lower chest pain. EKG on arrival similar to previous and only having mild pain. Already had had multiple rounds of SLNTG thus tried GI Cocktail. A fter this patient denies any further pain. She has dementia and memory issues which makes getting history a bit challenging though on repeat evaluations she denies any symptoms and notes feeling well. CXR OK, labs initially unremarkable. Review chart clearly she has significant CAD which has been managed medically recently with hospitalization a few weeks ago with negative rule out. She was monitored overnight in ED and second set trop was done here. Repeat Trop was elevated. Given her history it was felt starting heparin reasonable and her comfortable with this plan. A bit hypertensive at times but this comes down when rest. She has no abdominal TTP, no symptoms concerning for dissection at this time, and no recent head injuries nor bleeding. Per report she received ASA 324mg PO by EMS prior to arrival. Prior Medical Record and Triage/Nursing Notes reviewed by Me Additional history obtained from chart and Differentials:Cardiac ischemia, aortic dissection, pulmonary embolism, pneumothorax, pneumonia, pericarditis, myocarditis, esophageal rupture, GERD, cholecystitis, pancreatitis, musculoskeletal, as well as other pathologies. Vital Signs: reviewed and remarkable for HTN Interventions: Saline lock, Heparin IV, GI Cocktail Labs:Reviewed and remarkable for elevated second set troponin Imaging:X ray results are stated below per my interpretation: Chest: 1 view: No infiltrate, no effusion, normal cardiac border. EKG:Per My Interpretation: Indication Chest Pain: NSR with multiple PACs at 88 bpm and 1st AV block, qtc 452. No Ectopy. No Ischemia. Compared to EKG 05/12/20 PACs are new and morphology otherwise similar Cardiac/Tele Monitoring: Cardiac Monitoring: An Order was placed for continuous cardiac monitoring. The monitor shows a rate of 70 with a normal sinus rhythm. Consults:Dr Fany RAGLAND Hospitalist Plan: Disposition:Hospitalization. Condition: Good History of Present Illness:80 yr female arrives for evaluation of chest pain. Patient with long history of cardiac disease with planned medical management over last few cards visits. She has dementia and doesn't very much remember her history or what happened tonight. Per EMS/Nursing patient with lower chest pain this evening. She took multiple SLNTG at home without improvement. No other symptoms reported. Patient was given SLNTG by EMS without improvement. On my evaluation patient notes that she has no symptoms other than mild low central chest pain. She states she has no shortness of breath, back pain, nausea, vomiting, fevers, chills, headache, neck pain, abdominal pain, leg swelling, extremity pain, urinary symptoms, nor other symptoms. She states she feels quite well currently. Does not know what made pain better nor worse. ROS: See above HPI for pertinent positives & negatives. A total of 10 systems reviewed and were otherwise negative. Past Medical History:See Below Past Surgical History:See Below Family History:See Below Social History:See Below Home Medications:See Below Allergies:See Below Vitals:Blood Pressure: 168/88, Pulse 75, RR 18, T 36.8C, O2 98% on RA Physical Exam: GENERAL: Patient is well appearing and in no acute distress. EYES: No scleral icterus, unremarkable pupils. ENT: Mucous membranes moist, no nasal congestion. NECK: No masses appreciated, nomeningismus, trachea is midline. RESPIRATORY: No dyspnea. Clear to auscultation and equal bilaterally. No wheeze, no rhonchi. CARDIOVASCULAR: Regular rate and rhythm.No murmurs, rubs, gallops appreciated. GASTROINTESTINAL: Abdomen soft, non-tender, no peritonitis.Bowel sounds positive.No masses appreciated. BACK: No midline tenderness, no CVA tenderness EXTREMITIES: Normal motion all extremities, no cyanosis, no edema. NEUROLOGIC: Dementia, but Alert and oriented, no acute motor or sensory deficits, no focal weakness, cranial nerves grossly intact. SKIN: No rash, no jaundice, no diaphoresis. PSYCH: Appropriate GCS: 15 ED Course: Times/Reassessments: Happy comfortable throughout night. Episode of chest discomfort around 2 am when getting up to walk though EKG similar. 5 am Trop obtained for 3+ hours and patient feeling well. Trop positive, contacted and will bring in for further management. Critical Care: I have personally spent 35 minutes of critical care time in the direct management of this patient. Acute NSTEMI started on Heparin IV. This was a life/limb threatening event. This 35 minutes is in excess of all separately billable procedures. Observation note: Indication: Chest Pain Cardiac Rule out/observation Initial Evaluation: 05/28/20 at 01:15am Placed in Observation: 05/28/20 at 2:15am Observation was necessary in order to further do cardiac monitoring and repeat cardiac enzymes in attempt to avoid unnecessary hospitalization. PMH, PSH, Family History, Social history as below. Discharged from observation to HOSPITALIZATION at 7:05am on 05/28/20 as she is ruled in for NSTEMI. Bernard Falk MD Past Med/Surg History Medical History (Updated 05/28/20 @ 07:47 by Blanco King MD) Anemia Angina pectoris ASCVD (arteriosclerotic cardiovascular disease) CAD (coronary artery disease) Carotid artery stenosis Decreased exercise tolerance Dementia Diverticulosis Dyspnea Elevated serum creatinine Fatigue Gastroesophageal reflux disease History of ST elevation myocardial infarction (STEMI) Hypercholesterolemia Hyperlipidemia Hypertension Hypertensive urgency Hypothyroidism Intermittent claudication Internal hemorrhoids Lumbosacral radiculopathy at L5 Lupus Memory loss Microscopic hematuria Osteopenia Peripheral vascular disease Polyneuropathy Renal artery stenosis Sciatica STEMI (ST elevation myocardial infarction) Tinnitus, unspecified ear Vertigo Surgical History History of cardiac cath History of heart artery stent History of heart valve replacement S/P drug eluting coronary stent placement (2018) S/P TAVR (transcatheter aortic valve replacement) (2018) Social History Smoking Status: Never smoker Tobacco Type: Cigarettes Second Hand Exposure: No; Hx Alcohol Use: Yes Alcohol type: wine Hx Substance Use: No Preferred Language: Icelandic Communication Ability: Effective Evaporative Cooler Installer Required: No Beliefs That Will Affect Care: None Current Living Situation: Spouse current occupation: N/A Feels Safe at Home: Yes Assistive Devices: Walker Allergies Allergies Allergy/AdvReac Type Severity Reaction Status Date / Time adhesive Allergy Intermediate RED RASH Verified 05/28/20 01:25 clindamycin Allergy Mild Rash Verified 05/28/20 01:25 latex Allergy Mild RASH Verified 05/28/20 01:25 Penicillins Allergy Unknown HIVES Verified 05/28/20 01:25 Home Meds Home Medications Medication Instructions Recorded Confirmed aspirin 81 mg PO HS 11/23/18 05/28/20 multivitamin 1 tab PO QAM 12/15/19 05/28/20 Premarin 0.45 mg PO QAM 05/12/20 05/28/20 amlodipine 5 mg PO QAM 05/12/20 05/28/20 donepezil 5 mg PO QAM 05/12/20 05/28/20 isosorbide mononitrate 60 mg PO QAM 05/12/20 05/28/20 levothyroxine [Synthroid] 112 mcg PO QAM 05/12/20 05/28/20 omeprazole 20 mg PO QAM 05/12/20 05/28/20 prasugrel [Effient] 10 mg PO QAM 05/12/20 05/28/20 Previous Rx's Medication Instructions Recorded nitroglycerin 0.4 mg sublingual 0.4 mg SUBLINGUAL USEASDIRECTD PRN 05/25/19 tablet #25 tab azithromycin 500 mg tablet 500 mg PO .COMPLEX 1 Days #3 tab 10/12/19 atorvastatin 40 mg tablet 40 mg PO HS #90 tab 01/12/20 carvedilol 12.5 mg tablet 12.5 mg PO BID #60 tab 02/01/20 isosorbide mononitrate 30 mg 30 mg PO DAILY #90 tab 05/13/20 tablet,extended release 24 hr Results & Data (ED) Vital Signs Vital Signs - 24 hr 05/28/20 01:08 05/28/20 01:55 05/28/20 03:56 Temperature 36.8 C Temperature Source Oral Pulse Rate 92 H Pulse Rate [Apical] 75 68 Respiratory Rate 18 18 18 Respiratory Effort / Characteristics Non-Labored Non-Labored Respiratory Depth Normal Normal Normal Blood Pressure 217/111 H Blood Pressure [Left Arm] 168/88 H 160/93 H Blood Pressure Mean 146 Blood Pressure Mean [Left Arm] 114 115 Pulse Oximetry 98 97 95 Oxygen Delivery Method Room Air Room Air Room Air Sepsis Recent Fever Within 48 Hours No Sepsis New/Unexplained Change in Mental Status No Sepsis Action Taken by Nursing No Action Required 05/28/20 06:35 Temperature Temperature Source Pulse Rate Pulse Rate [Apical] 70 Respiratory Rate 18 Respiratory Effort / Characteristics Non-Labored Respiratory Depth Normal Blood Pressure Blood Pressure [Left Arm] 182/71 H Blood Pressure Mean Blood Pressure Mean [Left Arm] 108 Pulse Oximetry 97 Oxygen Delivery Method Room Air Sepsis Recent Fever Within 48 Hours Sepsis New/Unexplained Change in Mental Status Sepsis Action Taken by Nursing Laboratory Data Result diagrams: 05/28/20 01:34 05/28/20 01:34 Lab Results 05/28/20 05/28/20 05/28/20 Range/Units 01:34 01:34 05:19 WBC 14.20 H (4.8-10.8) K/uL RBC 4.51 (4.2-5.4) M/uL Hgb 14.0 (12.0-16.0) g/dL Hct 41.0 (37-47) % MCV 90.9 (80-100) fL MCH 31.0 (25-34) pg MCHC 34.1 (32-36) g/dL RDW Std Deviation 54.8 H (36.4-46.3) fL RDW Coeff of Minerva 16.7 H (11.5-14.5) % Plt Count 310 (130-400) K/uL MPV 10.7 H (7.4-10.4) fL Immature Gran % (Auto) 3.6 % Neut % (Auto) 59.7 % Lymph % (Auto) 14.1 % [place] % (Auto) 20.4 % Eos % (Auto) 1.9 % Baso % (Auto) 0.3 % Neut # (Auto) 8.48 H (1.4-6.5) K/uL Lymph # (Auto) 2.00 (1.2-3.4) K/uL [place] # (Auto) 2.90 H (0.11-0.59) K/uL Eos # (Auto) 0.27 (0-0.5) K/uL Baso # (Auto) 0.04 (0-0.2) K/uL Immature Gran # (Auto) 0.51 H (0.00-0.02) K/uL Sodium 137 (136-145) mmol/L Potassium 4.2 (3.5-5.1) mmol/L Chloride 106 (98-107) mmol/L Carbon Dioxide 22 (21-32) mmol/L Anion Gap 8.0 (3-11) BUN 19 H (7-18) mg/dl Creatinine 0.97 (0.6-1.2) mg/dl Est Cr Clr Drug Dosing 49.4 ml/min Est GFR ( Amer) 64.8 Est GFR (Non-Af Amer) 55.9 BUN/Creatinine Ratio 19.1 (10-20) Glucose 135 H (70-99) mg/dl Calcium 9.6 (8.5-10.1) mg/dl Magnesium 1.7 L (1.8-2.4) mg/dl Total Bilirubin 0.5 (0.2-1) mg/dl Direct Bilirubin 0.1 (0-0.2) mg/dl AST 18 (15-37) U/L ALT 23 (12-78) U/L Alkaline Phosphatase 105 (45-117) U/L Troponin I 0.018 0.071 H* (0-0.045) ng/ml Total Protein 6.7 (6.4-8.2) gm/dl Albumin 3.6 (3.4-5.0) gm/dl Lipase 224 (73-393) U/L SARS-CoV-2 Ag (Rapid) (Negative) 05/28/20 Range/Units 06:37 WBC (4.8-10.8) K/uL RBC (4.2-5.4) M/uL Hgb (12.0-16.0) g/dL Hct (37-47) % MCV (80-100) fL MCH (25-34) pg MCHC (32-36) g/dL RDW Std Deviation (36.4-46.3) fL RDW Coeff of Minerva (11.5-14.5) % Plt Count (130-400) K/uL MPV (7.4-10.4) fL Immature Gran % (Auto) % Neut % (Auto) % Lymph % (Auto) % [place] % (Auto) % Eos % (Auto) % Baso % (Auto) % Neut # (Auto) (1.4-6.5) K/uL Lymph # (Auto) (1.2-3.4) K/uL [place] # (Auto) (0.11-0.59) K/uL Eos # (Auto) (0-0.5) K/uL Baso # (Auto) (0-0.2) K/uL Immature Gran # (Auto) (0.00-0.02) K/uL Sodium (136-145) mmol/L Potassium (3.5-5.1) mmol/L Chloride (98-107) mmol/L Carbon Dioxide (21-32) mmol/L Anion Gap (3-11) BUN (7-18) mg/dl Creatinine (0.6-1.2) mg/dl Est Cr Clr Drug Dosing ml/min Est GFR ( Amer) Est GFR (Non-Af Amer) BUN/Creatinine Ratio (10-20) Glucose (70-99) mg/dl Calcium (8.5-10.1) mg/dl Magnesium (1.8-2.4) mg/dl Total Bilirubin (0.2-1) mg/dl Direct Bilirubin (0-0.2) mg/dl AST (15-37) U/L ALT (12-78) U/L Alkaline Phosphatase (45-117) U/L Troponin I (0-0.045) ng/ml Total Protein (6.4-8.2) gm/dl Albumin (3.4-5.0) gm/dl Lipase (73-393) U/L SARS-CoV-2 Ag (Rapid) Negative (Negative) Administered Medications Heparin Sodium/Dextrose (Heparin Sodium/Dextrose) 25,000 units in 500 mls @ 16 mls/hr IV .Q24H [facility]; Protocol Stop: 06/27/20 06:14 Last Admin: 05/28/20 06:40 Dose: 800 units/hr, 16 mls/hr Documented by: [id number] Cosigned by: [id number] Discontinued Medications Al Hydrox/Mg Hydrox/Simethicone (Gi Cocktail Ed Use) 1 dose PO ONE ONE Stop: 05/28/20 01:14 Last Admin: 05/28/20 01:25 Dose: 1 dose Documented by: [id number] Heparin Sodium (Porcine) (Heparin Sod (Porcine) 1000 Unit/Ml 10 Ml Vial) Confirm Administered Dose 10,000 units .ROUTE .STK-MED ONE Stop: 05/28/20 06:36 Last Admin: 05/28/20 06:40 Dose: 4,000 units Documented by: [id number] Cosigned by: [id number] Heparin Sodium/Dextrose (Heparin Iv Low Dose With Bolus) 1 ea IV NOW STA; Protocol Stop: 05/28/20 06:10 Last Admin: 05/28/20 06:45 Dose: 1 ea Documented by: [id number] Discharge Plan Visit Data Chief Complaint: Chest Pain Stated Complaint: CHEST PAIN ED Provider: Bernard Falk Discharge Problem: Acute non-ST elevation myocardial infarction (NSTEMI) Forms Stand Alone Forms: [facility] Prescriptions Prescriptions: No Action nitroglycerin [Nitrostat] 0.4 mg tablet, sublingual 0.4 mg sublingual USEASDIRECTD PRN (Reason: Chest Pain) Qty: 25 RF: 2 azithromycin 500 mg tablet 500 mg PO .COMPLEX 1 Days Qty: 3 RF: 3 atorvastatin [Lipitor] 40 mg tablet 40 mg PO HS Qty: 90 RF: 3 isosorbide mononitrate 30 mg tablet extended release 24 hr 30 mg PO DAILY Qty: 90 RF: 3 multivitamin [Daily Multi-Vitamin] Tablet 1 tab PO QAM RF: 0 carvedilol 12.5 mg tablet 12.5 mg PO BID Qty: 60 RF: 11 aspirin 81 mg Tablet,Chewable 81 mg PO HS RF: 0 donepezil 5 mg tablet 5 mg PO QAM RF: 0 amlodipine 5 mg tablet 5 mg PO QAM RF: 0 isosorbide mononitrate 60 mg tablet extended release 24 hr 60 mg PO QAM RF: 0 omeprazole 20 mg capsule,delayed release(DR/EC) 20 mg PO QAM RF: 0 levothyroxine [Synthroid] 112 mcg tablet 112 mcg PO QAM RF: 0 Premarin 0.45 mg tablet 0.45 mg PO QAM RF: 0 prasugrel [Effient] 10 mg tablet 10 mg PO QAM RF: 0
[2020-05-28 01:48] LABS: Basophils # (auto) 0.04 K/uL (0-0.2); Basophils % (auto) 0.3 %; Eosinophils # (auto) 0.27 K/uL (0-0.5); Eosinophils % (auto) 1.9 %; Immature Granulocytes # (auto) 0.51 K/uL (0.00-0.02); Immature Granulocytes % (auto) 3.6 %; Lymphocytes % (auto) 14.1 %; Mean Corpuscular Hgb Conc 34.1 g/dL (32-36); Mean Corpuscular Volume 90.9 fL (80-100); Mean Platelet Volume 10.7 fL (7.4-10.4); Monocytes % (auto) 20.4 %; Neutrophils # (auto) 8.48 K/uL (1.4-6.5); Neutrophils % (auto) 59.7 %; Platelet Count 310 K/uL (130-400); RDW Coefficient of Variation 16.7 % (11.5-14.5); RDW Standard Deviation 54.8 fL (36.4-46.3); Red Blood Count 4.51 M/uL (4.2-5.4)
[2020-05-28 02:05] LABS: Albumin Level 3.6 gm/dl (3.4-5.0); BUN Creatinine Ratio 19.1 (10-20); Bilirubin Direct 0.1 mg/dl (0-0.2); Calcium 9.6 mg/dl (8.5-10.1); Creatinine Clr Calc Pharmacy 49.4 ml/min; Est GFR (African American) 64.8; Est GFR (Non-African American) 55.9; Magnesium 1.7 mg/dl (1.8-2.4); Potassium 4.2 mmol/L (3.5-5.1)
[2020-05-28 02:09] LABS: Bilirubin,Total 0.5 mg/dl (0.2-1); Total Protein 6.7 gm/dl (6.4-8.2); Troponin I 0.018 ng/ml (0-0.045)
[2020-05-28] MEDS ORDERED: Heparin IV Adult Wt-Based Low-Dose WITH Bolus Protocol IV STA (06:09)
[2020-05-28] MEDS ORDERED: HEPARIN SODIUM/DEXTROSE 25,000 UNITS/500 ML BAG IV SCH ×2 (06:15→14:43)
[2020-05-28] MEDS ORDERED: HEPARIN SOD (PORCINE) 1000 UNIT/ML 10 ML VIAL ONE (06:35)
--- NOTE | 2020-05-28 07:23 | XRay Report ---
XR chest 1V portable CLINICAL HISTORY: substernal chest pain COMPARISON STUDY: Chest radiograph May 04, 2020. FINDINGS: Lung volumes are normal. There is no pneumothorax or pleural effusion. Pulmonary vascularit y is normal. There is no consolidation. Prosthetic cardiac valve is noted. Vascular stents project ov er the left upper chest and axilla. IMPRESSION: No acute cardiopulmonary findings. No change in appearance of the chest. ACT 112: Negative or not required by law. Electronically signed by: Nico Pinto M.D. 05/28/2020 7:22 AM
--- NOTE | 2020-05-28 07:48 | History & Physical Report ---
Date of Service May 28, 2020 Assessment & Plan (1) Chest pain, rule out acute myocardial infarction: Patient was discharged May 13 after admission for chest pain seen by Dr. Sunny Covarrubias cardiology during that admission they increased her nitrates and increase to her antiacid regiment. Patient was supposed to follow-up with Dr. Pereira further stratification testing was not pursued. Patient's had prior stents in her left main coronary artery extending into the LAD and circumflex, mid LAD, diagonal. He is noted to have severe mid LAD in- stent restenosis which medical therapy was recommended by [facility] in 2018. Since that time she is had periodic angina Patiently brought in our facility she will have troponins trended she was started on heparin by the emergency room physician and given an aspirin. She will be maintained in secondary risk prevention, she does have some slight increase in blood pressure and increasing control of this maybe helpful, will increase coreg (2) Diabetes mellitus: This is by her history we will continue on a carbohydrate conservative diet (3) CAD (coronary artery disease): As documented above patient is maintained on carvedilol isosorbide increased to 90 during her last hospital stay atorvastatin 40 aspirin typically 81 increased to 325 on admission and Effient (4) Dementia: Patient is pleasant memory loss most of history is garnered from her (5) Gastroesophageal reflux disease: Patient is supposed be on famotidine and Prilosec will continue both those medications or substitution for the PPI (6) Hypothyroidism: Continued on Synthroid Her last T4 was checked in 03/04 and in normal range (7) Renal artery stenosis: (8) S/P TAVR (transcatheter aortic valve replacement): (9) DVT prophylaxis: Therapeutic anticoagulated with heparin therapy at this time History of Present Illness Primary Care Provider: Marquise Clement MD 80 yr old female with known CAD with previous stents and tavr arrives with substernal lower chest pain. EKG on arrival similar to previous and only having mild pain. Already had had multiple rounds of SLNTG thus tried GI Cocktail. After this patient denies any further pain. She has dementia and memory issues which makes getting history a bit challenging though on repeat evaluations she denies any symptoms and notes feeling well. CXR Clear, labs initially unremarkable. . She was monitored overnight in ED and second set trop was elevated. Repeat Trop was elevated. Given her history it was felt starting heparin reasonable and her comfortable with this plan. No symptoms concerning for dissection at this time, and no recent head injuries nor bleeding. Per report she received ASA 324mg PO by EMS prior to arrival. Pt has a history of CAD which has been managed medically recently with hospitalization a few weeks ago with negative rule out. CP resolved and she had her isosorbide increased and pepcid added. Her was no longer present and the pt does not recall her last hospital stay. She states that since then she maybe feeling slightly more short of breath Allergies Allergy/AdvReac Type Severity Reaction Status Date / Time adhesive Allergy Intermediate RED RASH Verified 05/28/20 01:25 clindamycin Allergy Mild Rash Verified 05/28/20 01:25 latex Allergy Mild RASH Verified 05/28/20 01:25 Penicillins Allergy Unknown HIVES Verified 05/28/20 01:25 Home Medications Medication Instructions Recorded Confirmed Type aspirin 81 mg PO HS 11/23/18 05/28/20 History nitroglycerin 0.4 mg sublingual 0.4 mg SUBLINGUAL USEASDIRECTD PRN 05/25/1905/15 Rx tablet #25 tab azithromycin 500 mg tablet 500 mg PO .COMPLEX 1 Days #3 tab 10/12/19 05/28/20 Rx multivitamin 1 tab PO QAM 12/15/19 05/28/20 History atorvastatin 40 mg tablet 40 mg PO HS #90 tab 01/12/20 05/28/20 Rx carvedilol 12.5 mg tablet 12.5 mg PO BID #60 tab 02/01/20 05/28/20 Rx Premarin 0.45 mg PO QAM 05/12/20 05/28/20 History amlodipine 5 mg PO QAM 05/12/20 05/28/20 History donepezil 5 mg PO QAM 05/12/20 05/28/20 History isosorbide mononitrate 60 mg PO QAM 05/12/20 05/28/20 History levothyroxine [Synthroid] 112 mcg PO QAM 05/12/20 05/28/20 History omeprazole 20 mg PO QAM 05/12/20 05/28/20 History prasugrel [Effient] 10 mg PO QAM 05/12/20 05/28/20 History isosorbide mononitrate 30 mg 30 mg PO DAILY #90 tab 05/13/20 05/28/20 Rx tablet,extended release 24 hr Past Med/Surg History Medical History (Updated 05/28/20 @ 16:51 by Blair Lang MD) Anemia Angina pectoris ASCVD (arteriosclerotic cardiovascular disease) CAD (coronary artery disease) Carotid artery stenosis Decreased exercise tolerance Dementia Diverticulosis Dyspnea Elevated serum creatinine Fatigue Gastroesophageal reflux disease History of ST elevation myocardial infarction (STEMI) Hypercholesterolemia Hyperlipidemia Hypertension Hypertensive urgency Hypothyroidism Intermittent claudication Internal hemorrhoids Lumbosacral radiculopathy at L5 Lupus Memory loss Microscopic hematuria Osteopenia Peripheral vascular disease Polyneuropathy Renal artery stenosis Sciatica STEMI (ST elevation myocardial infarction) Tinnitus, unspecified ear Vertigo Surgical History History of cardiac cath History of heart artery stent History of heart valve replacement S/P drug eluting coronary stent placement (2018) S/P TAVR (transcatheter aortic valve replacement) (2018) Social History Smoking Status: Never smoker Tobacco Type: Cigarettes Second Hand Exposure: No; Do You Dip or Chew Tobacco: No; Tobacco Cessation Education Requested by Patient: No Hx Alcohol Use: No Hx Substance Use: No Preferred Language: Setswana Communication Ability: Effective Sorority Supervisor Required: No Beliefs That Will Affect Care: None Current Living Situation: Spouse current occupation: N/A Other Information That Helps Us Care for You: No Feels Safe at Home: Yes Safety Concerns: Feels Safe At This Time Assistive Devices: None Review of Systems Review of Systems: Mild distress and fatigue no headache, blurry or double vision no speech or swallowing issues According to her she has been experiencing chest pain no shortness of breath, cough or wheezes no abdominal pain, nausea or vomiting, diarrhea or constipation no dysuria, hematuria or frequency no focal joint pain or swelling no back pain, CVA tenderness or radicular pain no bruising, bleeding or rashes no focal signs of weakness or numbness or altered sensation no complaints of anxiety or depression.. Physical Exam Physical Exam: The patient appeared well nourished and normally developed. Vital signs as documented. Head exam is normocephalic atraumatic no scleral icterus Neck is without JVD, thyromegaly, or carotid bruits. Lungs are clear to auscultation, no focal loss of breath sounds Cardiac exam, Rhythm is regular.. No murmurs, rubs or gallops. Abdominal exam reveals normal bowel sounds, soft non tender, no masses Extremities are nonedematous and both pedal pulses are present Neurologic exam is alert and oriented, no focal loss of strength or sensation Skin is without bruises or rashes Psychologically is without concerns for anxiety or depression. Results & Data Results & Data ([facility]) Vital Signs (Past 12 Hours) Vital Signs Temp Pulse Pulse Resp BP BP Pulse Ox 05/28/20 06:35 70 18 182/71 H 97 05/28/20 03:56 68 18 160/93 H 95 05/28/20 01:55 75 18 168/88 H 97 05/28/20 01:08 98.2 F 92 H 18 217/111 H 98 PG Care Time/CCT Total # of Minutes Spent Total Time Spent with Patient: Total time spent is greater than 50% in coordination of care (as documented) at patient's floor/unit and/or counseling patient: Coding Level of Care Code 39156 Initial Inpt Care Lvl 2 Diagnoses Chest pain, rule out acute myocardial infarction R07.9 Diabetes mellitus E11.9 CAD (coronary artery disease) I25.10 Dementia F03.90 Gastroesophageal reflux disease K21.9 Hypothyroidism E03.9 Renal artery stenosis I70.1 S/P TAVR (transcatheter aortic valve replacement) Z95.2 DVT prophylaxis Z29.9
[2020-05-28] MEDS ORDERED: carvediloL 25 MG TAB PO ONE (12:52)
[2020-05-28] MEDS ORDERED: amLODIPine BESYLATE 5 MG TAB PO ONE (12:53)
[2020-05-28] MEDS ORDERED: FAMOTIDINE 20 MG TAB PO ONE (12:58)
[2020-05-28] MEDS ORDERED: ISOSORBIDE MONO EXTENDED REL 60 MG TABCR PO ONE (12:59)
[2020-05-28] MEDS ORDERED: LEVOTHYROXINE SODIUM 112 MCG TABLET PO ONE (13:04)
[2020-05-28] MEDS ORDERED: PANTOprazole 40 MG TAB PO ONE (13:30)
[2020-05-28 14:24] LABS: Partial Thromboplastin Ratio 1.8
[2020-05-28 14:30] LABS: Partial Thromboplastin Time 51.4 Seconds (21.0-31.0)
[2020-05-28] MEDS ORDERED: ACETAMINOPHEN 325 MG TAB PO PRN (14:43)
[2020-05-28] MEDS ORDERED: MoRPHine SULFATE 2 MG/ML CARP IV PRN (14:43)
[2020-05-28] MEDS ORDERED: ALUMINUM/MAGNESIUM SUSP 30 ML UDC PO PRN (14:43)
[2020-05-28] MEDS ORDERED: NITROGLYCERIN SL 0.4 MG/TAB TAB SL PRN (14:43)
[2020-05-28] MEDS ORDERED: ONDANSETRON INJ 2 MG/ML 2 ML VIAL IV PRN (14:43)
[2020-05-28] MEDS: Heparin IV Adult Wt-Based Standard *NO* Bolus Protocol IV SCH ×6 (14:58→16:18)
[2020-05-28] MEDS ORDERED: MAGNESIUM SULFATE / D5W 1 GM/100 ML BAG IV ONE (15:00)
[2020-05-28] MEDS: DONEPEZIL HCL 5 MG TAB PO SCH (16:23)
[2020-05-28] MEDS: ESTROGENS, CONJUGATED 0.45 MG TAB PO SCH (16:23)
[2020-05-28] MEDS: PRASugrel TAB 10 MG TAB PO SCH (16:23)
--- NOTE | 2020-05-28 16:34 | Cardiology Consultation ---
Date of Consultation May 28, 2020 Assessment & Plan (1) Chest pain: (2) CAD (coronary artery disease): (3) Elevated troponin: (4) Hypertension: (5) Hypercholesterolemia: (6) S/P drug eluting coronary stent placement: (7) S/P TAVR (transcatheter aortic valve replacement): ASSESSMENT/PLAN: 1. Chest pain: History difficult due to patient's memory however it appears as though symptoms tend to occur at night after getting out of bed to use the restroom. Given the fact that troponins are slightly elevated, but not diagnostic of myocardial infarction, ischemia could be playing a role, especially with known underlying CAD and significant hypertension. Agree with titration of beta-long to improve blood pressure and also for antianginal effect. Could also consider further titrating nitrate therapy. Recommend conservative therapy for now given prior CAD on catheterization that was not amenable to PCI. Dr. Clement has requested barium swallow which will be arranged by hospitalist service. 2. CAD s/p multiple PCI (LMCA into LAD and Cx, mid LAD and diagonal): She has had occasional angina in the past but more recent frequency has increased according to . Continue aspirin 81 mg daily indefinitely. Continue Effient, but can be held or discontinued for contraindications or adverse reaction. Agree with titration of beta-lnog. Continue nitrate therapy which can also be titrated. Continue calcium channel long and high-intensity statin therapy. 3. Aortic stenosis s/p TAVR: She underwent valve replacement at [facility] [place] March of [place]. 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 She has recovered well since then and follows with vascular (Dr. Nogueira). She had residual dyspnea with exertion following valve replacement. SBE prophylaxis. Appropriately functioning valve based on Apr 2020 echo. 4. Hypertension: Blood pressure has been elevated consistently throughout the day. Agree with titration of beta-long. Continue amlodipine. She had possible orthostatic symptoms in the past on higher doses of amlodipine which improved with reduction in the dose. 5. Dyslipidemia: Continue high-intensity statin therapy. 6. Elevated troponin: Not diagnostic of myocardial infarction. Can discontinue heparin drip and use DVT prophylaxis doses. Had recent echo for same symptoms. 7. Mitral regurgitation: Moderate on most recent echo less than 1 month ago. Can be monitored over time. 8. Disposition: Cardiology will continue to follow. Patient care discussed with Dr. Clement, her PCP as per request from patient's . Patient care also discussed with Dr. King of the primary hospitalist service. Greater than 40 minute spent with today's visit, including counseling and coordinating care with multiple providers as noted above. Thank you for allowing me to participate in the care of your patient. Please call for any other questions or concerns. Sincerely, Bam Lang M.D. History of Present Illness Reason for Consultation: Question NSTEMI Requesting Physician: Blanco King MD Attending Physician: Blanco King MD History of Present Illness Mrs. Brush is a pleasant 80-year-old female with a history significant for CAD s/p PCI, aortic stenosis s/p TAVR, dyslipidemia, hypertension, and type 2 diabetes. She also has peripheral arterial disease status post right lower extremity bypass graft. She has had the following studies/procedures: 1. Femoral popliteal artery bypass 12/06/[address] Downs at [facility]. 2. Right renal artery stent 2013. Dr. Downs. 3. Right renal artery balloon angioplasty January 2015. 4. Lower extremity duplex 09/10/2015: Widely patent right lower extremity femoral popliteal artery bypass graft with no evidence of stenosis. 5. Renal artery duplex 09/10/2015: Right proximal renal artery stent patent. Normal left renal artery. 6. Echo 11/28/2015: Normal LV size, wall motion, systolic function. EF 60-65%. Type 1 diastolic dysfunction. Moderate aortic stenosis (personally reviewed). Dimensionless index 0.33; mean gradient 23; peak velocity 3.17 m/s. PEGGY 1 cm2 (after LVOT remeasured at 2 cm). 7. Cardiac catheterization 01/21/2016: Mid LAD 80%. Mid circumflex 30%. Distal circumflex 50%. Dominant RCA. Proximal RCA 20%. PCI of mid LAD with 2.25 x 18 mm Xience DELLA. LVEDP 11. Peak to peak aortic valve gradient 25. 8. Cardiac catheterization 12/02/2016: (NSTEMI pk trop 1.88) mid LAD 60-70% prior to previous mid LAD stent, extending into proximal aspect of stent. 40- 50% stenosis distal to mid LAD stent. Ostial ramus 40-50%. Mid ramus 50%. Proximal RCA 20%. Distal RCA 20%. FFR of mid LAD 0.76. Mid LAD PCI with overlapping 2.25 x 30 mm resolute DELLA, post dilated with 2.5 noncompliant balloon. 9. Cardiac catheterization 06/07/2017: (ACS with minimal trop elevation) proximal LAD 20%. Mid LAD stent 99% stenosis proximally with 70% stenosis involving the distal aspect of the stent extending beyond the stent. SALLIE 1-2 flow. Few right to left collaterals to apical LAD. Ostial D1 80-90%. Ostial ramus 40-50%. Mid ramus 50%. Proximal RCA 20%. Distal RCA 20-30%. Mid LAD in stent restenoses underwent [employer] to the stent with 1 overlapping stent 2.25 x 15 m m Xience DELLA to distal aspect of the prior stent. POBA of ostial D1. 10. Echo 10/18/2017: Normal LV systolic function. Normal wall motion. EF 65- 70%. Mild LVH. Type 1 diastolic dysfunction. Aortic stenosis (peak velocity 2.92 m/sec; mean gradient 20; PGEGY 0.6). 11. Cardiac catheterization 10/19/2017: (Unstable angina): Proximal LAD 20%. Proximal aspect of mid LAD stent 70%. Ostial D1 90+ %. Ostial ramus 40-50%. Mid ramus 50%. Proximal RCA 20%. Distal RCA 20-30%. LVEDP 8. PCWP 2. Cardiac index 2 via thermodilution. Mean aortic valve gradient 31.2. Aortic valve area 0.66 cm2. Severe aortic stenosis. Interventional Cardiology recommended PCI with possible TAVR vs AVR with CABG. Family opted for PCI and TAVR consideration. 12. Cardiac catheterization 10/20/2017: Planned PCI. Ostial D1 PCI with 2.5 x 18 mm Xience DELLA from proximal LAD into the diagonal. LAD and diagonal bifurcation post dilated with kissing balloon 2.75 noncompliant within the diagonal and 2.5 within the LAD. With moderate residual mid LAD stenosis following POBA (minimal per IVUS), noninvasive ischemic evaluation was recommended by interventional Cardiology prior to TAVR evaluation. 13. Cardiac catheterization [facility] 01/20/2018: Distal LM CA 70% involving LAD and circumflex which underwent 3 x 23 mm Xience DELLA into the circumflex and 3.5 x 15 mm Xience DELLA into the LAD. Small ramus 60%. Mid LAD 80% in stent restenoses. Previous stent appear deformed. Mid circumflex 20%. 14. TAVR at [facility] 02/11/18: 23 mm Yeung Jayme 3 valve. Complicated with left brachial thrombus, which underwent left brachial stenting followed by brachial artery thrombectomy. 15. Echo [facility] 03/22/2018: Normal LV size, wall motion, systolic function. EF 65- 70%. Mild LVH. Type 1 diastolic dysfunction. Mild to moderately dilated left atrium. Well-seated transcatheter aortic valve replacement with normal hemodynamics. 16. Holter 05/31/2018: Sinus rhythm first-degree AV block. Average heart rate 61 bpm, ranging 45 up to 98 bpm. Isolated PACs and nonsustained SVT/atrial tachycardia up to 7 beats in duration. Isolated PVCs. 17. Echo 06/20/2019: Normal LV size, wall motion, systolic function. EF 65- 70%. s/p TAVR with acceptable transvalvular gradient/velocity. She is a very poor historian. She has very poor memory. Her provided the majority of the history via telephone call. She has been able to voice symptoms in the past, but cannot typically recall events to provide a detailed history. She was hospitalized earlier today for chest discomfort. She was hospitalized briefly April of 2020 for similar symptoms. Her troponin at that time remained undetectable. She states that she is currently chest pain-free and recalls having chest pain and also back pain at the same time. She describes the pain as a squeezing sensation. Her states that between the hours of 10 and 11:00 p.m., she is typically laying in bed watching television. When he comes up to bed he reminds her to use the restroom. After returning to bed from the restroom, she has been occasionally verbalizing chest discomfort with back pain. He has given her nitroglycerin which typically resolves the pain in 5-10 minutes but it can recur approximately 30 minutes later. Symptoms have been occurring a bit more frequently than in the past. She has chronic but stable dyspnea with exertion but denies shortness of breath at rest, orthopnea, palpitations, syncope, near-syncope, or edema. There has not been any reported bleeding. She feels at her usual baseline currently. She has been seen by her PCP, Dr. Clement, who also is concerned about esophageal dysmotility. Upper GI was scheduled for tomorrow but her canceled it now that she has been admitted. Her would like for this to be done while hospitalized. Dr. Clement has requested the same. Incidentally, her states that she is able to climb a flight of stairs each night to go to bed and does not complain of chest pain during this activity. Review of systems: As above. Review of systems are otherwise unremarkable or unobtainable due to patient's memory. Family history: Father diagnosed with CAD in his 50s. Social history: Quit smoking greater than 30 years ago. Occasional alcohol. One son. No grand children. She is retired. 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 She was alone in her hospital room. Allergies Allergy/AdvReac Type Severity Reaction Status Date / Time adhesive Allergy Intermediate RED RASH Verified 05/28/20 01:25 clindamycin Allergy Mild Rash Verified 05/28/20 01:25 latex Allergy Mild RASH Verified 05/28/20 01:25 Penicillins Allergy Unknown HIVES Verified 05/28/20 01:25 Home Medications Medication Instructions Recorded Confirmed Type aspirin 81 mg PO HS 11/23/18 05/28/20 History nitroglycerin 0.4 mg sublingual 0.4 mg SUBLINGUAL USEASDIRECTD PRN 05/25/19 05/28/20 Rx tablet #25 tab azithromycin 500 mg tablet 500 mg PO .COMPLEX 1 Days #3 tab 10/12/19 05/28/20 Rx multivitamin 1 tab PO QAM 12/15/19 05/28/20 History atorvastatin 40 mg tablet 40 mg PO HS #90 tab 01/12/20 05/28/20 Rx carvedilol 12.5 mg tablet 12.5 mg PO BID #60 tab 02/01/20 05/28/20 Rx Premarin 0.45 mg PO QAM 05/12/20 05/28/20 History amlodipine 5 mg PO QAM 05/12/20 05/28/20 History donepezil 5 mg PO QAM 05/12/20 05/28/20 History isosorbide mononitrate 60 mg PO QAM 05/12/20 05/28/20 History levothyroxine [Synthroid] 112 mcg PO QAM 05/12/20 05/28/20 History omeprazole 20 mg PO QAM 05/12/20 05/28/20 History prasugrel [Effient] 10 mg PO QAM 05/12/20 05/28/20 History isosorbide mononitrate 30 mg 30 mg PO DAILY #90 tab 05/13/20 05/28/20 Rx tablet,extended release 24 hr Patient History Medical History (Updated 05/28/20 @ 16:51 by Blair Lang MD) Anemia Angina pectoris ASCVD (arteriosclerotic cardiovascular disease) CAD (coronary artery disease) Carotid artery stenosis Decreased exercise tolerance Dementia Diverticulosis Dyspnea Elevated serum creatinine Fatigue Gastroesophageal reflux disease History of ST elevation myocardial infarction (STEMI) Hypercholesterolemia Hyperlipidemia Hypertension Hypertensive urgency Hypothyroidism Intermittent claudication Internal hemorrhoids Lumbosacral radiculopathy at L5 Lupus Memory loss Microscopic hematuria Osteopenia Peripheral vascular disease Polyneuropathy Renal artery stenosis Sciatica STEMI (ST elevation myocardial infarction) Tinnitus, unspecified ear Vertigo Surgical History History of cardiac cath History of heart artery stent History of heart valve replacement S/P drug eluting coronary stent placement (2018) S/P TAVR (transcatheter aortic valve replacement) (2018) Social History Smoking Status: Never smoker Tobacco Type: Cigarettes Second Hand Exposure: No; Do You Dip or Chew Tobacco: No; Tobacco Cessation Education Requested by Patient: No Hx Alcohol Use: No Hx Substance Use: No Preferred Language: Slovak Communication Ability: Effective Manager Requirements Required: No Beliefs That Will Affect Care: None Current Living Situation: Spouse current occupation: N/A Other Information That Helps Us Care for You: No Feels Safe at Home: Yes Safety Concerns: Feels Safe At This Time Assistive Devices: None Physical Exam Physical Exam: Gen.: No acute distress. Alert. HEENT: Anicteric sclera. Neck: No JVD. Bilateral bruit vs radiation of cardiac murmur. Normal carotid upstrokes. Cardiac: PMI was nondisplaced. No ventricular heave. Regular. No ectopy. Normal S1-S2. 2/6 early peaking systolic ejection murmur heard best at right upper sternal border. No rubs or gallops. Pulmonary: Clear to auscultation bilaterally without wheezes, rales, or rhonchi. Abdomen: Soft, nontender, nondistended, with normoactive bowel sounds. No bruits noted. Extremities: Right radial pulse was very weak (chronic). 2+ left radial pulse. 1+ posterior tibialis pulses bilaterally. No significant pitting edema or cyanosis. No palpable cords. Psychiatric: Affect appears appropriate. Chest: Nontender to palpation. Results & Data ([facility]) Vital Signs (Past 12 Hours) Vital Signs Temp Pulse Resp BP Pulse Ox 05/28/20 14:45 37.1 C 83 16 168/72 H 98 05/28/20 12:37 67 16 219/88 H 97 05/28/20 10:43 69 18 195/90 H 96 05/28/20 09:16 76 18 187/95 H 93 05/28/20 08:34 67 16 182/71 H 93 05/28/20 06:35 70 18 182/71 H 97 Laboratory Results Laboratory Results - last 24 hr 05/28/20 05/28/20 05/28/20 01:34 01:34 05:19 WBC 14.20 H RBC 4.51 Hgb 14.0 Hct 41.0 MCV 90.9 MCH 31.0 MCHC 34.1 RDW Std Deviation 54.8 H RDW Coeff of Minerva 16.7 H Plt Count 310 MPV 10.7 H Immature Gran % (Auto) 3.6 Neut % (Auto) 59.7 Lymph % (Auto) 14.1 Mora % (Auto) 20.4 Eos % (Auto) 1.9 Baso % (Auto) 0.3 Neut # (Auto) 8.48 H Lymph # (Auto) 2.00 Mora # (Auto) 2.90 H Eos # (Auto) 0.27 Baso # (Auto) 0.04 Immature Gran # (Auto) 0.51 H APTT PTT Ratio Sodium 137 Potassium 4.2 Chloride 106 Carbon Dioxide 22 Anion Gap 8.0 BUN 19 H Creatinine 0.97 Est Cr Clr Drug Dosing 49.4 Est GFR ( Amer) 64.8 Est GFR (Non-Af Amer) 55.9 BUN/Creatinine Ratio 19.1 Glucose 135 H Calcium 9.6 Magnesium 1.7 L Total Bilirubin 0.5 Direct Bilirubin 0.1 AST 18 ALT 23 Alkaline Phosphatase 105 Troponin I 0.018 0.071 H* Total Protein 6.7 Albumin 3.6 Lipase 224 SARS-CoV-2 Ag (Rapid) 05/28/20 05/28/20 05/28/20 06:37 13:41 14:52 WBC RBC Hgb Hct MCV MCH MCHC RDW Std Deviation RDW Coeff of Minerva Plt Count MPV Immature Gran % (Auto) Neut % (Auto) Lymph % (Auto) Mora % (Auto) Eos % (Auto) Baso % (Auto) Neut # (Auto) Lymph # (Auto) Mora # (Auto) Eos # (Auto) Baso # (Auto) Immature Gran # (Auto) APTT 51.4 H* PTT Ratio 1.8 Sodium Potassium Chloride Carbon Dioxide Anion Gap BUN Creatinine Est Cr Clr Drug Dosing Est GFR ( Amer) Est GFR (Non-Af Amer) BUN/Creatinine Ratio Glucose Calcium Magnesium Total Bilirubin Direct Bilirubin AST ALT Alkaline Phosphatase Troponin I 0.075 H* Total Protein Albumin Lipase SARS-CoV-2 Ag (Rapid) Negative Diagnostic Findings Telemetry personally reviewed: Sinus rhythm. No arrhythmia. Echo 05/13/2020: EF 50-55%. No regional wall motion abnormalities. Appropriately functioning bioprosthetic aortic valve. Mild MR. RVSP 44. ECGs personally reviewed: ECG 05/28/2020 at 1:11 a.m.: Sinus rhythm with first-degree AV block and PACs at 88 beats per minute. LVH with repolarization abnormality. Possible septal infarct. T-wave inversion now more inverted compared to prior study on 05/12/2020. ECG 05/28/2020 at 3:19 p.m.: Sinus rhythm with first-degree AV block. LVH with repolarization abnormality. Possible inferior infarct. Anteroseptal infarct. Chest x-ray 05/28/2020: No acute cardiopulmonary findings per Radiology. Medications Administered Current Inpatient Medications Acetaminophen (Acetaminophen 325 Mg Tab) 650 mg PO Q4H PRN PRN Reason: Pain or Fever Stop: 06/27/20 14:42 Al Hydrox/Mg Hydrox/Simethicone (Aluminum/Magnesium Susp 30 Ml Udc) 15 ml PO Q4H PRN PRN Reason: Dyspepsia Stop: 06/27/20 14:42 Amlodipine Besylate (Amlodipine Besylate 5 Mg Tab) 5 mg PO QAM JAY JAY Stop: 06/28/20 08:59 Aspirin (Aspirin 81 Mg Ectab) 81 mg PO HS JAY JAY Stop: 06/27/20 20:59 Atorvastatin Calcium (Atorvastatin 40 Mg Tab) 40 mg PO HS [facility] Stop: 06/27/20 20:59 Carvedilol (Carvedilol 25 Mg Tab) 25 mg PO BID [facility] Stop: 06/27/20 20:59 Donepezil HCl (Donepezil Hcl 5 Mg Tab) 5 mg PO QAM [facility] Stop: 06/27/20 14:59 Last Admin: 05/28/20 16:23 Dose: 5 mg Documented by: Estrogens Conjugated (Estrogens, Conjugated 0.45 Mg Tab) 0.45 mg PO QAM [facility] Stop: 06/27/20 14:59 Last Admin: 05/28/20 16:23 Dose: 0.45 mg Documented by: Famotidine (Famotidine 20 Mg Tab) 20 mg PO BID [facility] Stop: 06/27/20 20:59 Heparin Sodium/Dextrose (Heparin Sodium/Dextrose) 25,000 units in 500 mls @ 23 mls/hr IV .[id number] [facility]; Protocol Stop: 06/27/20 14:42 Last Admin: 05/28/20 14:58 Dose: 800 units/hr, 16 mls/hr Documented by: Magnesium Sulfate/Dextrose (Magnesium Sulfate / D5w) 1 gm in 100 mls @ 50 mls/hr IV ONE ONE Stop: 05/28/20 16:59 Last Admin: 05/28/20 15:05 Dose: 50 mls/hr Documented by: Isosorbide Mononitrate (Isosorbide Mora Extended Rel 60 Mg Tabcr) 60 mg PO QAM [facility] Stop: 06/28/20 08:59 Levothyroxine Sodium (Levothyroxine Sodium 112 Mcg Tablet) 112 mcg PO DAILYBB [facility] Stop: 06/28/20 06:29 Morphine Sulfate (Morphine Sulfate 2 Mg/Ml Carp) 2 mg IV Q30M PRN PRN Reason: Chest Pain Stop: 06/11/20 14:42 Nitroglycerin (Nitroglycerin Sl 0.4 Mg/Tab Tab) 0.4 mg SL UD PRN PRN Reason: Chest Pain Stop: 06/27/20 14:42 Ondansetron HCl (Ondansetron Inj 2 Mg/Ml 2 Ml Vial) 4 mg IV Q6H PRN PRN Reason: Nausea Stop: 06/27/20 14:42 Pantoprazole Sodium (Pantoprazole 40 Mg Tab) [facility] [place] Stop: 06/28/20 08:59 Prasugrel (Prasugrel Tab 10 Mg Tab) 10 mg PO QAM [facility] Stop: 06/27/20 14:59 Last Admin: 05/28/20 16:23 Dose: 10 mg Documented by: PG Care Time/CCT Total # of Minutes Spent Total Time Spent with Patient: Total time spent is greater than 50% in coordination of care (as documented) at patient's floor/unit and/or counseling patient: Coding Level of Care Code 37050 Office/Outpt Visit, Est Diagnoses Chest pain R07.9 Chest pain type: unspecified CAD (coronary artery disease) I25.10 Elevated troponin R77.8 Hypertension I10 Hypercholesterolemia E78.00 S/P drug eluting coronary stent placement Z95.5 S/P TAVR (transcatheter aortic valve replacement) Z95.2 (1) Chest pain Chest pain type: unspecified Qualified Code(s): R07.9 - Chest pain, unspecified
--- NOTE | 2020-05-28 19:41 | Electrocardiogram Report ---
Test Reason : Blood Pressure : / mmHG Vent. Rate : 088 BPM Atrial Rate : 088 BPM P-R Int : 234 ms QRS Dur : 104 ms QT Int : 374 ms P-R-T Axes : 054 -51 099 degrees QTc Int : 452 ms Sinus rhythm with 1st degree A-V block with Premature atrial complexes Left axis deviation Left ventricular hypertrophy with repolarization abnormality Cannot rule out Septal infarct (cited on or before 17-OCT-2017) Abnormal ECG When compared with ECG of 12-MAY-2020 11:03, Premature atrial complexes are now Present Criteria for Inferior infarct are no longer Present Questionable change in initial forces of Anterior leads T wave inversion now evident in Lateral leads Confirmed by Blair Lang ([id number]) on 05/28/2020 7:41:39 PM Referred By: REFERRED SELF Confirmed By:Blair Lang
--- NOTE | 2020-05-28 19:42 | Electrocardiogram Report ---
Test Reason : Blood Pressure : / mmHG Vent. Rate : 084 BPM Atrial Rate : 084 BPM P-R Int : 246 ms QRS Dur : 106 ms QT Int : 394 ms P-R-T Axes : 054 -51 102 degrees QTc Int : 465 ms Sinus rhythm with 1st degree A-V block with Premature atrial complexes Left axis deviation Anteroseptal infarct (cited on or before 17-OCT-2017) Left ventricular hypertrophy with repolarization abnormality Abnormal ECG When compared with ECG of 28-MAY-2020 01:11, Questionable change in initial forces of Anterior leads Confirmed by Blair Lang ([id number]) on 05/28/2020 7:42:49 PM Referred By: REFERRED SELF Confirmed By:Blair Lang
[2020-05-28] MEDS: ATORVASTATIN 40 MG TAB PO SCH (20:36)
[2020-05-28] MEDS: carvediloL 25 MG TAB PO SCH (20:36)
[2020-05-28] MEDS: ASPIRIN 81 MG ECTAB PO SCH (20:36)
[2020-05-28] MEDS: FAMOTIDINE 20 MG TAB PO SCH (20:36)
[2020-05-29 05:01] LABS: BUN Creatinine Ratio 18.6 (10-20); Calcium 9.6 mg/dl (8.5-10.1); Creatinine Clr Calc Pharmacy 50.9 ml/min; Est GFR (African American) 67.3; Est GFR (Non-African American) 58.1; Potassium 3.6 mmol/L (3.5-5.1)
--- NOTE | 2020-05-29 05:37 | Electrocardiogram Report ---
Test Reason : Blood Pressure : / mmHG Vent. Rate : 066 BPM Atrial Rate : 066 BPM P-R Int : 242 ms QRS Dur : 098 ms QT Int : 432 ms P-R-T Axes : 012 -46 107 degrees QTc Int : 452 ms Sinus rhythm with 1st degree A-V block Left axis deviation Left ventricular hypertrophy with repolarization abnormality Inferior infarct , age undetermined Anteroseptal infarct (cited on or before 17-OCT-2017) Abnormal ECG When compared with ECG of 28-MAY-2020 02:34, Premature atrial complexes are no longer Present Confirmed by Blair Lang ([id number]) on 05/29/2020 5:36:35 AM Referred By: REFERRED SELF Confirmed By:Blair Lang
[2020-05-29] MEDS: LEVOTHYROXINE SODIUM 112 MCG TABLET PO SCH (06:28)
[2020-05-29] MEDS: PRASugrel TAB 10 MG TAB PO SCH (07:53)
[2020-05-29] MEDS: FAMOTIDINE 20 MG TAB PO SCH ×2 (07:53→20:53)
[2020-05-29] MEDS: PANTOprazole 40 MG TAB PO SCH (07:54)
[2020-05-29] MEDS: amLODIPine BESYLATE 5 MG TAB PO SCH (07:54)
[2020-05-29] MEDS: ISOSORBIDE MONO EXTENDED REL 60 MG TABCR PO SCH (07:54)
[2020-05-29] MEDS: ESTROGENS, CONJUGATED 0.45 MG TAB PO SCH (07:55)
[2020-05-29] MEDS: carvediloL 25 MG TAB PO SCH ×2 (07:55→20:57)
[2020-05-29] MEDS: DONEPEZIL HCL 5 MG TAB PO SCH (07:55)
--- NOTE | 2020-05-29 10:48 | Fluoroscopy Report ---
FL barium swallow CLINICAL HISTORY: dysphagia to solids COMPARISON STUDY: None FLUOROSCOPY TIME: 1.4 minutes. NUMBER OF FLUOROSCOPIC IMAGES: 8 FINDINGS: Due to a hardware malfunction, all of the fluoroscopic spot images obtained was not able to be transm itted to the PACS workstation. A images were transferred and available for review. The findings eder wiseman at the time of fluoroscopy were discussed with the fluoroscopic technologist. There was no aspiration. No esophageal masses were visualized. The patient swallowed a one half inch barium tablet which freely passed into the stomach. There is mild disordered esophageal motility. IMPRESSION: 1. Mildly disordered esophageal motility ACT 112: Negative or not required by law. Electronically signed by: Yuri Shirley M.D. 05/29/2020 10:47 AM
--- NOTE | 2020-05-29 11:38 | Cardiology Progress Note ---
Date of Service May 29, 2020 Assessment & Plan (1) Chest pain: (2) CAD (coronary artery disease): (3) Elevated troponin: (4) Hypertension: (5) Hypercholesterolemia: (6) S/P drug eluting coronary stent placement: (7) S/P TAVR (transcatheter aortic valve replacement): ASSESSMENT/PLAN: 1. Chest pain: History difficult due to patient's memory however it appears as though symptoms tend to occur at night after getting out of bed to use the restroom. Given the fact that troponins are slightly elevated, but not diagnostic of myocardial infarction, ischemia could be playing a role, especially with known underlying CAD and significant hypertension. Beta-long has been titrated on presentation by hospitalist service. Blood pressure has improved. No further chest pain thus far. Could also consider further titrating nitrate therapy if necessary. Recommend conservative therapy for now given prior CAD on catheterization that was not amenable to PCI. Dr. Clement has requested barium swallow and mild dysmotility was reported. Continue nitrate therapy. 2. CAD s/p multiple PCI (LMCA into LAD and Cx, mid LAD and diagonal): She has had occasional angina in the past but more recent frequency has increased according to . Continue aspirin 81 mg daily indefinitely. Continue Effient, but can be held or discontinued for contraindications or adverse reaction. Beta-long has been titrated. Continue nitrate therapy which can also be titrated. Continue calcium channel long and high-intensity statin therapy. 3. Aortic stenosis s/p TAVR: She underwent valve replacement at [facility] in March of 2018. 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 She has recovered well since then and follows with vascular (Dr. Nogueira). She had residual dyspnea with exertion following valve replacement. SBE prophylaxis. Appropriately functioning valve based on Apr 2020 echo. 4. Hypertension: Blood pressure has been elevated, and although it remains mildly elevated, it has improved with increased beta-long. Continue current dose of carvedilol, 25 mg twice daily as tolerated. Continue amlodipine. She had possible orthostatic symptoms in the past on higher doses of amlodipine which improved with reduction in the dose. She reports lightheadedness today. Recommend orthostatic vitals. 5. Dyslipidemia: Continue high-intensity statin therapy. 6. Elevated troponin: Not diagnostic of myocardial infarction. Plan as above. 7. Mitral regurgitation: Moderate on most recent echo less than 1 month ago. Can be monitored over time. 8. Disposition: Patient care discussed with Dr. King of the primary hosp italist service. Please call with any other questions or concerns. Admission and Anticipated Discharge Date Admission Date: May 28, 2020 Subjective She was seen earlier this morning. She denied any further chest pain although she is a poor historian, with memory difficulties. She denies shortness of breath, syncope, palpitations, or edema. She reports if she perhaps felt lightheaded earlier today when standing up. Review of systems: As above. Physical Exam Physical Exam: Gen.: No acute distress. Alert. HEENT: Anicteric sclera. Neck: No JVD. Cardiac: No ventricular heave. Regular. No ectopy. Normal S1-S2. 2/6 early peaking systolic ejection murmur heard best at right upper sternal border. No rubs or gallops. Pulmonary: Clear to auscultation bilaterally without wheezes, rales, or rhonchi. Abdomen: Soft, nontender, nondistended, with normoactive bowel sounds. No bruits noted. Extremities: Right radial pulse was very weak (chronic). 2+ left radial pulse. 1+ posterior tibialis pulses bilaterally. No significant pitting edema or cyanosis. No palpable cords. Psychiatric: Affect appears appropriate. Results & Data ([facility]) Vital Signs (Past 12 Hours) Vital Signs Temp Pulse Resp BP Pulse Ox 05/29/20 07:38 36.7 C 05/29/20 04:00 36.8 C 62 20 156/73 H 96 05/29/20 00:00 36.5 C 56 L 16 179/73 H 96 Laboratory Results Laboratory Results - last 24 hr 05/28/20 05/29/20 05/29/20 14:45 04:30 11:54 Sodium 138 Potassium 3.6 Chloride 108 H Carbon Dioxide 23 Anion Gap 7.0 BUN 17 Creatinine 0.94 Est Cr Clr Drug Dosing 50.9 Est GFR ( Amer) 67.3 Est GFR (Non-Af Amer) 58.1 BUN/Creatinine Ratio 18.6 Glucose 105 H POC Glucose 112 H Calcium 9.6 Nasal Screen MRSA (PCR) Negative Diagnostic Findings Telemetry personally reviewed: Sinus rhythm. Barium swallow 05/29/2020: Mildly disordered esophageal motility per Radiology. Medications Administered Current Inpatient Medications Acetaminophen (Acetaminophen 325 Mg Tab) 650 mg PO Q4H PRN PRN Reason: Pain or Fever Stop: 06/27/20 14:42 Al Hydrox/Mg Hydrox/Simethicone (Aluminum/Magnesium Susp 30 Ml Udc) 15 ml PO Q4H PRN PRN Reason: Dyspepsia Stop: 06/27/20 14:42 Amlodipine Besylate (Amlodipine Besylate 5 Mg Tab) [facility] Stop: 06/28/20 08:59 Last Admin: 05/29/20 07:54 Dose: 5 mg Documented by: Aspirin (Aspirin 81 Mg Ectab) 81 mg PO [facility] Stop: 06/27/20 20:59 Last Admin: 05/28/20 20:36 Dose: 81 mg Documented by: Atorvastatin Calcium (Atorvastatin 40 Mg Tab) 40 mg PO [facility] Stop: 06/27/20 20:59 Last Admin: 05/28/20 20:36 Dose: 40 mg Documented by: Carvedilol (Carvedilol 25 Mg Tab) 25 mg PO BID [facility] Stop: 06/27/20 20:59 Last Admin: 05/29/20 07:55 Dose: 25 mg Documented by: Donepezil HCl (Donepezil Hcl 5 Mg Tab) [facility] Stop: 06/27/20 14:59 Last Admin: 05/29/20 07:55 Dose: 5 mg Documented by: Estrogens Conjugated (Estrogens, Conjugated 0.45 Mg Tab) 0.45 [facility] Stop: 06/27/20 14:59 Last Admin: 05/29/20 07:55 Dose: 0.45 mg Documented by: Famotidine (Famotidine 20 Mg Tab) 20 mg PO BID [facility] Stop: 06/27/20 20:59 Last Admin: 05/29/20 07:53 Dose: 20 mg Documented by: Heparin Sodium (Porcine) (Heparin Sod 5,000 Unit/0.5 Ml Vial) 5,000 units SQ Q12 [facility] Stop: 06/28/20 20:59 Isosorbide Mononitrate (Isosorbide Cascade Extended Rel 60 Mg Tabcr) [facility] Stop: 06/28/20 08:59 Last Admin: 05/29/20 07:54 Dose: 60 mg Documented by: Levothyroxine Sodium (Levothyroxine Sodium 112 Mcg Tablet) 112 mcg PO DAILYBB [facility] Stop: 06/28/20 06:29 Last Admin: 05/29/20 06:28 Dose: 112 mcg Documented by: Morphine Sulfate (Morphine Sulfate 2 Mg/Ml Carp) 2 mg IV Q30M PRN PRN Reason: Chest Pain Stop: 06/11/20 14:42 Nitroglycerin (Nitroglycerin Sl 0.4 Mg/Tab Tab) 0.4 mg SL UD PRN PRN Reason: Chest Pain Stop: 06/27/20 14:42 Ondansetron HCl (Ondansetron Inj 2 Mg/Ml 2 Ml Vial) 4 mg IV Q6H PRN PRN Reason: Nausea Stop: 06/27/20 14:42 Pantoprazole Sodium (Pantoprazole 40 Mg Tab) 40 mg PO [facility] Stop: 06/28/20 08:59 Last Admin: 05/29/20 07:54 Dose: 40 mg Documented by: Prasugrel (Prasugrel Tab 10 Mg Tab) 10 mg PO [facility] Stop: 06/27/20 14:59 Last Admin: 05/29/20 07:53 Dose: 10 mg Documented by: PG Care Time/CCT Total # of Minutes Spent Total Time Spent with Patient: Total time spent is greater than 50% in coordination of care (as documented) at patient's floor/unit and/or counseling patient: Coding Level of Care Code 11841 Office/Outpt Visit, Est Diagnoses Chest pain R07.9 Chest pain type: unspecified CAD (coronary artery disease) I25.10 Elevated troponin R77.8 Hypertension I10 Hypercholesterolemia E78.00 S/P drug eluting coronary stent placement Z95.5 S/P TAVR (transcatheter aortic valve replacement) Z95.2 (1) Chest pain Chest pain type: unspecified Qualified Code(s): R07.9 - Chest pain, unspecified
--- NOTE | 2020-05-29 15:50 | Hospitalist Progress Note ---
Date of Service May 29, 2020 Assessment & Plan (1) Chest pain, rule out acute myocardial infarction: Patient was discharged May 13 after admission for chest pain seen by Dr. Sunny Covarrubias cardiology during that admission they increased her nitrates and increase to her antiacid regiment. Patient was supposed to follow-up with Dr. Pereira further stratification testing was not pursued. Patient's had prior stents in her left main coronary artery extending into the LAD and circumflex, mid LAD, diagonal. He is noted to have severe mid LAD in- stent restenosis which medical therapy was recommended by [facility] in 2018. Since that time she is had periodic angina Patient is troponins have remained slightly elevated but flat at 0.07. Cardiology feels to be best treat this and medical management terms. Increasing carvedilol and keeping the elevated dose of isosorbide. Patient will be walked with physical therapy if she has no persistent recurrent symptoms she may be discharged on 05/30 (2) Diabetes mellitus: This is by her history we will continue on a carbohydrate conservative diet (3) CAD (coronary artery disease): As documented above patient is maintained on carvedilol isosorbide increased to 90 during her last hospital stay atorvastatin 40 aspirin typically 81 increased to 325 on admission and Effient (4) Dementia: Patient is pleasant memory loss most of history is garnered from her (5) Gastroesophageal reflux disease: Patient is supposed be on famotidine and Prilosec will continue both those medications or substitution for the PPI (6) Hypothyroidism: Continued on Synthroid Her last T4 was checked in 03/04 and in normal range (7) Renal artery stenosis: (8) S/P TAVR (transcatheter aortic valve replacement): (9) DVT prophylaxis: Patient will resume heparin subcu (10) Dizziness: Patient does not describe symptoms of vertiginous we will have physical therapy occupational therapy evaluate Admission and Anticipated Discharge Date Admission Date: May 28, 2020 Subjective Patient complains of mild dizziness this morning not vertigo no further chest pains or dysphagia Review of Systems Review of Systems: Mild distress and fatigue Complains of feeling woozy or dizzy but not vertiginous no headache, blurry or double vision no speech or swallowing issues no chest pain, pressure or palpitations no shortness of breath, cough or wheezes no abdominal pain, nausea or vomiting, diarrhea or constipation no dysuria, hematuria or frequency no focal joint pain or swelling no back pain, CVA tenderness or radicular pain no bruising, bleeding or rashes no focal signs of weakness or numbness or altered sensation no complaints of anxiety or depression.. Physical Exam Physical Exam: The patient appeared well nourished and normally developed. Vital signs as documented. Head exam is normocephalic atraumatic no scleral icterus Neck is without JVD, thyromegaly, or carotid bruits. Lungs are clear to auscultation, no focal loss of breath sounds Cardiac exam, Rhythm is regular.. Systolic ejection murmur is heard Abdominal exam reveals normal bowel sounds, soft non tender, no masses Extremities are nonedematous and both pedal pulses are present Neurologic exam is alert and oriented, no focal loss of strength or sensation Skin is without bruises or rashes Psychologically is without concerns for anxiety or depression. Results & Data Results & Data ([facility]) Vital Signs (Past 12 Hours) Vital Signs Temp Pulse Resp BP Pulse Ox 05/29/20 12:25 97.9 F 05/29/20 07:38 98.1 F 05/29/20 04:00 98.2 F 62 20 156/73 H 96 PG Care Time/CCT Total # of Minutes Spent Total Time Spent with Patient: Total time spent is greater than 50% in coordination of care (as documented) at patient's floor/unit and/or counseling patient: Coding Level of Care Code 69212 Subseq Hosp Care Lvl 3 Diagnoses Chest pain, rule out acute myocardial infarction R07.9 Diabetes mellitus E11.9 CAD (coronary artery disease) I25.10 Dementia F03.90 Gastroesophageal reflux disease K21.9 Hypothyroidism E03.9 Renal artery stenosis I70.1 S/P TAVR (transcatheter aortic valve replacement) Z95.2 DVT prophylaxis Z29.9 Dizziness R42
[2020-05-29 19:31] LABS: Appearance Urine Clear (Clear); Bacteria Urine Automated Negative (Negative); Bilirubin Urine Negative (Negative); Blood Urine Negative (Negative); Color Urine Yellow; Epithelial Cell Urine Auto >30 /lpf (0-5); Glucose Urine UA Negative (Negative); Ketones Urine Negative (Negative); Leukocyte Esterase Urine Negative (Negative); Nitrite Urine Negative (Negative); RBC Urine Automated 0-4 /hpf (0-4); Specific Gravity Urine 1.012 (1.000-1.030); Urobilinogen Urine Negative (Negative); pH Urine 7.5 (4.5-7.5)
[2020-05-29 19:36] LABS: Protein Urine Negative (Negative); Sulfosalicylic Acid Urine Negative (Negative)
[2020-05-29] MEDS: HEPARIN SOD 5,000 UNIT/0.5 ML VIAL SQ SCH (20:52)
[2020-05-29] MEDS: ASPIRIN 81 MG ECTAB PO SCH (20:53)
[2020-05-29] MEDS: ATORVASTATIN 40 MG TAB PO SCH (20:53)
[2020-05-30 05:40] LABS: Hematocrit (blood only) 41.4 % (37-47); Hemoglobin 13.6 g/dL (12.0-16.0); Mean Corpuscular Hemoglobin 30.3 pg (25-34); Mean Corpuscular Hgb Conc 32.9 g/dL (32-36); Mean Corpuscular Volume 92.2 fL (80-100); Platelet Count 239 K/uL (130-400); RDW Coefficient of Variation 16.6 % (11.5-14.5); RDW Standard Deviation 56.3 fL (36.4-46.3); Red Blood Count 4.49 M/uL (4.2-5.4); White Blood Count 11.65 K/uL (4.8-10.8)
[2020-05-30 06:11] LABS: BUN Creatinine Ratio 20.7 (10-20); Calcium 9.6 mg/dl (8.5-10.1); Creatinine Clr Calc Pharmacy 45.7 ml/min; Est GFR (African American) 61.7; Est GFR (Non-African American) 53.3; Potassium 3.9 mmol/L (3.5-5.1)
[2020-05-30] MEDS: LEVOTHYROXINE SODIUM 112 MCG TABLET PO SCH (06:28)
[2020-05-30] MEDS: PRASugrel TAB 10 MG TAB PO SCH (09:06)
[2020-05-30] MEDS: carvediloL 25 MG TAB PO SCH (09:07)
[2020-05-30] MEDS: ISOSORBIDE MONO EXTENDED REL 60 MG TABCR PO SCH (09:07)
[2020-05-30] MEDS: amLODIPine BESYLATE 5 MG TAB PO SCH (09:07)
[2020-05-30] MEDS: DONEPEZIL HCL 5 MG TAB PO SCH (09:07)
[2020-05-30] MEDS: PANTOprazole 40 MG TAB PO SCH (09:07)
[2020-05-30] MEDS: HEPARIN SOD 5,000 UNIT/0.5 ML VIAL SQ SCH (09:08)
[2020-05-30] MEDS: ESTROGENS, CONJUGATED 0.45 MG TAB PO SCH (09:08)
[2020-05-30] MEDS: FAMOTIDINE 20 MG TAB PO SCH (09:08)
--- NOTE | 2020-05-30 19:53 | Discharge Summary ---
Date of Service May 30, 2020 Admission HPI Per Admitting Provider 80 yr old female with known CAD with previous stents and tavr arrives with substernal lower chest pain. EKG on arrival similar to previous and only having mild pain. Already had had multiple rounds of SLNTG thus tried GI Cocktail. After this patient denies any further pain. She has dementia and memory issues which makes getting history a bit challenging though on repeat evaluations she denies any symptoms and notes feeling well. CXR Clear, labs initially unremarkable. . She was monitored overnight in ED and second set trop was elevated. Repeat Trop was elevated. Given her history it was felt starting heparin reasonable and her comfortable with this plan. No symptoms concerning for dissection at this time, and no recent head injuries nor bleeding. Per report she received ASA 324mg PO by EMS prior to arrival. Pt has a history of CAD which has been managed medically recently with hospitalization a few weeks ago with negative rule out. CP resolved and she had her isosorbide increased and pepcid added. Her was no longer present and the pt does not recall her last hospital stay. She states that since then she maybe feeling slightly more short of breath Principal Diagnosis Type II IN Discharge Exam The patient appeared well Vital signs as documented. Lungs are clear to auscultation and appear unlabored Cardiac exam, Rhythm is regular.. No murmurs, rubs or gallops. Abdominal exam reveals normal bowel sounds, soft non tender, no masses Extremities are nonedematous and both pedal pulses are normal. Neurologic exam is alert and oriented, no focal loss of strength or sensation Skin is without bruises or rashes Psychologically is with concerns for dementia Discharge Data Allergies Allergy/AdvReac Type Severity Reaction Status Date / Time adhesive Allergy Intermediate RED RASH Verified 05/28/20 01:25 clindamycin Allergy Mild Rash Verified 05/28/20 01:25 latex Allergy Mild RASH Verified 05/28/20 01:25 Penicillins Allergy Unknown HIVES Verified 05/28/20 01:25 Consultations 05/28/20 07:11 ED Decision to Admit Stat 05/28/20 14:43 Consult Cardiology Routine Ordered Studies 05/29/20 08:00 FL barium swallow Routine Hospital Course (1) Chest pain, rule out acute myocardial infarction: Patient was discharged May 13 after admission for chest pain seen by Dr. Sunny Covarrubias cardiology during that admission they increased her nitrates and increase to her antiacid regiment. Patient was supposed to follow-up with Dr. Pereira further stratification testing was not pursued. Patient's had prior stents in her left main coronary artery extending into the LAD and circumflex, mid LAD, diagonal. He is noted to have severe mid LAD in- stent restenosis which medical therapy was recommended by [facility] in 2018. Since that time she is had periodic angina Patient is troponins have remained slightly elevated but flat at 0.07. Type II IN. Cardiology feels to be best treat this in medical management terms. Increasing carvedilol and keeping the elevated dose of isosorbide. Patient was walked with physical therapy and had no dizziness or recurrent symptoms she was discharged on 05/30 (2) Diabetes mellitus: This is by her history we will continue on a carbohydrate conservative diet (3) CAD (coronary artery disease): As documented above patient is maintained on carvedilol. isosorbide wasincreased to 90 during her last hospital stay atorvastatin 40 aspirin typically 81 increased to 325 on admission and Effient (4) Dementia: Patient is pleasant memory loss most of history is garnered from her (5) Gastroesophageal reflux disease: Patient is supposed be on famotidine and Prilosec will continue both those medications or substitution for the PPI Upper GI did not show significant reflux, 05/29/2020 barium swallow. IMPRESSION: 1. Mildly disordered esophageal motility (6) Hypothyroidism: Continued on Synthroid Her last T4 was checked in 03/04 and in normal range (7) Renal artery stenosis: (8) S/P TAVR (transcatheter aortic valve replacement): (9) Dizziness: Resolved Total Time Total Time Spent Total Time Spent (In Minutes): It required greater than 30 minutes to prepare this patient for discharge Discharge Plan Discharge Items Patient Disposition: Home - Self-Care Reason For Visit: ELEVATED TROPONIN Discharge Diagnosis: chest pain-> medical managment Activity: Per Instructions section Activity Comment: slowly increase activity Non-emergency contact: Primary Care Provider and Director [place] Call non-emergency contact if: you have any medication questions and your symptoms worsen Follow-up/Referrals: Marquise Clement MD [Primary Care Provider] - 06/01/20 11:30 am (You have an appt with Olivia Maciel on Friday 06/01 at 1130AM. Please arrive 15 minutes prior to your appt. It is important that you keep this appt. ) Diet: Carb Consistent or DM2 Addtl Attending Provider Instructions: slowly increase your activity your coreg dose (carvedilol) dose has been doubled you may use up your current prescrition if you wish by taking two twice a day or just full new one Pending Studies at Discharge: No Stand-Alone Forms: My [facility], Smoking Cessation Medications and DC Order Prescriptions: New carvedilol 25 mg tablet 25 mg PO BID Qty: 60 RF: 5 Continued nitroglycerin [Nitrostat] 0.4 mg tablet, sublingual 0.4 mg sublingual USEASDIRECTD PRN (Reason: Chest Pain) Qty: 25 RF: 2 azithromycin 500 mg tablet 500 mg PO .COMPLEX 1 Days Qty: 3 RF: 3 atorvastatin [Lipitor] 40 mg tablet 40 mg PO HS Qty: 90 RF: 3 isosorbide mononitrate 30 mg tablet extended release 24 hr 30 mg PO DAILY Qty: 90 RF: 3 multivitamin [Daily Multi-Vitamin] Tablet 1 tab PO QAM RF: 0 aspirin 81 mg Tablet,Chewable 81 mg PO HS RF: 0 donepezil 5 mg tablet 5 mg PO QAM RF: 0 amlodipine 5 mg tablet 5 mg PO QAM RF: 0 isosorbide mononitrate 60 mg tablet extended release 24 hr 60 mg PO QAM RF: 0 levothyroxine [Synthroid] 112 mcg tablet 112 mcg PO QAM RF: 0 Premarin 0.45 mg tablet 0.45 mg PO QAM RF: 0 prasugrel [Effient] 10 mg tablet 10 mg PO QAM RF: 0 Changed omeprazole 20 mg capsule,delayed release(DR/EC) 20 mg PO BID Qty: 60 RF: 5 Discharge Orders: Discharge Order (Routine); Ordered 05/30/20 Ordered By: Blanco King Admission Data Admit Date/Time: 05/29/20 17:41 Attending Provider: Blanco King Admit Provider: Blanco King Primary Care Provider: Marquise Clement Other Providers: Ivette Soares ; Blair Lang Other Interventions: Discharge Summary Assessment (RN) Last Done: 05/30/20 11:11 Coding Level of Care Code D/C Day Management >30 mins Diagnoses Chest pain, rule out acute myocardial infarction R07.9 Diabetes mellitus E11.9 CAD (coronary artery disease) I25.10 Dementia F03.90 Gastroesophageal reflux disease K21.9 Hypothyroidism E03.9 Renal artery stenosis I70.1 S/P TAVR (transcatheter aortic valve replacement) Z95.2 Dizziness R42
== END 2020-05-30 11:38 | disposition home or self-care (01) ==
LOC: EDINP 00:59 → ED 00:59 → 1E 14:04 → 2N 05-29 09:34

== ENCOUNTER 2021-05-22 19:52 | Observation (INO) ==
[2021-05-22] MEDS ORDERED: SODIUM CHLORIDE 0.9% 1000ML 500 ML IV ONE (20:15)
--- NOTE | 2021-05-22 20:25 | Emergency Department Note ---
Impression & Plan Bradycardia, Weakness, BRITTNY (acute kidney injury), Hypokalemia ED Provider Note NAME: CATHERINE HEATON AGE: 81 SEX: F : 1940 ARRIVES VIA: Ambulance INFORMANT: Patient, the patient significant other, EMS ED PROVIDER(S): Charly Buchanan DO CHIEF COMPLAINT: Weakness HPI: The patient is a 81-year-old female who presented to the emergency department for an evaluation of generalized weakness. The patient was experiencing generalized weakness and appeared to be having difficulty breathing. The patient's significant other checked her vital signs. He noted that she had a slow pulse rate as well as low blood pressure. He also noticed that she started shaking. She was not having a seizure. He was unsure if she had a fever. He denies having any cough but the patient itself did complain of some chest pain as well as shortness of breath. The patient denies having any swelling in the legs. Her called 911. She was brought to the emergency department by ALS. She was noted to have significant hypotension as well as bradycardia prior to arrival. The patient was given atropine prior to arrival. The patient self states she has been well recently. She is had no nausea or vomiting. She is had no diarrhea. At this time she states her symptoms are significantly improved. Her states that her mental status appears to be back to normal. ROS: See above HPI for pertinent positives & negatives. A total of 10 systems reviewed and were otherwise negative. PAST MEDICAL HISTORY: See Below PAST SURGICAL HISTORY: See Below FAMILY HISTORY: See Below SOCIAL HISTORY: See Below HOME MEDICATIONS: See Below ALLERGIES: See Below VITALS: See Below PHYSICAL EXAMINATION: GENERAL: The patient is awake and looking around the room. She is answering questions appropriately. EYES: The conjunctivae are clear. The pupils are round and reactive. EARS, NOSE, MOUTH AND THROAT: The nose is without any evidence of any deformity. Mucous membranes are dry. NECK: The neck is nontender and supple. RESPIRATORY: Normal respiratory effort is noted there is no evidence of wheezing rhonchi or rales CARDIOVASCULAR: Regular rate and rhythm noted there no murmurs rubs or gallops normal S1 normal S2. GASTROINTESTINAL: The abdomen is soft. Abdomen is nontender. MUSCULOSKELETAL/EXTREMITIES: There is no evidence of gross deformity full range of motion is noted in the hips and shoulders. SKIN: Skin is warm and dry. Pedal edema was noted bilaterally. And oriented to person place and situation. She recognizes her significant other. She is moving all extremities well. Alert and oriented x3 strength is symmetric patellar reflexes are 2+ bilaterally MEDICAL DECISION MAKING: The patient is a 81-year-old female who presented to the emergency department with her significant other. The patient has been weak and was noted to have hypotension and bradycardia by her who checked her vital signs this evening. 911 was called and the patient was brought to the emergency department for further evaluation. The patient was treated with atropine prior to arrival. Her symptoms somewhat improved. She was also treated with IV fluids and potassium replacement in the emergency department. The patient's significant other describes an episode of possible shaking but not seizure-like activity. He thought she could have been febrile. The patient was not found to be febrile here. She did have an elevation in some inflammatory markers as well as an elevation in her white blood cell count. She was not found to have signs of urinary tract infection and her respiratory virus swab was negative. She also had no signs of pneumonia on chest x-ray. I discussed the patient's laboratory and radiographic studies with her and her significant other. Because of the patient's bradycardia requiring atropine the [facility] hospitalist group was notified to evaluate the patient in the emergency department for further management. Triage Nursing notes reviewed. Prior medical records reviewed Vital Signs: reviewed and remarkable for bradycardia and hypotension. Differential diagnosis: Infection, dehydration, metabolic abnormality, hypo/hyperglycemia, electrolyte disturbance, anemia, hypoxia, cardiac sources, intracerebral event, toxicologic, neurologic, as well as other pathologies. ER treatment provided: See below Diagnostics interpreted by me: ECG: EKG was obtained in the emergency department. My interpretation is sinus rhythm at 71 bpm. A first-degree AV block was noted. Poor R wave progression was noted. There was lateral ST depressions appreciated. This was compared to a tracing from April 012020. No changes were noted. Cardiac Monitoring: An order was placed for continuous cardiac monitoring. The monitor shows a rate of with rhythm. Laboratory studies: As stated above and show below. Imaging studies: See below Consultation(s): Dr. Eddy was notified about the patient. He will evaluate the patient in the emergency department for further management and disposition. 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 Carotid artery stenosis Diverticulosis Elevated troponin Fibroids (08/05/13) Intermittent claudication Internal hemorrhoids Lumbosacral radiculopathy at L5 Lupus Memory loss Microscopic hematuria Occlusion of distal artery of left upper extremity Osteopenia Peripheral vascular disease Polyneuropathy Renal artery stenosis Renal insufficiency STEMI (ST elevation myocardial infarction) 12/02/2016 Tinnitus, unspecified ear Surgical History History of cardiac cath History of heart artery stent History of heart valve replacement S/P drug eluting coronary stent placement (2018) S/P TAVR (transcatheter aortic valve replacement) (2018) Social History Smoking Status: Unknown if ever smoked Tobacco Type: Cigarettes Second Hand Exposure: No; Hx Alcohol Use: No Hx Substance Use: No Preferred Language: [place] Communication Ability: Effective 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 Beliefs That Will Affect Care: None Current Living Situation: Spouse current occupation: N/A Feels Safe at Home: Yes Seatbelt Use: always Assistive Devices: Walker Allergies Allergies Allergy/AdvReac Type Severity Reaction Status Date / Time adhesive Allergy Intermediate RED RASH Verified 05/16/21 16:58 clindamycin Allergy Mild Rash Verified 05/16/21 16:58 latex Allergy Mild RASH Verified 05/16/21 16:58 Penicillins Allergy Unknown HIVES Verified 05/16/21 16:58 Home Meds Home Medications Medication Instructions Recorded Confirmed aspirin 81 mg chewable tablet 81 mg PO HS 11/23/18 05/22/21 multivitamin (Daily Multi-Vitamin) 1 tab PO QAM 12/15/19 05/22/21 calcium carbonate 500 mg calcium 500 mg PO DAILY 08/24/20 05/22/21 (1,250 mg) chewable tablet Previous Rx's Medication Instructions Recorded nitroglycerin 0.4 mg sublingual 0.4 mg SUBLINGUAL USEASDIRECTD PRN 06/05/20 tablet (Nitrostat) #25 tab amlodipine 5 mg tablet 5 mg PO QAM #90 tab 08/31/20 isosorbide mononitrate 60 mg 60 mg PO BID #180 tab 09/27/20 tablet,extended release 24 hr prasugrel 10 mg tablet (Effient) 10 mg PO QAM #90 tab 10/05/20 omeprazole 20 mg capsule,delayed 20 mg PO BID #60 cap 11/19/20 release atorvastatin 40 mg tablet (Lipitor) 40 mg PO HS #90 tab 01/14/21 donepezil 5 mg tablet 5 mg PO QAM #90 tab 01/29/21 conjugated estrogens 0.45 mg 0.45 mg PO QAM #90 tab 02/11/21 tablet (Premarin) azithromycin 500 mg tablet 500 mg PO .COMPLEX 1 Days #3 tab 04/02/21 cholecalciferol (vitamin D3) 125 125 mcg PO DAILY #90 cap 05/04/21 mcg (5,000 unit) capsule levothyroxine 50 mcg tablet 50 mcg PO DAILY #90 tab 05/04/21 dicyclomine 10 mg capsule 10 mg PO BID #60 cap 05/13/21 carvedilol 25 mg tablet 25 mg PO BID #60 tab 05/22/21 Results & Data (ED) Vital Signs Vital Signs - 24 hr 05/22/21 19:59 05/22/21 21:59 Temperature 37.0 C Temperature Source Oral Pulse Rate 69 Pulse Rate [Right Finger] 56 L Pulse Rhythm Regular Pulse Rhythm [Right Finger] Regular Pulse Strength Normal Pulse Strength [Right Finger] Normal Respiratory Rate 18 18 Respiratory Effort / Characteristics Non-Labored Non-Labored Respiratory Depth Normal Normal Respiratory Pattern Regular Regular Blood Pressure 126/70 Blood Pressure [Left Arm] 119/47 L Blood Pressure Mean 88 Blood Pressure Mean [Left Arm] 71 Blood Pressure Position Lying Blood Pressure Position [Left Arm] Lying Pulse Oximetry 95 99 Oxygen Delivery Method Room Air Room Air Sepsis Recent Fever Within 48 Hours No Sepsis New/Unexplained Change in Mental Status No Sepsis Action Taken by Nursing No Action Required Home Medications Current Medication List: was personally reviewed by me Laboratory Data Attestation: I reviewed the patient's lab results. Result diagrams: 05/22/21 20:00 05/22/21 20:00 Lab Results 05/22/21 05/22/21 05/22/21 Range/Units 20:00 20:00 20:00 WBC 12.87 H (4.8-10.8) K/uL RBC 3.50 L (4.2-5.4) M/uL Hgb 11.8 L (12.0-16.0) g/dL Hct 34.6 L (37-47) % MCV 98.9 (80-100) fL MCH 33.7 (25-34) pg MCHC 34.1 (32-36) g/dL RDW Std Deviation 62.1 H (36.4-46.3) fL RDW Coeff of Minerva 17.3 H (11.5-14.5) % Plt Count 193 (130-400) K/uL MPV 11.7 H (7.4-10.4) fL Immature Gran % (Auto) 6.4 % Neut % (Auto) 64.0 % Lymph % (Auto) 17.1 % Coles % (Auto) 11.5 % Eos % (Auto) 0.8 % Baso % (Auto) 0.2 % Neut # (Auto) 8.24 H (1.4-6.5) K/uL Lymph # (Auto) 2.20 (1.2-3.4) K/uL Coles # (Auto) 1.48 H (0.11-0.59) K/uL Eos # (Auto) 0.10 (0-0.5) K/uL Baso # (Auto) 0.02 (0-0.2) K/uL Immature Gran # (Auto) 0.83 H (0.00-0.02) K/uL Tear Drop Cells 1+ ESR 22 (0-30) mm/hr PT 11.0 (9.0-12.0) Seconds INR 1.1 (0.9-1.1) APTT 31.9 H (21.0-31.0) Seconds PTT Ratio 1.2 Sodium (136-145) mmol/L Potassium (3.5-5.1) mmol/L Chloride (98-107) mmol/L Carbon Dioxide (21-32) mmol/L Anion Gap (3-11) BUN (7-18) mg/dl Creatinine (0.6-1.2) mg/dl Est Cr Clr Drug Dosing ml/min Est GFR ( Amer) ml/min Est GFR (Non-Af Amer) ml/min BUN/Creatinine Ratio (10-20) Glucose (70-99) mg/dl Lactate (0.4-2.0) mmol/L Calcium (8.5-10.1) mg/dl Magnesium (1.8-2.4) mg/dl Total Bilirubin (0.2-1) mg/dl AST (15-37) U/L ALT (12-78) Alkaline Phosphatase (45-117) U/L Troponin I (0-0.045) ng/ml C-Reactive Protein (0-0.29) mg/dl Total Protein (6.4-8.2) gm/dl Albumin (3.4-5.0) gm/dl Globulin (2.5-4.0) gm/dl Albumin/Globulin Ratio (0.9-2) Procalcitonin (0-0.5) ng/ml Urine Color Urine Appearance (Clear) Urine pH (4.5-7.5) Ur Specific Clayton (1.000-1.030) Urine Protein (Negative) Urine Glucose (UA) (Negative) Urine Ketones (Negative) Urine Blood (Negative) Urine Nitrite (Negative) Urine Bilirubin (Negative) Urine Urobilinogen (Negative) Ur Leukocyte Esterase (Negative) Urine WBC (Auto) (0-5) /hpf Urine RBC (Auto) (0-4) /hpf U Hyaline Cast (Auto) (0-5) /lpf U Epithel Cells (Auto) (0-5) /lpf Urine Bacteria (Auto) (Negative) Lyme Disease IgG Ab (Negative) Lyme Disease IgM Ab (Negative) SARS-CoV-2 (PCR) (Negative) Influenza Type A (PCR) (Neg) Influenza Type B (PCR) (Neg) RSV (RT-PCR) (Neg) 05/22/21 05/22/21 05/22/21 Range/Units 20:00 20:00 20:51 WBC (4.8-10.8) K/uL RBC (4.2-5.4) M/uL Hgb (12.0-16.0) g/dL Hct (37-47) % MCV (80-100) fL MCH (25-34) pg MCHC (32-36) g/dL RDW Std Deviation (36.4-46.3) fL RDW Coeff of Minerva (11.5-14.5) % Plt Count (130-400) K/uL MPV (7.4-10.4) fL Immature Gran % (Auto) % Neut % (Auto) % Lymph % (Auto) % Coles % (Auto) % Eos % (Auto) % Baso % (Auto) % Neut # (Auto) (1.4-6.5) K/uL Lymph # (Auto) (1.2-3.4) K/uL Coles # (Auto) (0.11-0.59) K/uL Eos # (Auto) (0-0.5) K/uL Baso # (Auto) (0-0.2) K/uL Immature Gran # (Auto) (0.00-0.02) K/uL Tear Drop Cells ESR (0-30) mm/hr PT (9.0-12.0) Seconds INR (0.9-1.1) APTT (21.0-31.0) Seconds PTT Ratio Sodium 132 L (136-145) mmol/L Potassium 3.1 L (3.5-5.1) mmol/L Chloride 101 (98-107) mmol/L Carbon Dioxide 21 (21-32) mmol/L Anion Gap 10.0 (3-11) BUN 14 (7-18) mg/dl Creatinine 1.28 H (0.6-1.2) mg/dl Est Cr Clr Drug Dosing 36.9 ml/min Est GFR ( Amer) 46.0 ml/min Est GFR (Non-Af Amer) 39.7 ml/min BUN/Creatinine Ratio 10.8 (10-20) Glucose 160 H (70-99) mg/dl Lactate 1.4 (0.4-2.0) mmol/L Calcium 9.3 (8.5-10.1) mg/dl Magnesium 1.6 L (1.8-2.4) mg/dl Total Bilirubin 0.5 (0.2-1) mg/dl AST 17 (15-37) U/L ALT 19 (12-78) Alkaline Phosphatase 98 (45-117) U/L Troponin I < 0.015 (0-0.045) ng/ml C-Reactive Protein 2.80 H (0-0.29) mg/dl Total Protein 6.8 (6.4-8.2) gm/dl Albumin 3.3 L (3.4-5.0) gm/dl Globulin 3.5 (2.5-4.0) gm/dl Albumin/Globulin Ratio 0.9 (0.9-2) Procalcitonin 0.05 (0-0.5) ng/ml Urine Color Urine Appearance (Clear) Urine pH (4.5-7.5) Ur Specific Clayton (1.000-1.030) Urine Protein (Negative) Urine Glucose (UA) (Negative) Urine Ketones (Negative) Urine Blood (Negative) Urine Nitrite (Negative) Urine Bilirubin (Negative) Urine Urobilinogen (Negative) Ur Leukocyte Esterase (Negative) Urine WBC (Auto) (0-5) /hpf Urine RBC (Auto) (0-4) /hpf U Hyaline Cast (Auto) (0-5) /lpf U Epithel Cells (Auto) (0-5) /lpf Urine Bacteria (Auto) (Negative) Lyme Disease IgG Ab Negative (Negative) Lyme Disease IgM Ab Negative (Negative) SARS-CoV-2 (PCR) (Negative) Influenza Type A (PCR) (Neg) Influenza Type B (PCR) (Neg) RSV (RT-PCR) (Neg) 05/22/21 05/22/21 Range/Units 21:51 21:51 WBC (4.8-10.8) K/uL RBC (4.2-5.4) M/uL Hgb (12.0-16.0) g/dL Hct (37-47) % MCV (80-100) fL MCH (25-34) pg MCHC (32-36) g/dL RDW Std Deviation (36.4-46.3) fL RDW Coeff of Minerva (11.5-14.5) % Plt Count (130-400) K/uL MPV (7.4-10.4) fL Immature Gran % (Auto) % Neut % (Auto) % Lymph % (Auto) % Coles % (Auto) % Eos % (Auto) % Baso % (Auto) % Neut # (Auto) (1.4-6.5) K/uL Lymph # (Auto) (1.2-3.4) K/uL Coles # (Auto) (0.11-0.59) K/uL Eos # (Auto) (0-0.5) K/uL Baso # (Auto) (0-0.2) K/uL Immature Gran # (Auto) (0.00-0.02) K/uL Tear Drop Cells ESR (0-30) mm/hr PT (9.0-12.0) Seconds INR (0.9-1.1) APTT (21.0-31.0) Seconds PTT Ratio Sodium (136-145) mmol/L Potassium (3.5-5.1) mmol/L Chloride (98-107) mmol/L Carbon Dioxide (21-32) mmol/L Anion Gap (3-11) BUN (7-18) mg/dl Creatinine (0.6-1.2) mg/dl Est Cr Clr Drug Dosing ml/min Est GFR ( Amer) ml/min Est GFR (Non-Af Amer) ml/min BUN/Creatinine Ratio (10-20) Glucose (70-99) mg/dl Lactate (0.4-2.0) mmol/L Calcium (8.5-10.1) mg/dl Magnesium (1.8-2.4) mg/dl Total Bilirubin (0.2-1) mg/dl AST (15-37) U/L ALT (12-78) Alkaline Phosphatase (45-117) U/L Troponin I (0-0.045) ng/ml C-Reactive Protein (0-0.29) mg/dl Total Protein (6.4-8.2) gm/dl Albumin (3.4-5.0) gm/dl Globulin (2.5-4.0) gm/dl Albumin/Globulin Ratio (0.9-2) Procalcitonin (0-0.5) ng/ml Urine Color Yellow Urine Appearance Cloudy A (Clear) Urine pH 6.0 (4.5-7.5) Ur Specific Clayton 1.018 (1.000-1.030) Urine Protein 1+ H (Negative) Urine Glucose (UA) Negative (Negative) Urine Ketones Negative (Negative) Urine Blood Negative (Negative) Urine Nitrite Negative (Negative) Urine Bilirubin Negative (Negative) Urine Urobilinogen Negative (Negative) Ur Leukocyte Esterase Negative (Negative) Urine WBC (Auto) 5-10 H (0-5) /hpf Urine RBC (Auto) 0-4 (0-4) /hpf U Hyaline Cast (Auto) 5-10 H (0-5) /lpf U Epithel Cells (Auto) >30 H (0-5) /lpf Urine Bacteria (Auto) 1+ H (Negative) Lyme Disease IgG Ab (Negative) Lyme Disease IgM Ab (Negative) SARS-CoV-2 (PCR) NEGATIVE (Negative) Influenza Type A (PCR) Negative (Neg) Influenza Type B (PCR) Negative (Neg) RSV (RT-PCR) Negative (Neg) Administered Medications Discontinued Medications Sodium Chloride (Nss 1000ml) 500 mls @ 999 mls/hr IV .Q31M ONE Stop: 05/22/21 20:45 Last Infusion: 05/22/21 22:15 Dose: 0 mls/hr Documented by: [id number] Admin: 05/22/21 21:30 Dose: 999 mls/hr Documented by: [id number] Magnesium Sulfate/Dextrose (Magnesium Sulfate / D5w) 1 gm in 100 mls @ 100 mls/hr IV NOW STA Stop: 05/22/21 21:57 Last Infusion: 05/22/21 22:45 Dose: 0 mls/hr Documented by: [id number] Admin: 05/22/21 21:30 Dose: 100 mls/hr Documented by: [id number] Potassium Chloride (Potassium Chloride Crtab 20 Meq Tabcr) 20 meq PO NOW STA Stop: 05/22/21 20:59 Last Admin: 05/22/21 21:30 Dose: 20 meq Documented by: [id number] Imaging Data Radiologist's Impression: Chest X-Ray 05/22/21 20:15 XR chest 1V portable CLINICAL HISTORY: SEPSIS TECHNIQUE: Single frontal radiograph of the chest was obtained. Comparison: Comparison is made to chest one view 04/01/2021 FINDINGS: Vascular stent is noted in the left subclavian region. The cardiomediastinal silhouette is normal. The lungs are clear. No evidence of pleural effusion or pneumothorax. IMPRESSION: No acute chest disease. ACT 112: Negative or not required by law. Electronically signed by: Lucas Singh M.D. 05/22/2021 8:54 PM Discharge Plan Visit Data Chief Complaint: Weakness Stated Complaint: GENERAL WEAKNESS ED Provider: Charly Buchanan Discharge Problem: Bradycardia, Weakness, BRITTNY (acute kidney injury), Hypokalemia Patient Disposition: Being Evaluated by Hospitalist Forms Stand Alone Forms: [facility] Prescriptions Prescriptions: No Action nitroglycerin [Nitrostat] 0.4 mg tablet, sublingual 0.4 mg sublingual USEASDIRECTD PRN (Reason: Chest Pain) Qty: 25 RF: 2 amlodipine 5 mg tablet 5 mg PO QAM Qty: 90 RF: 3 isosorbide mononitrate 60 mg tablet extended release 24 hr 60 mg PO BID Qty: 180 RF: 3 prasugrel [Effient] 10 mg tablet 10 mg PO QAM Qty: 90 RF: 3 omeprazole 20 mg capsule,delayed release(DR/EC) 20 mg PO BID Qty: 60 RF: 5 atorvastatin [Lipitor] 40 mg tablet 40 mg PO HS Qty: 90 RF: 3 donepezil 5 mg tablet 5 mg PO QAM Qty: 90 RF: 3 Premarin 0.45 mg tablet 0.45 mg PO QAM Qty: 90 RF: 1 azithromycin 500 mg tablet 500 mg PO .COMPLEX 1 Days Qty: 3 RF: 3 levothyroxine 50 mcg tablet 50 mcg PO DAILY Qty: 90 RF: 0 cholecalciferol (vitamin D3) 125 mcg (5,000 unit) capsule 125 mcg PO DAILY Qty: 90 RF: 0 dicyclomine 10 mg capsule 10 mg PO BID Qty: 60 RF: 3 carvedilol 25 mg tablet 25 mg PO BID Qty: 60 RF: 5 multivitamin [Daily Multi-Vitamin] Tablet 1 tab PO QAM RF: 0 calcium carbonate 500 mg calcium (1,250 mg) tablet,chewable 500 mg PO DAILY RF: 0 aspirin 81 mg Tablet,Chewable 81 mg PO HS RF: 0 Referrals Referrals: Charly Bass MD [Primary Care Provider] -
[2021-05-22 20:27] LABS: Hematocrit (blood only) 34.6 % (37-47); Hemoglobin 11.8 g/dL (12.0-16.0); Mean Corpuscular Hemoglobin 33.7 pg (25-34); Mean Corpuscular Hgb Conc 34.1 g/dL (32-36); Mean Corpuscular Volume 98.9 fL (80-100); Mean Platelet Volume 11.7 fL (7.4-10.4); Platelet Count 193 K/uL (130-400); RDW Coefficient of Variation 17.3 % (11.5-14.5); RDW Standard Deviation 62.1 fL (36.4-46.3); White Blood Count 12.87 K/uL (4.8-10.8)
[2021-05-22 20:43] LABS: Basophils # (auto) 0.02 K/uL (0-0.2); Basophils % (auto) 0.2 %; Eosinophils % (auto) 0.8 %; Immature Granulocytes # (auto) 0.83 K/uL (0.00-0.02); Immature Granulocytes % (auto) 6.4 %; Lymphocytes % (auto) 17.1 %; Monocytes # (auto) 1.48 K/uL (0.11-0.59); Monocytes % (auto) 11.5 %; Neutrophils # (auto) 8.24 K/uL (1.4-6.5); Tear Drop Cells 1+
[2021-05-22 20:44] LABS: INR 1.1 (0.9-1.1); Partial Thromboplastin Ratio 1.2; Partial Thromboplastin Time 31.9 Seconds (21.0-31.0)
[2021-05-22 20:45] LABS: Alanine Aminotransferase 19 (12-78); Albumin Level 3.3 gm/dl (3.4-5.0); Aspartate Aminotransferase 17 U/L (15-37); BUN Creatinine Ratio 10.8 (10-20); Blood Urea Nitrogen 14 mg/dl (7-18); Calcium 9.3 mg/dl (8.5-10.1); Carbon Dioxide 21 mmol/L (21-32); Chloride 101 mmol/L (98-107); Creatinine Clr Calc Pharmacy 36.9 ml/min; Est GFR (Non-African American) 39.7 ml/min; Glucose 160 mg/dl (70-99); Magnesium 1.6 mg/dl (1.8-2.4); Potassium 3.1 mmol/L (3.5-5.1); Sodium 132 mmol/L (136-145)
[2021-05-22 20:50] LABS: Albumin Globulin Ratio 0.9 (0.9-2); Alkaline Phosphatase 98 U/L (45-117); Bilirubin,Total 0.5 mg/dl (0.2-1); Globulin 3.5 gm/dl (2.5-4.0); Total Protein 6.8 gm/dl (6.4-8.2); Troponin I < 0.015 ng/ml (0-0.045)
--- NOTE | 2021-05-22 20:55 | XRay Report ---
XR chest 1V portable CLINICAL HISTORY: SEPSIS TECHNIQUE: Single frontal radiograph of the chest was obtained. Comparison: Comparison is made to chest one view 04/01/2021 FINDINGS: Vascular stent is noted in the left subclavian region. The cardiomediastinal silhouette is normal. Th e lungs are clear. No evidence of pleural effusion or pneumothorax. IMPRESSION: No acute chest disease. ACT 112: Negative or not required by law. Electronically signed by: Lucas Singh M.D. 05/22/2021 8:54 PM
[2021-05-22] MEDS ORDERED: MAGNESIUM SULFATE / D5W 1 GM/100 ML BAG IV STA (20:58)
[2021-05-22] MEDS ORDERED: POTASSIUM CHLORIDE CRTAB 20 MEQ TABCR PO STA (20:58)
[2021-05-22 21:19] LABS: Procalcitonin 0.05 ng/ml (0-0.5)
[2021-05-22 21:25] LABS: Lyme Ab IgG w/WB Rflx Negative (Negative); Lyme Ab IgM w/WB Rflx Negative (Negative)
[2021-05-22 22:40] LABS: Appearance Urine Cloudy (Clear); Bacteria Urine Automated 1+ (Negative); Bilirubin Urine Negative (Negative); Blood Urine Negative (Negative); Color Urine Yellow; Epithelial Cell Urine Auto >30 /lpf (0-5); Glucose Urine UA Negative (Negative); Ketones Urine Negative (Negative); Leukocyte Esterase Urine Negative (Negative); Nitrite Urine Negative (Negative); Protein Urine 1+ (Negative); RBC Urine Automated 0-4 /hpf (0-4); Specific Gravity Urine 1.018 (1.000-1.030); Urobilinogen Urine Negative (Negative)
[2021-05-22 22:42] LABS: Influenza A virus by PCR Negative (Neg); Influenza B virus by PCR Negative (Neg); RSV by PCR Negative (Neg); SARS CoV2 RNA(COVID-19) InHosp NEGATIVE (Negative)
--- NOTE | 2021-05-23 00:41 | History & Physical Report ---
Date of Service May 23, 2021 Assessment & Plan (1) Bradycardia: Plan: 81 yo F w/ pMHx. of reflux, HTN, HLD, hypothyroidism, reflux, BRITTNY, polyneuropathy, CAD s/p stents to the mid LAD in 2016 and 2017 on prasugrel, and dementia presenting after feeling fatigued and found to be bradycardic admitted to med./surg. telemetry sinus bradycardia, fatigue possibly related to hypothyroid Lyme test negative, COVID negative, CXR no acute process - CXR with no acute process - TSH ordered - 135 - this was significantly elevated on prior testing - current levothyroxine dose 50 mcg, added levothyroxine 50 mcg one time dose - checking cortisole to r/o adrenal insufficiency - monitor on a telemetry floor - repleting K and Mg - cardiology consulted HTN - continue home medications CAD s/p DELLA of mid LAD - continue ASA, Atorvastatin - continue prasugrel Reflux - continue PPI Dementia - continue donepezil Code: conditional (no intubation) Diet: regular DVT: lovenox History of Present Illness Chief Complaint: Fatigue Primary Care Provider: Charly Bass MD Gonsalo Griffin has a past medical history of reflux, HTN, HLD, hypothyroidism, reflux, BRITTNY, polyneuropathy, CAD s/p stents to the mid LAD in 2016 and 2017 on prasugrel, and dementia presenting after feeling fatigued and found to be bradycardic. She was watching TV with her when she appeared fatigued. They took her HR and BP and her HR was in the 40's she was taken in the ambulance to the ER in transit she was given Atropine which improve her HR. She has dementia that was at her baseline per her . She gave a limited history as she was not able to remember what brought her. She thought she may have had chest pain and shortness of breath although currently denies this. ER course: Mg, K, NSS, urine and blood cultures Allergies Allergy/AdvReac Type Severity Reaction Status Date / Time adhesive Allergy Intermediate RED RASH Verified 05/16/21 16:58 clindamycin Allergy Mild Rash Verified 05/16/21 16:58 latex Allergy Mild RASH Verified 05/16/21 16:58 Penicillins Allergy Unknown HIVES Verified 05/16/21 16:58 Home Medications Medication Instructions Recorded Confirmed Type aspirin 81 mg chewable tablet 81 mg PO HS 11/23/18 05/22/21 History multivitamin (Daily Multi-Vitamin) 1 tab PO QAM 12/15/19 05/22/21 History nitroglycerin 0.4 mg sublingual 0.4 mg SUBLINGUAL USEASDIRECTD PRN 06/05/20 05/22/21 Rx tablet (Nitrostat) #25 tab calcium carbonate 500 mg calcium 500 mg PO DAILY 08/24/20 05/22/21 History (1,250 mg) chewable tablet amlodipine 5 mg tablet 5 mg PO QAM #90 tab 08/31/20 05/22/21 Rx isosorbide mononitrate 60 mg 60 mg PO BID #180 tab 09/27/20 05/22/21 Rx tablet,extended release 24 hr prasugrel 10 mg tablet (Effient) 10 mg PO QAM #90 tab 10/05/20 05/22/21 Rx omeprazole 20 mg capsule,delayed 20 mg PO BID #60 cap 11/19/20 05/22/21 Rx release atorvastatin 40 mg tablet (Lipitor) 40 mg PO HS #90 tab 01/14/21 05/22/21 Rx donepezil 5 mg tablet 5 mg PO QAM #90 tab 01/29/21 05/22/21 Rx conjugated estrogens 0.45 mg 0.45 mg PO QAM #90 tab 02/11/21 05/22/21 Rx tablet (Premarin) azithromycin 500 mg tablet 500 mg PO .COMPLEX 1 Days #3 tab 04/02/21 05/16/21 Rx cholecalciferol (vitamin D3) 125 125 mcg PO DAILY #90 cap 05/04/21 05/22/21 Rx mcg (5,000 unit) capsule dicyclomine 10 mg capsule 10 mg PO BID #60 cap 05/13/21 05/22/21 Rx carvedilol 12.5 mg tablet 12.5 mg PO BID 30 Days #60 tab 05/23/21 Rx levothyroxine 75 mcg capsule 75 mcg PO DAILY 30 Days #30 cap 05/23/21 Rx Past Med/Surg History Medical History Angina pectoris Aortic stenosis CAD in tribal artery Carotid artery stenosis Diverticulosis Elevated troponin Fibroids (08/05/13) Intermittent claudication Internal hemorrhoids Lumbosacral radiculopathy at L5 Lupus Memory loss Microscopic hematuria Occlusion of distal artery of left upper extremity Osteopenia Peripheral vascular disease Polyneuropathy Renal artery stenosis Renal insufficiency STEMI (ST elevation myocardial infarction) 12/02/2016 Tinnitus, unspecified ear Surgical History History of cardiac cath History of heart artery stent History of heart valve replacement S/P drug eluting coronary stent placement (2018) S/P TAVR (transcatheter aortic valve replacement) (2018) Social History Smoking Status: Never smoker Tobacco Type: Cigarettes Second Hand Exposure: No; Hx Alcohol Use: No Hx Substance Use: No Preferred Language: Nepali Communication Ability: Effective 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 Required: No Beliefs That Will Affect Care: None Current Living Situation: Spouse current occupation: N/A Feels Safe at Home: Yes Safety Concerns: Feels Safe At This Time Seatbelt Use: always Assistive Devices: Walker Review of Systems Review of Systems: Constitutional: denies fevers, nausea, vomiting admits chills Head: denies trauma, vision changes Neurologic: denies syncope ENT: denies stuffiness, sneezing, sore throat admits dizziness Cardiac: denies chest pain, palpitations, leg edema Pulm.: denies cough, shortness of breath GI: denies diarrhea, constipation, blood in stool Physical Exam Constitutional: well developed and well nourished; no acute distress Eyes: PERRL, conjunctivae normal, anicteric sclerae ENMT: external ear and nose normal, oropharynx normal Neck: normal visual inspection Respiratory: normal respiratory effort, lungs clear to auscultation Cardiovascular: Rate/Rhythm: + bradycardic Extremities: no edema Gastrointestinal (Abdomen): normal bowel sounds, soft, nontender, no hepatosplenomegaly Skin: no rashes, warm and dry Neurologic: no focal motor deficits Psychiatric: Orientation: alert Insight: + limited insight confused Results & Data Results & Data ([facility]) Vital Signs (Past 12 Hours) Vital Signs Temp Pulse Pulse Resp BP BP Pulse Ox 05/22/21 23:00 56 L 18 115/51 L 99 05/22/21 21:59 56 L 18 119/47 L 99 05/22/21 19:59 37.0 C 69 18 126/70 95 CBC Results Results Complete Blood Count Results: RBC 3.66 M/uL (4.2-5.4) L 05/23/21 WBC 13.61 K/uL (4.8-10.8) H 05/23/21 Hgb 12.2 g/dL (12.0-16.0) 05/23/21 Hct 36.6 % (37-47) L 05/23/21 Plt Count 167 K/uL (130-400) 05/23/21 Chemistry (BMP) Results BMP Results: Sodium 138 mmol/L (136-145) 05/23/21 Potassium 3.7 mmol/L (3.5-5.1) 05/23/21 Chloride 109 mmol/L (98-107) H 05/23/21 Carbon Dioxide 22 mmol/L (21-32) 05/23/21 Anion Gap 7.0 (3-11) 05/23/21 BUN 11 mg/dl (7-18) 05/23/21 Creatinine 0.98 mg/dl (0.6-1.2) 05/23/21 Glucose 104 mg/dl (70-99) H 05/23/21 Code Status & VTE Plan VTE Prophylaxis Plan VTE Prophylaxis will be ordered: Yes Supervising Physician Co-Signing Physician Notes Attending addendum: I have physically seen this patient, have supervised the medical residents activities, and agree with the H&P unless as otherwise noted. Assessment and Plan: Sinus bradycardia/CAD/status post DELLA of mid LAD/hypertension- The patient will be admitted to telemetry for serial cardiac enzymes, serial EKG's, cardiac rhythm monitoring and a 2-D echocardiogram with Dopplers. Continue aspirin, prasugrel, amlodipine, isosorbide mononitrate Hold this evening's carvedilol dose Consult cardiology Remaining orders and notations as noted Resident Activity Tracking Resident Involvement: Resident Care Provided Care Provided: Adult Hospital Medicine
[2021-05-23] MEDS ORDERED: POTASSIUM CHLORIDE / WTR 10 MEQ/100 ML PLCT IV STA (01:22)
[2021-05-23] MEDS ORDERED: MAGNESIUM SULFATE / D5W 1 GM/100 ML BAG IV ONE (03:13)
[2021-05-23] MEDS ORDERED: ACETAMINOPHEN 325 MG TAB PO PRN (03:13)
[2021-05-23] MEDS ORDERED: POLYETHYLENE (MIRALAX) 17 GM PACK PO PRN (03:13)
[2021-05-23 06:08] LABS: Hematocrit (blood only) 36.6 % (37-47); Hemoglobin 12.2 g/dL (12.0-16.0); Mean Corpuscular Hemoglobin 33.3 pg (25-34); Mean Corpuscular Hgb Conc 33.3 g/dL (32-36); Mean Platelet Volume 11.5 fL (7.4-10.4); Platelet Count 167 K/uL (130-400); RDW Coefficient of Variation 17.1 % (11.5-14.5); RDW Standard Deviation 63.3 fL (36.4-46.3); Red Blood Count 3.66 M/uL (4.2-5.4); White Blood Count 13.61 K/uL (4.8-10.8)
[2021-05-23] MEDS ORDERED: LEVOTHYROXINE SODIUM 50 MCG TABLET PO SCH (06:30)
[2021-05-23 07:01] LABS: ALC (manual) 2.14 K/uL (1.2-3.4); ANC (manual) 9.12 K/uL (1.4-6.5); Eosinophils # (manual) 0.23 K/uL (0-0.5); Eosinophils % (manual) 1.7 %; Lymphocytes # (manual) 2.14 K/uL (1.2-3.4); Lymphocytes % (manual) 15.7 %; Metamyelocytes # (manual) 0.35 K/uL (0-0); Metamyelocytes % (manual) 2.6 %; Monocytes # (manual) 1.42 K/uL (0.11-0.59); Monocytes % (manual) 10.4 %; Myelocytes # (manual) 0.35 K/uL (0-0); Myelocytes % (manual) 2.6 %; Neutrophils # (manual) 9.12 K/uL (1.4-6.5); Tear Drop Cells 1+
[2021-05-23 07:11] LABS: BUN Creatinine Ratio 11.3 (10-20); Creatinine Clr Calc Pharmacy 48.2 ml/min; Est GFR (African American) 63.6 ml/min; Est GFR (Non-African American) 54.9 ml/min; Potassium 3.7 mmol/L (3.5-5.1)
[2021-05-23] MEDS ORDERED: LEVOTHYROXINE SODIUM 50 MCG TABLET PO ONE (08:28)
[2021-05-23] MEDS ORDERED: carvediloL 25 MG TAB PO SCH (09:00)
[2021-05-23] MEDS ORDERED: MULTIVITAMIN TAB PO SCH (09:00)
[2021-05-23] MEDS ORDERED: PRASugrel TAB 10 MG TAB PO SCH (09:00)
[2021-05-23] MEDS ORDERED: ENOXAPARIN INJ 40 MG/0.4 ML SYR SQ SCH (09:00)
[2021-05-23] MEDS ORDERED: PANTOprazole 40 MG TAB PO SCH (09:00)
[2021-05-23] MEDS ORDERED: DICYCLOMINE HCL 10 MG CAP PO SCH (09:00)
[2021-05-23] MEDS ORDERED: DONEPEZIL HCL 5 MG TAB PO SCH (09:00)
[2021-05-23] MEDS ORDERED: CHOLECALCIFEROL 1,000 UNITS 25 MCG TAB PO SCH (09:00)
[2021-05-23] MEDS ORDERED: CHOLECALCIFEROL 5,000 UNITS 125 MCG TAB PO SCH (09:00)
[2021-05-23] MEDS ORDERED: CALCIUM CARBONATE 1250MG TAB PO SCH (09:00)
[2021-05-23] MEDS ORDERED: amLODIPine BESYLATE 5 MG TAB PO SCH (09:00)
[2021-05-23] MEDS ORDERED: ISOSORBIDE MONO EXTENDED REL 60 MG TABCR PO SCH (09:00)
--- NOTE | 2021-05-23 09:04 | Hospitalist Progress Note ---
Date of Service May 23, 2021 Assessment & Plan (1) Bradycardia: (2) Weakness: (3) Dizziness: Plan: 1) Bradycardia / Hypotension - Most likely due to the high dosage of carvedilol. Current Rx is 25 mg PO BID. Reduce to 12.5 mg PO BID. - Pt advised to monitor HR and BP regularly moving forward in order to assess the change to her carvedilol - close f/u with her PCP to assess the need for further adjustment to her medications 2) TSH - As high as 135 on 05/22/21. And as low as .005 as of 08/20/20. Results suggest that Thyroid medication is not being taken regularly as prescribed. - Advised Pt to double check and make sure that her Thyroid medication is part of the daily regiment of medications 2) Dementia - f/u with her PCP concerning future Tx for dementia DDx - Hyperkalemia Hyperkalemia is a known cause for bradycardia, however her labs shows she does not have Hyper-kalemia. DDx - Neurogenic Orthostatic Hypotension A result of degeneration of the autonomic nervous system, and typically associated with neurodegenerative conditions such as Parkinson's. Presents similarly with Orthostatic Hypotension,where the patient will get light headed when moving into a standing position from a seated position. However, this Pt stated that she "felt funny" while sitting down which makes this Dx less likely. In addition she does not demonstrate any of the other classical findings for Parkinson's: Masklike Expression, Bradykinesia, Resting Tremor and Gait Disturbances. DDx - Donepezil Side Effect Hypotension is a known side effect of Donepezil. However, given that she is at the max dosage for carvedilol and that the beta-long acts directly on the heart, her Sx is more likely a result from the carvedilol. DDx - Brain Tumors Her Sx or hypotension and dizziness are consistent with brain tumor/mass effect. However, she would most likely present with other Sx such as positional DEWEY, papilledema and pulsatile tinnitus. Admission and Anticipated Discharge Date Admission Date: May 23, 2021 Subjective 81 y/o female presented to the ED with her , who states her CC is Bradycardia. She states she was sitting on the couch watching TV when she felt weak. She thinks her listened to her heart with a stethoscope and then brought her to the ED for further evaluation. She states that her heart was pumping faster than normal when the episode occurred. Denies CP. States she thinks she had nights sweats a couple of days ago but it has completely resolved. Denies any fevers and chills. States bowel movements are normal. No difficulties with urination. She has not noticed blood in her urine. She states she is feeling good this morning. Tobacco: Does not Smoke EtOH: 0 - 2 glasses of wine per month Drugs: No recreational drug use PMHx: The only condition she was able to remember is HTN. She knows she has memory problems but is not able to offer any more details. Medications: She is not able to recall her medications. Subjective Information from Her (Phone call): She was sitting TV all day. Just finished dinner. Suddenly she did not feel well. got the BP and O2 finger. BP 77/75. Pulse was 41. called 911, ambulance came. Provided Atropine. From when her Sx started to getting hospital took about an hour. Not feeling well: [place] dizzy. You noticed her legs were trembling. 5 years ago Dx with dementia. He thinks she hit her head and then the dementia Sx started. She spent some time in [place] for recreational purposes but a neighbor had to fly her back to [place] because of her Dementia. Spent some time in assisted living but currently lives with her . She suffered a couple falls in [place], where she went to the ER. Evaluated by Psychiatry, but never provided an official diagnoses and did not start her on medications. She has never been evaluated by Neurology. Dr. Bass ([facility]) is her PCP. He started her on Thyroid and Vitamin D. He has noticed any Sx of tremors. He states she does have lack of strength and gets out of breath fairly easily. PMHx: multiple stents placed in heart. Physical Exam Physical Exam: General: NAD. Pleasant affect. HEENT: PERRLA Cardio: RRR, no rubs murmurs or gallops Pulm: Lungs clear to auscultation BL MSK: UE and LE strength and sensation intact. ABD: No pain to palpation of her stomach Neuro: CN II - XII intact. She is able to remember her name, where she is. But she states it is the month of April and cannot recall if the current year is 2019 or 2020. No resting tremors visible. No kinetic tremors. Results & Data Results & Data ([facility]) Vital Signs (Past 12 Hours) Vital Signs Pulse Resp BP Pulse Ox 05/23/21 04:00 60 18 169/82 H 98 05/23/21 03:09 49 L 18 157/72 H 96 05/23/21 01:00 52 L 18 125/46 L 96 05/22/21 23:00 56 L 18 115/51 L 99 05/22/21 21:59 56 L 18 119/47 L 99 Laboratory Results 05/23/21 05/23/21 05/22/21 05:49 05:49 21:51 WBC 13.61 H RBC 3.66 L Hgb 12.2 Hct 36.6 L MCV 100.0 MCH 33.3 MCHC 33.3 RDW Std Deviation 63.3 H RDW Coeff of [place] 17.1 H Plt Count 167 MPV 11.5 H Immature Gran % (Auto) Neut % (Auto) Lymph % (Auto) [place] % (Auto) Eos % (Auto) Baso % (Auto) Neut # (Auto) Lymph # (Auto) [place] # (Auto) Eos # (Auto) Baso # (Auto) Immature Gran # (Auto) Neutrophils % (Manual) 67.0 Lymphocytes % (Manual) 15.7 Monocytes % (Manual) 10.4 Eosinophils % (Manual) 1.7 Metamyelocytes % (Man) 2.6 Myelocytes % (Man) 2.6 Neutrophils # (Manual) 9.12 H Total Absolute Neuts 9.12 H Lymphocytes # (Manual) 2.14 Total Abs Lymphocytes 2.14 Monocytes # (Manual) 1.42 H Eosinophils # (Manual) 0.23 Metamyelocytes # (Man) 0.35 H Myelocytes # (Manual) 0.35 H Tear Drop Cells 1+ ESR PT INR APTT PTT Ratio Sodium 138 Potassium 3.7 D Chloride 109 H Carbon Dioxide 22 Anion Gap 7.0 BUN 11 Creatinine 0.98 D Est Cr Clr Drug Dosing 48.2 Est GFR ( Amer) 63.6 Est GFR (Non-Af Amer) 54.9 BUN/Creatinine Ratio 11.3 Glucose 104 H Lactate Calcium 10.0 Magnesium Total Bilirubin AST ALT Alkaline Phosphatase Troponin I C-Reactive Protein Total Protein Albumin Globulin Albumin/Globulin Ratio Procalcitonin TSH Free T4 Urine Color Yellow Urine Appearance Cloudy A Urine pH 6.0 Ur Specific [place] 1.018 Urine Protein 1+ H Urine Glucose (UA) Negative Urine Ketones Negative Urine Blood Negative Urine Nitrite Negative Urine Bilirubin Negative Urine Urobilinogen Negative Ur Leukocyte Esterase Negative Urine WBC (Auto) 5-10 H Urine RBC (Auto) 0-4 U Hyaline Cast (Auto) 5-10 H U Epithel Cells (Auto) >30 H Urine Bacteria (Auto) 1+ H Lyme Disease IgG Ab Lyme Disease IgM Ab SARS-CoV-2 (PCR) Influenza Type A (PCR) Influenza Type B (PCR) RSV (RT-PCR) 05/22/21 05/22/21 05/22/21 21:51 20:51 20:00 WBC RBC Hgb Hct MCV MCH MCHC RDW Std Deviation RDW Coeff of [place] Plt Count MPV Immature Gran % (Auto) Neut % (Auto) Lymph % (Auto) [place] % (Auto) Eos % (Auto) Baso % (Auto) Neut # (Auto) Lymph # (Auto) [place] # (Auto) Eos # (Auto) Baso # (Auto) Immature Gran # (Auto) Neutrophils % (Manual) Lymphocytes % (Manual) Monocytes % (Manual) Eosinophils % (Manual) Metamyelocytes % (Man) Myelocytes % (Man) Neutrophils # (Manual) Total Absolute Neuts Lymphocytes # (Manual) Total Abs Lymphocytes Monocytes # (Manual) Eosinophils # (Manual) Metamyelocytes # (Man) Myelocytes # (Manual) Tear Drop Cells ESR PT INR APTT PTT Ratio Sodium Potassium Chloride Carbon Dioxide Anion Gap BUN Creatinine Est Cr Clr Drug Dosing Est GFR ( Amer) Est GFR (Non-Af Amer) BUN/Creatinine Ratio Glucose Lactate 1.4 Calcium Magnesium Total Bilirubin AST ALT Alkaline Phosphatase Troponin I C-Reactive Protein Total Protein Albumin Globulin Albumin/Globulin Ratio Procalcitonin 0.05 TSH Free T4 Urine Color Urine Appearance Urine pH Ur Specific [place] Urine Protein Urine Glucose (UA) Urine Ketones Urine Blood Urine Nitrite Urine Bilirubin Urine Urobilinogen Ur Leukocyte Esterase Urine WBC (Auto) Urine RBC (Auto) U Hyaline Cast (Auto) U Epithel Cells (Auto) Urine Bacteria (Auto) Lyme Disease IgG Ab Negative Lyme Disease IgM Ab Negative SARS-CoV-2 (PCR) NEGATIVE Influenza Type A (PCR) Negative Influenza Type B (PCR) Negative RSV (RT-PCR) Negative 05/22/21 05/22/2121 20:00 20:00 20:00 WBC RBC Hgb Hct MCV MCH MCHC RDW Std Deviation RDW Coeff of [place] Plt Count MPV Immature Gran % (Auto) Neut % (Auto) Lymph % (Auto) [place] % (Auto) Eos % (Auto) Baso % (Auto) Neut # (Auto) Lymph # (Auto) [place] # (Auto) Eos # (Auto) Baso # (Auto) Immature Gran # (Auto) Neutrophils % (Manual) Lymphocytes % (Manual) Monocytes % (Manual) Eosinophils % (Manual) Metamyelocytes % (Man) Myelocytes % (Man) Neutrophils # (Manual) Total Absolute Neuts Lymphocytes # (Manual) Total Abs Lymphocytes Monocytes # (Manual) Eosinophils # (Manual) Metamyelocytes # (Man) Myelocytes # (Manual) Tear Drop Cells ESR 22 PT 11.0 INR 1.1 APTT 31.9 H PTT Ratio 1.2 Sodium 132 L Potassium 3.1 L Chloride 101 Carbon Dioxide 21 Anion Gap 10.0 BUN 14 Creatinine 1.28 H Est Cr Clr Drug Dosing 36.9 Est GFR ( Amer) 46.0 Est GFR (Non-Af Amer) 39.7 BUN/Creatinine Ratio 10.8 Glucose 160 H Lactate Calcium 9.3 Magnesium 1.6 L Total Bilirubin 0.5 AST 17 ALT 19 Alkaline Phosphatase 98 Troponin I < 0.015 C-Reactive Protein 2.80 H Total Protein 6.8 Albumin 3.3 L Globulin 3.5 Albumin/Globulin Ratio 0.9 Procalcitonin TSH 135.000 H Free T4 0.60 L Urine Color Urine Appearance Urine pH Ur Specific [place] Urine Protein Urine Glucose (UA) Urine Ketones Urine Blood Urine Nitrite Urine Bilirubin Urine Urobilinogen Ur Leukocyte Esterase Urine WBC (Auto) Urine RBC (Auto) U Hyaline Cast (Auto) U Epithel Cells (Auto) Urine Bacteria (Auto) Lyme Disease IgG Ab Lyme Disease IgM Ab SARS-CoV-2 (PCR) Influenza Type A (PCR) Influenza Type B (PCR) RSV (RT-PCR) 05/22/21 20:00 WBC 12.87 H RBC 3.50 L Hgb 11.8 L Hct 34.6 L MCV 98.9 MCH 33.7 MCHC 34.1 RDW Std Deviation 62.1 H RDW Coeff of [place] 17.3 H Plt Count 193 MPV 11.7 H Immature Gran % (Auto) 6.4 Neut % (Auto) 64.0 Lymph % (Auto) 17.1 [place] % (Auto) 11.5 Eos % (Auto) 0.8 Baso % (Auto) 0.2 Neut # (Auto) 8.24 H Lymph # (Auto) 2.20 [place] # (Auto) 1.48 H Eos # (Auto) 0.10 Baso # (Auto) 0.02 Immature Gran # (Auto) 0.83 H Neutrophils % (Manual) Lymphocytes % (Manual) Monocytes % (Manual) Eosinophils % (Manual) Metamyelocytes % (Man) Myelocytes % (Man) Neutrophils # (Manual) Total Absolute Neuts Lymphocytes # (Manual) Total Abs Lymphocytes Monocytes # (Manual) Eosinophils # (Manual) Metamyelocytes # (Man) Myelocytes # (Manual) Tear Drop Cells 1+ ESR PT INR APTT PTT Ratio Sodium Potassium Chloride Carbon Dioxide Anion Gap BUN Creatinine Est Cr Clr Drug Dosing Est GFR ( Amer) Est GFR (Non-Af Amer) BUN/Creatinine Ratio Glucose Lactate Calcium Magnesium Total Bilirubin AST ALT Alkaline Phosphatase Troponin I C-Reactive Protein Total Protein Albumin Globulin Albumin/Globulin Ratio Procalcitonin TSH Free T4 Urine Color Urine Appearance Urine pH Ur Specific [place] Urine Protein Urine Glucose (UA) Urine Ketones Urine Blood Urine Nitrite Urine Bilirubin Urine Urobilinogen Ur Leukocyte Esterase Urine WBC (Auto) Urine RBC (Auto) U Hyaline Cast (Auto) U Epithel Cells (Auto) Urine Bacteria (Auto) Lyme Disease IgG Ab Lyme Disease IgM Ab SARS-CoV-2 (PCR) Influenza Type A (PCR) Influenza Type B (PCR) RSV (RT-PCR)
--- NOTE | 2021-05-23 16:22 | Discharge Summary ---
Date of Service May 23, 2021 Admission HPI Per Admitting Provider Gonsalo Griffin has a past medical history of reflux, HTN, HLD, hypothyroidism, reflux, BRITTNY, polyneuropathy, CAD s/p stents to the mid LAD in 2015 and 2017 on prasugrel, and dementia presenting after feeling fatigued and found to be bradycardic. She was watching TV with her when she appeared fatigued. They took her HR and BP and her HR was in the 40's she was taken in the ambulance to the ER in transit she was given Atropine which improve her HR. She has dementia that was at her baseline per her . She gave a limited history as she was not able to remember what brought her. She thought she may have had chest pain and shortness of breath although currently denies this. ER course: Mg, K, NSS, urine and blood cultures Principal Diagnosis Weakness secondary to orthostatic hypotension Discharge Exam Constitutional WD/WN, vitals as above Respiratory normal respiratory effort, lungs clear to auscultation Cardiovascular RRR, no murmur, no edema Gastrointestinal (Abdomen) normal bowel sounds, soft, nontender, no hepatosplenomegaly Musculoskeletal no cyanosis or clubbing, extremities motor strength 5/5 Discharge Data Allergies Allergy/AdvReac Type Severity Reaction Status Date / Time adhesive Allergy Intermediate RED RASH Verified 05/16/21 16:58 clindamycin Allergy Mild Rash Verified 05/16/21 16:58 latex Allergy Mild RASH Verified 05/16/21 16:58 Penicillins Allergy Unknown HIVES Verified 05/16/21 16:58 Consultations 05/22/21 23:18 ED Decision to Admit Stat Hospital Course (1) Bradycardia: 81 yo F w/ pMHx. of reflux, HTN, HLD, hypothyroidism, reflux, BRITTNY, po lyneuropathy, CAD s/p stents to the mid LAD in 2016 and 2017 on prasugrel, and dementia presenting after feeling fatigued and found to be bradycardic admitted to med./surg. telemetry. sinus bradycardia, fatigue possibly related to hypothyroid versus orthostatic hypotension Lyme test negative, COVID negative, CXR no acute process - CXR showed no acute process - TSH ordered - 135 - this was significantly elevated on prior testing - current levothyroxine dose 50 mcg, added levothyroxine 50 mcg one time dose; adjusted home dose further, to 75 mcg daily. - adjustment made after consulting with patient's , who denies nonadherence to levothyroxine regimen. Therefore, medication adjustment as above - checking cortisol to r/o adrenal insufficiency - monitor on a telemetry floor - repleting K and Mg as needed - cardiology consulted HTN -Adjusted home carvedilol 25 mg twice daily dose; changed to 12.5 mg twice daily -Dose adjustment explained to patient and , who manages her medications; he expressed understanding of the medication changes. CAD s/p DELLA of mid LAD - continue ASA, Atorvastatin - continue prasugrel Reflux - continue PPI Dementia - continue donepezil Code: conditional (no intubation) Diet: regular DVT: lovenox Total Time Total Time Spent Total Time Spent (In Minutes): 10 Discharge Plan Discharge Items Patient Disposition: Home - Self-Care Reason For Visit: BRADYCARDIA Discharge Diagnosis: Weakness secondary to orthostatic hypotension Activity: Per Instructions section Non-emergency contact: Primary Care Provider Call non-emergency contact if: you have any medication questions and your symptoms worsen Follow-up/Referrals: Charly Bass MD [Primary Care Provider] - Diet: Regular Addtl Attending Provider Instructions: You were admitted to the hospital for weakness. You were treated with fluids and your home medications. A discharge summary will be sent to your primary care physician to ensure continuity of care. Please bring this discharge summary with you to your next office appointment so that your provider can review it at that time. Follow-up appointments: * We have requested a follow-up appointment with your primary care physicia, Dr. Bass , within one week of discharge. Please call their office if you do not hear from them. * Keep all your follow-up appointments as already scheduled. If you cannot make an appointment, notify your provider. Medications: Your medication list has been reviewed and reconciled upon discharge to ensure accuracy and continuity of care. An updated list of all your medications is included with your hospital discharge paperwork. Please review this list closely, and make note of any changes. * We sent a new dose of your Carvedilol to your pharmacy. your new dose is 12.5 mg twice daily. you should stop taking your previous dose of 25 mg twice daily. * We sent a new dose of your Levothyroxine to your pharmacy. Your new dose is 75 mcg, to be taken once daily. You should stop taking your previous dose of 50 mcg once daily. Take your medications as instructed; do not skip a dose of your medicines. Make sure all of your doctors know every medicine you are taking (including mzzg-fin-fmxcfjm medicines, vitamins, and supplements). Call your primary care provider before taking any new medicines (including teva-sxr-yqjdnvz medicines, vitamins, and supplements), because some of these may interact with your current medications, or may make your symptoms worse. Tell your primary care provider if you cannot afford your medications. CONTACT YOUR PRIMARY CARE PROVIDER if you experience any of the following: * Dizziness at rest * Weakness upon standing up * Difficulty following your treatment plan, or difficulty taking medications CALL 911 OR GO TO THE EMERGENCY DEPARTMENT if you experience any of the following: * Sudden, severe abdominal pain or nausea/vomiting * Severe chest pain, or chest pain that radiates (moves) to your jaw or arm * Sudden, severe shortness of breath or difficulty breathing Thank you for allowing us to participate in your care. Pending Studies at Discharge: No Stand-Alone Forms: My [facility], Smoking Cessation Medications and DC Order Prescriptions: New carvedilol 12.5 mg Tablet 12.5 mg PO BID 30 Days Qty: 60 RF: 0 levothyroxine 75 mcg capsule 75 mcg PO DAILY 30 Days Qty: 30 RF: 0 Continued nitroglycerin [Nitrostat] 0.4 mg tablet, sublingual 0.4 mg sublingual USEASDIRECTD PRN (Reason: Chest Pain) Qty: 25 RF: 2 amlodipine 5 mg tablet 5 mg PO QAM Qty: 90 RF: 3 isosorbide mononitrate 60 mg tablet extended release 24 hr 60 mg PO BID Qty: 180 RF: 3 prasugrel [Effient] 10 mg tablet 10 mg PO QAM Qty: 90 RF: 3 omeprazole 20 mg capsule,delayed release(DR/EC) 20 mg PO BID Qty: 60 RF: 5 atorvastatin [Lipitor] 40 mg tablet 40 mg PO HS Qty: 90 RF: 3 donepezil 5 mg tablet 5 mg PO QAM Qty: 90 RF: 3 Premarin 0.45 mg tablet 0.45 mg PO QAM Qty: 90 RF: 1 azithromycin 500 mg tablet 500 mg PO .COMPLEX 1 Days Qty: 3 RF: 3 cholecalciferol (vitamin D3) 125 mcg (5,000 unit) capsule 125 mcg PO DAILY Qty: 90 RF: 0 dicyclomine 10 mg capsule 10 mg PO BID Qty: 60 RF: 3 multivitamin [Daily Multi-Vitamin] Tablet 1 tab PO QAM RF: 0 calcium carbonate 500 mg calcium (1,250 mg) tablet,chewable 500 mg PO DAILY RF: 0 aspirin 81 mg Tablet,Chewable 81 mg PO HS RF: 0 Discontinued levothyroxine 50 mcg tablet 50 mcg PO DAILY Qty: 90 RF: 0 carvedilol 25 mg tablet 25 mg PO BID Qty: 60 RF: 5 Discharge Orders: Discharge Order (Routine); Ordered 05/23/21 Ordered By: Angella Arndt Admission Data Admit Date/Time: 05/23/21 00:36 Attending Provider: Tom Catherine Admit Provider: Len Fang Primary Care Provider: Charly Bass Other Providers: Joao Eddy Resident Activity Tracking Resident Involvement: Resident Care Provided Care Provided: [facility] Medicine
[2021-05-23 16:49] VITALS: PULSE 58; TEMP 99; O2SAT 97
[2021-05-23 17:13] VITALS: BP 151/78
--- NOTE | 2021-05-23 19:28 | Billing Data ---
Date of Service May 23, 2021 Coding Level of Care Code D/C DAY MANAGEMENT <30 MINS
--- NOTE | 2021-05-23 19:53 | Billing Data ---
Date of Service May 23, 2021 Coding Level of Care Code 38027 Initial Inpt Care Lvl 3
[2021-05-23] MEDS ORDERED: ASPIRIN 81 MG ECTAB PO SCH (21:00)
[2021-05-23] MEDS ORDERED: carvediloL 12.5 MG TAB PO SCH (21:00)
[2021-05-23] MEDS ORDERED: ATORVASTATIN 40 MG TAB PO SCH (21:00)
--- NOTE | 2021-05-23 21:56 | Electrocardiogram Report ---
Test Reason : Blood Pressure : / mmHG Vent. Rate : 071 BPM Atrial Rate : 071 BPM P-R Int : 244 ms QRS Dur : 100 ms QT Int : 428 ms P-R-T Axes : 021 -55 135 degrees QTc Int : 465 ms Sinus rhythm with 1st degree A-V block Left axis deviation Inferior infarct , age undetermined Anterior infarct T wave abnormality, consider lateral ischemia Abnormal ECG When compared with ECG of 01-APR-2021 14:53, Vent. rate has increased BY 23 BPM QT has lengthened Confirmed by Blair Lang ([id number]) on 05/23/2021 9:55:28 PM Referred By: REFERRED SELF Confirmed By:Blair Lang
== END 2021-05-23 18:26 | disposition home or self-care (01) ==
LOC: ED 19:52 → INTOOBSV 05-23 00:36 → EDINP 05-23 00:36 → SUATTDRO 05-23 00:36 → EDINP 05-23 03:32 → 2N 05-23 11:38

== ENCOUNTER 2023-01-28 16:59 | Observation (INO) ==
--- NOTE | 2023-01-28 17:09 | ED Triage Note ---
Date of Service January 28, 2023 History of Present Illness This patient was briefly evaluated while in triage. An abbreviated physical exam was performed. This patient is a 83-year-old Female who presents to the ED for evaluation of pain in bladder area. Over the last three days getting worse. Here with . No low back pain or nausea/vomiting. Physical Exam GENERAL: 83 year old female. In no acute distress. SKIN: No lesions or rashes. HEART: Regular rate and rhythm. LUNGS: Clear to auscultation. ABDOMEN: Bowel sounds normoactive. No guarding or rigidity. No tenderness of palpation. NEURO: Alert and oriented. No deficits. MUSCULOSKELETAL: No deformities to inspection of the extremities. PSYCH: Patient is pleasant and answers all questions appropriately. Initial orders for labs and / or imaging were placed and patient was placed in the waiting area until a bed is available. Please see further documentation for the full ED course.
--- NOTE | 2023-01-28 18:19 | Emergency Department Note ---
Impression & Plan Cystitis, Leukocytosis ED Provider Note INFORMANT: Patient and ED PROVIDER(S): Librado Post MD CHIEF COMPLAINT: Suprapubic abdominal pain PLAN: Disposition: Discharged Condition: Good Outpatient prescription management: Cefdinir Referral: Primary follow-up MEDICAL DECISION MAKING: Patient presented because of suprapubic abdominal pain. Work-up was initiated. Patient had blood work, urinalysis, and CT imaging performed. CT imaging revealed findings consistent with cystitis. Patient's urinalysis is concerning for infection. The patient has a marked leukocytosis on CBC. Chemistry panel unremarkable. Given the patient's age and marked leukocytosis along with the cystitis blood cultures were done before antibiotics. She was treated with IV cefepime. Further management in the hospital was felt to be appropriate. Patient and were in agreement. Consultation was made with Dr. Joao Eddy of the [facility] service. Patient was evaluated in the ER for further management. Discussed with security and compliance project manager After review of the information above and other included data, I feel the patient requires admission. Triage Nursing notes reviewed and agree them. Vital Signs: reviewed and remarkable for no significant abnormalities Prior /Outside records reviewed: none Differential diagnosis: Renal colic, UTI, appendicitis, diverticulitis, mesenteric ischemia, aortic pathology, infections, inflammatory bowel disease, PUD, biliary pathology, as well as other pathologies. Diagnostics, as interpreted by me: ECG: none Cardiac Monitoring: Cardiac monitoring ordered by me: The patient was placed on continuous cardiac monitoring and observed. It revealed a normal sinus rhythm at 69 beats per minute without ectopy or evidence of dysrhythmia. Medical decision rules: none Imaging studies: CT imaging as above HPI: The patient is a 83-year-old Female who presents to the ED for evaluation of pain in bladder area. Over the last three days getting worse. Here with . No low back pain or nausea/vomiting. The patient also notes the following associated symptoms, dysuria. The patient has taken no medication for relieving factors. Current pain is rated as 9/10. Pt denies LOC, headache, fevers, chills, diaphoresis, visual changes, neck pain, chest pain, breathing difficulties, nausea, vomiting, back pain, melena, hematochezia, numbness, weakness, lymphadenopathy, rash, or other complaints. PAST MEDICAL HISTORY: See Below, BRITTNY, CAD, dementia PAST SURGICAL HISTORY: See Below, SOCIAL HISTORY: See Below, HOME MEDICATIONS: See Below ALLERGIES: See Below VITALS: See Below PHYSICAL EXAMINATION: GENERAL: Awake, alert, well-appearing, in no distress HENT: Normocephalic, atraumatic. Oropharynx unremarkable. EYES: Normal conjunctiva. Sclera non-icteric. NECK: Inspection normal. Non-tender. Supple. No nuchal rigidity. FROM. No tyra s. RESPIRATORY: Clear to auscultation. No wheezes. No rales. Normal respiratory effort. CARDIAC: Normal rate. Normal rhythm. No murmurs. No rubs. Extremities warm and well perfused. Pulses equal. No JVD. GI: Soft, non-distended. Suprapubic tenderness to palpation. No rebound or guarding. No masses. RECTAL: Deferred. MUSCULOSKELETAL: Atraumatic. Chest examination reveals no tenderness. The back is symmetrical on inspection without obvious abnormality. There is no CVA tenderness to palpation. No joint edema. LOWER EXTREMITIES: Calves are equal size bilaterally and non-tender. No edema. No discoloration. NEURO: Normal sensorium. No sensory or motor deficits noted. SKIN: No rash or jaundice noted. Past Med/Surg History Medical History Angina pectoris Aortic stenosis Bradycardia CAD in [place] artery Carotid artery stenosis Diverticulosis Dizziness Elevated troponin Fibroids (08/05/13) Intermittent claudication Internal hemorrhoids Lumbosacral radiculopathy at L5 Lupus Memory loss Microscopic hematuria Occlusion of distal artery of left upper extremity Osteopenia Peripheral vascular disease Polyneuropathy Renal artery stenosis Renal insufficiency STEMI (ST elevation myocardial infarction) Tinnitus, unspecified ear Weakness Surgical History History of cardiac cath History of heart artery stent History of heart valve replacement S/P drug eluting coronary stent placement (2018) S/P laparoscopic hysterectomy (~2013) S/P TAVR (transcatheter aortic valve replacement) (2018) Social History Smoking Status: Former smoker Tobacco Type: Cigarettes Second Hand Exposure: No; Do You Dip or Chew Tobacco: No; Tobacco Cessation Education Requested by Patient: No Hx Alcohol Use: Yes Alcohol type: wine Hx Substance Use: No Preferred Language: Lao Communication Ability: Effective Music Rehabilitation Therapist Required: No Beliefs That Will Affect Care: None Current Living Situation: Alone Current Living Situation Comment: 2 story home w/ 3 stairs to enter current occupation: N/A Feels Safe at Home: Yes Safety Concerns: Feels Safe At This Time Seatbelt Use: always Assistive Devices: None and Walker Allergies Allergies Allergy/AdvReac Type Severity Reaction Status Date / Time adhesive Allergy Intermediate RED RASH Verified 01/28/23 21:49 clindamycin Allergy Mild Rash Verified 01/28/23 21:49 latex Allergy Mild RASH Verified 01/28/23 21:49 Penicillins Allergy Unknown HIVES Verified 01/28/23 21:49 Home Meds Home Medications Medication Instructions Recorded Confirmed aspirin 81 mg chewable tablet 81 mg PO HS 11/23/18 01/28/23 multivitamin (Daily Multi-Vitamin 1 tab PO QAM 12/15/19 01/28/23 tablet) calcium carbonate 500 mg calcium 500 mg PO DAILY 08/24/20 01/28/23 (1,250 mg) chewable tablet famotidine 20 mg tablet (Pepcid) 20 mg PO QPM 01/28/23 01/28/23 isosorbide mononitrate 60 mg 60 mg PO QPM 01/28/23 01/28/23 tablet,extended release 24 hr isosorbide mononitrate 60 mg 120 mg PO QAM 01/28/23 01/28/23 tablet,extended release 24 hr levothyroxine 100 mcg tablet 100 mcg PO DAILYBB 01/28/23 01/28/23 omeprazole 20 mg capsule,delayed 20 mg PO QAM 01/28/23 01/28/23 release Previous Rx's Medication Instructions Recorded donepezil 5 mg tablet 5 mg PO QAM #90 tabs 01/27/22 carvedilol 12.5 mg tablet 12.5 mg PO BID #180 tabs 06/21/22 conjugated estrogens 0.45 mg 0.45 mg PO QAM #90 tabs 08/19/22 tablet (Premarin) amlodipine 5 mg tablet 5 mg PO QAM #90 tabs 09/15/22 dicyclomine 10 mg capsule 10 mg PO BID #60 caps 09/29/22 prasugrel 10 mg tablet (Effient) 10 mg PO QAM #90 tabs 10/02/22 cholecalciferol (vitamin D3) 125 125 mcg PO DAILY #90 caps 11/03/22 mcg (5,000 unit) capsule nitroglycerin 0.4 mg sublingual 0.4 mg sublingual USEASDIRECTD PRN 11/26/22 tablet (Nitrostat) Chest Pain #25 tabs azithromycin 500 mg tablet 500 mg PO .COMPLEX 1 day #3 tabs 12/02/22 atorvastatin 40 mg tablet (Lipitor) 40 mg PO HS #90 tabs 01/13/23 Results & Data (ED) Vital Signs Vital Signs - 24 hr 01/28/23 17:07 01/28/23 19:30 Temperature 36.3 C L Temperature Source Temporal Artery Scan Pulse Rate 61 Pulse Rate [Finger] 61 Pulse Strength [Finger] Normal Respiratory Rate 20 18 Respiratory Effort / Characteristics Non-Labored Spontaneous Non-Labored Respiratory Depth Normal Normal Respiratory Pattern Regular Regular Blood Pressure 159/66 H Blood Pressure [Right Arm] 145/64 H Blood Pressure Mean 97 Blood Pressure Mean [Right Arm] 91 Blood Pressure Position Sitting Blood Pressure Position [Right Arm] Lying Pulse Oximetry 98 97 Oxygen Delivery Method Room Air Room Air Sepsis Recent Fever Within 48 Hours No Sepsis New/Unexplained Change in Mental Status No Sepsis Action Taken by Nursing No Action Required Laboratory Data 01/28/23 18:37 01/28/23 18:37 Lab Results 01/28/23 01/28/23 01/28/23 Range/Units 18:37 18:37 20:18 WBC 23.67 H (4.8-10.8) K/ul RBC 3.75 L (4.20-5.40) M/uL Hgb 12.1 (12.0-16.0) g/dl Hct 35.8 L (37.0-47.0) % MCV 95.5 (80.0-100.0) fL MCH 32.3 (25.0-34.0) pg MCHC 33.8 (32.0-36.0) g/dL RDW Std Deviation 59.5 H (36.4-46.3) fL RDW Coeff of Minerva 17.1 H (11.5-14.5) % Plt Count 175 (130-400) K/uL MPV 11.3 (9.4-12.4) fL Tear Drop Cells 2+ Rouleaux 1+ Sodium 133 L (136-145) mmol/L Potassium 4.3 (3.5-5.1) mmol/L Chloride 100 (98-107) mmol/L Carbon Dioxide 25 (21-32) mmol/L Anion Gap 8 (3-11) BUN 16 (6-23) mg/dl Creatinine 1.10 (0.6-1.2) mg/dl Est Cr Clr Drug Dosing 34.6 ml/min Est GFR ( Amer) 54.5 ml/min Est GFR (Non-Af Amer) 47.0 ml/min BUN/Creatinine Ratio 14.5 (10-20) Glucose 87 (70-99(Fasting)) mg/dl Calcium 9.9 (8.6-10.3) mg/dl Total Bilirubin 0.6 (0.2-1.0) mg/dl AST 16 (13-39) U/L ALT 9 (7-52) U/L Alkaline Phosphatase 79 (34-104) U/L Total Protein 6.7 (6.0-8.3) gm/dl Albumin 4.5 (3.4-5.0) gm/dl Globulin 2.2 L (2.5-4.0) gm/dl Albumin/Globulin Ratio 2.0 (0.9-2) Urine Color Yellow Urine Appearance Cloudy A (Clear) Urine pH 7.0 (4.5-7.5) Ur Specific [place] 1.007 (1.000-1.030) Urine Protein Trace H (Negative) Urine Glucose (UA) Negative (Negative) Urine Ketones Negative (Negative) Urine Blood 3+ H (Negative) Urine Nitrite Negative (Negative) Urine Bilirubin Negative (Negative) Urine Urobilinogen Negative (Negative) Ur Leukocyte Esterase 3+ H (Negative) Urine WBC (Auto) >30 H (0-5) /hpf Urine RBC (Auto) 0-4 (0-4) /hpf U Hyaline Cast (Auto) 0 (0-5) /lpf U Epithel Cells (Auto) 10-20 H (0-5) /lpf Urine Bacteria (Auto) Negative (Negative) Administered Medications Aspirin (Aspirin 81 Mg Chew) 81 mg PO HS JAY JAY Stop: 02/27/23 23:29 Last Admin: 01/29/23 00:13 Dose: 81 mg Documented By: PLF Atorvastatin Calcium (Atorvastatin 40 Mg Tab) 40 mg PO HS JAY JAY Stop: 02/27/23 23:29 Last Admin: 01/29/23 00:14 Dose: 40 mg Documented By: PLF Carvedilol (Carvedilol 12.5 Mg Tab) 12.5 mg PO BID JAY JAY Stop: 02/27/23 23:29 Last Admin: 01/29/23 00:14 Dose: 12.5 mg Documented By: PLF Dicyclomine HCl (Dicyclomine Hcl 10 Mg Cap) 10 mg PO BID JAY JAY Stop: 02/27/23 23:29 Last Admin: 01/29/23 00:14 Dose: 10 mg Documented By: PLF Heparin Sodium (Porcine) (Heparin Sod 5,000 Unit/0.5 Ml Vial) 5,000 units SQ Q12 JAY JAY Stop: 02/27/23 23:29 Last Admin: 01/29/23 00:13 Dose: 5,000 units Documented By: PLF Potassium Chloride/Sodium Chloride (Normal Saline W/20 Meq Kcl) 20 meq in 1,000 mls @ 80 mls/hr IV .[id number] [facility]; Protocol Stop: 01/29/23 11:59 Last Admin: 01/29/23 00:12 Dose: 80 mls/hr Documented By: PLF Isosorbide Mononitrate (Isosorbide [place] Extended Rel 60 Mg Tabcr) 60 mg PO BID [facility] Stop: 02/27/23 23:29 Last Admin: 01/29/23 00:14 Dose: 60 mg Documented By: PLF Discontinued Medications Cefepime HCl (Maxipime) 2,000 mg in 20 mls @ 5 mls/min IV NOW [facility]; Protocol Stop: 01/28/23 19:02 Last Admin: 01/28/23 19:34 Dose: 5 mls/min Documented By: [facility] Imaging Data Radiologist's Impression: Abdomen/Pelvis CT 01/28/23 17:09 CT abd pelvis wo con CLINICAL HISTORY: Urinary symptoms, low abd pain TECHNIQUE: Helical axial images of the abdomen and pelvis were obtained. Automated dose lowering techniques and/or adjustment according to patient size were utilized for this exam. This exam was performed without intravenous contrast. CT DOSE: 1059.42 mGy.cm COMPARISON: None available at the time of this dictation. FINDINGS: Lower chest: Partial visualization of aortic valvular prosthesis. Liver: Unremarkable. No focal lesions are seen. Gallbladder and biliary tree: Cholelithiasis is seen without evidence of cholecystitis. No intra- or extrahepatic biliary ductal dilation. Pancreas: Unremarkable, no focal lesions. Spleen: Splenomegaly is noted, the spleen measures 13.5 cm. Adrenals: Unremarkable. Kidneys and ureters: Renal cysts are seen. Bladder: Diffuse homogeneous wall thickening is seen. Reproductive organs: Unremarkable. Bowel: Diverticulosis is seen without diverticulitis. The appendix is normal. A hiatal hernia is seen. Lymph nodes Retroperitoneal: Unremarkable. Pelvic: Unremarkable. Mesenteric: Unremarkable. Peritoneum: Normal. Vessels: Atherosclerotic calcifications are seen. Abdominal wall: Unremarkable. Bones: Degenerative changes in the visualized spine. IMPRESSION: Bladder wall thickening is seen which may be secondary to underdistention however correlation with urinalysis is recommended to exclude cystitis. No evidence of ascending infection is seen in this noncontrast exam. ACT 112: Negative or not required by law. Electronically signed by: Lucas Singh M.D. 01/28/2023 6:43 PM Discharge Plan Visit Data Chief Complaint: Abdominal Pain Stated Complaint: PAIN IN BLADDER,PEEING VERY LITTLE ED Provider: Librado Post Discharge Problem: Cystitis, Leukocytosis Patient Disposition: Admitted As Inpatient Discharge Instructions Interventions: ED Discharge Assessment Last Done: 01/28/23 22:23
--- NOTE | 2023-01-28 18:46 | CT Scan Report ---
CT abd pelvis wo con CLINICAL HISTORY: Urinary symptoms, low abd pain TECHNIQUE: Helical axial images of the abdomen and pelvis were obtained. Automated dose lowering tech niques and/or adjustment according to patient size were utilized for this exam. This exam was perfor med without intravenous contrast. CT DOSE: 1059.42 mGy.cm COMPARISON: None available at the time of this dictation. FINDINGS: Lower chest: Partial visualization of aortic valvular prosthesis. Liver: Unremarkable. No focal lesions are seen. Gallbladder and biliary tree: Cholelithiasis is seen without evidence of cholecystitis. No intra- or extrahepatic biliary ductal dilation. Pancreas: Unremarkable, no focal lesions. Spleen: Splenomegaly is noted, the spleen measures 13.5 cm. Adrenals: Unremarkable. Kidneys and ureters: Renal cysts are seen. Bladder: Diffuse homogeneous wall thickening is seen. Reproductive organs: Unremarkable. Bowel: Diverticulosis is seen without diverticulitis. The appendix is normal. A hiatal hernia is seen . Lymph nodes Retroperitoneal: Unremarkable. Pelvic: Unremarkable. Mesenteric: Unremarkable. Peritoneum: Normal. Vessels: Atherosclerotic calcifications are seen. Abdominal wall: Unremarkable. Bones: Degenerative changes in the visualized spine. IMPRESSION: Bladder wall thickening is seen which may be secondary to underdistention however correlation with ur inalysis is recommended to exclude cystitis. No evidence of ascending infection is seen in this nonco ntrast exam. ACT 112: Negative or not required by law. Electronically signed by: Lucsa Singh M.D. 01/28/2023 6:43 PM
[2023-01-28 18:54] LABS: Hematocrit (blood only) 35.8 % (37.0-47.0); Hemoglobin 12.1 g/dl (12.0-16.0); Mean Corpuscular Hemoglobin 32.3 pg (25.0-34.0); Mean Corpuscular Hgb Conc 33.8 g/dL (32.0-36.0); Mean Corpuscular Volume 95.5 fL (80.0-100.0); Mean Platelet Volume 11.3 fL (9.4-12.4); Platelet Count 175 K/uL (130-400); RDW Coefficient of Variation 17.1 % (11.5-14.5); RDW Standard Deviation 59.5 fL (36.4-46.3); Red Blood Count 3.75 M/uL (4.20-5.40); White Blood Count 23.67 K/ul (4.8-10.8)
[2023-01-28] MEDS ORDERED: CEFEPIME 2,000 MG/20 ML VIAL IV STA (18:59)
[2023-01-28 19:11] LABS: Albumin Level 4.5 gm/dl (3.4-5.0); BUN Creatinine Ratio 14.5 (10-20); Bilirubin,Total 0.6 mg/dl (0.2-1.0); Calcium 9.9 mg/dl (8.6-10.3); Creatinine Clr Calc Pharmacy 34.6 ml/min; Est GFR (African American) 54.5 ml/min; Globulin 2.2 gm/dl (2.5-4.0); Potassium 4.3 mmol/L (3.5-5.1); Total Protein 6.7 gm/dl (6.0-8.3)
[2023-01-28 20:10] LABS: Rouleaux 1+; Tear Drop Cells 2+
--- NOTE | 2023-01-28 20:43 | History & Physical Report ---
Date of Service January 28, 2023 Assessment & Plan (1) Cystitis: (2) S/P TAVR (transcatheter aortic valve replacement): (3) Peripheral vascular disease: (4) Polyneuropathy: (5) CAD in [place] artery: (6) Esophageal dysmotility: (7) Gastroesophageal reflux disease: (8) Hypercholesterolemia: (9) Hypothyroidism: (10) Hypertension: Plan Cystitis/UTI- Symptoms suggestive of cystitis CT scan of abdomen pelvis shows bladder wall thickness suggestive of cystitis Follow urine culture and sensitivity Continue empiric cefepime at 2 g IV every 12 hours Significant leukocytosis of 23.67. Importance of admission to clear infection especially in presence of TAVR CAD/hypertension/PAD/status post TAVR- Continue amlodipine, aspirin, carvedilol, isosorbide mononitrate and prasugrel Hyperlipidemia- Continue atorvastatin Dementia- Continue donepezil DVT prophylaxis-SCDs/heparin subcu History of Present Illness Chief Complaint: The patient is brought to the emergency department with complaint of gradually worsening bladder area pain for the past 3 days. Primary Care Provider: Charly Bass MD The patient is an 83-year-old female with a past medical history including status post TAVR, BRITTNY, peripheral vascular disease, polyneuropathy, CAD, esophageal dysmotility, ASCVD, dementia, GERD, hypercholesterolemia, hypothyroidism and hypertension. She has had progressively worsening suprapubic pain over the past 3 days, however, her reports that she was having more issues with dribbling for several days prior to that. She has no generalized complaints such as myalgias or arthralgias suggestive of sepsis Allergies Allergy/AdvReac Type Severity Reaction Status Date / Time adhesive Allergy Intermediate RED RASH Verified 09/10/22 16:07 clindamycin Allergy Mild Rash Verified 09/10/22 16:07 latex Allergy Mild RASH Verified 09/10/22 16:07 Penicillins Allergy Unknown HIVES Verified 09/10/22 16:07 Home Medications Medication Instructions Recorded Confirmed Type aspirin 81 mg chewable tablet 81 mg PO HS 11/23/18 09/10/22 History multivitamin (Daily Multi-Vitamin 1 tab PO QAM 12/15/19 09/10/22 History tablet) calcium carbonate 500 mg calcium 500 mg PO DAILY 08/24/20 09/10/22 History (1,250 mg) chewable tablet donepezil 5 mg tablet 5 mg PO QAM #90 tabs 01/27/22 09/10/22 Rx levothyroxine 100 mcg tablet See Rx Instructions .Route 03/31/22 09/10/22 Rx .COMPLEX #30 tabs carvedilol 12.5 mg tablet 12.5 mg PO BID #180 tabs 06/21/22 09/10/22 Rx conjugated estrogens 0.45 mg 0.45 mg PO QAM #90 tabs 08/19/22 09/10/22 Rx tablet (Premarin) amlodipine 5 mg tablet 5 mg PO QAM #90 tabs 09/15/22 Rx dicyclomine 10 mg capsule 10 mg PO BID #60 caps 09/29/22 Rx omeprazole 20 mg capsule,delayed See Rx Instructions .Route 09/29/22 Rx release .COMPLEX #180 caps prasugrel 10 mg tablet (Effient) 10 mg PO QAM #90 tabs 10/02/22 Rx cholecalciferol (vitamin D3) 125 125 mcg PO DAILY #90 caps 11/03/22 Rx mcg (5,000 unit) capsule nitroglycerin 0.4 mg sublingual 0.4 mg sublingual USEASDIRECTD PRN 11/26/22 Rx tablet (Nitrostat) Chest Pain #25 tabs azithromycin 500 mg tablet 500 mg PO .COMPLEX 1 day #3 tabs 12/02/22 Rx isosorbide mononitrate 60 mg 60 mg PO .COMPLEX #270 tabs 12/26/22 Rx tablet,extended release 24 hr atorvastatin 40 mg tablet (Lipitor) 40 mg PO HS #90 tabs 01/13/23 Rx Past Med/Surg History Medical History Angina pectoris Aortic stenosis Bradycardia CAD in [place] artery Carotid artery stenosis Diverticulosis Dizziness Elevated troponin Fibroids (08/05/13) Intermittent claudication Internal hemorrhoids Lumbosacral radiculopathy at L5 Lupus Memory loss Microscopic hematuria Occlusion of distal artery of left upper extremity Osteopenia Peripheral vascular disease Polyneuropathy Renal artery stenosis Renal insufficiency STEMI (ST elevation myocardial infarction) Tinnitus, unspecified ear Weakness Surgical History History of cardiac cath History of heart artery stent History of heart valve replacement S/P drug eluting coronary stent placement (2018) S/P laparoscopic hysterectomy (~2013) S/P TAVR (transcatheter aortic valve replacement) (2018) Social History Smoking Status: Former smoker Tobacco Type: Cigarettes Second Hand Exposure: No; Do You Dip or Chew Tobacco: No; Hx Alcohol Use: No Hx Substance Use: No Preferred Language: Maldivian Communication Ability: Effective Press Bucker Required: No Beliefs That Will Affect Care: None Current Living Situation: Spouse current occupation: N/A Feels Safe at Home: Yes Seatbelt Use: always Assistive Devices: Walker Review of Systems Review of Systems: The patient denies chest pain, palpitations, shortness of breath, dyspnea on exertion, cough, lower extremity swelling, sore throat, fevers, chills, sweats, weight change, fatigue, nausea, vomiting, diarrhea , constipation, blood in urine or stool, lightheadedness, dizziness, headache, loss of consciousness, rash, abnormal bruising or bleeding, imbalance, focal or generalized weakness, numbness or tingling in arms or legs, generalized arthralgias or myalgias, back or neck pain, or night sweats. The review of systems is otherwise negative other than for that already noted above, and at least 10 systems have been reviewed. Physical Exam Physical Exam: The patient is awake, alert and oriented 3, well developed and well nourished, normocephalic and atraumatic, lying in bed and in no acute distress. HEENT--PERRL, EOMI, mucous membranes and oropharynx mildly dry. Neck--supple. No JVD. No bruits. Thyroid normal, trachea midline, no adenopathy. Heart--normal S1 and S2. No murmurs, rubs or gallops. Lungs--clear bilaterally, no respiratory distress, no accessory muscle use. Abdomen--normal bowel sounds and soft. Mild suprapubic tenderness Extremities--no cyanosis or clubbing. No edema. Dermatologic--normal skin turgor, normal color, no abnormal lymph nodes, no rash. Neurologic--cranial nerves II through XII grossly intact. Rheumatologic--normal range of motion. Psychiatric--normal affect. Results & Data Results & Data Vital Signs (Past 12 Hours) Vital Signs Temp Pulse Pulse Resp BP BP Pulse Ox 01/28/23 19:30 61 18 145/64 H 97 01/28/23 17:07 36.3 C L 61 20 159/66 H 98 O2 Del Method 01/28/23 19:30 Room Air 01/28/23 17:07 Room Air Laboratory Results Laboratory Results WBC 23.67 K/ul (4.8-10.8) H 01/28/23 18:37 RBC 3.75 M/uL (4.20-5.40) L 01/28/23 18:37 Hgb 12.1 g/dl (12.0-16.0) 01/28/23 18:37 Hct 35.8 % (37.0-47.0) L 01/28/23 18:37 MCV 95.5 fL (80.0-100.0) 01/28/23 18:37 MCH 32.3 pg (25.0-34.0) 01/28/23 18:37 MCHC 33.8 g/dL (32.0-36.0) 01/28/23 18:37 RDW Std Deviation 59.5 fL (36.4-46.3) H 01/28/23 18:37 RDW Coeff of Minerva 17.1 % (11.5-14.5) H 01/28/23 18:37 Plt Count 175 K/uL (130-400) 01/28/23 18:37 MPV 11.3 fL (9.4-12.4) 01/28/23 18:37 Tear Drop Cells 2+ 01/28/23 18:37 Rouleaux 1+ 01/28/23 18:37 Sodium 133 mmol/L (136-145) L 01/28/23 18:37 Potassium 4.3 mmol/L (3.5-5.1) 01/28/23 18:37 Chloride 100 mmol/L (98-107) 01/28/23 18:37 Carbon Dioxide 25 mmol/L (21-32) 01/28/23 18:37 Anion Gap 8 (3-11) 01/28/23 18:37 BUN 16 mg/dl (6-23) 01/28/23 18:37 Creatinine 1.10 mg/dl (0.6-1.2) 01/28/23 18:37 Est Cr Clr Drug Dosing 34.6 ml/min 01/28/23 18:37 Est GFR ( Amer) 54.5 ml/min 01/28/23 18:37 Est GFR (Non-Af Amer) 47.0 ml/min 01/28/23 18:37 BUN/Creatinine Ratio 14.5 (10-20) 01/28/23 18:37 Glucose 87 mg/dl (70-99(Fasting)) 01/28/23 18:37 Calcium 9.9 mg/dl (8.6-10.3) 01/28/23 18:37 Total Bilirubin 0.6 mg/dl (0.2-1.0) 01/28/23 18:37 AST 16 U/L (13-39) 01/28/23 18:37 ALT 9 U/L (7-52) 01/28/23 18:37 Alkaline Phosphatase 79 U/L (34-104) 01/28/23 18:37 Total Protein 6.7 gm/dl (6.0-8.3) 01/28/23 18:37 Albumin 4.5 gm/dl (3.4-5.0) 01/28/23 18:37 Globulin 2.2 gm/dl (2.5-4.0) L 01/28/23 18:37 Albumin/Globulin Ratio 2.0 (0.9-2) 01/28/23 18:37 Impressions Abdomen/Pelvis CT 01/28/23 17:09 CT abd pelvis wo con CLINICAL HISTORY: Urinary symptoms, low abd pain TECHNIQUE: Helical axial images of the abdomen and pelvis were obtained. Automated dose lowering techniques and/or adjustment according to patient size were utilized for this exam. This exam was performed without intravenous contrast. CT DOSE: 1059.42 mGy.cm COMPARISON: None available at the time of this dictation. FINDINGS: Lower chest: Partial visualization of aortic valvular prosthesis. Liver: Unremarkable. No focal lesions are seen. Gallbladder and biliary tree: Cholelithiasis is seen without evidence of cholecystitis. No intra- or extrahepatic biliary ductal dilation. Pancreas: Unremarkable, no focal lesions. Spleen: Splenomegaly is noted, the spleen measures 13.5 cm. Adrenals: Unremarkable. Kidneys and ureters: Renal cysts are seen. Bladder: Diffuse homogeneous wall thickening is seen. Reproductive organs: Unremarkable. Bowel: Diverticulosis is seen without diverticulitis. The appendix is normal. A hiatal hernia is seen. Lymph nodes Retroperitoneal: Unremarkable. Pelvic: Unremarkable. Mesenteric: Unremarkable. Peritoneum: Normal. Vessels: Atherosclerotic calcifications are seen. Abdominal wall: Unremarkable. Bones: Degenerative changes in the visualized spine. IMPRESSION: Bladder wall thickening is seen which may be secondary to underdistention however correlation with urinalysis is recommended to exclude cystitis. No evidence of ascending infection is seen in this noncontrast exam. ACT 112: Negative or not required by law. Electronically signed by: Lucas Singh M.D. 01/28/2023 6:43 PM Code Status & VTE Plan Code Status Full code VTE Prophylaxis Plan VTE Prophylaxis will be ordered: Yes PG Care Time/CCT Total # of Minutes Spent Total Time Spent with Patient: Total time spent is greater than 50% in coordination of care (as documented) at patient's floor/unit and/or counseling patient: Coding Level of Care Code 29721 INT INP/OBS CARE 3/75MIN Diagnoses Cystitis N30.90 S/P TAVR (transcatheter aortic valve replacement) Z95.2 Peripheral vascular disease I73.9 Polyneuropathy G62.9 CAD in [place] artery I25.10 Esophageal dysmotility K22.4 Gastroesophageal reflux disease K21.9 Hypercholesterolemia E78.00 Hypothyroidism E03.9 Hypertension I10
[2023-01-28 20:49] LABS: Appearance Urine Cloudy (Clear); Bacteria Urine Automated Negative (Negative); Bilirubin Urine Negative (Negative); Blood Urine 3+ (Negative); Cast Urine Automated 0 /lpf (0-5); Color Urine Yellow; Glucose Urine UA Negative (Negative); Ketones Urine Negative (Negative); Leukocyte Esterase Urine 3+ (Negative); Nitrite Urine Negative (Negative); Protein Urine Trace (Negative); RBC Urine Automated 0-4 /hpf (0-4); Specific Gravity Urine 1.007 (1.000-1.030); Urobilinogen Urine Negative (Negative); WBC Urine Automated >30 /hpf (0-5)
[2023-01-28] MEDS ORDERED: ACETAMINOPHEN 325 MG TAB PO PRN (22:43)
[2023-01-28] MEDS ORDERED: ONDANSETRON INJ 2 MG/ML 2 ML VIAL IV PRN (22:43)
[2023-01-28] MEDS ORDERED: NSS + 20MEQ KCL 20 MEQ/1,000 ML BAG IV SCH (23:30)
[2023-01-29] MEDS: ASPIRIN 81 MG CHEW PO SCH ×2 (00:13→20:21)
[2023-01-29] MEDS: HEPARIN SOD 5,000 UNIT/0.5 ML VIAL SQ SCH ×3 (00:13→20:20)
[2023-01-29] MEDS: carvediloL 12.5 MG TAB PO SCH ×3 (00:14→20:21)
[2023-01-29] MEDS: DICYCLOMINE HCL 10 MG CAP PO SCH ×3 (00:14→20:21)
[2023-01-29] MEDS: ATORVASTATIN 40 MG TAB PO SCH ×2 (00:14→20:20)
[2023-01-29] MEDS: ISOSORBIDE MONO EXTENDED REL 60 MG TABCR PO SCH ×3 (00:14→20:21)
[2023-01-29 07:31] LABS: Hematocrit (blood only) 32.4 % (37.0-47.0); Hemoglobin 10.7 g/dl (12.0-16.0); Mean Corpuscular Hemoglobin 31.6 pg (25.0-34.0); Mean Corpuscular Volume 95.6 fL (80.0-100.0); Mean Platelet Volume 11.9 fL (9.4-12.4); Platelet Count 140 K/uL (130-400); RDW Coefficient of Variation 17.1 % (11.5-14.5); RDW Standard Deviation 59.6 fL (36.4-46.3); Red Blood Count 3.39 M/uL (4.20-5.40); White Blood Count 17.23 K/ul (4.8-10.8)
[2023-01-29 08:11] LABS: ALC (manual) 3.27 K/uL (1.2-3.4); ANC (manual) 10.34 K/uL (1.4-6.5); Eosinophils # (manual) 0.34 K/uL (0-0.50); Eosinophils % (manual) 2 %; Lymphocytes # (manual) 3.27 K/uL (1.2-3.4); Lymphocytes % (manual) 19 %; Metamyelocytes # (manual) 0.52 K/uL (0-0); Metamyelocytes % (manual) 3 %; Monocytes # (manual) 1.21 K/uL (0.11-0.59); Monocytes % (manual) 7 %; Myelocytes # (manual) 1.55 K/uL (0-0); Myelocytes % (manual) 9 %; Neutrophils # (manual) 10.34 K/uL (1.40-6.50); Neutrophils % (manual) 60 %; Ovalocytes 1+; Polychromasia 1+; Tear Drop Cells 1+
[2023-01-29 08:13] LABS: Albumin Globulin Ratio 2.1 (0.9-2); Albumin Level 3.9 gm/dl (3.4-5.0); BUN Creatinine Ratio 13.7 (10-20); Bilirubin,Total 0.5 mg/dl (0.2-1.0); Calcium 9.6 mg/dl (8.6-10.3); Creatinine Clr Calc Pharmacy 40.1 ml/min; Est GFR (African American) 65.1 ml/min; Est GFR (Non-African American) 56.2 ml/min; Globulin 1.9 gm/dl (2.5-4.0); Magnesium 1.9 mg/dl (1.7-2.4); Potassium 3.9 mmol/L (3.5-5.1); Total Protein 5.8 gm/dl (6.0-8.3)
[2023-01-29] MEDS: CEFEPIME 2,000 MG in SYRINGE 0 ML IV SCH ×2 (08:20→20:20)
[2023-01-29] MEDS: amLODIPine BESYLATE 5 MG TAB PO SCH (08:26)
[2023-01-29] MEDS: CALCIUM CARBONATE 1250MG TAB PO SCH (08:27)
[2023-01-29] MEDS: CHOLECALCIFEROL 5,000 UNITS 125 MCG TAB PO SCH (08:27)
[2023-01-29] MEDS: DONEPEZIL HCL 5 MG TAB PO SCH (08:28)
[2023-01-29] MEDS: ESTROGENS, CONJUGATED 0.45 MG TAB PO SCH (08:29)
[2023-01-29] MEDS: PRASugrel TAB 10 MG TAB PO SCH (08:29)
[2023-01-29] MEDS: MULTIVITAMIN TAB PO SCH (08:30)
--- NOTE | 2023-01-29 17:19 | Hospitalist Progress Note ---
Date of Service January 29, 2023 Assessment & Plan (1) Cystitis: (2) S/P TAVR (transcatheter aortic valve replacement): (3) Peripheral vascular disease: (4) Polyneuropathy: (5) CAD in [place] artery: (6) Esophageal dysmotility: (7) Gastroesophageal reflux disease: (8) Hypercholesterolemia: (9) Hypothyroidism: (10) Hypertension: Plan Cystitis/UTI- Symptoms suggestive of cystitis CT scan of abdomen pelvis shows bladder wall thickness suggestive of cystitis WBC count quite high on admission at 23 and now down to 17, symptoms all completely resolved Unfortunately Ur cx neg but definitely seems like she had a UTI Continue empiric cefepime at 2 g IV every 12 hours and will likely convert to po CIpro on discharge follow BCxs-NGTD CAD/hypertension/PAD/status post TAVR-no acute issues Continue amlodipine, aspirin, carvedilol, isosorbide mononitrate and prasugrel Hyperlipidemia- Continue atorvastatin Dementia- Continue donepezil DVT prophylaxis-SCDs/heparin subcu Dispo-continued stay, likely dc to home tomorrow discussed care with at bedside Admission and Anticipated Discharge Date Admission Date: January 28, 2023 Subjective Feeling much improved. No suprapubic pain, no lower back pain. No CP. Has chronic SOB. Denies nausea, is eating her dinner when I saw her. reports she looks much "perkier." Physical Exam Constitutional: WD/WN, vitals as above Neck: trachea midline, no thyromegaly Respiratory: normal respiratory effort, lungs clear to auscultation Cardiovascular: RRR, no murmur, no edema Gastrointestinal (Abdomen): normal bowel sounds, soft, nontender, no hepatosplenomegaly Musculoskeletal: Extremities: extremities normal to inspection; no cyanosis and no clubbing Skin: no rashes, warm and dry Neurologic: moves all extremities and awake; no focal motor deficits Lymphatic: no lymphedema Results & Data Results & Data Vital Signs (Past 12 Hours) Vital Signs Temp Pulse Resp BP Pulse Ox O2 Del Method 01/29/23 15:26 37.1 C 67 18 121/56 L 95 Room Air 01/29/23 08:48 74 18 131/73 96 Room Air 01/29/23 08:38 Room Air 01/29/23 07:50 36.7 C 62 18 139/67 95 Room Air Laboratory Results CBC, BMP Ur cx, BCxs reviewed PG Care Time/CCT Total # of Minutes Spent Total Time Spent with Patient: Total time spent is greater than 50% in coordination of care (as documented) at patient's floor/unit and/or counseling patient: Coding Level of Care Code 63404 SUB INP/OBS CARE 2/35MIN Diagnoses Cystitis N30.90 S/P TAVR (transcatheter aortic valve replacement) Z95.2 Peripheral vascular disease I73.9 Polyneuropathy G62.9 CAD in [place] artery I25.10 Esophageal dysmotility K22.4 Gastroesophageal reflux disease K21.9 Hypercholesterolemia E78.00 Hypothyroidism E03.9 Hypertension I10
[2023-01-29] MEDS ORDERED: NITROGLYCERIN SL 0.4 MG/TAB TAB SL STA (20:36)
[2023-01-29] MEDS ORDERED: ALBUT/IPRATROP 3MG/0.5MG NEB 3 ML VIAL NEB STA (21:46)
[2023-01-29 22:19] LABS: Bilirubin,Total 0.5 mg/dl (0.2-1.0); Calcium 9.6 mg/dl (8.6-10.3); Potassium 4.3 mmol/L (3.5-5.1)
[2023-01-29 22:56] LABS: BUN Creatinine Ratio 13.8 (10-20); Creatinine Clr Calc Pharmacy 26.3 ml/min; Est GFR (Non-African American) 33.7 ml/min
[2023-01-30] MEDS: CEFEPIME 2,000 MG in SYRINGE 0 ML IV SCH (07:50)
[2023-01-30 08:33] LABS: ALC (manual) 2.61 K/uL (1.2-3.4); ANC (manual) 10.46 K/uL (1.4-6.5); Basophils # (manual) 0.16 K/uL (0-0.2); Basophils % (manual) 1 %; Eosinophils # (manual) 0.16 K/uL (0-0.50); Eosinophils % (manual) 1 %; Hematocrit (blood only) 32.4 % (37.0-47.0); Hemoglobin 10.6 g/dl (12.0-16.0); Lymphocytes # (manual) 2.61 K/uL (1.2-3.4); Lymphocytes % (manual) 16 %; Mean Corpuscular Hemoglobin 31.5 pg (25.0-34.0); Mean Corpuscular Hgb Conc 32.7 g/dL (32.0-36.0); Mean Corpuscular Volume 96.1 fL (80.0-100.0); Mean Platelet Volume 11.4 fL (9.4-12.4); Metamyelocytes # (manual) 0.33 K/uL (0-0); Metamyelocytes % (manual) 2 %; Monocytes # (manual) 2.12 K/uL (0.11-0.59); Monocytes % (manual) 13 %; Myelocytes # (manual) 0.49 K/uL (0-0); Myelocytes % (manual) 3 %; Neutrophils # (manual) 10.46 K/uL (1.40-6.50); Neutrophils % (manual) 64 %; Platelet Count 135 K/uL (130-400); RDW Coefficient of Variation 17.1 % (11.5-14.5); RDW Standard Deviation 59.6 fL (36.4-46.3); Red Blood Count 3.37 M/uL (4.20-5.40); Tear Drop Cells 1+; White Blood Count 16.34 K/ul (4.8-10.8)
[2023-01-30 08:59] LABS: Albumin Level 3.9 gm/dl (3.4-5.0); Bilirubin,Total 0.5 mg/dl (0.2-1.0); Calcium 9.6 mg/dl (8.6-10.3); Magnesium 1.9 mg/dl (1.7-2.4); Potassium 3.9 mmol/L (3.5-5.1)
[2023-01-30 09:05] LABS: Creatinine Clr Calc Pharmacy 38.1 ml/min; Est GFR (African American) 61.2 ml/min; Est GFR (Non-African American) 52.8 ml/min; Total Protein 5.9 gm/dl (6.0-8.3)
[2023-01-30] MEDS: CALCIUM CARBONATE 1250MG TAB PO SCH (09:08)
[2023-01-30] MEDS: amLODIPine BESYLATE 5 MG TAB PO SCH (09:08)
[2023-01-30] MEDS: CHOLECALCIFEROL 5,000 UNITS 125 MCG TAB PO SCH (09:09)
[2023-01-30] MEDS: carvediloL 12.5 MG TAB PO SCH (09:09)
[2023-01-30] MEDS: ESTROGENS, CONJUGATED 0.45 MG TAB PO SCH (09:10)
[2023-01-30] MEDS: DONEPEZIL HCL 5 MG TAB PO SCH (09:10)
[2023-01-30] MEDS: DICYCLOMINE HCL 10 MG CAP PO SCH (09:10)
[2023-01-30] MEDS: ISOSORBIDE MONO EXTENDED REL 60 MG TABCR PO SCH (09:11)
[2023-01-30] MEDS: MULTIVITAMIN TAB PO SCH (09:11)
[2023-01-30] MEDS: PRASugrel TAB 10 MG TAB PO SCH (09:12)
[2023-01-30] MEDS: HEPARIN SOD 5,000 UNIT/0.5 ML VIAL SQ SCH (09:13)
[2023-01-30 09:26] LABS: Troponin I High Sensitivity 8.4 pg/ml (0-14)
[2023-01-30] MEDS ORDERED: MAGNESIUM SULFATE / D5W 1 GM/100 ML BAG IV ONE (10:47)
[2023-01-30] MEDS ORDERED: POTASSIUM CHLORIDE 10 MEQ TABCR PO STA (10:47)
--- NOTE | 2023-01-30 12:36 | Electrocardiogram Report ---
Test Reason : Blood Pressure : / mmHG Vent. Rate : 088 BPM Atrial Rate : 088 BPM P-R Int : 000 ms QRS Dur : 100 ms QT Int : 346 ms P-R-T Axes : 000 -50 107 degrees QTc Int : 418 ms Poor data quality, interpretation may be adversely affected Normal sinus rhythm with occasional Premature atrial complexes Left axis deviation Anterolateral infarct (cited on or before 17-OCT-2017) Abnormal ECG When compared with ECG of 22-MAY-2021 20:16, QT has shortened Confirmed by Charly Walton ([id number]) on 01/30/2023 12:36:09 PM Referred By: REFERRED SELF Confirmed By:Charly Walton
--- NOTE | 2023-01-30 13:54 | Discharge Summary ---
Discharge Summary Date of Service January 30, 2023 Notes For Next Care Provider Medication Changes From Visit Cipro 500mg po bid x 5 more days Admission HPI Per Admitting Provider The patient is an 83-year-old female with a past medical history including status post TAVR, BRITTNY, peripheral vascular disease, polyneuropathy, CAD, esophageal dysmotility, ASCVD, dementia, GERD, hypercholesterolemia, hypothyroidism and hypertension. She has had progressively worsening suprapubic pain over the past 3 days, however, her reports that she was having more issues with dribbling for several days prior to that. She has no generalized complaints such as myalgias or arthralgias suggestive of sepsis Principal Dx & Hospital Course #1 = Principal Diagnosis (1) Cystitis: (2) S/P TAVR (transcatheter aortic valve replacement): (3) Peripheral vascular disease: (4) Polyneuropathy: (5) CAD in [place] artery: (6) Esophageal dysmotility: (7) Gastroesophageal reflux disease: (8) Hypercholesterolemia: (9) Hypothyroidism: (10) Hypertension: Plan Cystitis/UTI- Symptoms suggestive of cystitis CT scan of abdomen pelvis shows bladder wall thickness suggestive of cystitis WBC count quite high on admission at 23 and now down to 16 (has baseline leukocytosis as well), symptoms all completely resolved. No fevers, doing very well, urinary symptoms all resolved Unfortunately Ur cx neg but definitely seems like she had a UTI clinically BCxs remain NGTD at almost 48 hrs Received empiric cefepime at 2 g IV every 12 hours and will convert to po CIpro 500mg po bid x 5 more days on discharge follow BCxs after discharge CAD/hypertension/PAD/status post TAVR-had a brief episode of chest pain overnight before discharge with walking back from the bathroom. Was relieved with NTG right away. Troponin negative x 2 and no recurrence of pain. May have been reflux related as her husbands report that occurs with her in the past. ECG initially read as Afib overnight by computer but on my review and confirmed with [employer] supervisor quality control-this is SR with PACs Continue amlodipine, aspirin, carvedilol, isosorbide mononitrate and prasugrel Hyperlipidemia- Continue atorvastatin Dementia- Continue donepezil but HOLD x 5 days while on Cipro due to potential for prolonged QT DVT prophylaxis-SCDs/heparin subcu Dispo-dc to home discussed care with at bedside Discharge Exam Constitutional WD/WN, vitals as above Neck trachea midline, no thyromegaly Respiratory normal respiratory effort, lungs clear to auscultation Cardiovascular RRR, no murmur, no edema Gastrointestinal (Abdomen) normal bowel sounds, soft, nontender, no hepatosplenomegaly Musculoskeletal Extremities: extremities normal to inspection; no cyanosis and no clubbing Skin no rashes, warm and dry Neurologic moves all extremities and awake; no focal motor deficits Lymphatic no lymphedema Updated Medication List Medication Instructions Recorded Confirmed Type aspirin 81 mg chewable tablet 81 mg PO HS 11/23/18 01/28/23 History multivitamin (Daily Multi-Vitamin 1 tab PO QAM 12/15/19 01/28/23 History tablet) calcium carbonate 500 mg calcium 500 mg PO DAILY 08/24/20 01/28/23 History (1,250 mg) chewable tablet donepezil 5 mg tablet 5 mg PO QAM #90 tabs 01/27/22 01/28/23 Rx carvedilol 12.5 mg tablet 12.5 mg PO BID #180 tabs 06/21/22 01/28/23 Rx conjugated estrogens 0.45 mg 0.45 mg PO QAM #90 tabs 08/19/22 01/28/23 Rx tablet (Premarin) amlodipine 5 mg tablet 5 mg PO QAM #90 tabs 09/15/22 01/28/23 Rx dicyclomine 10 mg capsule 10 mg PO BID #60 caps 09/29/22 01/28/23 Rx prasugrel 10 mg tablet (Effient) 10 mg PO QAM #90 tabs 10/02/22 01/28/23 Rx cholecalciferol (vitamin D3) 125 125 mcg PO DAILY #90 caps 11/03/22 01/28/23 Rx mcg (5,000 unit) capsule nitroglycerin 0.4 mg sublingual 0.4 mg sublingual USEASDIRECTD PRN 11/26/22 01/28/23 Rx tablet (Nitrostat) Chest Pain #25 tabs azithromycin 500 mg tablet 500 mg PO .COMPLEX 1 day #3 tabs 12/02/22 01/28/23 Rx atorvastatin 40 mg tablet (Lipitor) 40 mg PO HS #90 tabs 01/13/23 01/28/23 Rx famotidine 20 mg tablet (Pepcid) 20 mg PO QPM 01/28/23 01/28/23 History isosorbide mononitrate 60 mg 60 mg PO QPM 01/28/23 01/28/23 History tablet,extended release 24 hr isosorbide mononitrate 60 mg 120 mg PO QAM 01/28/23 01/28/23 History tablet,extended release 24 hr levothyroxine 100 mcg tablet 100 mcg PO DAILYBB 01/28/23 01/28/23 History omeprazole 20 mg capsule,delayed 20 mg PO QAM 01/28/23 01/28/23 History release ciprofloxacin HCl 500 mg tablet 500 mg PO BID #10 tabs 01/30/23 Rx (Cipro) Hospital Stay Data Consultations 01/28/23 20:26 ED Decision to Admit Stat Diagnostic Imagining Performed 01/28/23 17:09 CT abd pelvis wo con Stat Pending Results Patient Have Any Pending Studies at Discharge: Yes (Final blood cultures-no growth to date) Discharge Instructions Given to Patient (Per Discharging Provider) Please finish out 5 more days of the antibiotic called Cipro for your UTI. If you have any joint pains, nausea, confusion, diarrhea, lightheadedness, heart palpitations, rash or any other side effects from this medication, please call your doctor or come to the ER if severe. You should HOLD your donepezil x 5 days while you're on the Cipro as they can interact with each other. Follow up with your PCP within 1-2 weeks after discharge. Total Time Total Time Spent Total Time Spent (In Minutes): 35 min Coding Level of Care Code 91297 INP/OBS DISCH >30 MIN Diagnoses Cystitis N30.90 S/P TAVR (transcatheter aortic valve replacement) Z95.2 Peripheral vascular disease I73.9 Polyneuropathy G62.9 CAD in [place] artery I25.10 Esophageal dysmotility K22.4 Gastroesophageal reflux disease K21.9 Hypercholesterolemia E78.00 Hypothyroidism E03.9 Hypertension I10
== END 2023-01-30 15:12 | disposition home or self-care (01) | DRG 690 ==
LOC: ED 16:59 → 3W 20:35 → INTOOBSV 20:35 → SUATTDRO 20:35 → 3W 22:23